=== PATIENT | female | born 1940 | race Caucasian/White ===

== ENCOUNTER → 2017-03-23 | Day surgery (SDC) | payer OTHER ==
[~2017-03-23] MED LIST: ALBU18002 INH; ASPI81TA28 PO; CARB1SOL OP; CARDIZEM PO; CLOP1TAB15 PO; CMD5 PO; CPR500 PO; CRS/10 PO; DABI1CAP PO; DILT300C PO; FLUC100T4 PO; FRS/40 PO; GABA-113 PO; GLC/500 PO; IPRASOL4 INH; LEVO100T7 PO; LVNIS120 SQ; NTRGSL/4 UT; POLY335019 PO; SYMIN160 INH; TEMA15CA4 PO; TIOT1SPR INH; TPRSR50 PO; WARF1TAB PO
--- NOTE | 2017-03-23 11:11 | DIAGNOSTIC IMAGING REPORT ---
FACIAL BONES-MXILLOFAC WITHOUT CLINICAL HISTORY:76 years Femaleacute facial pain status post fall. Concern for subcutaneous emphysema and possible sinus fracture. COMPARISON STUDY: None available TECHNIQUE: High-resolution CT scan of the facial bones is performed. Images are reviewed in the axial, sagittal, and coronal planes. IV contrast was not administered for this examination. CT DOSE: 616.72 mGy.cm FINDINGS: Acute minimally displaced right and left nasal bone fractures are seen with adjacent moderate soft tissue swelling. No associated subcutaneous emphysema is identified. The bony orbits are intact and the orbital contents are within normal limits. The zygomatic arches, and pterygoid plates are preserved. The maxilla and mandible are intact. Moderate degenerative changes involve the temporomandibular joints bilaterally. The paranasal sinuses and mastoid air cells are clear. The imaged calvarium and upper cervical spine appear intact. Degenerative changes are present within the imaged cervical spine. Partially imaged brain parenchyma is within normal limits. IMPRESSION: 1. Acute minimally displaced right and left nasal bone fractures with adjacent moderate soft tissue swelling. No evidence of associated subcutaneous emphysema. 2. No additional facial bone fracture or dislocation identified. 3. Moderate degenerative changes involve the temporomandibular joints bilaterally. The above report was generated using voice recognition software. It may contain grammatical, syntax or spelling errors. Electronically signed by: Sukhdev Flowers M.D. 03/23/2017 11:10 AM Dictated Date/Time: 03/23/2017 11:06 AM
--- NOTE | 2017-03-23 11:34 | Pulmonary Consultation ---
History General Date of Service: Mar 23, 2017. Stated Complaint: Pulmonary Nodule, Sob, Interstitial Lung Ds HPI The patient is a 76 year old female who presents to [facility] with complaints of Pulmonary Nodule, Sob, Interstitial Lung Ds. The patient's primary care provider is Michael Carrion D.O.. 76y/o female with PmHx: ILD, CHF, CAD, CAYETANO, aspiration and COPD recently treated for exacerbations with steroids and antibiotics. She continues to have a productive cough, wheezing, dyspnea, fatigued with little benefit from her medical/medication interventions. CXR performed 01/29/17 noted an opacification in the Lingula. On 03/20/2017 the patient feel and fractured her nose. She was treated and JCB with suture over her nasal bridge and left periorbital region. She denies current pain, SOB, hemoptysis nasal discharge but is having left rusty -orbital edema increased after using her CPAP device. Historian: patient, family, EMS Review of Systems Constitutional: reports: no symptoms Eyes: reports: no symptoms ENT: reports: nasal pain, nasal congestion Cardiovascular: reports: no symptoms Respiratory: reports: cough, shortness of breath Gastrointestinal: reports: no symptoms, as stated in HPI, abdominal pain Genitourinary - Female: reports: no symptoms, as stated in HPI, dysmenorrhea, dysuria Musculoskeletal: reports: no symptoms Integumentary: reports: no symptoms, as stated in HPI Neurologic: reports: no symptoms Psychiatric: reports: no symptoms Endocrine: no symptoms Hematologic / Lymphatic: no symptoms Allergic / Immunologic: no symptoms Past Medical History Past Medical History: ActiveProblems_10_twCiteListControlStart Acute bronchitis Aspiration into airway Candidiasis Chronic constipation Congestive heart failure (CHF) Coronary artery disease Depression Diabetes mellitus Hypertension Interstitial lung disease (DLCO: 50%) Myocardial Infarction Arrhythmias Obstructive sleep apnea Oral thrush Post-nasal drip Sacroiliac strain Shortness of breath Solitary pulmonary nodule ActiveProblems_10_twCiteListControlEnd Moderate COPD (FEV1: 63%) Angina pectoris Chest pain of unknown etiology Abscess Past Surgical History: Back Surgery Card Cath Post-Proc Data: ___ Lesions Successfully Dilated Cardioverter-Defibrillator Pulse Generator With Synchronous Cardiac Pacemaker Cath Stent Placement Catheter Ablation Atrial Fibrillation Cholecystectomy Tubal Ligation Family History 1. cerebrovascular accident 2. Acute Myocardial Infarction 3. Coronary Artery Disease Social History Former smoker Marital History - Never Drank Alcohol Retired From Work Allergies Coded Allergies: No Known Allergies (Unverified , 03/23/17) Physical Physical Exam General Appearance: NO APPARENT DISTRESS Head: other (anteroir forhead and left>righ maxilo-facial edema/ecyhmosis) Eyes: PERRLA, NO DISCHARGE, EOMI, SCLERAE NORMAL, CONJUNCTIVAE NORMAL ENT: NORMAL EAR EXAM, other (eythema with minimal blood L>R) Genitourinary - Female: EXTERNAL GENITALIA NORMAL Back: NORMAL INSPECTION, NO MIDLINE TENDERNESS, NO CVA TENDERNESS, NO PARAVERTEBRAL TTP Upper Extremities: NO EDEMA, NO DEFORMITY Lower Extremities: NO EDEMA, NO DEFORMITY Pulses: carotid (R) (2+), carotid (L) (2+), posterior tibial (L) (1+) Neuro: ALERT, ORIENTED x 3, NORMAL MOTOR EXAM, NORMAL SENSATION Reflexes: biceps (R) (2+), bicpes (L) (2+), achilles (R) (2+), achilles (L) (2+ ) Babinski Testing: right (downgoing), left (downgoing) Psychiatric: NORMAL AFFECT, NO SUICIDAL IDEATION Diagnostics Diagnostic Radiology CT of the face showing nasal fractures Impression Assessment and Plan 76-year-old female with history of ILD, COPD, aspiration, sleep apnea in chronic productive cough presenting for bronchoscopy: #1 nasal fracture: Patient fell in the Wednesday prior to the procedure and described preoperatively her nasal pillows causing increased left sided periorbital edema. Physical exam did not show any signs of subcutaneous fremitus nor did the CT of the face. The physical exam did show some erythema left greater than right and some mild retained blood in the left middle turbinate. At this time I have discontinued the bronchoscopy we have also talked to the ENT specialist Dr. Dieter Longoria the patient will be sent for further evaluation. Want to make sure that using her nares O Pelz will not place this patient at any increased risk from nasal complication of possible infection at this time. #2 chronic cough: The patient is stabilized and cleared by ENT the patient can be reset up for bronchoscopy for evaluation.
== END | disposition home or self-care (01) ==
LOC: C.ACU 08:40
PROVIDERS: ATTEND Internal Medicine Critical Care Medicine
DX: R05 Cough (principal); J84.9 Interstitial pulmonary disease, unspecified; I50.9 Heart failure, unspecified; I25.10 Atherosclerotic heart disease of native coronary artery without angina pectoris; G47.33 Obstructive sleep apnea (adult) (pediatric); R91.1 Solitary pulmonary nodule; I11.0 Hypertensive heart disease with heart failure; E11.9 Type 2 diabetes mellitus without complications; F32.9 Major depressive disorder, single episode, unspecified; K59.09 Other constipation; Z87.891 Personal history of nicotine dependence; Z95.5 Presence of coronary angioplasty implant and graft; S02.2XXA Fracture of nasal bones, initial encounter for closed fracture; W19.XXXA Unspecified fall, initial encounter; Z79.82 Long term (current) use of aspirin; Z79.84 Long term (current) use of oral hypoglycemic drugs; Z79.01 Long term (current) use of anticoagulants; Z79.899 Other long term (current) drug therapy; J44.9 Chronic obstructive pulmonary disease, unspecified; Z53.8 Procedure and treatment not carried out for other reasons

== ENCOUNTER 2017-04-20 08:22 | Inpatient (IN) | payer OTHER ==
[2017-04-20] VITALS (12 sets, daily range): BP systolic 131–151; BP diastolic 68–85; PULSE 61–78; TEMP 36.5–36.9; O2SAT 92–98; Ht 167.6 cm; Wt 116.2 kg
[~2017-04-20] VITALS: Ht 167.6 cm; Wt 116.2 kg
[2017-04-20] MEDS ORDERED: OPTIRAY 300 IV PRN (08:30)
[2017-04-20 09:11] LABS: ISTAT CREATININE 0.8 mg/dl (0.6-1.3); ISTAT HEMOGLOBIN 12.9 g/dl (12.0-16.0); ISTAT IONIZED CALCIUM 1.15 mmol/l (1.12-1.32)
--- NOTE | 2017-04-20 09:27 | DIAGNOSTIC IMAGING REPORT ---
CT SCAN OF THE CHEST WITH IV CONTRAST CLINICAL HISTORY: Acute bronchitis. Pulmonary nodule. COMPARISON STUDY: Chest CT dated 11/18/2010. Chest x-ray dated 03/20/2017. TECHNIQUE: Following the IV administration of 117 cc of Optiray 320, CT scan of the thorax was performed from the thoracic inlet to the upper abdomen. Images are reviewed in the axial, sagittal, and coronal planes. IV contrast was administered without complication. A dose lowering technique was utilized adhering to the principles of ALARA. CT DOSE: 845.38 mGy.cm FINDINGS: Thyroid: Imaged portions of the thyroid gland are normal in size and attenuation. Thoracic aorta: There is atherosclerotic calcification of the thoracic aorta, which is normal in caliber and demonstrates bovine variant arch anatomy. No dissection is seen. Pulmonary vasculature: The main pulmonary arteries appear dilated suggesting pulmonary artery hypertension. There are pulmonary emboli within segmental and subsegmental branches of the right lower lobe pulmonary artery. Heart: A 2-lead cardiac pacemaker is present in the left chest wall. The heart is enlarged and without pericardial effusion. The coronary arteries are densely calcified. Lungs and pleural spaces: Emphysema is identified. No lobar consolidation or pleural effusion is identified. Linear scarring versus atelectasis is seen in the lingula. There are subpleural opacities at the right lung base with right lower lobe scarring/atelectasis. Secretions are noted in the trachea and the left mainstem bronchus. There is Bronchial thickening in the lower lobes with intraluminal secretions/debris. Numerous punctate nodules and granulomas are seen dependently at both lung bases, left greater than right. Mediastinum: There is no mediastinal lymphadenopathy. Roxann: Clear. Axillae: There is no axillary lymphadenopathy. Upper abdomen: There is a tiny hiatal hernia. A 7 cm cyst is seen in the right lobe of the liver. Additional smaller hepatic cysts are noted. Mild intrahepatic biliary ductal dilatation is unchanged and likely related to previous cholecystectomy. Left adrenal nodules measure up to 1.7 cm are unchanged from 2011 and consistent fat-containing adenomas. There is a 1.1 cm indeterminant cortical hypodensity in the upper pole of the left kidney seen on image #282. Skeletal structures: The skeletal structures are osteopenic. No lytic or blastic bony lesions are seen. Degenerative change is present throughout the thoracic spine. Intrathecal leads are present within the central canal in the lower thoracic region. IMPRESSION: 1. There are pulmonary emboli within segmental and subsegmental branches of the right lower lobe pulmonary artery. 2. Subpleural opacities are seen at the right lung base and there is associated linear atelectasis/scarring. The appearance suggests pulmonary infarcts given the presence of right lower lobe pulmonary emboli. Clinical correlation will be required. 3. There are secretions present within the trachea and left mainstem bronchus. Additionally, fluid/debris is present within the dependent lower lobe airways. There are numerous punctate nodules seen within the dependent lower lobes and the appearance suggests chronic aspiration. Clinical correlation will be essential. 4. Emphysema, cardiomegaly, and cardiac pacemaker. Findings suggest pulmonary artery hypertension. 5. There is no lobar consolidation or pleural effusion. 6. There is a 1.1 cm indeterminant cortical hypodensity in the upper pole of the left kidney. This likely represents a cyst but is too small for definitive characterization. A precautionary six-month renal ultrasound is recommended for reassessment. 7. An intrathecal lead versus lead fragment is present within the central canal in the lower thoracic region. Clinical correlation will be required. 8. Additional findings as above. Electronically signed by: Oral Kirby M.D. 04/20/2017 9:26 AM Dictated Date/Time: 04/20/2017 9:12 AM
--- NOTE | 2017-04-20 10:00 | History and Physical ---
History & Physical Date Apr 20, 2017. Chief Complaint Chronic Cough History of Present Illness The patient is a 76 year old female with complaints of chronic cough Pulmonary function study 05/03/2014 Spirometry: Mild obstructive ventilatory disease FEV1 80% Lung volumes: Within normal limits DLCO: Moderately reduced at 42% corrected off alveolar volume at 82% 6 minute walk study 10/01/2016 Baseline O2 needs: Initially, no supplemental oxygen was needed. GrqwdRtcmcvb94Bju CpgwbXefsolf06Waike EccpdYcxvypu68Ghh UtnkiYrqnyzz12Vpdre Baseline VS and Horacio scale: HR: 66,~O2 sat: 95% RtkbxUblkpef83Jlc JbksnKtyjovq56Zaeum NjrtrMnteguf03Irv CxzcqSeptvbc92Pmqgf QvxphUvjyyni31Vap UmlcpGixnghc48Zlete HzeyxJzihdva76Hmy OdxtqLprwncg19Eeams AtewfXbryeut92Peh HqhrpSlgethb00Sblam IdnnkBbnqzzn54Ceo NlvnrPchiidq15Yfhme AlcbsRtxgyjf31Ute VdwgsZzvmqws41Jamzl 1 min VS and Horacio Scale: HR: 101,~O2 sat: 90% HcmjyQtbfouv69Hkc KdzkwGsvoiat22Lxmnx 2 min VS and Horacio Scale: HR: 109,~O2 sat: 88% ZtqjwLmfivxx93Uzg GeemvQgffdib56Rsywk YszmrRclumjk47Wrw AtspoOkfqytv04Gocps LwekrYadtrij02Tyg ZrtamDlyzozy40Kpbzw IicaeSlmczkv97Myd FvxepGpmqnvw23Uxchj JpxuuFftyxej47Xyj QcgbnEcxkvha89Cnlxo YvxgyLnbvrfu58Jom XxiivPoryeio95Jpjpq Interventions: supplemental oxygen was applied at 2 liters per minute and was 96 % at 1 min seated, HR-91, O2 was 94% with 1 mintue of walking, HR-93. DenkhDqbsklx45Tap BtqgcYdddkqg10Ghkul WktuaNtxgpyl13Hmq NgtriCozoxox13Myhsl VexcuAfllwbl19Gir RbgxmDmocjwl81Borfr WvxrgZcgxdvb53Qof TmanrZmanuru86Jyidc JlumzKdduucu83Zyn FanvwBolgndr71Uiiua AjihbFkdrzkn38Lmr HccnuWgjzgja17Ceutw The patient complains of dyspnea,~fatigue~and~left foot pain. IpadoDtqarsg47Xwl McwouKjkkndf89Zbwyi Reason for Premature Termination: dyspnea~and~left foot pain EKG 01/15/2017 Atrial fibrillation with RVR rate 127 CT thorax 11/18/2010 Bronchiectatic changes in the right middle lobe along with scar-like atelectasis Bronchiectatic changes with scar-like atelectasis in the lingual Active signs of interstitial/parenchymal changes Chest x-ray 03/20/2017 Cardiomegaly, hilar fullness with cephalization Mild opacification of the left lateral lower lobe OqbkkYfkgyiw90Xci HanfcKguhibh58Jpsrd BfaswOadjciq06Nsc SixMinuteWalkTest(6MWT) [id number] Active Problems 1. Acute bronchitis 2. Aspiration into airway 3. Candidiasis 4. Chronic constipation 5. Congestive heart failure (CHF) 6. Coronary artery disease 7. Depression 8. Diabetes mellitus 9. Hypertension 10. Interstitial lung disease 11. Myocardial Infarction Arrhythmias 12. Obstructive sleep apnea 13. Oral thrush 14. Post-nasal drip 15. Sacroiliac strain 16. Shortness of breath 17. Solitary pulmonary nodule 18. bundle branch block 19. Angina pectoris 20. Chest pain of unknown etiology 21. Abscess Surgical History 1. Back Surgery 2. Card Cath Post-Proc/Lesions Successfully Dilated 3. Cardioverter-Defibrillator Pulse Generator With Synchronous Cardiac Pacemaker 4. Cath Stent Placement 5. Catheter Ablation Atrial Fibrillation 6. Cholecystectomy 7. Tubal Ligation 8. Back surgery Family History 1. Family history of cerebrovascular accident 2. Family history of Acute Myocardial Infarction 3. Family history of Coronary Artery Disease Social History Denied: History of Drug Use Former smoker () Denied: History of Home Environment Domestic Violence Denied: History of Housing Without Smoke Detectors Marital History - Never Drank Alcohol Retired From Work Denied: History of Uses Safety Equipment - Seatbelts Current Meds 1. Ipratropium-Albuterol 0.5-2.5 (3) MG/3ML Inhalation Solution; USE 1 UNIT DOSE IN NEBULIZER 4 TIMES DAILY Requested for: [id number]; Last Rx:[id number] Ordered 2. Azithromycin 250 MG Oral Tablet; Take 2 day 1 then 1 daily until gone; 3. Fluconazole 100 MG Oral Tablet; TAKE 1 TABLET DAILY DIRECTED 4. MetFORMIN HCl - 500 MG Oral Tablet; TAKE 1 TABLET ONCE DAILY WITH A MEAL; 5. Medrol 4 MG Oral Tablet Therapy Pack; TAKE DIRECTED; 6. Spiriva Respimat 2.5 MCG/ACT Inhalation Aerosol Solution; INHALE 2 PUFFS ONCE 7. Symbicort 160-4.5 MCG/ACT Inhalation Aerosol; INHALE 2 PUFFS TWICE DAILY. RINSE 8. ProAir RespiClick 108 (90 Base) MCG/ACT Inhalation Aerosol Powder Breath Activated; 2 Puffs Q4 hours as needed; 9. Aspirin Adult Low Dose 81 MG Oral Tablet Delayed Release; TAKE 1 TABLET DAILY ; 10. Cardizem LA 300 MG Oral Tablet Extended Release 24 Hour; TAKE 1 TABLET DAILY ; 11. Crestor 10 MG Oral Tablet; TAKE 2 TABLETS DAILY; 12. Gabapentin 300 MG Oral Capsule; TAKE 1 CAPSULE Daily; 13. Lasix 40 MG Oral Tablet; TAKE 1 TABLET DAILY; 14. Levothyroxine Sodium 100 MCG Oral Tablet; TAKE 1 TABLET DAILY; 15. Nitrostat 0.4 MG Sublingual Tablet Sublingual; PLACE 1 TABLET UNDER THE TONGUE EVERY 5 MINUTES FOR UP TO 3 DOSES NEEDED FOR CHEST PAIN.CALL 16. Plavix 75 MG Oral Tablet; TAKE 1 TABLET DAILY 17. Polyethylene Glycol 3350 Oral Powder; 1 heaping tablespoon in water once daily; 18. Pradaxa 75 MG Oral Capsule; one tablet BID 19. Refresh 1.4-0.6 % Ophthalmic Solution; INSTILL 1 DROP IN EACH EYE 4 TIMES A DAY; 20. Temazepam 15 MG Oral Capsule; TAKE ONE CAPSULE AT BEDTIME NEEDED Allergies 1. No Known Drug Allergies Additional History Hepatic Disease: No Endocrine Disorder: Yes Kidney Disease: No Hypertension: Yes Heart Disease: Yes Bleeding Tendencies: Yes Infectious Diseases: No Allergies Coded Allergies: No Known Allergies (Unverified , 04/20/17) Physical Examination Skin: warm/dry, no rash Eyes: normal inspection, EOMI, sclerae normal ENT: normal ENT inspection, pharynx normal Head: normocephalic, atraumatic Neck: supple, no adenopathy, trachea midline Respiratory/Chest: lungs clear, normal breath sounds, no respiratory distress Cardiovascular: regular rate, rhythm, no edema, no murmur Abdomen / GI: normal bowel sounds, non tender Back: normal inspection Extremities: normal inspection, normal range of motion Neurologic/Psych: no motor/sensory deficits, alert, normal reflexes, oriented x 3 Diagnosis Chronic Cough ASA Classification: ASA Class III Plan of Treatment Bronchoscopy with BAL
--- NOTE | 2017-04-20 10:01 | History & Physical Bridge Note ---
H&P Re-Evaluation Bridge Note: I have examined the patient, reviewed the History & Physical and in the interval since the performance of the History & Physical I have noted the following changes of clinical significance: No changes noted
--- NOTE | 2017-04-20 10:01 | Procedure Note ---
Pre-Mod Sedation Assessment General Date of Moderate Sedation: Apr 20, 2017. Review Cardiovascular: regular rate, rhythm, no edema, no gallop, no JVD Abdomen: normal bowel sounds, non tender, soft, no organomegaly, no pulsatile mass Lungs: chest non-tender, lungs clear Airway Class: III Notes The bronchoscopic intervention was canceled as the patient is a new diagnosis of pulmonary emboli
[2017-04-20] MEDS ORDERED: FLUC100T4 PO (10:19)
[2017-04-20] MEDS ORDERED: LEVO100T7 PO (10:19)
[2017-04-20] MEDS ORDERED: TIOT1SPR INH (10:19)
[2017-04-20] MEDS ORDERED: FRS/40 PO (10:19)
[2017-04-20] MEDS ORDERED: TEMA15CA4 PO (10:19)
[2017-04-20] MEDS ORDERED: SYMIN160 INH (10:19)
[2017-04-20] MEDS ORDERED: DABI1CAP PO (10:19)
[2017-04-20] MEDS ORDERED: NTRGSL/4 UT (10:19)
[2017-04-20] MEDS ORDERED: GABA-113 PO (10:19)
[2017-04-20] MEDS ORDERED: ASPI81TA28 PO (10:19)
[2017-04-20] MEDS ORDERED: CARDIZEM PO (10:19)
[2017-04-20] MEDS ORDERED: POLY335019 PO (10:19)
[2017-04-20] MEDS ORDERED: GLC/500 PO (10:19)
[2017-04-20] MEDS ORDERED: CARB1SOL OP (10:19)
[2017-04-20] MEDS ORDERED: CLOP1TAB15 PO (10:19)
[2017-04-20] MEDS ORDERED: ALBU18002 INH (10:19)
[2017-04-20] MEDS ORDERED: IPRASOL4 INH (10:19)
[2017-04-20] MEDS ORDERED: CRS/10 PO (10:19)
--- NOTE | 2017-04-20 11:07 | Pulmonology Progress Note ---
Pulmonary Progress Note Date of Service Apr 20, 2017. Attending Dr. Vann Subjective Patient is abnormal pulmonary status showing no signs of increased work of breathing Objective Patient shows no signs of increased work breathing and describes no shortness of Breath Vital signs: Stable on room air Respiratory: Mild rhonchi at the bases Cardiac: Regular rate and rhythm Assessment & Plan 76-year-old female with history of chronic cough was to undergo evaluation via bronchoscopy. Bronchoscopic intervention was discontinued as the patient underwent CT angiogram of the chest earlier today and was significant for newly diagnosed pulmonary embolism. Patient has been treated with Plavix and Pradaxa in the past but the Pradaxa was held for this particular procedure. 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 Plan: The patient will be admitted started on Lovenox and further discussion/ evaluation for long-term anticoagulant use. Data Medications: Current Inpatient Medications Medications (Trade) Dose Ordered Sig/Charissa Route Start Time Stop Time Status Last Admin Dose Admin Ioversol (Optiray 300) 125 ml UD PRN IV 04/20/17 08:30 04/24/17 08:29 Vital Signs: Date Time Temp Pulse Resp B/P (MAP) Pulse Ox O2 Delivery O2 Flow Rate FiO2 04/20/17 10:20 61 21 142/85 98 Mask 4.0 04/20/17 10:08 36.5 71 20 151/68 93 Room Air 04/20/17 09:48 36.5 71 20 151/68 (95) 93 Room Air Laboratory Results: Last 24 Hours Test 04/20/17 08:53 04/20/17 09:21 Bedside Hemoglobin 12.9 g/dl Bedside Hematocrit 38 % Bedside Sodium 141 mEq/L Bedside Potassium 4.2 mEq/L Bedside Chloride 103 mEq/L Bedside Total CO2 28 mEq/l Anion Gap 16.0 mmol/L Bedside Blood Urea Nitrogen 8 mg/dl Bedside Creatinine 0.8 mg/dl Bedside Glucose (other) 131 mg/dl Bedside Ionized Calcium (Rojas) 1.15 mmol/l Bedside Glucose 129 mg/dl
[2017-04-20] MEDS ORDERED: DILT300C PO (12:08)
[2017-04-20] MEDS ORDERED: TEMAZEPAM 15 MG CAP PO PRN (12:15)
[2017-04-20] MEDS ORDERED: ACETAMINOPHEN 325 MG TAB PO PRN (12:15)
[2017-04-20] MEDS ORDERED: ONDANSETRON INJ 2 MG/ML 2 ML VIAL IV PRN (12:15)
[2017-04-20] MEDS ORDERED: GLUCOSE 40% GEL 15 GM TUBE PO PRN (12:15)
[2017-04-20] MEDS ORDERED: NITROGLYCERIN 0.4 MG SL PER TAB CHARGE UT PRN (12:15)
[2017-04-20] MEDS ORDERED: ALBUTEROL HFA 8 GM INHALER INH PRN (12:15)
[2017-04-20] MEDS ORDERED: ALUMINUM/MAGNESIUM/SIMETH (MAALOX MAX) 30 ML UDC PO PRN (12:15)
[2017-04-20] MEDS ORDERED: DEXTROSE 50% 50 ML SYR IV PRN (12:15)
[2017-04-20] MEDS ORDERED: MAGNESIUM HYDROXIDE SUSP 30 ML UDC PO PRN (12:15)
[2017-04-20] MEDS ORDERED: GLUCAGON FOR INJ 1 MG VIAL SQ PRN (12:15)
[2017-04-20] MEDS ORDERED: GLUCOSE 10 TABS/TUBE PO PRN (12:15)
--- NOTE | 2017-04-20 12:52 | History and Physical ---
History & Physical Date & Time of Service: Apr 20, 2017 at 12:26 Chief Complaint: Pulmonary Nodule, Sob Primary Care Physician: Michael Carrion D.O. History of Present Illness Source: patient, family (granddaugther at bedside, spoke to daughter on the phone), caregiver (health aide at bedside), clinic records, hospital records This is a 76 y/o female with a history of a-fib, s/p pacemaker, CAD, UT x 2 s/p stents (5), HTN, HLD, CHF, DM II, interstitial lung disease, CAYETANO, and hypothyroidism who presented for direct admission on 04/20 with shortness of breath and productive cough. The patient had been scheduled for a bronchoscopy with Dr. Vann today to evaluate her chronic cough. A chest CT prior to the procedure revealed acute segmental and subsegmental PE in the right lower lobe pulmonary artery, however, and the procedure was canceled. The patient complains of worsening shortness of breath for the last few months following a fall in March which resulted in a nasal fracture. The patient then had another fall on April 10 which resulted in an injury to her left lower leg/ankle. The patient has been very sedentary since her falls. She has been taking Pradaxa for several years due to her a-fib but had held it a few days ago in preparation for the bronchoscopy scheduled for today. The patient also complains of a chronic productive cough with yellow or green sputum and intermittent wheezing. She states that she consistently coughs every time that she eats. She admits to eating a regular diet with solid foods and does sit upright when eating. She has a history of aspiration pneumonia per her granddaughter and was supposed to follow with a speech therapist bur did not comply. The patient denies fevers, chills, sweats, chest pain, palpitations, claudication, nausea, vomiting, abdominal pain, dysuria, hematuria, urinary retention, paralysis, weakness, acute numbness and tingling. Past Medical/Surgical History A-fib CAD UT x 2 HTN HLD CHF DM II ILD CAYETANO Hypothyroidism S/p pacemaker S/p cardiac stents x 5 Family History Coronary artery disease Hypertension Myocardial infarction Stroke Social History Smoking Status: Former Smoker (quit around 1999) Smokeless Tobacco Use: No Alcohol Use: none Drug Use: none Marital Status: Housing status: lives alone Occupational Status: retired Allergies Coded Allergies: No Known Allergies (Unverified , 04/20/17) Home Medications Scheduled Albuterol Sulfate (Proair Respiclick), INH DIRECTED Aspirin (Aspirin Ec), 81 MG PO DAILY Budesonide/Formoterol Fumarate (Symbicort 160/4.5 Inhaler ), 2 PUFFS INH BID Carboxymethylcellulose Sodium (Refresh), OP DIRECTED Clopidogrel (Plavix), 75 MG PO DAILY Dabigatran Etexilate Mesylate (Pradaxa), 1 CAP PO BID Diltiazem Hcl Coated Beads (Diltiazem Hcl Er), 300 MG PO DAILY Furosemide (Lasix), 40 MG PO DAILY Gabapentin (Neurontin), 300 MG PO DAILY Ipratropium-Albuterol (Duoneb), 1 TREATMENT INH Q4H Levothyroxine Sodium (Levothyroxine Sodium), 1 TAB PO DAILY Metformin Hcl (Glucophage), 500 MG PO DAILY Nitroglycerin (Nitrostat), 0.4 MG UT PRN Polyethylene Glycol 3350 (Miralax), 17 GM PO DAILY Rosuvastatin Calcium (Crestor), 20 MG PO DIRECTED Tiotropium [place] (Spiriva Respimat), 1 PUFF INH DIRECTED Scheduled PRN Temazepam (Restoril), 15 MG PO HS PRN for Insomnia Review of Systems Constitutional: + fatigue, No fever, No chills, No sweats, No weakness Eyes: No worsening of vision, No eye pain, No diplopia ENT: + trouble swallowing (coughs after eating), No hearing loss, No sore throat Respiratory: + cough, + sputum, + wheezing, + shortness of breath Cardiovascular: No chest pain, No orthopnea, No claudication, No palpitations Abdomen: No pain, No nausea, No vomiting Musculoskeletal: + joint pain (pain in ankles bilaterally following recent fall ), No muscle pain, No calf pain Genitourinary - Female: + problem reported (reports foul odor), No dysuria, No urinary retention, No hematuria Neurologic: + numbness/tingling (chronic numbness in feet bilaterally), No paralysis, No weakness Integumentary: No rash, No itch, No color change Physical Exam Vital Signs Date Time Temp Pulse Resp B/P (MAP) Pulse Ox O2 Delivery O2 Flow Rate FiO2 04/20/17 11:06 93 Nasal Cannula 2 04/20/17 10:20 61 21 142/85 98 Mask 4.0 04/20/17 10:08 36.5 71 20 151/68 93 Room Air 04/20/17 09:48 36.5 71 20 151/68 (95) 93 Room Air General appearance: +Obese. Well-developed, well-nourished, no apparent distress Head: Normocephalic, atraumatic Eyes: Normal inspection, PERRL, EOMI ENT: Normal ENT inspection, hearing grossly normal, pharynx normal Neck: Supple, no JVD, trachea midline Respiratory/Chest: +Decreased breath sounds throughout, particularly in bases. Lungs clear to auscultation, normal breath sounds, no respiratory distress Cardiovascular: Regular rate & rhythm, no gallop, no murmur Abdomen/GI: Normal bowel sounds, non-tender, soft Extremities/Musculoskeletal: +Small scabbed wound on anterior LLE just superior to ankle. Trace pitting edema. Ankles TTP bilaterally. No calf tenderness Neurological/Psych: Alert, normal mood/affect, oriented x 3 Skin: Normal color, warm/dry, no rash Diagnostics Laboratory Results Results Past 24 Hours Test 04/20/17 08:53 04/20/17 09:21 Range/Units Bedside Hemoglobin 12.9 12.0-16.0 g/dl Bedside Hematocrit 38 37-47 % Bedside Sodium 141 135-144 mEq/L Bedside Potassium 4.2 3.3-5.0 mEq/L Bedside Chloride 103 101-112 mEq/L Bedside Total CO2 28 24-31 mEq/l Anion Gap 16.0 16-25 mmol/L Bedside Blood Urea Nitrogen 8 7-18 mg/dl Bedside Creatinine 0.8 0.6-1.3 mg/dl Bedside Glucose (other) 131 70-99 mg/dl Bedside Ionized Calcium (Rojas) 1.15 1.12-1.32 mmol/l Bedside Glucose 129 70-90 mg/dl Diagnostic Radiology Reviewed the following studies and agree with interpretation as follows: Patient Name: GIOVANNA GARCIA Unit Number: [id number] Dictated: 04/20/17911 Transcribed: 04/20/17911 EV Printed Date/Time: [~ rep prt dt]/[~ rep prt tm] [~ rep ct labl] - [~ rep ct ivnm] [facility] [place] [address] Dictated: 04/20/17911 Transcribed: 04/20/17911 EV Printed Date/Time: [~ rep prt dt]/[~ rep prt tm] [~ rep ct labl] - [~ rep ct ivnm] Patient: GIOVANNA GARCIA Address1: [address] Rec: [id number] Address2: Acct ID: [id number] [facility] Zip: [place] [id number] Date: 1940 Sex: F Room/Bed: Ref Phy: Michael Carrion D.O. SC: PricillaACU Att Phy: Darren Vann MD Report #: [id number] Tita Phy: Michael Carrion D.O. Test: CX Admit Phy: Negative Turner Apprentice: JAIRO Interpreting Phy: Oral Kirby M.D. Diagnosis: PULMONARY NODULE, SOB Ordering Phy: Seb Ravi PA-C Service Date: 04/20/17 Admit Date: 04/20/17 MNE: [id number] CONF: DICTATED BY: Oral Kirby M.D.]] CC: Seb Ravi PA-C Thebaud, Gregor D.O. Waddington, Thomas W., MD Endcc: [~ rep ct add3]] CT SCAN OF THE CHEST WITH IV CONTRAST CLINICAL HISTORY: Acute bronchitis. Pulmonary nodule. COMPARISON STUDY: Chest CT dated 11/18/2010. Chest x-ray dated 03/20/2017. TECHNIQUE: Following the IV administration of 117 cc of Optiray 320, CT scan of the thorax was performed from the thoracic inlet to the upper abdomen. Images are reviewed in the axial, sagittal, and coronal planes. IV contrast was administered without complication. A dose lowering technique was utilized adhering to the principles of ALARA. CT DOSE: 845.38 mGy.cm FINDINGS: Thyroid: Imaged portions of the thyroid gland are normal in size and attenuation. Thoracic aorta: There is atherosclerotic calcification of the thoracic aorta, which is normal in caliber and demonstrates bovine variant arch anatomy. No dissection is seen. Pulmonary vasculature: The main pulmonary arteries appear dilated suggesting pulmonary artery hypertension. There are pulmonary emboli within segmental and subsegmental branches of the right lower lobe pulmonary artery. Heart: A 2-lead cardiac pacemaker is present in the left chest wall. The heart is enlarged and without pericardial effusion. The coronary arteries are densely calcified. Lungs and pleural spaces: Emphysema is identified. No lobar consolidation or pleural effusion is identified. Linear scarring versus atelectasis is seen in the lingula. There are subpleural opacities at the right lung base with right lower lobe scarring/atelectasis. Secretions are noted in the trachea and the left mainstem bronchus. There is Bronchial thickening in the lower lobes with intraluminal secretions/debris. Numerous punctate nodules and granulomas are seen dependently at both lung bases, left greater than right. Mediastinum: There is no mediastinal lymphadenopathy. Roxann: Clear. Axillae: There is no axillary lymphadenopathy. Upper abdomen: There is a tiny hiatal hernia. A 7 cm cyst is seen in the right lobe of the liver. Additional smaller hepatic cysts are noted. Mild intrahepatic biliary ductal dilatation is unchanged and likely related to previous cholecystectomy. Left adrenal nodules measure up to 1.7 cm are unchanged from 2011 and consistent fat-containing adenomas. There is a 1.1 cm indeterminant cortical hypodensity in the upper pole of the left kidney seen on image #282. Skeletal structures: The skeletal structures are osteopenic. No lytic or blastic bony lesions are seen. Degenerative change is present throughout the thoracic spine. Intrathecal leads are present within the central canal in the lower thoracic region. IMPRESSION: 1. There are pulmonary emboli within segmental and subsegmental branches of the right lower lobe pulmonary artery. 2. Subpleural opacities are seen at the right lung base and there is associated linear atelectasis/scarring. The appearance suggests pulmonary infarcts given the presence of right lower lobe pulmonary emboli. Clinical correlation will be required. 3. There are secretions present within the trachea and left mainstem bronchus. Additionally, fluid/debris is present within the dependent lower lobe airways. There are numerous punctate nodules seen within the dependent lower lobes and the appearance suggests chronic aspiration. Clinical correlation will be essential. 4. Emphysema, cardiomegaly, and cardiac pacemaker. Findings suggest pulmonary artery hypertension. 5. There is no lobar consolidation or pleural effusion. 6. There is a 1.1 cm indeterminant cortical hypodensity in the upper pole of the left kidney. This likely represents a cyst but is too small for definitive characterization. A precautionary six-month renal ultrasound is recommended for reassessment. 7. An intrathecal lead versus lead fragment is present within the central canal in the lower thoracic region. Clinical correlation will be required. 8. Additional findings as above. Electronically signed by: Oral Kirby M.D. 04/20/2017 9:26 AM Dictated Date/Time: 04/20/2017 9:12 AM The status of this report is Signed. Draft = Not yet reviewed or approved by Radiologist. Signed = Reviewed and approved by Radiologist. <AttendingPhy>Darren Vann MD</AttendingPhy> <FamilyPhy>Michael Carrion D.O.</FamilyPhy> <PrimaryPhy>Michael Carrion D.O.</PrimaryPhy> <UnitNumber >[id number]</UnitNumber> <VisitNumber>[id number]</VisitNumber> <PatientName> GIOVANNA GARCIA</PatientName> <DateOfBirth>1940</DateOfBirth> <Location> [facility]</Location> <ServiceDate>04/20/17</ServiceDate> <MNE>ESINDI</MNE> < OrderingPhy>Seb Ravi PA-C</OrderingPhy> <OrderingPhyMNE>f rep ord dr kerr< /OrderingPhyMNE> <DictatingPhyMNE>f rep dict dr kerr</DictatingPhyMNE> <CCListMNE >f rep ct mne</CCListMNE> <AdmittingPhyMNE>f pt admit dr kerr</AdmittingPhyMNE> < AttendingPhyMNE>f pt attend dr kerr</AttendingPhyMNE> <ConsultingPhyMNE>f pt consult dr kerr</ConsultingPhyMNE> <FamilyPhyMNE>f pt fam dr kerr</FamilyPhyMNE> <OtherPhyMNE>f pt other dr kerr</OtherPhyMNE> < PrimaryPhyMNE>f pt prim care dr kerr</PrimaryPhyMNE> <ReferringPhyMNE>f pt referring dr kerr</ReferringPhyMNE> Impression Assessment and Plan 76 y/o female with a history of a-fib, s/p pacemaker, CAD, UT x 2 s/p stents (5) , HTN, HLD, CHF, DM II, interstitial lung disease, CAYETANO, and hypothyroidism who presented for direct admission on 04/20 with shortness of breath and productive cough. Pt had been scheduled for bronch with Dr. Vann. Chest CT shows acute PE on right side so bronch was canceled and pt was directly admitted. 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 Pt presumably failed Pradaxa as she states she took as directed every day and only stopped for 2 days prior to procedure -Venous dopplers lower extremities bilaterally -EKG q am and prn with chest pain -O2 by protocol Chronic cough/chronic aspiration -Speech therapy evaluate and treat. Consider barium swallow or video swallow -Aspiration precautions Recent falls -PT/OT evaluate and treat and social media community manager consult -Fall precautions -X-ray ankles bilaterally to assess for fracture A-fib, h/o ablation, s/p pacemaker (1999)--stable, currently in SR -Continue diltiazem 300 mg PO qd -Pradaxa held until new intermodal truck driver AC option is determined. Lovenox as above CAD, h/o UT x 2 and s/p stents x 5, HTN, HLD--most recent UT in January 2017 -Continue ASA 81 mg PO qd, Plavix 75 mg PO qd, and Crestor 20 mg PO qhs CHF--unknown systolic or diastolic, no echo on record -Continue Lasix 40 mg PO qd DM II--unknown last HgbA1c -Hold metformin -Insulin sliding scale -Check BSGs q ac and qhs -Check HgbA1c -Continue gabapentin 300 mg PO qd for neuropathy Interstitial lung disease, CAYETANO--pt wears supplemental oxygen at home prn -Continue DuoNebs q4h, Spiriva, Symbicort, and albuterol prn -Continue CPAP, will bring from home Insomnia -Continue Restoril 15 mg PO qhs prn DVT prophylaxis -Lovenox as above Code Status -Level I, FULL RESUSCITATION STATUS Level of Care Telemetry Resuscitation Status FULL RESUSCITATION VTE Prophylaxis VTE Risk Assessment Done? Y/N: Yes Risk Level: Moderate Given or contraindicated: Enoxaparin (Lovenox)SQ, T.E.D. Stockings, SCD's Note Attending Admission Note & Attestation: Pt seen/examined, chart reviewed, care plan d/w PA Dee Sang. I agree w/ the bronson components of her admission documentation. 76yo female with a-fib, s/p pacemaker and on chronic anticoagulation, CAD, UT x 2 s/p stents (5), HTN, HLD, chronic diastolic CHF, T2DM, interstitial lung disease, CAYETANO, chronic respiratory failure on home O2, dysphagia, and hypothyroidism who presented earlier today for elective bronchoscopy with Dr. Vann due to chronic cough and worsening pulmonary symptoms. Prior to the bronch she underwent CT chest which incidentally showed RLL pulmonary emboli. In addition there were findings suggestive of aspiration. The patient confirmed she had ONLY been off her pradaxa for about 2 days prior to today. She reported being on pradaxa for years. Prior to that had been on coumadin. She has never had a VTE. She asks that we contact her lard renderer to keep him informed of her hospital stay. PMH, PSH, allergies, meds, sochx, famhx, ros - reviewed VSS, no fever gen - NAD, obese neck - no JVD heart - RRR, s1, s2 lungs - diffuse wheezing b/l, no increased work of breathing, mild crackles bases abd - obese, soft, NT ext - trace edema b/l, pulses 2+ b/l; no asymmetry of the legs skin - scab present on LLE, distal; no cellulitis A/P: 1. incidental finding of RLL pulmonary emboli despite chronic use of pradaxa; agree with Perfecto Sang this is likely a pradaxa "failure". Start lovenox 1mg/kg q12h. Long-term oral option - coumadin? Will have primary team discuss tomorrow. Check dopplers of legs, r/o DVT. 2. dysphagia with signs of aspiration on CT - speech consult; may need video swallow. 3. ILD - work-up and Rx per pulmonary. 4. CAYETANO - CPAP. 5. chronic diastolic CHF - appears compensated. other plans per Perfecto Sang. Marciano Jeffries MD Additional Copies To Shun Johnson M.D.; Michael Carrion D.O.
--- NOTE | 2017-04-20 13:55 | DIAGNOSTIC IMAGING REPORT ---
ULTRASOUND VENOUS DOPPLER LWR EXT BILA CLINICAL HISTORY: Pulmonary embolus. COMPARISON STUDY: No previous studies for comparison. FINDINGS: On the right, no intraluminal thrombus was visualized. The common femoral superficial femoral and popliteal veins appeared normal. There was normal color-flow the proximal trifurcation veins of the right calf. On the left, no thrombus is visualized in the common femoral vein. There is echogenic stranding within the left superficial femoral vein consistent with sequela of chronic DVT. No acute DVT was visualized. No thrombus is visualized in the left popliteal vein. The proximal trifurcation veins of the left calf demonstrate normal color flow. IMPRESSION: 1. No evidence of right lower extremity DVT 2. Chronic fibrin stranding within the left superficial femoral vein Electronically signed by: Etienne Guerra M.D. 04/20/2017 1:54 PM Dictated Date/Time: 04/20/2017 1:52 PM
[2017-04-20 14:30] LABS: BASO ABS # 0.08 K/uL (0-0.2); COMPLETE YES; EOS % 1.7 %; HEMATOCRIT 35.3 % (37-47); IG% 0.1 %; LYMPH % 20.6 %; LYMPH ABS # 1.66 K/uL (1.2-3.4); MEAN CELL VOLUME 81.9 fL (80-100); MEAN CORPUSCULAR HEMOGLOBIN 26.7 pg (25-34); MEAN CORPUSCULAR HGB CONC 32.6 g/dl (32-36); MEAN PLATELET VOLUME 9.5 fL (7.4-10.4); MONO % 6.1 %; NEUT % 70.5 %; PLATELET COUNT 201 K/uL (130-400); RED BLOOD COUNT 4.31 M/uL (4.2-5.4); WHITE BLOOD COUNT 8.06 K/uL (4.8-10.8)
[2017-04-20] MEDS ORDERED: PATIENT'S HEIGHT AND/OR WEIGHT NEEDED SCH (14:30)
[2017-04-20 14:41] LABS: PARTIAL THROMBOPLASTIN RATIO 1.1
[2017-04-20 14:50] LABS: BLOOD UREA NITROGEN 8 mg/dl (7-18); BUN/CREATININE RATIO 10.7 (10-20); CALCIUM 8.5 mg/dl (8.5-10.1); CARBON DIOXIDE 30 mmol/L (21-32); CHLORIDE 106 mmol/L (98-107); CREATININE 0.74 mg/dl (0.60-1.20); GLUCOSE 97 mg/dl (70-99); POTASSIUM 3.9 mmol/L (3.5-5.1); SODIUM 141 mmol/L (136-145)
--- NOTE | 2017-04-20 15:48 | DIAGNOSTIC IMAGING REPORT ---
RIGHT ANKLE MIN 3 VIEWS ROUTINE CLINICAL HISTORY: Right ankle pain status post trauma COMPARISON: None. DISCUSSION: The bones are mildly osteopenic. No acute fractures or dislocations are visualized. There is minor calcaneal spurring. There are vascular calcifications present. IMPRESSION: No acute fractures or dislocations identified Electronically signed by: Etienne Guerra M.D. 04/20/2017 3:47 PM Dictated Date/Time: 04/20/2017 3:46 PM
--- NOTE | 2017-04-20 15:52 | DIAGNOSTIC IMAGING REPORT ---
LEFT ANKLE MIN 3 VIEWS ROUTINE CLINICAL HISTORY: 76 years-old Female presenting with Recent fall, pain in ankle. TECHNIQUE: Frontal, mortise, and lateral views of the left ankle were obtained. COMPARISON: None. FINDINGS: No acute fracture or malalignment. Ankle mortise intact. Bone spurs noted at the posterior and inferior calcaneus. Regional soft tissues remarkable for atherosclerosis. IMPRESSION: No acute osseous injury of the left ankle. Electronically signed by: Adam Bernardo M.D. 04/20/2017 3:51 PM Dictated Date/Time: 04/20/2017 3:50 PM
[2017-04-20] MEDS: INSULIN ASPART 100 UNITS/ML 3 ML PEN SC SCH ×2 (17:06→21:00)
[2017-04-20] MEDS ORDERED: ENOXAPARIN 120 MG/0.8 ML SYR SQ SCH (18:00)
[2017-04-20] MEDS: ALBUT/IPRATROP 3MG/0.5MG NEB 3 ML VIAL INH SCH ×3 (18:08→23:18)
[2017-04-20] MEDS: DICLOFENAC SOD 1% GEL 100 GM TUBE EXT SCH (21:25)
[2017-04-20] MEDS: BUDESONIDE/FORMOTEROL FUMARATE 160/4.5 60 PUFFS/INHALER INH SCH (21:26)
[2017-04-20] MEDS: ROSUVASTATIN CALCIUM 10 MG TAB PO SCH (21:27)
[2017-04-20 22:15] LABS: URINE APPEARANCE CLOUDY (CLEAR); URINE BILIRUBIN NEG (NEG); URINE COLOR YELLOW; URINE NITRITE NEG (NEG); URINE PH 6.5 (4.5-7.5); UROBILINOGEN NEG (NEG); ZZUR CULT IF INDIC CLEAN CATCH YES
[2017-04-20 22:17] LABS: MANUAL MICROSCOPIC REQUIRED? NO; REVIEW REQ? NO
[2017-04-21] VITALS (12 sets, daily range): BP systolic 111–152; BP diastolic 70–82; PULSE 63–93; TEMP 36.4–37; O2SAT 92–98
[2017-04-21] MEDS: ALBUT/IPRATROP 3MG/0.5MG NEB 3 ML VIAL INH SCH ×6 (03:14→23:20)
[2017-04-21] MEDS: ENOXAPARIN 120 MG/0.8 ML SYR SQ SCH ×2 (05:45→21:08)
[2017-04-21] MEDS: LEVOTHYROXINE 100 MCG TAB PO SCH (05:46)
[2017-04-21 06:09] LABS: HEMATOCRIT 35.9 % (37-47); MEAN CELL VOLUME 81.6 fL (80-100); MEAN CORPUSCULAR HEMOGLOBIN 26.4 pg (25-34); MEAN CORPUSCULAR HGB CONC 32.3 g/dl (32-36); MEAN PLATELET VOLUME 9.5 fL (7.4-10.4); PLATELET COUNT 185 K/uL (130-400); WHITE BLOOD COUNT 7.01 K/uL (4.8-10.8)
[2017-04-21] MEDS: INSULIN ASPART 100 UNITS/ML 3 ML PEN SC SCH ×4 (06:30→21:00)
[2017-04-21 06:44] LABS: BUN/CREATININE RATIO 13.6 (10-20); CALCIUM 8.8 mg/dl (8.5-10.1); CREATININE 0.75 mg/dl (0.60-1.20)
[2017-04-21 06:50] LABS: ESTIMATED AVERAGE GLUCOSE 137 mg/dl; HA1C FLAG Normal (Normal)
[2017-04-21] MEDS: DICLOFENAC SOD 1% GEL 100 GM TUBE EXT SCH ×5 (09:01→21:10)
[2017-04-21] MEDS: TIOTROPIUM BROMIDE 5 PUFF/90 MCG INH INH SCH (09:02)
[2017-04-21] MEDS: BUDESONIDE/FORMOTEROL FUMARATE 160/4.5 60 PUFFS/INHALER INH SCH ×2 (09:04→21:04)
[2017-04-21] MEDS: GABAPENTIN 300 MG CAP PO SCH (09:04)
[2017-04-21] MEDS: FUROSEMIDE 40 MG TAB PO SCH (09:05)
[2017-04-21] MEDS: ASPIRIN 81 MG ECTAB PO SCH (09:05)
[2017-04-21] MEDS: DILTIAZEM HCL 300 MG CAPCR PO SCH (09:05)
[2017-04-21] MEDS: CLOPIDOGREL BISULFATE 75 MG TAB PO SCH (09:05)
[2017-04-21] MEDS: POLYETHYLENE (MIRALAX) 17 GM PACK PO PRN (09:06)
--- NOTE | 2017-04-21 12:44 | DIAGNOSTIC IMAGING REPORT ---
VIDEO SWALLOW CLINICAL HISTORY: 76 years-old Female presenting with chronic aspiration. TECHNIQUE: Video fluoroscopic evaluation of swallowing was performed in the AP and lateral projections in conjunction with speech pathology. The patient was administered various textures, including nectar-thick and thin liquid barium, a barium coated wafer, and barium pudding. COMPARISON: None. FINDINGS: Upon administration of thin liquids, silent aspiration observed, although aspiration was not observed with chin tuck maneuver. Silent aspiration was also observed with nectar thick liquid administration, also decreased with chin tuck maneuver. Similar findings are observed with honey thick liquids. No penetration or aspiration with solids. Fluoroscopy dosage (mGy): Not available. Fluoroscopy time: 2.7 minutes. Number of fluoroscopic spot images: 0. IMPRESSION: 1. Silent aspiration of all administered liquid consistencies, decreased by implementation of chin tuck maneuver. 2. Please see the speech pathologist report for detailed findings and recommendations. Electronically signed by: Adam Bernardo M.D. 04/21/2017 12:42 PM Dictated Date/Time: 04/21/2017 12:40 PM
--- NOTE | 2017-04-21 16:05 | Progress Note ---
Subjective Date of Service: Apr 21, 2017. Subjective Pt evaluation today including: conversation w/ patient, physical exam, chart review, lab review, review of studies, conversation w/ datapower consultant, review of inpatient medication list Doing okay, out off bed to chair, mild dry cough, which is not new, smiling, no other complaint Review of Systems Constitutional: No fever, No chills, No sweats, No weight loss, No weakness, No fatigue, No problem reported Eyes: No worsening of vision, No eye pain, No redness, No discharge, No diplopia ENT: No hearing loss, No unusual epistaxis, No nasal symptoms, No sore throat, No tinnitus, No dental problems, No trouble swallowing Respiratory: No cough, No sputum, No wheezing, No shortness of breath, No dyspnea on exertion, No dyspnea at rest, No hemoptysis Cardiac: No chest pain, No orthopnea, No PND, No edema, No claudication, No palpitations Abdomen: No pain, No nausea, No vomiting, No diarrhea, No constipation Musculoskeletal: No joint pain, No muscle pain, No swelling, No calf pain Female : No dysuria, No urinary frequency, No hematuria, No incontinence, No abnormal vaginal bleeding, No vaginal discharge Neurologic: No memory loss, No paralysis, No weakness, No numbness/tingling, No vertigo, No balance problems Psychiatric: No depression symptoms, No anhedonism, No anxiety, No insomnia, No substance abuse Heme: No abnormal bleeding/bruising, No clotting problems, No swollen lymph nodes, No night sweats Endo: No fatigue, No excessive thirst, No excessive urination Skin: No rash, No itch, No new/changing skin lesions, No color change, No bleeding Objective Vital Signs Date Time Temp Pulse Resp B/P (MAP) Pulse Ox O2 Delivery O2 Flow Rate FiO2 04/21/17 15:35 68 18 97 Nasal Cannula 2.0 04/21/17 12:00 Nasal Cannula 2.0 CPAP 04/21/17 11:35 68 18 93 Nasal Cannula 2.0 04/21/17 11:33 36.4 63 20 111/70 (84) 93 04/21/17 08:00 Nasal Cannula 2.0 CPAP 04/21/17 07:54 36.5 66 20 152/82 (105) 98 04/21/17 07:17 68 18 92 Nasal Cannula 3.0 04/21/17 04:00 CPAP 2.0 04/21/17 04:00 36.5 93 20 140/79 (99) 93 CPAP 04/21/17 03:15 68 18 92 BiPAP/CPAP 3.0 04/21/17 00:00 CPAP 2.0 04/20/17 23:43 36.8 67 18 131/75 (93) 92 CPAP 04/20/17 23:20 63 18 93 BiPAP/CPAP 3.0 04/20/17 20:00 93 Nasal Cannula 2.0 04/20/17 19:38 36.9 68 18 139/72 (94) 96 2.0 04/20/17 18:23 67 15 97 Nasal Cannula 2.0 04/20/17 16:46 36.7 64 19 141/79 93 Nasal Cannula 2.0 Physical Exam General Appearance: WD/WN, no apparent distress, + thin Eyes: normal inspection, PERRL, EOMI, sclerae normal ENT: normal ENT inspection, hearing grossly normal, pharynx normal Neck: supple, no adenopathy, thyroid normal, no JVD, no carotid bruits, trachea midline Respiratory/Chest: chest non-tender, no respiratory distress, no accessory muscle use, + decreased breath sounds Cardiovascular: regular rate, rhythm, no edema, no gallop, no JVD, no murmur, + pertinent finding (trace edema) Abdomen: normal bowel sounds, non tender, soft, no organomegaly, no pulsatile mass Extremities: normal range of motion, non-tender, normal inspection, no pedal edema, no calf tenderness, normal capillary refill, pelvis stable Neurologic/Psychiatric: bill peddler II-XII nml as tested, no motor/sensory deficits, alert, normal mood/affect, oriented x 3 Skin: normal color, warm/dry, no rash Lymphatic: no adenopathy Laboratory Results Last 24 Hours Test 04/20/17 16:31 04/20/17 20:25 04/20/17 21:45 04/21/17 05:51 Bedside Glucose 126 mg/dl 110 mg/dl Urine Color YELLOW Urine Appearance CLOUDY Urine pH 6.5 Urine Specific [place] 1.020 Urine Protein NEG Urine Glucose (UA) NEG Urine Ketones NEG Urine Occult Blood 3+ Urine Nitrite NEG Urine Bilirubin NEG Urine Urobilinogen NEG Urine Leukocyte Esterase LARGE Urine WBC (Auto) >30 /hpf Urine RBC (Auto) >30 /hpf Urine Hyaline Casts (Auto) 1-5 /lpf Urine Epithelial Cells (Auto) 5-10 /lpf Urine Bacteria (Auto) 4+ White Blood Count 7.01 K/uL Red Blood Count 4.40 M/uL Hemoglobin 11.6 g/dL Hematocrit 35.9 % Mean Corpuscular Volume 81.6 fL Mean Corpuscular Hemoglobin 26.4 pg Mean Corpuscular Hemoglobin Concent 32.3 g/dl RDW Standard Deviation 49.8 fL RDW Coefficient of Variation 16.6 % Platelet Count 185 K/uL Mean Platelet Volume 9.5 fL Sodium Level 142 mmol/L Potassium Level 4.0 mmol/L Chloride Level 107 mmol/L Carbon Dioxide Level 31 mmol/L Anion Gap 4.0 mmol/L Blood Urea Nitrogen 10 mg/dl Creatinine 0.75 mg/dl Est Creatinine Clear Calc Drug Dose 79.2 ml/min Estimated GFR () 88.5 Estimated GFR (Non- 76.3 BUN/Creatinine Ratio 13.6 Random Glucose 119 mg/dl Calcium Level 8.8 mg/dl Test 04/21/17 07:45 04/21/17 11:21 Bedside Glucose 133 mg/dl 142 mg/dl Assessment and Plan 76 y/o female with admitted for direct admission on 04/20 with shortness of breath and productive cough. Per report him a Pt had been scheduled for bronch with Dr. aVnn. Chest CT shows acute PE on right side so bronch was canceled and pt was directly admitted. Past medical history:a-fib, s/p pacemaker, CAD, [place] x 2 s/p stents (5), HTN, HLD , CHF, DM II, interstitial lung disease, CAYETANO, and hypothyroidism Acute pulmonary emboli: Related stable and improving Continue to telemetry -Lovenox 1 mg/kg SC q12h until shelter anticoagulation is determined. Discussed with patient about the options of blood thinner, patient agreed to continue Coumadin, which is ordered Pt presumably failed Pradaxa as she states she took as directed every day and only stopped for 2 days prior to procedure -Venous dopplers lower extremities bilaterally Chronic cough/chronic aspiration Recent falls A-fib, h/o ablation, s/p pacemaker (1999)--stable, -Continue diltiazem 300 mg PO qd -Pradaxa held, has started Coumadin by mouth daily with bridging Lovenox as above CAD, h/o VT x 2 and s/p stents x 5, HTN, HLD--most recent VT in January 2017 -Continue ASA 81 mg PO qd, Plavix 75 mg PO qd, and Crestor 20 mg PO qhs CHF--unknown systolic or diastolic, no echo on record -Continue Lasix 40 mg PO qd DM II--unknown last HgbA1c -Hold metformin -Insulin sliding scale -Check BSGs q ac and qhs -Check HgbA1c -Continue gabapentin 300 mg PO qd for neuropathy Interstitial lung disease, CAYETANO--pt wears supplemental oxygen at home prn -Continue DuoNebs q4h, Spiriva, Symbicort, and albuterol prn -Continue CPAP, will bring from home Insomnia -Continue Restoril 15 mg PO qhs prn DVT prophylaxis -Lovenox as above Code Status -Level I, FULL RESUSCITATION STATUS Continued [facility] stay due to: multiple IV medications needed Discharge planning: uncertain
[2017-04-21] MEDS: WARFARIN SOD 5 MG TAB PO SCH (16:20)
[2017-04-21] MEDS: CEPHALEXIN MONOHYDRATE 500 MG CAP PO SCH ×2 (16:20→21:04)
[2017-04-21] MEDS: ROSUVASTATIN CALCIUM 10 MG TAB PO SCH (21:34)
[2017-04-21] MEDS: TEMAZEPAM 7.5 MG CAP PO PRN (21:37)
[2017-04-22] VITALS (14 sets, daily range): BP systolic 110–197; BP diastolic 66–90; PULSE 66–142; TEMP 36.3–36.8; O2SAT 90–96
[2017-04-22] MEDS: ALBUT/IPRATROP 3MG/0.5MG NEB 3 ML VIAL INH SCH ×4 (03:43→15:56)
--- NOTE | 2017-04-22 06:13 | Clinical Documentation Query ---
ANA Tan : CLINICAL DOCUMENTATION QUERY Patient is a 76 year old female admitted for treatment of acute pulmonary emboli. On 04/21, patient was ordered Keflex. No documented infection or intent of treatment. Noted growth of gram negative bacilli on urine culture. Please clarify as clinically appropriate. Thank you In your clinical opinion is this patient being managed for: ( x) (Possible) Urinary tract infection ( ) Other explanation of clinical findings (Please Explain) ( ) Unable to determine (Please Define) ( ) Need to Discuss ( ) Not Agree The medical record reflects the following clinical findings, treatment, and risk factors. Clinical Indicators: As above Treatment: Keflex Risk Factors: Age, gender Please clarify and document your clinical opinion in the progress notes and discharge summary. Terms such as "probable", "suspected", "likely", "questionable", "possible", or "still to be ruled out" are acceptable. IF IN AGREEMENT, YOU MUST DOCUMENT ABOVE DIAGNOSTIC STATEMENT IN DAILY PROGRESS NOTES AND DISCHARGE SUMMARY. This document is not part of the patient's record. Thank You, Yeyo Louis, RN [phone]
[2017-04-22] MEDS: LEVOTHYROXINE 100 MCG TAB PO SCH (06:30)
[2017-04-22] MEDS: ENOXAPARIN 120 MG/0.8 ML SYR SQ SCH ×2 (06:36→18:24)
[2017-04-22 06:57] LABS: BASO % 0.7 %; BASO ABS # 0.05 K/uL (0-0.2); COMPLETE YES; EOS % 1.8 %; HEMATOCRIT 35.1 % (37-47); IG% 0.3 %; LYMPH % 20.2 %; LYMPH ABS # 1.44 K/uL (1.2-3.4); MEAN CELL VOLUME 82.6 fL (80-100); MEAN CORPUSCULAR HEMOGLOBIN 26.6 pg (25-34); MEAN CORPUSCULAR HGB CONC 32.2 g/dl (32-36); MEAN PLATELET VOLUME 9.6 fL (7.4-10.4); MONO % 5.6 %; NEUT % 71.4 %; PLATELET COUNT 187 K/uL (130-400); RED BLOOD COUNT 4.25 M/uL (4.2-5.4); WHITE BLOOD COUNT 7.13 K/uL (4.8-10.8)
[2017-04-22 07:14] LABS: INR 1.1 (0.9-1.1); PROTHROMBIN TIME (PATIENT) 11.3 SECONDS (9.0-12.0)
[2017-04-22 07:35] LABS: BUN/CREATININE RATIO 16.2 (10-20); CALCIUM 8.8 mg/dl (8.5-10.1); CREATININE 0.73 mg/dl (0.60-1.20); MAGNESIUM 2.5 mg/dl (1.8-2.4); POTASSIUM 3.9 mmol/L (3.5-5.1)
[2017-04-22] MEDS: INSULIN ASPART 100 UNITS/ML 3 ML PEN SC SCH ×4 (08:38→21:00)
[2017-04-22] MEDS: DILTIAZEM HCL 300 MG CAPCR PO SCH (08:40)
[2017-04-22] MEDS: CLOPIDOGREL BISULFATE 75 MG TAB PO SCH (08:40)
[2017-04-22] MEDS: GABAPENTIN 300 MG CAP PO SCH (08:40)
[2017-04-22] MEDS: ASPIRIN 81 MG ECTAB PO SCH (08:40)
[2017-04-22] MEDS: DICLOFENAC SOD 1% GEL 100 GM TUBE EXT SCH ×4 (08:40→18:25)
[2017-04-22] MEDS: FUROSEMIDE 40 MG TAB PO SCH (08:40)
[2017-04-22] MEDS: TIOTROPIUM BROMIDE 5 PUFF/90 MCG INH INH SCH (08:40)
[2017-04-22] MEDS: CEPHALEXIN MONOHYDRATE 500 MG CAP PO SCH ×4 (08:40→19:54)
[2017-04-22] MEDS: BUDESONIDE/FORMOTEROL FUMARATE 160/4.5 60 PUFFS/INHALER INH SCH ×2 (08:40→19:54)
--- NOTE | 2017-04-22 12:31 | Progress Note ---
Subjective Date of Service: Apr 22, 2017. Subjective Pt evaluation today including: conversation w/ patient, conversation w/ family , physical exam Voiding: no voiding problems, huffman catheter in place Has been up to the chair, but reports some blurry vision in both eyes, , reportedly supposed to be on eyedrops for possible glaucoma, which is not started yet, and, reported feeling generalized weak, denied chest pain, no any complaints Review of Systems Constitutional: + fatigue, No fever, No chills, No sweats, No weight loss, No weakness, No problem reported Eyes: + see HPI, No worsening of vision, No eye pain, No redness, No discharge , No diplopia ENT: No hearing loss, No unusual epistaxis, No nasal symptoms, No sore throat, No tinnitus, No dental problems, No trouble swallowing Respiratory: No cough, No sputum, No wheezing, No shortness of breath, No dyspnea on exertion, No dyspnea at rest, No hemoptysis Cardiac: No chest pain, No orthopnea, No PND, No edema, No claudication, No palpitations Abdomen: No pain, No nausea, No vomiting, No diarrhea, No constipation Musculoskeletal: No joint pain, No muscle pain, No swelling, No calf pain Female : No dysuria, No urinary frequency, No hematuria, No incontinence, No abnormal vaginal bleeding, No vaginal discharge Neurologic: No memory loss, No paralysis, No weakness, No numbness/tingling, No vertigo, No balance problems Psychiatric: No depression symptoms, No anhedonism, No anxiety, No insomnia, No substance abuse Heme: No abnormal bleeding/bruising, No clotting problems, No swollen lymph nodes, No night sweats Endo: No fatigue, No excessive thirst, No excessive urination Skin: No rash, No itch, No new/changing skin lesions, No color change, No bleeding Objective Vital Signs Date Time Temp Pulse Resp B/P (MAP) Pulse Ox O2 Delivery O2 Flow Rate FiO2 04/22/17 12:16 36.5 79 20 157/76 (103) 90 04/22/17 11:25 68 18 96 Nasal Cannula 2.0 04/22/17 07:45 Nasal Cannula 2.0 CPAP 04/22/17 07:35 36.7 77 22 158/77 (104) 95 Nasal Cannula 2.0 04/22/17 07:13 68 18 96 Nasal Cannula 2.0 04/22/17 04:28 36.5 66 20 145/79 (101) 92 BiPAP 04/22/17 04:00 Nasal Cannula 2.0 CPAP 04/22/17 00:20 36.3 77 20 119/66 (83) 93 BiPAP 04/22/17 00:00 Nasal Cannula 2.0 CPAP 04/21/17 23:20 68 18 96 BiPAP/CPAP 2.0 04/21/17 21:05 37.0 68 19 115/76 (89) 98 Nasal Cannula 2.0 04/21/17 20:00 97 Nasal Cannula 2.0 04/21/17 19:37 63 18 96 Nasal Cannula 2.0 04/21/17 16:00 97 Nasal Cannula 2.0 04/21/17 15:35 68 18 97 Nasal Cannula 2.0 Physical Exam General Appearance: WD/WN, no apparent distress, + obese Eyes: normal inspection, PERRL, EOMI, sclerae normal ENT: normal ENT inspection, hearing grossly normal, pharynx normal Neck: supple, no adenopathy, thyroid normal, no JVD, no carotid bruits, trachea midline Respiratory/Chest: chest non-tender, lungs clear, normal breath sounds, no respiratory distress, no accessory muscle use Cardiovascular: regular rate, rhythm, no edema, no gallop, no JVD, no murmur Abdomen: normal bowel sounds, non tender, soft, no organomegaly, no pulsatile mass Extremities: normal range of motion, non-tender, normal inspection, no pedal edema, no calf tenderness, normal capillary refill, pelvis stable Neurologic/Psychiatric: carburetor rebuilder II-XII nml as tested, no motor/sensory deficits, alert, normal mood/affect, oriented x 3 Skin: normal color, warm/dry, no rash Lymphatic: no adenopathy Laboratory Results Last 24 Hours Test 04/21/17 16:39 04/21/17 20:41 04/22/17 06:37 04/22/17 07:27 Bedside Glucose 108 mg/dl 105 mg/dl 124 mg/dl White Blood Count 7.13 K/uL Red Blood Count 4.25 M/uL Hemoglobin 11.3 g/dL Hematocrit 35.1 % Mean Corpuscular Volume 82.6 fL Mean Corpuscular Hemoglobin 26.6 pg Mean Corpuscular Hemoglobin Concent 32.2 g/dl Platelet Count 187 K/uL Mean Platelet Volume 9.6 fL Neutrophils (%) (Auto) 71.4 % Lymphocytes (%) (Auto) 20.2 % Monocytes (%) (Auto) 5.6 % Eosinophils (%) (Auto) 1.8 % Basophils (%) (Auto) 0.7 % Neutrophils # (Auto) 5.09 K/uL Lymphocytes # (Auto) 1.44 K/uL Monocytes # (Auto) 0.40 K/uL Eosinophils # (Auto) 0.13 K/uL Basophils # (Auto) 0.05 K/uL RDW Standard Deviation 50.6 fL RDW Coefficient of Variation 16.7 % Immature Granulocyte % (Auto) 0.3 % Immature Granulocyte # (Auto) 0.02 K/uL Prothrombin Time 11.3 SECONDS Prothromb Time International Ratio 1.1 Sodium Level 142 mmol/L Potassium Level 3.9 mmol/L Chloride Level 108 mmol/L Carbon Dioxide Level 29 mmol/L Anion Gap 5.0 mmol/L Blood Urea Nitrogen 12 mg/dl Creatinine 0.73 mg/dl Est Creatinine Clear Calc Drug Dose 82.0 ml/min Estimated GFR () 91.4 Estimated GFR (Non- 78.9 BUN/Creatinine Ratio 16.2 Random Glucose 113 mg/dl Calcium Level 8.8 mg/dl Magnesium Level 2.5 mg/dl Test 04/22/17 11:44 Bedside Glucose 119 mg/dl Assessment and Plan 76 y/o female with admitted for direct admission on 04/20 with shortness of breath and productive cough. Per report him a Pt had been scheduled for bronch with Dr. Vann. Chest CT shows acute PE on right side so bronch was canceled and pt was directly admitted. Past medical history:a-fib, s/p pacemaker, CAD, NH x 2 s/p stents (5), HTN, HLD , CHF, DM II, interstitial lung disease, [place]YET[place]O, and hypothyroidism Acute pulmonary emboli: Related stable and improving Continue to telemetry -Lovenox 1 mg/kg SC q12h until remote computer terminal operator anticoagulation is determined. Discussed with patient about the options of blood thinner, patient agreed to continue Coumadin, which is ordered Pt presumably failed Pradaxa as she states she took as directed every day and only stopped for 2 days prior to procedure -Venous dopplers lower extremities bilaterally, no aacute DVT, per report: No evidence of right lower extremity DVT 2. 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 Vann service for the nest step of chronic cough and PE, I have ordered Desk Pens Assembler to call to Dr. Vann service to follow up with patient, Chronic cough/chronic aspiration Recent falls A-fib, h/o ablation, s/p pacemaker (1999)--stable, -Continue diltiazem 300 mg PO qd -Pradaxa stopped , has started Coumadin by mouth daily with bridging Lovenox as above CAD, h/o NH x 2 and s/p stents x 5, HTN, HLD--most recent NH in January 2017 -Continue ASA 81 mg PO qd, Plavix 75 mg PO qd, and Crestor 20 mg PO qhs - financial management is Dr. 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
[2017-04-22] MEDS: WARFARIN SOD 5 MG TAB PO SCH (16:26)
--- NOTE | 2017-04-22 19:05 | Pulmonary Consultation ---
History General Date of Service: Apr 22, 2017. Stated Complaint: Pulmonary Embolism HPI The patient is a 76 year old female who presents to [facility] with complaints of Pulmonary Embolism. The patient's primary care provider is Michael Carrion D.O.. This history was obtained from patient, medical records clinical records, hospital records as well as care providers. Mrs. Douglas is a 76-year-old female who carries a diagnosis of interstitial lung disease, mild COPD, obstructive sleep apnea on CPAP presented as a direct admission on 04/20/2017 for increased shortness of breath and chronic cough. Patient was scheduled to have a bronchoscopy with Dr. Vann, however preprocedure CT angiogram of chest revealed acute segmental and subsegmental pulmonary emboli in the right lower pulmonary artery. Subsequently the procedure was canceled. Patient states that her symptoms first started in March status post a fall which resulted her nasal fracture. She underwent a fall in April which resulted in left lower ankle injury. She has been sedentary since falls, But denies any lower extremity swelling or pain. She denies any chest pain but admits to increased dyspnea at rest or with exertion. She often has a cough associated with productive yellowish and greenish sputum with intermittent wheezing. She also admits to increased cough with eating. She denies any fevers, chills, chest pain, palpitations night sweats, hemoptysis. She was admitted for pulmonary embolism secondary to anticoagulation failure. Vital signs in the ER were 36.5, pulse 71 respiratory rate of 20 blood pressure 151/68, pulse oximetry 93% on room air. Pulmonary function study 05/03/2014 Spirometry: Mild obstructive ventilatory disease FEV1 80% Lung volumes: Within normal limits DLCO: Moderately reduced at 42% corrected off alveolar volume at 82% 6 minute walk study 10/01/2016 Baseline O2 needs: Initially, no supplemental oxygen was needed. Baseline VS and Horacio scale: HR: 66,~O2 sat: 95% 1 min VS and Horacio Scale: HR: 101,~O2 sat: 90% 2 min VS and Horacio Scale: HR: 109,~O2 sat: 88% Interventions: supplemental oxygen was applied at 2 liters per minute and was 96 % at 1 min seated, HR-91, O2 was 94% with 1 mintue of walking, HR-93. Reason for Premature Termination: dyspnea~and~left foot pain Respiratory Medications include: DuoNeb inhaled solution every 6 hours, Spiriva Respimat inhalation 2 puffs once daily, Symbicort 160/4.5 inhaled 2 puffs twice daily, pro-air rest the clinic inhalation aerosol 2 puffs every 4 hours as needed and Lasix 40 mg 1 tablet daily Historian: patient Onset: other (chronic cough for several months) Severity: moderate Complaint Status: improved Method of Injury: other (possibly exacerbated with eating) Modifying Factors: other (relieved with eating with chin tuck exercise) Review of Systems Constitutional: reports: no symptoms Eyes: reports: no symptoms ENT: reports: no symptoms Cardiovascular: reports: no symptoms Respiratory: reports: cough, shortness of breath, wheezing, sputum production, denies: cyanosis, hemoptysis Gastrointestinal: reports: no symptoms Genitourinary - Female: reports: no symptoms Musculoskeletal: reports: joint pain (bilateral lower extremity ankles since recent falls) Integumentary: reports: other (chronic venous changes bilaterally) Neurologic: reports: no symptoms Psychiatric: reports: no symptoms Endocrine: no symptoms Hematologic / Lymphatic: no symptoms Allergic / Immunologic: no symptoms Past Medical History Past Medical History: 1. A. fib 2. CAD status post stents5 and pacemaker 3. Hypertension 4. Hyperlipidemia 5. Hypertension 6. CHF 7. Diabetes type 2 8. CAYETANO 9. Hypothyroidism 10. Aspiration into airway 11. Postnasal drip Past Surgical History: 1. Back Surgery 2. Card Cath Post-Proc/Lesions Successfully Dilated 3. Cardioverter-Defibrillator Pulse Generator With Synchronous Cardiac Pacemaker 4. Cath Stent Placement 5. Catheter Ablation Atrial Fibrillation 6. Cholecystectomy 7. Tubal Ligation 8. Back surgery Family History Coronary artery disease Hypertension Myocardial infarction Stroke 1. Family history of cerebrovascular accident 2. Family history of Acute Myocardial Infarction 3. Family history of Coronary Artery Disease Social History Social History She denies any history of drug use. She is a former smoker and quit around year 1999. She denies any history of smokeless tobacco use. She denies any alcohol or illicit drug use. She is and lives alone. She has DOGS. Hx Tobacco Use In Past Year?: No Smoking Status: Former Smoker Marital status: Housing status: lives alone Occupational Status: retired Allergies Coded Allergies: No Known Allergies (Unverified , 04/20/17) Current Medications Reported Home Medications Medications Dose Route/Sig Max Daily Dose Days Date Category Diltiazem Hcl Er (Diltiazem Hcl Coated Beads) 300 Mg Cap 300 Mg PO DAILY 04/20/17 Reported Restoril (Temazepam) 15 Mg Cap 15 Mg PO HS PRN 04/20/17 Reported Symbicort 160/4.5 Inhaler (Budesonide/Formoterol Fumarate) Aero 2 Puffs INH BID 04/20/17 Reported Spiriva Respimat (Tiotropium [place]) 2.5 Mcg/Act Spr 1 Puff INH DIRECTED 04/20/17 Reported Refresh (Carboxymethylcellulose Sodium) 1 % Pedro OP DIRECTED 04/20/17 Reported Proair Respiclick (Albuterol Sulfate) 108 Mcg/Act Aer INH DIRECTED 04/20/17 Reported Pradaxa (Dabigatran Etexilate Mesylate) 75 Mg Cap 1 Cap PO BID 90 04/20/17 Reported Plavix (Clopidogrel Bisulfate) 75 Mg Tab 75 Mg PO DAILY 04/20/17 Reported Nitrostat (Nitroglycerin) 0.4 Mg Tab 0.4 Mg UT PRN 04/20/17 Reported Glucophage (Metformin Hcl) 500 Mg Tab 500 Mg PO DAILY 04/20/17 Reported Levothyroxine Sodium 100 Mcg Tab 1 Tab PO DAILY 30 04/20/17 Reported Lasix (Furosemide) 40 Mg Tab 40 Mg PO DAILY 04/20/17 Reported Duoneb (Ipratropium-Albuterol) 3 Ml Nebu 1 Treatment INH Q4H 04/20/17 Reported Neurontin (Gabapentin) 300 Mg Cap 300 Mg PO DAILY 04/20/17 Reported Crestor (Rosuvastatin Calcium) 10 Mg Tab 20 Mg PO DIRECTED 04/20/17 Reported Aspirin Ec (Aspirin) 81 Mg Tab 81 Mg PO DAILY 04/20/17 Reported Physical Physical Exam Vital Signs: Date Time Temp Pulse Resp B/P (MAP) Pulse Ox O2 Delivery O2 Flow Rate FiO2 04/22/17 12:30 Room Air 04/22/17 12:16 36.5 79 20 157/76 (103) 90 04/22/17 11:25 68 18 96 Nasal Cannula 2.0 04/22/17 07:45 Nasal Cannula 2.0 CPAP 04/22/17 07:35 36.7 77 22 158/77 (104) 95 Nasal Cannula 2.0 04/22/17 07:13 68 18 96 Nasal Cannula 2.0 04/22/17 04:28 36.5 66 20 145/79 (101) 92 BiPAP 04/22/17 04:00 Nasal Cannula 2.0 CPAP 04/22/17 00:20 36.3 77 20 119/66 (83) 93 BiPAP 04/22/17 00:00 Nasal Cannula 2.0 CPAP 04/21/17 23:20 68 18 96 BiPAP/CPAP 2.0 04/21/17 21:05 37.0 68 19 115/76 (89) 98 Nasal Cannula 2.0 04/21/17 20:00 97 Nasal Cannula 2.0 04/21/17 19:37 63 18 96 Nasal Cannula 2.0 04/21/17 16:00 97 Nasal Cannula 2.0 04/21/17 15:35 68 18 97 Nasal Cannula 2.0 Skin: warm/dry, no rash Eyes: normal inspection, EOMI, sclerae normal ENT: normal ENT inspection, pharynx normal Head: normocephalic, atraumatic Neck: supple, no adenopathy, trachea midline Respiratory/Chest: lungs clear, normal breath sounds, no respiratory distress Cardiovascular: regular rate, rhythm, no edema, no murmur Abdomen / GI: normal bowel sounds, non tender Back: normal inspection Extremities: normal inspection, normal range of motion Neurologic/Psych: no motor/sensory deficits, alert, normal reflexes, oriented x 3 General Appearance: WELL-APPEARING, WD/WN, NO APPARENT DISTRESS Head: NORMOCEPHALIC Eyes: PERRLA, NO DISCHARGE, EOMI, SCLERAE NORMAL, CONJUNCTIVAE NORMAL ENT: NORMAL MOUTH EXAM, NORMAL THROAT EXAM (dentures in place) Neck: NORMAL RANGE OF MOTION, NO TENDERNESS, TRACHEA MIDLINE, NO STRIDOR, SUPPLE, NO NUCHAL RIGIDITY Respiratory: other (decreased breath sounds bilaterally, no crackles, no wheezes) Cardiovasular: REGULAR RATE/RHYTHM, NORMAL S1S2, NO M/G/R, NO MURMUR Abdomen: NON TENDER, NORMAL BOWEL SOUNDS, NO REBOUND, NO GUARDING Genitourinary - Female: EXTERNAL GENITALIA NORMAL Back: NORMAL INSPECTION, NO MIDLINE TENDERNESS, NO CVA TENDERNESS Lower Extremities: other (chronic venous changes bilateral lower extremities) Edema: Bilateral LE (2+) Pulses: dorsalis pedis (R) (2+), dorsalis pedis (L) (2+) Neuro: ALERT, ORIENTED x 3, NORMAL MOTOR EXAM, NORMAL GAIT Reflexes: patellar (R) (1+), patellar (L) (1+) Psychiatric: NORMAL AFFECT, NO SUICIDAL IDEATION, CONTRACTS FOR SAFETY Diagnostics Labs Results Past 24 Hours Test 04/21/17 16:39 04/21/17 20:41 04/22/17 06:37 04/22/17 07:27 Range/Units Bedside Glucose 108 105 124 70-90 mg/dl White Blood Count 7.13 4.8-10.8 K/uL Red Blood Count 4.25 4.2-5.4 M/uL Hemoglobin 11.3 12.0-16.0 g/dL Hematocrit 35.1 37-47 % Mean Corpuscular Volume 82.6 80-100 fL Mean Corpuscular Hemoglobin 26.6 25-34 pg Mean Corpuscular Hemoglobin Concent 32.2 32-36 g/dl Platelet Count 187 130-400 K/uL Mean Platelet Volume 9.6 7.4-10.4 fL Neutrophils (%) (Auto) 71.4 % Lymphocytes (%) (Auto) 20.2 % Monocytes (%) (Auto) 5.6 % Eosinophils (%) (Auto) 1.8 % Basophils (%) (Auto) 0.7 % Neutrophils # (Auto) 5.09 1.4-6.5 K/uL Lymphocytes # (Auto) 1.44 1.2-3.4 K/uL Monocytes # (Auto) 0.40 0.11-0.59 K/uL Eosinophils # (Auto) 0.13 0-0.5 K/uL Basophils # (Auto) 0.05 0-0.2 K/uL RDW Standard Deviation 50.6 36.4-46.3 fL RDW Coefficient of Variation 16.7 11.5-14.5 % Immature Granulocyte % (Auto) 0.3 % Immature Granulocyte # (Auto) 0.02 0.00-0.02 K/uL Prothrombin Time 11.3 9.0-12.0 SECONDS Prothromb Time International Ratio 1.1 0.9-1.1 Sodium Level 142 136-145 mmol/L Potassium Level 3.9 3.5-5.1 mmol/L Chloride Level 108 98-107 mmol/L Carbon Dioxide Level 29 21-32 mmol/L Anion Gap 5.0 3-11 mmol/L Blood Urea Nitrogen 12 7-18 mg/dl Creatinine 0.73 0.60-1.20 mg/dl Est Creatinine Clear Calc Drug Dose 82.0 ml/min Estimated GFR () 91.4 Estimated GFR (Non- 78.9 BUN/Creatinine Ratio 16.2 10-20 Random Glucose 113 70-99 mg/dl Calcium Level 8.8 8.5-10.1 mg/dl Magnesium Level 2.5 1.8-2.4 mg/dl Test 04/22/17 11:44 Range/Units Bedside Glucose 119 70-90 mg/dl Diagnostic Radiology Video Swallow 04/21/2017 1. Silent aspiration of all administered liquid consistencies, decreased by implementation of chin tuck maneuver Ankle xray (left) 04/20/2017 IMPRESSION: No acute osseous injury of the left ankle. Ankle xray (right) 04/20/2017 IMPRESSION: No acute fractures or dislocations identified Bilateral lower extremity U/S 04/20/2017 IMPRESSION: 1. No evidence of right lower extremity DVT 2. Chronic fibrin stranding within the left superficial femoral vein CTA chest 04/20/2017 IMPRESSION: 1. There are pulmonary emboli within segmental and subsegmental branches of the right lower lobe pulmonary artery. 2. Subpleural opacities are seen at the right lung base and there is associated linear atelectasis/scarring. The appearance suggests pulmonary infarcts given the presence of right lower lobe pulmonary emboli. Clinical correlation will be required. 3. There are secretions present within the trachea and left mainstem bronchus. Additionally, fluid/debris is present within the dependent lower lobe airways. There are numerous punctate nodules seen within the dependent lower lobes and the appearance suggests chronic aspiration. Clinical correlation will be essential. 4. Emphysema, cardiomegaly, and cardiac pacemaker. Findings suggest pulmonary artery hypertension. 5. There is no lobar consolidation or pleural effusion. 6. There is a 1.1 cm indeterminant cortical hypodensity in the upper pole of the left kidney. This likely represents a cyst but is too small for definitive characterization. A precautionary six-month renal ultrasound is recommended for reassessment. 7. An intrathecal lead versus lead fragment is present within the central canal in the lower thoracic region. Clinical correlation will be required. Chest x-ray 03/20/2017 (obtained from previous medical record) Cardiomegaly, hilar fullness with cephalization Mild opacification of the left lateral lower lobe CT thorax 11/18/2010 (obtained from previous medical record) Bronchiectatic changes in the right middle lobe along with scar-like atelectasis Bronchiectatic changes with scar-like atelectasis in the lingual Active signs of interstitial/parenchymal changes EKG EKG from 04/22/2017 Sinus rhythm with Premature atrial complexes and Premature ventricular complexes or Fusion complexes Left axis deviation Right bundle branch block Abnormal ECG When compared with ECG of 21-APR-2017 07:00, Sinus rhythm has replaced Electronic atrial pacemaker T wave inversion now evident in Anterior leads QT has lengthened Impression Assessment and Plan Chronic cough Aspiration Mild COPD Pulmonary embolism Anticoagulation failure CAYETANO Morbid obesity (BMI 41) Patient has had chronic cough and was being evaluated by pulmonary as an outpatient. Actually she was scheduled to have bronchoscopy by Dr. Vann which was postponed twice now for fall and newly diagnosed acute segmental and subsegmental pulmonary emboli in the right lower lobe pulmonary arteries. CT scan shows chronic changes consistent with chronic aspiration. During her hospitalization she had a video swallow evaluation which showed silent aspiration with thin liquids, which was likely has precipitated her chronic cough. Patient has had improvement in symptoms since learning how to "chin tuck." I would continue to bronchodilators every 4 hours, Spiriva, Symbicort and albuterol when necessary. She does have history of post nasal drip and should continue with nasal spray. In the meantime, patient should continue with anticoagulation for dose anticoagulation. It appears that she has failed anticoagulation on Pradaxa if she has newly diagnosed pulmonary emboli on CT scan as well as left lower extremity Doppler consistent with chronic DVT. She should continue on anticoagulation for at least 6 months, but due to the chronicity of disease may require lifelong treatment. This can be further discussed as an outpatient. Patient has CAYETANO and wears supplemental oxygen at home when necessary as well as CPAP at night which should be continued. Weight loss encouraged. I appreciate the consult.I spoke with Dr. Vann and he will see her as an outpatient to reschedule bronchoscopy.
[2017-04-22] MEDS: LATANOPROST 0.005% OP SOLN 2.5 ML BTL OPB SCH (19:53)
[2017-04-22] MEDS: ROSUVASTATIN CALCIUM 10 MG TAB PO SCH (19:53)
[2017-04-22] MEDS: TEMAZEPAM 7.5 MG CAP PO PRN (21:52)
[2017-04-22] MEDS: ALBUTEROL HFA 8 GM INHALER INH SCH (22:13)
[2017-04-22] MEDS ORDERED: DILTIAZEM HCL 5 MG/ML 5 ML VIAL IV STA (22:54)
[2017-04-22] MEDS ORDERED: DILTIAZEM HCL INJ 125 MG in DEXTROSE 5% 100ML IV PRN (23:45)
[2017-04-22] MEDS ORDERED: DILTIAZEM BOLUS / DRIP IV STA (23:45)
--- NOTE | 2017-04-22 23:48 | Progress Note ---
Progress Note Date of Service Apr 22, 2017. Progress Note sustained HR > 130 in a fibb, asymptomatic; no response to diltiazem 5 mg IV push but BP decreased from 130 to 110; started on diltiazem drip
[2017-04-23 00:09] LABS: BASO % 0.4 %; BASO ABS # 0.03 K/uL (0-0.2); COMPLETE YES; EOS % 1.4 %; HEMATOCRIT 37.8 % (37-47); IG% 0.1 %; LYMPH % 19.4 %; LYMPH ABS # 1.52 K/uL (1.2-3.4); MEAN CELL VOLUME 82.4 fL (80-100); MEAN CORPUSCULAR HEMOGLOBIN 25.3 pg (25-34); MEAN CORPUSCULAR HGB CONC 30.7 g/dl (32-36); MEAN PLATELET VOLUME 9.7 fL (7.4-10.4); MONO % 6.8 %; NEUT % 71.9 %; PLATELET COUNT 210 K/uL (130-400); RED BLOOD COUNT 4.59 M/uL (4.2-5.4); WHITE BLOOD COUNT 7.84 K/uL (4.8-10.8)
[2017-04-23 00:26] LABS: BLOOD UREA NITROGEN 13 mg/dl (7-18); BUN/CREATININE RATIO 14.5 (10-20); CALCIUM 8.7 mg/dl (8.5-10.1); CARBON DIOXIDE 29 mmol/L (21-32); CHLORIDE 108 mmol/L (98-107); CREATININE 0.91 mg/dl (0.60-1.20); GLUCOSE 140 mg/dl (70-99); MAGNESIUM 2.3 mg/dl (1.8-2.4); POTASSIUM 3.6 mmol/L (3.5-5.1); SODIUM 142 mmol/L (136-145)
[2017-04-23] MEDS ORDERED: METOPROLOL TARTRATE 1 MG/ML VIAL ONE (02:50)
[2017-04-23] MEDS ORDERED: METOPROLOL TARTRATE 1 MG/ML VIAL IV ONE (03:00)
[2017-04-23 04:00] VITALS: BP 132/75; PULSE 79; TEMP 36.4; O2SAT 90
[2017-04-23 05:58] LABS: HEMATOCRIT 36.7 % (37-47); MEAN CELL VOLUME 81.6 fL (80-100); MEAN CORPUSCULAR HEMOGLOBIN 26.4 pg (25-34); MEAN CORPUSCULAR HGB CONC 32.4 g/dl (32-36); MEAN PLATELET VOLUME 10.2 fL (7.4-10.4); PLATELET COUNT 203 K/uL (130-400)
[2017-04-23 06:05] LABS: INR 1.1 (0.9-1.1); PROTHROMBIN TIME (PATIENT) 11.4 SECONDS (9.0-12.0)
[2017-04-23] MEDS: LEVOTHYROXINE 100 MCG TAB PO SCH (06:11)
[2017-04-23] MEDS: ALBUTEROL HFA 8 GM INHALER INH SCH ×3 (06:11→22:12)
[2017-04-23] MEDS: ENOXAPARIN 120 MG/0.8 ML SYR SQ SCH ×2 (06:31→17:28)
[2017-04-23 06:38] LABS: BUN/CREATININE RATIO 15.6 (10-20); CALCIUM 8.7 mg/dl (8.5-10.1); CREATININE 0.75 mg/dl (0.60-1.20); POTASSIUM 3.8 mmol/L (3.5-5.1)
[2017-04-23 08:00] VITALS: BP 132/72; PULSE 93; TEMP 36.5; O2SAT 95
[2017-04-23] MEDS: TIOTROPIUM BROMIDE 5 PUFF/90 MCG INH INH SCH (09:20)
[2017-04-23] MEDS: BUDESONIDE/FORMOTEROL FUMARATE 160/4.5 60 PUFFS/INHALER INH SCH ×2 (09:20→20:19)
[2017-04-23] MEDS: CLOPIDOGREL BISULFATE 75 MG TAB PO SCH (09:21)
[2017-04-23] MEDS: FUROSEMIDE 40 MG TAB PO SCH (09:21)
[2017-04-23] MEDS: DILTIAZEM HCL 300 MG CAPCR PO SCH (09:21)
[2017-04-23] MEDS: CEPHALEXIN MONOHYDRATE 500 MG CAP PO SCH ×3 (09:21→15:46)
[2017-04-23] MEDS: ASPIRIN 81 MG ECTAB PO SCH (09:21)
[2017-04-23] MEDS: INSULIN ASPART 100 UNITS/ML 3 ML PEN SC SCH ×4 (09:43→22:05)
[2017-04-23 12:00] VITALS: BP 142/72; PULSE 96; TEMP 36.4; O2SAT 93
[2017-04-23] MEDS: GABAPENTIN 300 MG CAP PO SCH (12:11)
[2017-04-23] MEDS: DICLOFENAC SOD 1% GEL 100 GM TUBE EXT SCH ×4 (12:12→22:13)
--- NOTE | 2017-04-23 12:20 | Cardiology Consultation ---
Cardiology Consultation Date of Consultation: Apr 23, 2017. Requesting Physician: Dr. Rodriguez Attending Physician: Dr. Velasquez Reason for Consultation: Atrial fibrillation with RVR Pt evaluation today including: conversation w/ patient, physical exam, chart review, lab review, review of studies, review of inpatient medication list, conversation w/ attending History of Present Illness Mrs. Douglas is a 76 year old female with a medical history significant for CAD with history of MN and LAD SERGEI stent placement (2011), ischemic cardiomyopathy, chronic systolic CHF, paroxysmal atrial fibrillation, biventricular pacemaker- defibrillator, hypertension, dyslipidemia, type 2 diabetes mellitus, chronic interstitial lung disease, obstructive sleep apnea and hypothyroidism. Her usual qa architect is Dr. Johnson in [place]. She has had the following cardiac studies/procedures: 1. Cardiac cath 06/2012 for NSTEMI. Severe CAD involving LAD. EF 40%. Underwent SERGEI of LAD. 2. RITA 11/2012: mildly reduced LVEF. moderate MR/dilated LA. Moderate to severe TR. 3. EPS for flutter 12/2012 with successful ablation of atrial flutter 4. Echo 01/2013: LVEF 40%. Mild LVH. Moderate biatrial dilation. mild MR/TR/AV sclerosis. PAP 39 5. Cardiac cath 02/2013: done for abnormal stress test. LVEF 30%. Patent LAD stent. Moderate CAD otherwise. Mod IDCMP. 6. Carotid doppler 09/2014: L ICA with 30-40% stenosis. R ICA with 10-20% stenosis. 7. Echo 02/2015: LVEF 40-45%. PAP 28. Diastolic dysfunction. Mild TR. Trace TR. 8. Nuclear stress test 09/2015: EF 37%. Inferior infarct. She reports having chronic exertional dyspnea which had been worse recently. Additionally, she has had a productive cough for greater than 3 months which is being evaluated by [facility] pulmonology. In the days leading up to admission she also noted lightheadedness and blurred vision. She did note some increased edema in both her legs over the past few months. She states she has been relatively sedentary because of a right ankle injury. She reports being hospitalized at [facility] in January 2017 with chest pain and dyspnea. She believes a heart catheterization was done at that time. The only records I have available state she was admitted with atrial fibrillation with RVR and her dose of diltiazem was increased. She denies having any chest pain since that time. She was admitted to [facility] on 04/20/17 with increased dyspnea and a cough. She was scheduled to have a bronchoscopy with Dr. Vann on the day of admission but a CT scan of the chest prior to her procedure showed evidence of acute PE in the right lower lobe pulmonary artery. She was also found to have a DVT in her left lower extremity. She previously was on mcc anticoagulation with Pradaxa for her atrial fibrillation. Her Pradaxa was held for 48 hours prior to admission in anticipation of her bronchoscopy. She tells me that she was getting injections in her abdomen but I am not positive if she was being bridged with Lovenox. Since admission she has been on Lovenox and started on Coumadin. Her troponin level on admission was negative. Her electrocardiogram at admission showed an atrial paced rhythm. She was to be discharged home today but overnight she was noted to have atrial fibrillation with RVR. She was started on a diltiazem drip but her heart rate remained uncontrolled. She was then given two doses of IV Lopressor around 3 am. Her heart rate since has been relatively controlled in the 80-90s. She was seen at the bedside and is unaccompanied. She has no acute complaints. She denies having any dyspnea but has only ambulated short distances since hospital admission. She denies orthopnea or PND. She reports mild lower extremity edema. She has not had any chest pain. She denies palpitations, lightheadedness, presyncope or syncope. She states she often cannot tell when she is in atrial fibrillation. She denies any abnormal bleeding including melena , hematochezia or hematuria. The remainder of her review of systems is unremarkable. Family History Coronary artery disease Hypertension Myocardial infarction Stroke Social History Smoking Status: Former Smoker History of Alcohol Use: No . 4 children and multiple grand and great grandchildren. Lives at alone in [place], [place]. [facility] [employer] [employer] [employer]. Former smoker, started smoking early 20's and smoked for almost 20 years total, typically 1 pack per day. No alcohol or illicit drug use. Allergies Coded Allergies: No Known Allergies (Unverified , 04/20/17) Medications Current Inpatient Medications Medications (Trade) Dose Ordered Sig/Charissa Route Start Time Stop Time Status Last Admin Dose Admin Ioversol (Optiray 300) 125 ml UD PRN IV 04/20/17 08:30 04/24/17 08:29 Acetaminophen (Tylenol Tab) 650 mg Q4H PRN PO 04/20/17 12:15 05/20/17 12:14 Al Hydrox/Mg Hydrox/Simethicone (Maalox Max Susp) 15 ml Q4H PRN PO 04/20/17 12:15 05/20/17 12:14 Magnesium Hydroxide (Milk Of Magnesia Susp) 30 ml Q12H PRN PO 04/20/17 12:15 05/20/17 12:14 Ondansetron HCl (Zofran Inj) 4 mg Q6H PRN IV 04/20/17 12:15 05/20/17 12:14 Polyethylene (Miralax Powder Packet) 17 gm DAILY PRN PO 04/20/17 12:15 05/20/17 12:14 04/21/17 09:06 17 GM Glucose (Glucose 40% Gel) 15-30 GRAMS 15 GRAMS... UD PRN PO 04/20/17 12:15 05/20/17 12:14 Glucose (Glucose Chew Tab) 4-8 Tablets 4 Tabl... UD PRN PO 04/20/17 12:15 05/20/17 12:14 Dextrose (Dextrose 50% 50ML Syringe) 25-50ML OF 50% DW IV FOR... UD PRN IV 04/20/17 12:15 05/20/17 12:14 Glucagon (Glucagon Inj) 1 mg UD PRN SQ 04/20/17 12:15 05/20/17 12:14 Insulin Aspart (novoLOG ASPART) SLIDING SCALE G... ACHS SC 04/20/17 16:30 05/20/17 16:29 Aspirin (Ecotrin Tab) 81 mg DAILY PO 04/21/17 09:00 05/21/17 08:59 04/22/17 08:40 81 MG Budesonide/ Formoterol Fumarate (Symbicort 160/ 4.5 Inh) 2 puffs BID INH 04/20/17 21:00 05/20/17 20:59 04/22/17 19:54 2 PUFFS Clopidogrel Bisulfate (plAVix TAB) 75 mg DAILY PO 04/21/17 09:00 05/21/17 08:59 04/22/17 08:40 75 MG Diltiazem HCl (Cardizem Cd Cap) 300 mg DAILY PO 04/21/17 09:00 05/21/17 08:59 04/22/17 08:40 300 MG Furosemide (Lasix Tab) 40 mg DAILY PO 04/21/17 09:00 05/21/17 08:59 04/22/17 08:40 40 MG Gabapentin (Neurontin Cap) 300 mg DAILY PO 04/21/17 09:00 05/21/17 08:59 04/22/17 08:40 300 MG Levothyroxine Sodium (Synthroid Tab) 100 mcg DAILYBB PO 04/21/17 06:30 05/21/17 06:29 04/23/17 06:11 100 MCG Nitroglycerin (Nitrostat Tab) 0.4 mg UD PRN UT 04/20/17 12:15 05/20/17 12:14 Rosuvastatin Calcium (Crestor Tab) 20 mg HS PO 04/20/17 21:00 05/20/17 20:59 04/22/17 19:53 20 MG Tiotropium Beacon (Spiriva Handihaler Inhaler) 1 puff QAM INH 04/21/17 09:00 05/21/17 08:59 04/22/17 08:40 1 PUFF Diclofenac Sodium (Voltaren 1% Top Gel) 1 appln QID EXT 04/20/17 21:00 05/20/17 20:59 04/22/17 18:25 1 APPLN Enoxaparin Sodium (Lovenox Inj) 111 mg Q12H SQ 04/21/17 06:00 05/21/17 05:59 04/23/17 06:31 111 MG Cephalexin Monohydrate (Keflex Cap) 500 mg QID PO 04/21/17 17:00 05/01/17 16:59 04/22/17 19:54 500 MG Warfarin Sodium (Coumadin Tab) 5 mg DAILY@1600 PO 04/21/17 16:30 05/21/17 16:29 04/22/17 16:26 5 MG Temazepam (Restoril Cap) 7.5 mg HS PRN PO 04/21/17 21:00 05/20/17 12:14 04/22/17 21:52 7.5 MG Latanoprost (Xalatan Oph Soln) 1 drops HS OPB 04/22/17 21:00 05/22/17 20:59 04/22/17 19:53 1 DROPS Albuterol (Ventolin Hfa Inhaler) 1 puffs Q8 INH 04/22/17 22:00 05/20/17 12:14 04/23/17 06:11 1 PUFFS Diltiazem HCl 125 mg/Dextrose 125 ml @ 0 mls/hr Q0M PRN IV 04/22/17 23:45 05/22/17 23:44 04/23/17 01:51 5 MLS/HR Physical Exam Vital Signs Past 12 Hours Date Time Temp Pulse Resp B/P (MAP) Pulse Ox O2 Delivery O2 Flow Rate FiO2 04/23/17 04:00 CPAP 2.0 04/23/17 04:00 36.4 79 18 132/75 (94) 90 CPAP 2.0 04/23/17 03:10 145 138/82 04/22/17 23:35 137 110/78 (89) 04/22/17 23:22 152/78 (102) 04/22/17 23:21 142 142/80 (100) General: No acute distress. Alert and oriented. HEENT: Head is normal. PERRLA. EOMI. Sclera nonicteric. Mucous membranes moist. Neck: No appreciable JVD but exam is difficult. No carotid bruit. Lungs: Few scattered expiratory wheezes. No rales or rhonchi. No respiratory distres. Cardiac: Irregular rhythm with controlled rate. Normal S1 and S2. No appreciable murmur, gallop or rub. Abdomen: Soft and nontender. Bowel sounds present. No obvious mass or organomegaly. No abdominal bruit. Extremities: No cyanosis or clubbing. Trace pretibial edema bilaterally. Pedal pulses palpable but diminished. Skin: No rashes or abnormal lesions. Normal turgor. Neurologic: No lateralizing changes. Psychiatric: Affect seems appropriate. Data Laboratory Results: Last 24 Hours Test 04/22/17 11:44 04/22/17 16:41 04/22/17 19:53 04/22/17 20:33 Bedside Glucose 119 mg/dl 130 mg/dl 138 mg/dl Thyroid Stimulating Hormone (TSH) 1.310 uIu/ml Test 04/22/17 23:56 04/23/17 05:21 8/18/17 06:37 White Blood Count 7.84 K/uL 7.30 K/uL Red Blood Count 4.59 M/uL 4.50 M/uL Hemoglobin 11.6 g/dL 11.9 g/dL Hematocrit 37.8 % 36.7 % Mean Corpuscular Volume 82.4 fL 81.6 fL Mean Corpuscular Hemoglobin 25.3 pg 26.4 pg Mean Corpuscular Hemoglobin Concent 30.7 g/dl 32.4 g/dl Platelet Count 210 K/uL 203 K/uL Mean Platelet Volume 9.7 fL 10.2 fL Neutrophils (%) (Auto) 71.9 % Lymphocytes (%) (Auto) 19.4 % Monocytes (%) (Auto) 6.8 % Eosinophils (%) (Auto) 1.4 % Basophils (%) (Auto) 0.4 % Neutrophils # (Auto) 5.64 K/uL Lymphocytes # (Auto) 1.52 K/uL Monocytes # (Auto) 0.53 K/uL Eosinophils # (Auto) 0.11 K/uL Basophils # (Auto) 0.03 K/uL RDW Standard Deviation 50.8 fL 50.6 fL RDW Coefficient of Variation 16.7 % 16.8 % Immature Granulocyte % (Auto) 0.1 % Immature Granulocyte # (Auto) 0.01 K/uL Sodium Level 142 mmol/L 142 mmol/L Potassium Level 3.6 mmol/L 3.8 mmol/L Chloride Level 108 mmol/L 111 mmol/L Carbon Dioxide Level 29 mmol/L 29 mmol/L Anion Gap 5.0 mmol/L 2.0 mmol/L Blood Urea Nitrogen 13 mg/dl 12 mg/dl Creatinine 0.91 mg/dl 0.75 mg/dl Est Creatinine Clear Calc Drug Dose 65.8 ml/min 79.8 ml/min Estimated GFR () 70.0 88.5 Estimated GFR (Non- 60.4 76.3 BUN/Creatinine Ratio 14.5 15.6 Random Glucose 140 mg/dl 115 mg/dl Calcium Level 8.7 mg/dl 8.7 mg/dl Magnesium Level 2.3 mg/dl Troponin I < 0.015 ng/ml Prothrombin Time 11.4 SECONDS Prothromb Time International Ratio 1.1 Bedside Glucose 132 mg/dl Chest CT 04/20/17: There are pulmonary emboli within segmental and subsegmental branches of the right lower lobe pulmonary artery. Subpleural opacities are seen at the right lung base and there is associated linear atelectasis/scarring. The appearance suggests pulmonary infarcts given the presence of right lower lobe pulmonary emboli. Clinical correlation will be required. There are secretions present within the trachea and left mainstem bronchus. Additionally, fluid/debris is present within the dependent lower lobe airways. There are numerous punctate nodules seen within the dependent lower lobes and the appearance suggests chronic aspiration. Clinical correlation will be essential. Emphysema, cardiomegaly, and cardiac pacemaker. Findings suggest pulmonary artery hypertension. There is no lobar consolidation or pleural effusion. There is a 1.1 cm indeterminant cortical hypodensity in the upper pole of the left kidney. This likely represents a cyst but is too small for definitive characterization. A precautionary six-month renal ultrasound is recommended for reassessment. An intrathecal lead versus lead fragment is present within the central canal in the lower thoracic region. Clinical correlation will be required. Venous doppler 04/20/17: No DVT in right lower extremity. Chronic DVT within left superficial femoral vein. ECG 04/20/17: atrial paced rhythm with prolonged AV conduction. Left axis deviation. Right bundle branch block. ECG 04/21/17: Atrial paced rhythm. Right bundle-branch block. Compared to ECG of 04/20/2017 no significant change. ECG 04/22/17: Sinus rhythm with premature atrial complexes and premature ventricular complexes. Intermittent atrial pacing. Left axis deviation. Right bundle branch block. ECG 04/22/17: Atrial fibrillation with rapid ventricular response with premature ventricular or aberrantly conducted complexes. Left axis deviation. Right bundle branch block. Telemetry reviewed: Atrial fibrillation with RVR overnight. Currently appears to be in sinus with frequent PACs. Assessment & Plan Patient was discussed with Dr. Velasquez. 1. Atrial fibrillation with RVR: Patient has a history of paroxysmal atrial fibrillation and is on long-term anticoagulation with Pradaxa. She typically takes diltiazem 300 mg daily for rate control. She was admitted on 04/20/17 with DVT and PE. Early this morning she was noted to be in atrial fibrillation with rapid ventricular response. Her heart rate improved with IV Lopressor. She currently appears to be in sinus with PACs. An electrocardiogram is pending. Her heart rate is relatively well controlled but this is with limited activity. When sitting up during my physical exam her heart rate increased to the high 90' s. Recommend starting metoprolol succinate 50 mg once daily for improved rate control. Continue current dose of diltiazem. Recommend mcc anticoagulation for stroke risk reduction. It is presumed she failed Pradaxa. She has been started on Lovenox and Coumadin. INRs will need to be followed outpatient which will likely be done by her usual qa architect or PCP. 2. Coronary artery disease: According to outside records she suffered an NSTEMI and underwent LAD SERGEI stent placement in 2011. A repeat catheterization in 2012 showed a patent LAD stent with otherwise moderate CAD. No anginal symptoms during this hospital admission and negative cardiac enzymes. Continue aspirin, Plavix and statin therapy. Recommend beta meghna therapy as above. 3. Ischemic cardiomyopathy: Consider guideline based medical therapy with long acting beta meghna and THEE inhibitor or ARB. As above starting metoprolol succinate. She has a biventricular ICD. 4. Chronic systolic CHF: She has been continued on her usual outpatient dose of Lasix 40 mg daily during hospital admission. She currently appears euvolemic. Renal function and electrolytes are stable. 5. Pulmonary embolism and DVT: Per pulmonology/primary service. Thank you for the consultation. Cardiology will continue to follow. ADDENDUM BY ATTENDING CARDIOLOGY: Pt seen and examined. Agree with above. Case has been discussed with Mrs. Hancock SUZE. Patient denies chest pain, shortness of breath, or palpitations. She asked when she would be going home. She will discuss this with Dr. Rodriguez. She denies bleeding such as melena, hematochezia, or hematuria. ECGs were reviewed and noted that she had atrial fibrillation with rapid ventricular response. ECG this morning demonstrated sinus rhythm with PACs. Social history, family history, past medical history, catheterization findings and echo reports reviewed as noted above. Exam notable for: General: No acute distress. Neck: No JVD appreciated. Cardiac: Regular with ectopy. No audible rubs or gallops. 2/6 early peaking systolic ejection murmur best heard at the right upper sternal border. Pulmonary: Bibasilar rhonchi/coarse sounds at the bases. Otherwise clear. Extremities: No significant pitting edema. Assessment and plan: 1. Paroxysmal atrial fibrillation: She is now on sinus rhythm with PACs. Agree with metoprolol succinate as noted above. She states that she has not had issues with beta-blockers in the past. Continue anticoagulation for stroke risk reduction also for her acute PE. Beta-meghna can be further titrated as appropriate. 2. Ischemic cardiomyopathy: Agree with metoprolol succinate. This can be titrated over time. Also consider initiation of THEE-inhibitor if no contraindications in the future. This can be done as an outpatient. Biventricular ICD in place. 3. Chronic systolic CHF: She appears euvolemic. Can continue outpatient medications. 4. CAD s/p PCI: No angina. Continue anti-platelet therapy, high-intensity statin therapy, and also initiated beta-meghna as noted above. 5. PE: As per primary service. 6. Disposition: Follow-up with outpatient qa architect upon discharge. Please call for any other questions or concerns.
[2017-04-23] MEDS: WARFARIN SOD 5 MG TAB PO SCH (15:46)
[2017-04-23] MEDS: POLYETHYLENE (MIRALAX) 17 GM PACK PO PRN (15:48)
[2017-04-23 16:00] VITALS: BP 136/69; PULSE 86; TEMP 36.4; O2SAT 93
--- NOTE | 2017-04-23 16:00 | Progress Note ---
Subjective Date of Service: Apr 23, 2017. Subjective Pt evaluation today including: conversation w/ patient, conversation w/ family , physical exam, chart review, lab review, review of studies, review of inpatient medication list Was transferred to PCU because developed A. fib with rapid ventricular response Was started Cardizem drip, which was discontinued Beta meghna added, currently heart rate controlled, currently at 80-90 BPM Patient has no complaint, conversational Review of Systems Constitutional: + weakness, + fatigue, No fever, No chills, No sweats, No weight loss, No problem reported Eyes: No worsening of vision, No eye pain, No redness, No discharge, No diplopia ENT: No hearing loss, No unusual epistaxis, No nasal symptoms, No sore throat, No tinnitus, No dental problems, No trouble swallowing Respiratory: No cough, No sputum, No wheezing, No shortness of breath, No dyspnea on exertion, No dyspnea at rest, No hemoptysis Cardiac: No chest pain, No orthopnea, No PND, No edema, No claudication, No palpitations Abdomen: No pain, No nausea, No vomiting, No diarrhea, No constipation Musculoskeletal: No joint pain, No muscle pain, No swelling, No calf pain Female : No dysuria, No urinary frequency, No hematuria, No incontinence, No abnormal vaginal bleeding, No vaginal discharge Neurologic: No memory loss, No paralysis, No weakness, No numbness/tingling, No vertigo, No balance problems Psychiatric: No depression symptoms, No anhedonism, No anxiety, No insomnia, No substance abuse Heme: No abnormal bleeding/bruising, No clotting problems, No swollen lymph nodes, No night sweats Endo: No fatigue, No excessive thirst, No excessive urination Skin: No rash, No itch, No new/changing skin lesions, No color change, No bleeding Objective Vital Signs Date Time Temp Pulse Resp B/P (MAP) Pulse Ox O2 Delivery O2 Flow Rate FiO2 04/23/17 12:00 36.4 96 21 142/72 (95) 93 Room Air 04/23/17 08:00 CPAP 04/23/17 08:00 36.5 93 20 132/72 (92) 95 Room Air 04/23/17 04:00 CPAP 2.0 04/23/17 04:00 36.4 79 18 132/75 (94) 90 CPAP 2.0 04/23/17 03:10 145 138/82 04/22/17 23:35 137 110/78 (89) 04/22/17 23:22 152/78 (102) 04/22/17 23:21 142 142/80 (100) 04/22/17 20:03 73 156/90 (112) 04/22/17 19:28 36.3 116 20 197/69 (111) 94 Room Air 04/22/17 16:00 94 Room Air 04/22/17 15:56 70 18 95 Nasal Cannula 2.0 Physical Exam General Appearance: WD/WN, no apparent distress, + obese Eyes: normal inspection, PERRL, EOMI, sclerae normal ENT: normal ENT inspection, hearing grossly normal, pharynx normal Neck: supple, no adenopathy, thyroid normal, no JVD, no carotid bruits, trachea midline Respiratory/Chest: chest non-tender, normal breath sounds, no respiratory distress, no accessory muscle use, + decreased breath sounds Cardiovascular: no gallop, no JVD, no murmur, + irregularly irregular Abdomen: normal bowel sounds, non tender, soft, no organomegaly, no pulsatile mass Extremities: normal range of motion, non-tender, normal inspection, no pedal edema, no calf tenderness, normal capillary refill, pelvis stable Neurologic/Psychiatric: land manager II-XII nml as tested, no motor/sensory deficits, alert, normal mood/affect, oriented x 3 Skin: normal color, warm/dry, no rash Lymphatic: no adenopathy Laboratory Results Last 24 Hours Test 04/22/17 16:41 04/22/17 19:53 04/22/17 20:33 04/22/17 23:56 Bedside Glucose 130 mg/dl 138 mg/dl Thyroid Stimulating Hormone (TSH) 1.310 uIu/ml White Blood Count 7.84 K/uL Red Blood Count 4.59 M/uL Hemoglobin 11.6 g/dL Hematocrit 37.8 % Mean Corpuscular Volume 82.4 fL Mean Corpuscular Hemoglobin 25.3 pg Mean Corpuscular Hemoglobin Concent 30.7 g/dl Platelet Count 210 K/uL Mean Platelet Volume 9.7 fL Neutrophils (%) (Auto) 71.9 % Lymphocytes (%) (Auto) 19.4 % Monocytes (%) (Auto) 6.8 % Eosinophils (%) (Auto) 1.4 % Basophils (%) (Auto) 0.4 % Neutrophils # (Auto) 5.64 K/uL Lymphocytes # (Auto) 1.52 K/uL Monocytes # (Auto) 0.53 K/uL Eosinophils # (Auto) 0.11 K/uL Basophils # (Auto) 0.03 K/uL RDW Standard Deviation 50.8 fL RDW Coefficient of Variation 16.7 % Immature Granulocyte % (Auto) 0.1 % Immature Granulocyte # (Auto) 0.01 K/uL Sodium Level 142 mmol/L Potassium Level 3.6 mmol/L Chloride Level 108 mmol/L Carbon Dioxide Level 29 mmol/L Anion Gap 5.0 mmol/L Blood Urea Nitrogen 13 mg/dl Creatinine 0.91 mg/dl Est Creatinine Clear Calc Drug Dose 65.8 ml/min Estimated GFR () 70.0 Estimated GFR (Non- 60.4 BUN/Creatinine Ratio 14.5 Random Glucose 140 mg/dl Calcium Level 8.7 mg/dl Magnesium Level 2.3 mg/dl Troponin I < 0.015 ng/ml Test 04/23/17 05:21 04/23/17 06:37 04/23/17 11:24 White Blood Count 7.30 K/uL Red Blood Count 4.50 M/uL Hemoglobin 11.9 g/dL Hematocrit 36.7 % Mean Corpuscular Volume 81.6 fL Mean Corpuscular Hemoglobin 26.4 pg Mean Corpuscular Hemoglobin Concent 32.4 g/dl RDW Standard Deviation 50.6 fL RDW Coefficient of Variation 16.8 % Platelet Count 203 K/uL Mean Platelet Volume 10.2 fL Prothrombin Time 11.4 SECONDS Prothromb Time International Ratio 1.1 Sodium Level 142 mmol/L Potassium Level 3.8 mmol/L Chloride Level 111 mmol/L Carbon Dioxide Level 29 mmol/L Anion Gap 2.0 mmol/L Blood Urea Nitrogen 12 mg/dl Creatinine 0.75 mg/dl Est Creatinine Clear Calc Drug Dose 79.8 ml/min Estimated GFR () 88.5 Estimated GFR (Non- 76.3 BUN/Creatinine Ratio 15.6 Random Glucose 115 mg/dl Calcium Level 8.7 mg/dl Bedside Glucose 132 mg/dl 183 mg/dl Assessment and Plan 76 y/o female with admitted for direct admission on 04/20 with diagnosis of acute PE on the right side with shortness of breath and productive cough. Per report him a Pt had been scheduled for bronch with Dr. Vann. Chest CT shows acute PE on right side so bronch was canceled and pt was directly admitted. Past medical history:a-fib, s/p pacemaker, CAD, [place] x 2 s/p stents (5), HTN, HLD , CHF, DM II, interstitial lung disease, [place]YET[place]O, and hypothyroidism A. fib with RVR with history:a-fib, ate controlled, continue Cardizem she was taking before, added a beta meghna metoprolol succinate, 50 mg by mouth daily A-fib, h/o ablation, s/p pacemaker (1999 -Continue diltiazem 300 mg PO qd -Pradaxa stopped , has started Coumadin by mouth daily with bridging Lovenox as below Acute pulmonary emboli: Continue to be stable -Lovenox 1 mg/kg SC q12h bridge for Coumadin after discussed with patient and family, this need to be bridging and overlapping for at least 5 days Pt presumably failed Pradaxa as she states she took as directed every day and only stopped for 2 days prior to procedure -Venous dopplers lower extremities bilaterally, no acute DVT, per report: No evidence of right lower extremity DVT , 2. 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 Vann service for the nest step of chronic cough and PE, I have ordered Interior Painter to call to Dr. Vann service to follow up with patient, Chronic cough/chronic aspiration Recent falls CAD, h/o MT x 2 and s/p stents x 5, HTN, HLD--most recent MT in January 2017 -Continue ASA 81 mg PO qd, Plavix 75 mg PO qd, and Crestor 20 mg PO qhs - relief mate is Dr. 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
[2017-04-23 20:00] VITALS: BP 162/76; PULSE 85; TEMP 37.2; O2SAT 92
[2017-04-23] MEDS: CIPROFLOXACIN 500 MG TAB PO SCH (20:20)
[2017-04-23] MEDS: ROSUVASTATIN CALCIUM 10 MG TAB PO SCH (20:21)
[2017-04-23] MEDS: LATANOPROST 0.005% OP SOLN 2.5 ML BTL OPB SCH (20:23)
[2017-04-23] MEDS: TEMAZEPAM 7.5 MG CAP PO PRN (23:37)
[2017-04-23 23:55] VITALS: BP 128/75; PULSE 89; TEMP 36.8; O2SAT 95
[2017-04-24] VITALS (9 sets, daily range): BP systolic 116–158; BP diastolic 71–85; PULSE 66–87; TEMP 36.4–36.7; O2SAT 92–97
[2017-04-24] MEDS: LEVOTHYROXINE 100 MCG TAB PO SCH (06:19)
[2017-04-24] MEDS: ENOXAPARIN 120 MG/0.8 ML SYR SQ SCH ×2 (06:19→17:46)
[2017-04-24] MEDS: ALBUTEROL HFA 8 GM INHALER INH SCH ×3 (06:20→21:23)
[2017-04-24] MEDS: INSULIN ASPART 100 UNITS/ML 3 ML PEN SC SCH ×4 (07:00→21:00)
[2017-04-24 07:40] LABS: INR 1.1 (0.9-1.1); PROTHROMBIN TIME (PATIENT) 11.6 SECONDS (9.0-12.0)
[2017-04-24 08:00] LABS: BUN/CREATININE RATIO 15.3 (10-20); CALCIUM 8.9 mg/dl (8.5-10.1); CREATININE 0.75 mg/dl (0.60-1.20); MAGNESIUM 2.3 mg/dl (1.8-2.4); POTASSIUM 3.9 mmol/L (3.5-5.1)
[2017-04-24] MEDS: ASPIRIN 81 MG ECTAB PO SCH (08:03)
[2017-04-24] MEDS: CLOPIDOGREL BISULFATE 75 MG TAB PO SCH (08:03)
[2017-04-24] MEDS: GABAPENTIN 300 MG CAP PO SCH (08:03)
[2017-04-24] MEDS: FUROSEMIDE 40 MG TAB PO SCH (08:03)
[2017-04-24] MEDS: CIPROFLOXACIN 500 MG TAB PO SCH ×2 (08:04→21:23)
[2017-04-24] MEDS: DILTIAZEM HCL 300 MG CAPCR PO SCH (08:04)
[2017-04-24] MEDS: METOPROLOL SUCC 50MG EXT REL TAB PO SCH (08:05)
[2017-04-24] MEDS: DICLOFENAC SOD 1% GEL 100 GM TUBE EXT SCH ×4 (08:05→21:22)
[2017-04-24] MEDS: TIOTROPIUM BROMIDE 5 PUFF/90 MCG INH INH SCH (08:05)
[2017-04-24] MEDS: BUDESONIDE/FORMOTEROL FUMARATE 160/4.5 60 PUFFS/INHALER INH SCH ×2 (08:05→21:23)
[2017-04-24] MEDS ORDERED: WARFARIN SOD 1 MG TAB PO ONE (12:45)
--- NOTE | 2017-04-24 15:09 | CARDIOLOGY PROGRESS NOTE ---
DATE: 04/24/2017 TIME: 14:38 p.m. SUBJECTIVE: This morning, she was noted to have an episode of atrial fibrillation with rapid ventricular response when walking. She was completely asymptomatic. She has dyspnea with exertion, but denies chest pain or palpitations. She denies bleeding, orthopnea, shortness of breath at rest or syncope. She received her first dose of metoprolol succinate today, after her atrial fibrillation episode. OBJECTIVE: VITAL SIGNS: Temperature 36.6 degrees, heart rate 66 beats per minute, respiratory rate 20, blood pressure 118/75 mmHg, and oxygen saturation is 96% on room air. Weight 115.8 kilograms. I's and O's positive 290 mL. GENERAL: In no acute distress. She is alert. NECK: No appreciable JVD. CARDIAC EXAM: No ventricular heave, regular, normal S1 and S2. 2/6 early peaking systolic ejection murmur best heard at the right upper sternal border. LUNGS: Clear to auscultation bilaterally without wheezes, rales or rhonchi. ABDOMEN: Soft, nontender, and nondistended. Normoactive bowel sounds. No bruits noted. EXTREMITIES: Trace bilateral lower extremity edema. No cyanosis. PSYCHIATRIC: Affect appears appropriate. MEDICATIONS: Include aspirin 81 mg daily, Cipro 500 mg p.o. b.i.d., Plavix 75 mg daily, diltiazem 300 mg daily, metoprolol succinate 50 mg daily, Lasix 40 mg p.o. daily, Lovenox 111 mg subQ q. 12 hours, Coumadin 5 mg daily, Crestor 20 mg daily, and levothyroxine 100 mcg daily. LABORATORY DATA: Sodium 142, potassium 3.9, BUN 12, creatinine 0.75, and magnesium 2.3. INR 1.1. ASSESSMENT AND PLAN: 1. Paroxysmal atrial fibrillation: Telemetry was personally reviewed and she did have atrial fibrillation this morning. She is currently in sinus rhythm. She got her first dose of metoprolol after today's atrial fibrillation episode and her heart rate currently is in the 60s on telemetry. Continue current dose of metoprolol. She has been on diltiazem chronically and this was not adjusted at this point. Continue anticoagulation for stroke risk reduction. She is asymptomatic for her atrial fibrillation, but mentions that there has been consideration for atrial fibrillation ablation. If she is adequately rate controlled with rate controlling medications and remains asymptomatic, she may be able to be treated medically, which is her preference. 2. Ischemic cardiomyopathy: Continue metoprolol succinate and this can be titrated over time. Perhaps in the future, this can be titrated while reducing diltiazem. Would also recommend THEE inhibitor in the future. She has a biventricular ICD in place. 3. Chronic systolic congestive heart failure: She appears euvolemic. Continue current outpatient diuretic regimen. 4. Coronary artery disease status post percutaneous coronary intervention: According to our records, her most recent percutaneous coronary intervention was several years ago. Triple therapy increases the risk of bleeding and therefore, would continue aspirin 81 mg daily indefinitely and can discontinue Plavix if no contraindications, while on anticoagulation therapy. Continue high intensity statin therapy and beta meghna. This was discussed with Dr. Rodriguez in regards to her antiplatelet regimen. He plans on calling her primary auto suspension and steering mechanic, whom he knows well to discuss her antiplatelet regimen with her outpatient physician. No angina. 5. Pulmonary embolism: As per primary service. 6. Disposition: She has requested that a followup appointment be made with electrophysiology with [facility] and therefore a message was sent to the office to contact her about an appointment. No further inpatient cardiology evaluation recommended at this time. Further adjustments to her medications can be done as an outpatient. The patient's care has been discussed with Dr. Rodriguez and nursing staff.
--- NOTE | 2017-04-24 15:24 | Progress Note ---
Subjective Date of Service: Apr 24, 2017. Subjective Pt evaluation today including: conversation w/ patient, conversation w/ family , physical exam, chart review, lab review, review of studies, review of inpatient medication list did have atrial fibrillation this morning Review of Systems Constitutional: + weakness, + fatigue, No fever, No chills, No sweats, No weight loss, No problem reported Eyes: No worsening of vision, No eye pain, No redness, No discharge, No diplopia ENT: No hearing loss, No unusual epistaxis, No nasal symptoms, No sore throat, No tinnitus, No dental problems, No trouble swallowing Respiratory: No cough, No sputum, No wheezing, No shortness of breath, No dyspnea on exertion, No dyspnea at rest, No hemoptysis Cardiac: No chest pain, No orthopnea, No PND, No edema, No claudication, No palpitations Abdomen: No pain, No nausea, No vomiting, No diarrhea, No constipation Musculoskeletal: No joint pain, No muscle pain, No swelling, No calf pain Female : No dysuria, No urinary frequency, No hematuria, No incontinence, No abnormal vaginal bleeding, No vaginal discharge Neurologic: No memory loss, No paralysis, No weakness, No numbness/tingling, No vertigo, No balance problems Psychiatric: No depression symptoms, No anhedonism, No anxiety, No insomnia, No substance abuse Heme: No abnormal bleeding/bruising, No clotting problems, No swollen lymph nodes, No night sweats Endo: No fatigue, No excessive thirst, No excessive urination Skin: No rash, No itch, No new/changing skin lesions, No color change, No bleeding Objective Vital Signs Date Time Temp Pulse Resp B/P (MAP) Pulse Ox O2 Delivery O2 Flow Rate FiO2 04/24/17 12:00 96 Room Air 04/24/17 10:58 36.6 66 20 118/75 (89) 94 Room Air 04/24/17 08:00 95 Room Air 04/24/17 07:08 36.6 87 20 158/85 (109) 95 Room Air 04/24/17 04:00 CPAP 2.0 04/24/17 03:31 36.7 82 20 127/79 (95) 92 CPAP 04/24/17 00:00 CPAP 2.0 04/23/17 23:55 36.8 89 20 128/75 (92) 95 CPAP 04/23/17 20:00 37.2 85 19 162/76 (104) 92 Room Air 04/23/17 20:00 Room Air 04/23/17 16:00 36.4 86 19 136/69 (91) 93 Room Air Physical Exam General Appearance: WD/WN, no apparent distress, + obese Eyes: normal inspection, PERRL, EOMI, sclerae normal ENT: normal ENT inspection, hearing grossly normal, pharynx normal Neck: supple, no adenopathy, thyroid normal, no JVD, no carotid bruits, trachea midline Respiratory/Chest: chest non-tender, lungs clear, normal breath sounds, no respiratory distress, no accessory muscle use, + decreased breath sounds Cardiovascular: no edema, no gallop, no JVD, no murmur, + irregularly irregular Abdomen: normal bowel sounds, non tender, soft, no organomegaly, no pulsatile mass Extremities: normal range of motion, non-tender, normal inspection, no pedal edema, no calf tenderness, normal capillary refill, pelvis stable Neurologic/Psychiatric: frameman II-XII nml as tested, no motor/sensory deficits, alert, normal mood/affect, oriented x 3 Skin: normal color, warm/dry, no rash Lymphatic: no adenopathy Laboratory Results Last 24 Hours Test 04/23/17 16:32 04/23/17 21:05 04/24/17 06:27 04/24/17 07:02 Bedside Glucose 137 mg/dl 114 mg/dl 116 mg/dl Prothrombin Time 11.6 SECONDS Prothromb Time International Ratio 1.1 Sodium Level 142 mmol/L Potassium Level 3.9 mmol/L Chloride Level 110 mmol/L Carbon Dioxide Level 28 mmol/L Anion Gap 4.0 mmol/L Blood Urea Nitrogen 12 mg/dl Creatinine 0.75 mg/dl Est Creatinine Clear Calc Drug Dose 79.9 ml/min Estimated GFR () 88.5 Estimated GFR (Non- 76.3 BUN/Creatinine Ratio 15.3 Random Glucose 123 mg/dl Calcium Level 8.9 mg/dl Magnesium Level 2.3 mg/dl Test 04/24/17 10:57 Bedside Glucose 121 mg/dl Assessment and Plan 76 y/o female with admitted for direct admission on 04/20 with diagnosis of acute PE on the right side with shortness of breath and productive cough. Per report him a Pt had been scheduled for bronch with Dr. Vann. Chest CT shows acute PE on right side so bronch was canceled and pt was directly admitted. Patient developed A. fib with rapid glandular response which required Cardizem drip, Past medical history:a-fib, s/p pacemaker, CAD, [place] x 2 s/p stents (5), HTN, HLD , CHF, DM II, interstitial lung disease, [place], and hypothyroidism A. fib with RVR with history:a-fib, was having atrial fibrillation this morning , now rate controlled, continue Cardizem she was taking before, added a beta meghna metoprolol succinate, 50 mg by mouth daily A-fib, h/o ablation, s/p pacemaker (1999 -Continue diltiazem 300 mg PO qd -Pradaxa stopped , has started Coumadin by mouth daily with bridging Lovenox as below Acute pulmonary emboli: Continue to be stable -Lovenox 1 mg/kg SC q12h bridge for Coumadin after discussed with patient and family, this need to be bridging and overlapping for at least 5 days Pt presumably failed Pradaxa as she states she took as directed every day and only stopped for 2 days prior to procedure -Venous dopplers lower extremities bilaterally, no acute DVT, per report: No evidence of right lower extremity DVT , 2. 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 Johnson, [facility]/[place], called o , he reported patient last time stent was 2016, basion the risk of bleeding is when on aspirin , Plavix and Coumadin, he recommend to discontinue Plavix, and continue aspirin, . talked with patient about this Ischemic cardiomyopathy: s/p biventricular ICD in place. Chronic systolic congestive heart failure: euvolemic. Continue current outpatient diuretic regimen. pt requested that a followup appointment be made with electrophysiology with [facility] and therefore a message was sent to the office to contact her about an appointment. 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
[2017-04-24] MEDS: WARFARIN SOD 5 MG TAB PO SCH (16:29)
[2017-04-24] MEDS ORDERED: LATANOPROST 0.005% OP SOLN 2.5 ML BTL OPB SCH (21:00)
[2017-04-24] MEDS: ROSUVASTATIN CALCIUM 10 MG TAB PO SCH (21:23)
[2017-04-24] MEDS: TEMAZEPAM 7.5 MG CAP PO PRN (23:03)
[2017-04-25] MEDS ORDERED: ENOXAPARIN 120 MG/0.8 ML SYR SQ SCH
[2017-04-25] MEDS ORDERED: CIPROFLOXACIN 500 MG TAB PO SCH
[2017-04-25 04:00] VITALS: BP 150/85; PULSE 71; TEMP 36.3; O2SAT 93
[2017-04-25] MEDS: LEVOTHYROXINE 100 MCG TAB PO SCH (06:08)
[2017-04-25] MEDS: ENOXAPARIN 120 MG/0.8 ML SYR SQ SCH (06:08)
[2017-04-25] MEDS: ALBUTEROL HFA 8 GM INHALER INH SCH (06:08)
[2017-04-25] MEDS: INSULIN ASPART 100 UNITS/ML 3 ML PEN SC SCH ×2 (07:00→11:00)
[2017-04-25 07:10] VITALS: BP 155/77; PULSE 72; TEMP 36.4; O2SAT 92
[2017-04-25 07:17] LABS: INR 1.1 (0.9-1.1); PROTHROMBIN TIME (PATIENT) 11.7 SECONDS (9.0-12.0)
[2017-04-25] MEDS: TIOTROPIUM BROMIDE 5 PUFF/90 MCG INH INH SCH (07:39)
[2017-04-25] MEDS: DICLOFENAC SOD 1% GEL 100 GM TUBE EXT SCH ×2 (07:39→13:00)
[2017-04-25] MEDS: BUDESONIDE/FORMOTEROL FUMARATE 160/4.5 60 PUFFS/INHALER INH SCH (07:40)
[2017-04-25] MEDS: DILTIAZEM HCL 300 MG CAPCR PO SCH (07:40)
[2017-04-25] MEDS: ASPIRIN 81 MG ECTAB PO SCH (07:41)
[2017-04-25] MEDS: CIPROFLOXACIN 500 MG TAB PO SCH (07:41)
[2017-04-25] MEDS: FUROSEMIDE 40 MG TAB PO SCH (07:42)
[2017-04-25] MEDS: GABAPENTIN 300 MG CAP PO SCH (07:42)
[2017-04-25] MEDS: METOPROLOL SUCC 50MG EXT REL TAB PO SCH (07:43)
[2017-04-25] MEDS ORDERED: WARFARIN SOD 2 MG TAB PO ONE (07:45)
[2017-04-25] MEDS ORDERED: CPR500 PO (07:45)
[2017-04-25] MEDS ORDERED: TPRSR50 PO (07:45)
[2017-04-25] MEDS ORDERED: LVNIS120 SQ (07:45)
[2017-04-25] MEDS ORDERED: CMD5 PO ×2 (07:45→07:48)
--- NOTE | 2017-04-25 07:47 | Discharge Instructions ---
Discharge Instructions Date of Service Apr 25, 2017. Admission Reason for Admission: Pulmonary Embolism Discharge Discharge Diagnosis / Problem: (1) Pulmonary embolism VTE Date & Time Date of VTE Diagnosis: Apr 20, 2017 Time of VTE Diagnosis: 09:12 Discharge Goals Goal(s): Decrease discomfort, Improve function, Increase independence, Improve disease control, Improve nutritional status, Learn about illness, Diagnostic testing, Therapeutic intervention, Prevent Disease Progression, Specific goals Activity Recommendations Activity Limitations: resume your previous activity . Instructions / Follow-Up Instructions / Follow-Up you have A. fib with RVR with history a-fib resolved your Pradaxa stopped , has started Coumadin by mouth daily with bridging Lovenox you have Acute pulmonary emboli: now is on Lovenox 1 mg/kg SC q12h bridge for Coumadin your current INR still subtherapeutic, Lovenox bridging should continue until INR >2 you need to check INR in 2 days, report the result to pc to adjust the dose of coumadin I called to , your diaper folder in [facility], he reported patient last time stent was 2016, we have discontinued Aspirin, and continue Plavix per Dr. Johnson's recommendation, call him if have any questions - you need to follow up with your primary care physician in 1 week, - take medication as instructed, never overdose or any misuse, or take with alcohol, because misuse of medicine may cause organ damage or , call your primary care physician if have questions of medicaitons. - call your primary care physician OR go to local emergency room if has any fever/chill, chest pain, shortness of breathing, nausea/vomiting/abdominal pain , facial droop/slurry speech/local weakness, or if has any questions. - fall precaution - diet as instructed - you need to follow up with your subspecialists - you should understand that it is important to follow up the above instruction , and "not following the above instruction" may cause delayed or missed care of your medical conditions which may cause permanent organ damage and even . Medication Instructions: * Warfarin is a medicine prescribed to prevent blood clots * Warfarin will thin your blood and help prevent new clots * Take your medications exactly as directed * Never skip a dose. Never take a double dose. If you miss a dose, take it as soon as you remember * It is important for your doctor to monitor your prothrombin time (PT). This is a lab test * Keep your appointment for lab tests Risk of Adverse Drug Reactions and Interactions: * Warfarin increases your risk of bleeding * The food you eat and other medications you take can affect how Warfarin works in your body * Ask your doctor about daily aspirin therapy * It is very important to talk with your doctor about all of the other medicines , antibiotics, vitamins or herbal products that you are taking * All of your medication must be approved by your doctor, including new medicines, as well as medicines you have taken before you started taking Warfarin Diet: * In order for Warfarin to work properly, it is important to keep your intake of Vitamin K as consistent as possible * You should avoid any sudden change in Vitamin K intake * Report any significant changes in your diet or weight to your doctor Call your Primary Care doctor if you experience any of the following: * Swelling or Pain in your leg * Sudden, continuous pain deep in a muscle * Pain that worsens when you are active or when you stand still for a long time * Chest Pain * Sudden Shortness of Breath * Rapid or pounding heart beat * Fainting * Dizziness * Cough with blood or bloody sputum * Sweating more than normal * Bruises * Heavy or uncontrolled bleeding * Blood in your urine, stool or vomit * Black or tarry stools Caring for Your Self at Home: * Avoid sitting, standing or lying down for long periods without moving your legs and feet * When traveling by car, stop to get out and move around at least once every 3 hours * On long airplane, train or bus rides, get up and move around when possible * If you can't get up, wiggle your toes and tighten your calves to keep your blood moving Follow Up: It is important for you to keep your follow up appointments with your medical provider. Current Hospital Diet Patient's current hospital diet: Diabetes Type 2 Diet, AHA Diet (Heart Healthy) Discharge Diet Recommended Diet: AHA Diet (Heart Healthy) Procedures Procedures Performed: no Pending Studies Studies pending at discharge: no Laboratory Results Hemoglobin A1c Test 04/20/17 14:11 Range/Units Estimated Average Glucose 137 mg/dl Hemoglobin A1c 6.4 H 4.5-5.6 % Medical Emergencies . Who to Call and When: Medical Emergencies: If at any time you feel your situation is an emergency, please call 911 immediately. . Non-Emergent Contact Non-Emergency issues call your: Primary Care Provider, Authorization Representative . . "Provider Documentation" section prepared by Kevin Rodriguez. . VTE Core Measure Inpt VTE Proph given/why not?: Enoxaparin (Lovenox)SQ, T.E.D. Stockings, SCD's Reason no anticoag overlap I/P: Treatment provided - N/A Reason no anticoag overlap @DC: Treatment provided - N/A
[2017-04-25] MEDS ORDERED: WARF1TAB PO (07:48)
[2017-04-25] MEDS: POLYETHYLENE (MIRALAX) 17 GM PACK PO PRN (07:57)
[2017-04-25 08:00] VITALS: O2SAT 96
[2017-04-25] MEDS ORDERED: CLOPIDOGREL BISULFATE 75 MG TAB PO ONE (09:00)
--- NOTE | 2017-04-25 10:01 | PROGRESS NOTE ---
DATE: 04/25/2017 TIME: 09:27 a.m. SUBJECTIVE: She denies chest pain, shortness of breath at rest, syncope, near syncope, or palpitations. No bleeding. She ambulated in the hallway and tolerated it well. She states that she was a little short of breath after exercise, but better than yesterday. OBJECTIVE: VITAL SIGNS: Temperature 36.4 degrees, heart rate 72 beats per minute, respiratory rate 20, blood pressure 155/77 mmHg; however, she has mostly been normotensive. Oxygen saturation 92%. I's and O's negative 1.2 liters. Weight 116.2 kg. GENERAL: No acute distress. She is alert. NECK: No appreciable JVD. CARDIAC EXAM: No ventricular heave. Regular with occasional ectopy. Normal S1 and S2. No audible murmurs, rubs or gallops. LUNGS: Clear to auscultation bilaterally without wheezes, rales or rhonchi. ABDOMEN: Soft, nontender, and nondistended. Normoactive bowel sounds. EXTREMITIES: Trace bilateral lower extremity edema. No cyanosis. PSYCHIATRIC: Affect appears appropriate. MEDICATIONS: Include Plavix 75 mg daily, ciprofloxacin 500 mg p.o. b.i.d., diltiazem 300 mg daily, metoprolol succinate 50 mg daily, Lasix 40 mg p.o. daily, Lovenox 111 mg subQ q. 12 hours, Crestor 20 mg daily, and Coumadin 5 mg daily. Telemetry personally reviewed. Sinus rhythm with PACs. LABORATORY DATA: Glucose 112. INR 1.1. ASSESSMENT AND PLAN: 1. Paroxysmal atrial fibrillation: No further atrial fibrillation noted in the past 24 hours. Her heart rate overall is better controlled on metoprolol. If she has recurrent atrial fibrillation with rapid ventricular response, would recommend titrating metoprolol succinate to 100 mg daily. Continue anticoagulation for stroke risk reduction. She would like to have another opinion regarding atrial fibrillation ablation and has requested that she be evaluated by electrophysiology locally. Because she requested this, a note was sent to the office to arrange a consult for her. 2. Ischemic cardiomyopathy: Continue metoprolol succinate. This can be further titrated over time. Would also recommend starting an THEE inhibitor in the future. She has a biventricular ICD in place. 3. Chronic systolic congestive heart failure: She appears euvolemic. No changes made today. 4. Coronary artery disease status post percutaneous coronary intervention: Today, she states that she did have a stent in the last 2 months. These records are not available for review at this time and she is in the process of being discharged. If she had a bare metal stent, could continue single antiplatelet therapy in conjunction with anticoagulation. If she had a drug-eluting stent, would continue both aspirin and Plavix while on Coumadin with the hopes of discontinuing one of the antiplatelet agents in the future. Because we do not have these records and she is in the process of being discharged, would continue triple therapy until we have this information available. This can also be determined by her primary firearms inspector, Dr. Johnson in [place]. She has no angina at this time or throughout the hospitalization. 5. Pulmonary embolism: As per primary service. She is on anticoagulation therapy. She had a pulmonary embolus while holding Pradaxa for 2 days for procedure. She is now on Coumadin. 6. Disposition: She is being discharged home. Plan of care has been discussed with Dr. Rodriguez in regards to the antiplatelet therapy. He has also reached out to Dr. Johnson, her primary firearms inspector. TURNER
[2017-04-25 10:40] VITALS: BP 142/75; PULSE 73; TEMP 36.6; O2SAT 93
[2017-04-25 11:16] VITALS: BP 142/75; PULSE 73; TEMP 36.6; O2SAT 93
[2017-04-25] MEDS: WARFARIN SOD 5 MG TAB PO SCH (11:57)
[2017-04-25 12:00] VITALS: O2SAT 95
--- NOTE | 2017-04-25 17:44 | Discharge Summary ---
Discharge Summary Date of Service Apr 25, 2017. Discharge Summary Admission Date: Apr 20, 2017 at 12:26 Discharge Date: Apr 25, 2017 Principal Diagnosis: acute PE Problems/Secondary Diagnoses: A. fib with RVR with history:a-fib, Procedures: No Consultations: Management Trainee, accounts payables clerk Medication Reconciliation New Medications: Warfarin Sodium (Coumadin) 1 Mg Tab 1 TAB PO DAILY for 30 Days, #30 TAB 5 Refills Ciprofloxacin (Ciprofloxacin HCl) 500 Mg Tab 500 MG PO BID for 4 Days, #8 TAB Enoxaparin (Lovenox) 120 Mg/0.8 Ml Inj 111 MG SQ Q12H for 7 Days until inr>2 Metoprolol Succinate (Metoprolol Succinate ER) 50 Mg Tabcr 50 MG PO QAM for 30 Days Warfarin Sod (Coumadin) 5 Mg Tab 5 MG PO DAILY@1600 for 30 Days, TAB Continued Medications: Albuterol Sulfate (Proair Respiclick) 108 Mcg/Act Aer INH DIRECTED Aspirin (Aspirin Ec) 81 Mg Tab 81 MG PO DAILY Budesonide/Formoterol Fumarate (Symbicort 160/4.5 Inhaler ) Aero 2 PUFFS INH BID, INHALER Carboxymethylcellulose Sodium (Refresh) 1 % Pedro OP DIRECTED Clopidogrel (Plavix) 75 Mg Tab 75 MG PO DAILY, TAB Diltiazem Hcl Coated Beads (Diltiazem Hcl Er) 300 Mg Cap 300 MG PO DAILY Furosemide (Lasix) 40 Mg Tab 40 MG PO DAILY, TAB Gabapentin (Neurontin) 300 Mg Cap 300 MG PO DAILY, CAP Ipratropium-Albuterol (Duoneb) 3 Ml Nebu 1 TREATMENT INH Q4H, INHA Levothyroxine Sodium (Levothyroxine Sodium) 100 Mcg Tab 1 TAB PO DAILY for 30 Days, #30 TAB 5 Refills Metformin Hcl (Glucophage) 500 Mg Tab 500 MG PO DAILY, TAB Nitroglycerin (Nitrostat) 0.4 Mg Tab 0.4 MG UT PRN, BTL Polyethylene Glycol 3350 (Miralax) 1 Pow Pow 17 GM PO DAILY, #527 GM Rosuvastatin Calcium (Crestor) 10 Mg Tab 20 MG PO DIRECTED, TAB Temazepam (Restoril) 15 Mg Cap 15 MG PO HS PRN for Insomnia, CAP Tiotropium [place] (Spiriva Respimat) 2.5 Mcg/Act Spr 1 PUFF INH DIRECTED, INHALER Discontinued Medications: Dabigatran Etexilate Mesylate (Pradaxa) 75 Mg Cap 1 CAP PO BID for 90 Days, #180 CAP 1 Refill Discharge Exam Doing well, out of bed to chair Review of Systems: Constitutional: No fever, No chills, No sweats, No weight loss, No weakness , No fatigue, No problem reported Eyes: No worsening of vision, No eye pain, No redness, No discharge, No diplopia, No problem reported ENT: No hearing loss, No unusual epistaxis, No nasal symptoms, No sore throat, No tinnitus, No dental problems, No trouble swallowing, No problem reported Respiratory: No cough, No sputum, No wheezing, No shortness of breath, No dyspnea on exertion, No dyspnea at rest, No hemoptysis, No problem reported Cardiovascular: No chest pain, No orthopnea, No PND, No edema, No claudication, No palpitations, No problem reported Abdomen: No pain, No nausea, No vomiting, No diarrhea, No constipation, No GI bleeding, No problem reported Musculoskeletal: No joint pain, No muscle pain, No swelling, No calf pain, No problem reported Genitourinary - Female: No dysuria, No urinary frequency, No urinary urgency , No urinary incontinence, No urinary retention, No hematuria, No dysmenorrhea, No menorrhagia, No metrorrhagia, No rash, No vaginal bleeding, No vaginal discharge, No vaginal itching, No vulvodynia, No , No problem reported Neurologic: No memory loss, No paralysis, No weakness, No numbness/tingling , No vertigo, No balance problems, No problem reported Psychiatric: No depression symptoms, No anhedonism, No anxiety, No insomnia , No substance abuse, No problem reported Endocrine: No fatigue, No excessive thirst, No excessive urination, No problem reported Hematologic / Lymphatic: No abnormal bleeding/bruising, No clotting problems , No swollen lymph nodes, No night sweats, No problem reported Integumentary: No rash, No itch, No new/changing skin lesions, No color change, No bleeding, No problem reported Physical Exam: General Appearance: WD/WN, no apparent distress Eyes: normal inspection, PERRL, EOMI ENT: normal ENT inspection, hearing grossly normal, TMs normal Neck: supple, no adenopathy, thyroid normal Respiratory/Chest: chest non-tender, + decreased breath sounds Cardiovascular: regular rate, rhythm, + irregularly irregular, + pertinent finding (trace edema 1+ edema) Abdomen / GI: normal bowel sounds, non tender, no organomegaly, no pulsatile mass, occult blood negative Extremities: no calf tenderness, no pedal edema, normal range of motion Neurologic/Psychiatric: semiconductor wafers saw operator II-XII nml as tested, no motor/sensory deficits , alert, normal mood/affect, oriented x 3 Skin: normal color, warm/dry Hospital Course 76 y/o female with admitted for direct admission on 04/20 with diagnosis of acute PE on the right side with shortness of breath and productive cough. Per report him a Pt had been scheduled for bronch with Dr. Vann. Chest CT shows acute PE on right side so bronch was canceled and pt was directly admitted. Patient developed A. fib with rapid glandular response which required Cardizem drip, Past medical history:a-fib, s/p pacemaker, CAD, PR x 2 s/p stents (5), HTN, HLD , CHF, DM II, interstitial lung disease, CAYETANO, and hypothyroidism A. fib with RVR with history:a-fib, was having atrial fibrillation this morning , now rate controlled, continue Cardizem she was taking before, added a beta meghna metoprolol succinate, 50 mg by mouth daily A-fib, h/o ablation, s/p pacemaker (1999 -Continue diltiazem 300 mg PO qd -Pradaxa stopped , has started Coumadin by mouth daily with bridging Lovenox as below Acute pulmonary emboli: Continue to be stable -Lovenox 1 mg/kg SC q12h bridge for Coumadin after discussed with patient and family, this need to be bridging and overlapping for at least 5 days Pt presumably failed Pradaxa as she states she took as directed every day and only stopped for 2 days prior to procedure -Venous dopplers lower extremities bilaterally, no acute DVT, per report: No evidence of right lower extremity DVT , 2. 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 Johnson, [facility]/Susie, called o , I talked to local membership manager, Dr. Velasquez ,because of last stent was 2016 , we don't know if it is SERGEI or bare mental stent for now, today is weekend, not able to get medical record, per recs of Dr. Velasquez we will continue Aspirin, and Plavix for now, Dr. Velasquez will follow up this Ischemic cardiomyopathy: s/p biventricular ICD in place. Chronic systolic congestive heart failure: euvolemic. Continue current outpatient diuretic regimen. pt requested that a followup appointment be made with electrophysiology with [facility] and therefore a message was sent to the office to contact her about an appointment. 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 fib with RVR with history a-fib resolved your Pradaxa stopped , has started Coumadin by mouth daily with bridging Lovenox you have Acute pulmonary emboli: now is on Lovenox 1 mg/kg SC q12h bridge for Coumadin your current INR still subtherapeutic, Lovenox bridging should continue until INR >2 you need to check INR in 2 days, report the result to pc to adjust the dose of coumadin I called to , your membership manager in [facility], he reported patient last time stent was 2016, I talked to local membership manager, Dr. Velasquez ,because of last stent was 2016 , we don't know if it is SERGEI or bare mental stent for now, today is weekend, not able to get medical record, per recs of Dr. Velasquez we will continue Aspirin, and Plavix for now, Dr. Velasquez will follow up this - you need to follow up with your primary care physician in 1 week, - take medication as instructed, never overdose or any misuse, or take with alcohol, because misuse of medicine may cause organ damage or , call your primary care physician if have questions of medicaitons. - call your primary care physician OR go to local emergency room if has any fever/chill, chest pain, shortness of breathing, nausea/vomiting/abdominal pain , facial droop/slurry speech/local weakness, or if has any questions. - fall precaution - diet as instructed - you need to follow up with your subspecialists - you should understand that it is important to follow up the above instruction , and "not following the above instruction" may cause delayed or missed care of your medical conditions which may cause permanent organ damage and even . Total Time Spent: Greater than 30 minutes This includes examination of the patient, discharge planning, medication reconciliation, and communication with other providers. Discharge Instructions Please refer to the electronic Patient Visit Report (Discharge Instructions) for additional information. Additional Copies To Shun Johnson M.D.; Ambrocio Velasquez MD; Michael Carrion D.O.; Jonathan Mena D.O.
[2017-04-26] MEDS ORDERED: CLOPIDOGREL BISULFATE 75 MG TAB PO SCH (09:00)
== END 2017-04-25 13:42 | disposition home health service (06) | DRG 176 ==
LOC: C.ACU 08:22 → C.MED 12:26 → ENRESERV 12:59 → C.MSICU 04-23 00:55 → C.2T 04-23 21:16
PROVIDERS: ADMIT Internal Medicine; ATTEND Hospitalist
DX: I26.99 Other pulmonary embolism without acute cor pulmonale (principal); J84.9 Interstitial pulmonary disease, unspecified; I50.22 Chronic systolic (congestive) heart failure; Z68.41 Body mass index [BMI] 40.0-44.9, adult; N39.0 Urinary tract infection, site not specified; R05 Cough; R13.10 Dysphagia, unspecified; R29.6 Repeated falls; I48.0 Paroxysmal atrial fibrillation; B96.1 Klebsiella pneumoniae [K. pneumoniae] as the cause of diseases classified elsewhere; B96.20 Unspecified Escherichia coli [E. coli] as the cause of diseases classified elsewhere; I25.10 Atherosclerotic heart disease of native coronary artery without angina pectoris; I25.5 Ischemic cardiomyopathy; I11.0 Hypertensive heart disease with heart failure; E11.9 Type 2 diabetes mellitus without complications; G47.33 Obstructive sleep apnea (adult) (pediatric); H40.9 Unspecified glaucoma; G47.00 Insomnia, unspecified; E78.5 Hyperlipidemia, unspecified; E03.9 Hypothyroidism, unspecified; K59.09 Other constipation; E66.01 Morbid (severe) obesity due to excess calories; Z95.810 Presence of automatic (implantable) cardiac defibrillator; I25.2 Old myocardial infarction; Z98.61 Coronary angioplasty status; Z87.891 Personal history of nicotine dependence; Z79.01 Long term (current) use of anticoagulants; Z79.02 Long term (current) use of antithrombotics/antiplatelets; Z79.82 Long term (current) use of aspirin; Z79.84 Long term (current) use of oral hypoglycemic drugs; Z79.899 Other long term (current) drug therapy; Z82.3 Family history of stroke; Z82.49 Family history of ischemic heart disease and other diseases of the circulatory system; F32.9 Major depressive disorder, single episode, unspecified; R91.1 Solitary pulmonary nodule

== ENCOUNTER 2017-08-10 12:20 | Inpatient (IN) | payer OTHER ==
[~2017-08-10] VITALS: Ht 170.2 cm; Wt 114.6 kg
[~2017-08-10 12:20] MED LIST changes: -CARDIZEM PO; -DABI1CAP PO; -FLUC100T4 PO
[2017-08-10 16:05] VITALS: BP 129/80; PULSE 100; TEMP 36.2; O2SAT 96; Ht 170.2 cm; Wt 114.6 kg
[2017-08-10] MEDS ORDERED: ACETAMINOPHEN 325 MG TAB PO PRN (16:30)
[2017-08-10] MEDS ORDERED: GLUCOSE 40% GEL 15 GM TUBE PO PRN (16:30)
[2017-08-10] MEDS ORDERED: GLUCAGON FOR INJ 1 MG VIAL SQ PRN (16:30)
[2017-08-10] MEDS ORDERED: GLUCOSE 10 TABS/TUBE PO PRN (16:30)
[2017-08-10] MEDS ORDERED: DEXTROSE 50% 50 ML SYR IV PRN (16:30)
[2017-08-10 16:58] LABS: BASO % 0.5 %; BASO ABS # 0.05 K/uL (0-0.2); COMPLETE YES; EOS % 1.5 %; IG% 0.3 %; LYMPH % 14.2 %; LYMPH ABS # 1.44 K/uL (1.2-3.4); MEAN CELL VOLUME 75.2 fL (80-100); MEAN CORPUSCULAR HEMOGLOBIN 23.8 pg (25-34); MEAN CORPUSCULAR HGB CONC 31.6 g/dl (32-36); MEAN PLATELET VOLUME 10.2 fL (7.4-10.4); NEUT % 76.5 %; PLATELET COUNT 270 K/uL (130-400); RED BLOOD COUNT 4.12 M/uL (4.2-5.4); WHITE BLOOD COUNT 10.17 K/uL (4.8-10.8)
[2017-08-10 17:09] LABS: INR 3.4 (0.9-1.1); PROTHROMBIN TIME (PATIENT) 35.2 SECONDS (9.0-12.0)
--- NOTE | 2017-08-10 17:11 | DIAGNOSTIC IMAGING REPORT ---
CHEST ONE VIEW PORTABLE CLINICAL HISTORY: CHF dyspnea COMPARISON STUDY: No previous studies for comparison. FINDINGS: Moderate cardiomegaly. Permanent bipolar cardiac pacemaker/defibrillator. Findings of congestive failure. Superimposed basilar atelectasis. IMPRESSION: Congestive heart failure The above report was generated using voice recognition software. It may contain grammatical, syntax or spelling errors. Electronically signed by: Boris Lynn M.D. 08/10/2017 5:10 PM Dictated Date/Time: 08/10/2017 5:09 PM
[2017-08-10 17:14] LABS: ALT/SGPT 35 U/L (12-78); BLOOD UREA NITROGEN 17 mg/dl (7-18); BUN/CREATININE RATIO 14.4 (10-20); CALCIUM 8.3 mg/dl (8.5-10.1); CARBON DIOXIDE 26 mmol/L (21-32); CHLORIDE 108 mmol/L (98-107); CREATININE 1.16 mg/dl (0.60-1.20); GLUCOSE 104 mg/dl (70-99); POTASSIUM 4.3 mmol/L (3.5-5.1); SODIUM 140 mmol/L (136-145)
[2017-08-10 17:19] LABS: ALB/GLOB RATIO 0.8 (0.9-2); ALKALINE PHOSPHATASE 96 U/L (45-117); AST/SGOT 29 U/L (15-37)
--- NOTE | 2017-08-10 17:24 | History and Physical ---
History & Physical Date & Time of Service: Aug 10, 2017 at 17:24 Chief Complaint: Atrial Fibrillation Primary Care Physician: DO Baltazar History of Present Illness Source: patient, clinic records, hospital records This is a 77yo F with a PMH of atrial fibrillation (on coumadin), s/p AICD, CAD (s/p 5 stents), HTN, DM II, HLD, COPD, systolic HF, interstitial lung disease, hypothyroidism and CAYETANO (on cpap) who presents from [facility] with atrial fibrillation in RVR. Patient endorses that over the past 3 days, she has experienced worsening SOB, productive cough with greenish-yellow sputum and congestion. States that she can normally ambulate around her home without becomming SOB but has been SOB at rest for the past 3 days. Started using O2 at home (normally does not require). Presented to PCP yesterday for these symptoms and was found to have a HR of 140 and was sent to [facility] for further evaluation. In the ER, was found to be in A fib with RVR at a rate of 160 as well as an acute exacerbation of CHF. Was started on IV diltiazem and 60mg IV Lasix x 1 and became hypotensive. Was then started on an amiodarone drip and rate steadily decreased. Patient was found to have a mild leukocytosis of 11.9 and a supratherapeutic INR of 4.34. Chest XR showed mildly enlarged cardiac silhouette but no acute cardiopulmonary abnormality. Sputum gram stain grew gram positive cocci and a moderate amount of gram negative cocci. Final culture pending. Was admitted in April for SOB and productive cough and was found to be in atrial fib with RVR as well as having an acute PE while on pradaxa. Follows with [facility] for both pulm and cardio but with [facility] for PCP. Currently, the patient endorses SOB, productive cough and fatigue. Denies fevers , chills, diaphoresis, palpitations, CP, abdominal pain, nausea, vomiting, dysuria, hematuria, or weakness or numbness in extremities. Past Medical/Surgical History Medical Problems: (1) CAD (coronary artery disease) Status: Chronic (2) COPD, moderate Status: Chronic (3) Diabetes mellitus, type II Status: Chronic (4) HLD (hyperlipidemia) Status: Chronic (5) HTN (hypertension) Status: Chronic (6) Interstitial lung disease Status: Chronic (7) CAYETANO on CPAP Status: Chronic (8) Pulmonary embolism Status: Resolved (9) Systolic CHF Status: Chronic Family History Coronary artery disease Hypertension Myocardial infarction Stroke Social History Smoking Status: Former Smoker Drug Use: none Marital Status: Housing status: lives alone Occupational Status: retired Allergies Coded Allergies: No Known Allergies (Unverified , 04/20/17) Home Medications Scheduled Albuterol Sulfate (Proair Respiclick), INH DIRECTED Aspirin (Aspirin Ec), 81 MG PO DAILY Budesonide/Formoterol Fumarate (Symbicort 160/4.5 Inhaler ), 2 PUFFS INH BID Carboxymethylcellulose Sodium (Refresh), OP DIRECTED Clopidogrel (Plavix), 75 MG PO DAILY Diltiazem Hcl Coated Beads (Diltiazem Hcl Er), 300 MG PO DAILY Furosemide (Lasix), 40 MG PO DAILY Ipratropium-Albuterol (Duoneb), 1 TREATMENT INH Q4H Levothyroxine Sodium (Levothyroxine Sodium), 1 TAB PO DAILY Metformin Hcl (Glucophage), 500 MG PO DAILY Metoprolol Succinate (Metoprolol Succinate ER), 50 MG PO QAM Nitroglycerin (Nitrostat), 0.4 MG UT PRN Polyethylene Glycol 3350 (Miralax), 17 GM PO DAILY Rosuvastatin Calcium (Crestor), 20 MG PO DIRECTED Tiotropium [place] (Spiriva Respimat), 1 PUFF INH DIRECTED Warfarin Sod (Coumadin), 1 TAB PO MoFr@1600 Warfarin Sod (Coumadin), 1 TAB PO SuTuWeThSa@1600 Scheduled PRN Temazepam (Restoril), 15 MG PO HS PRN for Insomnia Review of Systems Constitutional- no fever; no weight loss Eyes- no acute visual changes ENT- no sinus drainage; no pharyngitis Pulmonary- (+) as noted above Cardiac- no chest pain, no palpitations, no orthopnea, no dependent edema GI- no nausea, no vomiting, no diarrhea, no melena, no hematochezia - no dysuria, no hematuria Musculoskeletal- no arthralgias, no myalgias Derm- no rashes, no new skin lesions, no changing skin lesions Hematologic- no unusual bruising, no unusual bleeding Lymphatics- no adenopathy Endocrine- no polyuria or polydipsia; no heat or cold intolerance Neuro- no headaches, no focal neurologic symptoms Psych- no anxiety, no depression Physical Exam Vital Signs Date Time Temp Pulse Resp B/P (MAP) Pulse Ox O2 Delivery O2 Flow Rate FiO2 08/10/17 16:05 36.2 100 129/80 (97) 96 General Appearance: + mild distress, + obese Head: normocephalic, atraumatic Eyes: normal inspection, PERRL, sclerae normal ENT: normal ENT inspection, hearing grossly normal, pharynx normal (moist mucous membranes ) Neck: supple, thyroid normal, no JVD, trachea midline Respiratory/Chest: chest non-tender, lungs clear, normal breath sounds, no respiratory distress (breathing comfortably on NC O2), no accessory muscle use Cardiovascular: no murmur, normal peripheral pulses, + irregularly irregular Abdomen/GI: non tender, soft, no organomegaly Back: normal inspection Extremities/Musculoskelatal: normal inspection, no calf tenderness, + pertinent finding (Trace bilateral LE edema) Neurologic/Psych: no motor/sensory deficits, alert, normal mood/affect, oriented x 3 Skin: normal color, warm/dry Diagnostics Laboratory Results Results Past 24 Hours Test 08/10/17 16:39 Range/Units White Blood Count 10.17 4.8-10.8 K/uL Red Blood Count 4.12 4.2-5.4 M/uL Hemoglobin 9.8 12.0-16.0 g/dL Hematocrit 31.0 37-47 % Mean Corpuscular Volume 75.2 80-100 fL Mean Corpuscular Hemoglobin 23.8 25-34 pg Mean Corpuscular Hemoglobin Concent 31.6 32-36 g/dl Platelet Count 270 130-400 K/uL Mean Platelet Volume 10.2 7.4-10.4 fL Neutrophils (%) (Auto) 76.5 % Lymphocytes (%) (Auto) 14.2 % Monocytes (%) (Auto) 7.0 % Eosinophils (%) (Auto) 1.5 % Basophils (%) (Auto) 0.5 % Neutrophils # (Auto) 7.79 1.4-6.5 K/uL Lymphocytes # (Auto) 1.44 1.2-3.4 K/uL Monocytes # (Auto) 0.71 0.11-0.59 K/uL Eosinophils # (Auto) 0.15 0-0.5 K/uL Basophils # (Auto) 0.05 0-0.2 K/uL RDW Standard Deviation 50.0 36.4-46.3 fL RDW Coefficient of Variation 18.2 11.5-14.5 % Immature Granulocyte % (Auto) 0.3 % Immature Granulocyte # (Auto) 0.03 0.00-0.02 K/uL Prothrombin Time 35.2 9.0-12.0 SECONDS Prothromb Time International Ratio 3.4 0.9-1.1 Sodium Level 140 136-145 mmol/L Potassium Level 4.3 3.5-5.1 mmol/L Chloride Level 108 98-107 mmol/L Carbon Dioxide Level 26 21-32 mmol/L Anion Gap 6.0 3-11 mmol/L Blood Urea Nitrogen 17 7-18 mg/dl Creatinine 1.16 0.60-1.20 mg/dl Estimated GFR () 51.9 Estimated GFR (Non- 44.7 BUN/Creatinine Ratio 14.4 10-20 Random Glucose 104 70-99 mg/dl Calcium Level 8.3 8.5-10.1 mg/dl Total Bilirubin 0.3 0.2-1 mg/dl Aspartate Amino Transf (AST/SGOT) 29 15-37 U/L Alanine Aminotransferase (ALT/SGPT) 35 12-78 U/L Alkaline Phosphatase 96 45-117 U/L Pro-B-Type Natriuretic Peptide 2098 0-1800 pg/ml Total Protein 6.4 6.4-8.2 gm/dl Albumin 2.9 3.4-5.0 gm/dl Globulin 3.5 2.5-4.0 gm/dl Albumin/Globulin Ratio 0.8 0.9-2 Diagnostic Radiology CXR: IMPRESSION: Congestive heart failure EKG Sinus rhythm with occasional atrial-paced complexes and Premature atrial complexes Left axis deviation Right bundle branch block Prolonged QTc of 533 When compared with ECG of 23-APR-2017 14:12, Electronic atrial pacemaker has replaced Sinus rhythm Nonspecific T wave abnormality, improved in Lateral leads Impression Assessment and Plan This is a 77yo F with a PMH of atrial fibrillation (on coumadin), s/p AICD, CAD (s/p 5 stents), HTN, DM II, HLD, COPD, systolic HF, interstitial lung disease, hypothyroidism and CAYETANO (on cpap) who presents from [facility] with atrial fibrillation in RVR. A fib in RVR: improving -Found to be in A Fin in RVR at 160 bpm at [facility] -Lopressor discontinued due to hypotension -Continue Amiodarone drip -A fib with HR ~100 during exam -Monitor on telemetry -Coumadin held overnight due to supratherapeutic INR of 3.4 Acute on chronic CHF: -Likely 2/2 atrial fibrillation with RVR -Given 60 IV Lasix yesterday, 40mg IV lasix today -CXR with CHF, BNP >2000 -Echo pending -Daily weights, strict Is&Os -Cardio consulted COPD exacerbation: -Mildly hypoxic -O2 saturation in high 90s on 3L NC (no home O2) -CXR without evidence of opacities at this time -Leukocytosis of 11.9 -Sputum gram stain with gram + cocci, gram - cocci -Continue following for final culture report -Doxycycline (levaquin contraindicated with prolonged QTc) -Prednisone 40mg daily, xopenex nebs q4 PRN -Continue home inhalers -Pulm consulted CAD (s/p 5 stents): -Stable, no CP, no ischemia on EKG -Continue home plavix, aspirin, metoprolol, statin Injected R eye: -Irritated from cpap -Erythematous, photophobia, itching -Ophtho consult placed for evaluation of corneal abrasion DM II: -Hgb a1c 6.4 in Apr 2017 -Repeat hgb a1c ordered -Hold home agents -SSI while in-patient -Consider glycemic consulte while patient on prednisone if BG elevated -BG checks AC HS Hypothyroidism: -Cont levothyroxine HLD: -Cont statin CAYETANO: -Cont CPAP qHS DVT Ppx: Hold warfarin until therapeutic INR Code status: FULL PCP: Baltazar Dispo: Plan to return home once medically stable Patient seen in collaboration with Pop. Please see addendum. ATTENDING ADDENDUM care coordinated with THERESE Ha please refer to her notes for full details, I agree with her notes patient seen and examined, records reviewed by myself as well on exam, patient seen sitting up in bed, comfortable no dyspnea while on 3 liters nasal cannula has occasional productive cough denies chest pain, palpitations, dizziness no other symptoms VS noted and reviewed oriented x 3 , not in distress, speaks in sentences with no effort nor accessory muscle use normal rate, regular rhythm, no murmurs (+) rales bilaterally, no wheezing non distended, soft, nontender no bipedal edema, erythema, warmth no neuro deficits WBC 10.17 Hg 9.8 Crea 1.16 ASSESSMENT/PLAN> ACUTE HYPOXIC RESPIRATORY SECONDARY TO: CHF, LIKELY FROM A FIB WITH RVR - back to SR with Amiodarone drip which was started in [facility] INR 3.4, hold coumadin - Cardio consulted POSSIBLE PNEUMONIA, COPD EXACERBATION - sputum cultures done in [facility] (+) for growth per initial reports ff up final sputum cultures - empiric Ceftri + Doxy Prednisone HISTORY OF PE - diagnosed this year - hold coumadin INR 3.4 , resume coumadin accordingly other diagnoses and plan of care as per THERESE Ha's notes Yoandy Lord MD Level of Care Telemetry Resuscitation Status FULL RESUSCITATION VTE Prophylaxis VTE Risk Assessment Done? Y/N: Yes Risk Level: Moderate Given or contraindicated: Warfarin (Coumadin)
[2017-08-10] MEDS ORDERED: LEVALBUTEROL/IPRATROPIUM NEB INH PRN (17:30)
[2017-08-10] MEDS ORDERED: AMIODARONE IV BOLUS / DRIP IV STA (17:45)
[2017-08-10] MEDS ORDERED: CONSULT PHARMACY STA (17:45)
[2017-08-10] MEDS ORDERED: LEVALBUTEROL 1.25MG/0.5ML NEB INH PRN (18:00)
[2017-08-10] MEDS ORDERED: IPRATROPIUM BROMIDE NEB SOLN 0.02% 2.5 ML VIAL INH PRN (18:00)
[2017-08-10] MEDS: AMIODARONE / D5W 100 ML IV SCH ×2 (18:00→18:01)
[2017-08-10] MEDS ORDERED: FUROSEMIDE INJ 40 MG in SYRINGE 0 ML IV ONE (18:00)
[2017-08-10] MEDS ORDERED: AMIODARONE / D5W 200 ML IV SCH (18:15)
[2017-08-10] MEDS: AMIODARONE / D5W 200 ML IV SCH (18:16)
[2017-08-10 19:10] VITALS: BP 119/78; PULSE 81; TEMP 36.6; O2SAT 95
[2017-08-10 20:00] VITALS: O2SAT 95
[2017-08-10] MEDS: DOXYCYCLINE HYCLATE 100 MG CAP PO SCH (20:08)
[2017-08-10] MEDS: INSULIN ASPART 100 UNITS/ML 3 ML PEN SC SCH (20:35)
[2017-08-10] MEDS ORDERED: CMD5 PO (21:36)
[2017-08-10] MEDS ORDERED: CMD75 PO (21:36)
[2017-08-10] MEDS ORDERED: NITROGLYCERIN 0.4 MG SL PER TAB CHARGE UT PRN (21:45)
[2017-08-10] MEDS ORDERED: ARTIFICIAL TEARS OP SOLN OP PRN ×2 (21:45)
[2017-08-10] MEDS ORDERED: PHARMACY GLYCEMIC MGMT CONSULT PRN (22:00)
[2017-08-10] MEDS: ROSUVASTATIN CALCIUM 20 MG TAB PO SCH (22:11)
[2017-08-10 22:23] VITALS: PULSE 78; O2SAT 98
[2017-08-10] MEDS: TEMAZEPAM 15 MG CAP PO PRN (23:21)
[2017-08-10] MEDS ORDERED: ROCEPHIN-CONSULT PHARMACY PRN (23:26)
[2017-08-10] MEDS: CEFTRIAXONE SOD INJ 1000 MG in DEXTROSE 5% 50ML IV SCH (23:45)
--- NOTE | 2017-08-10 23:58 | CARDIOLOGY CONSULTATION ---
DATE OF CONSULTATION: 08/10/2017 TIME: 2030 p.m. PRIMARY DIRECTIONAL DRILLER: Dr. Miller. CONSULTING CLINICIAN: Dr. Benito Ha. REASON FOR CONSULTATION: Atrial fibrillation with rapid ventricular response. HISTORY OF PRESENT ILLNESS: Ms. Douglas is a very pleasant 77-year-old female with a history significant for CAD status post PCI, peripheral arterial disease, ischemic cardiomyopathy status post dual-chamber ICD, atrial flutter status post ablation, paroxysmal atrial fibrillation, systolic CHF, diabetes, hypertension, and dyslipidemia. She also has interstitial lung disease and COPD, according to the records and was diagnosed with pulmonary embolism in April of 2017, according to report. Three days prior to presentation to [facility] on 08/09/2017, she reportedly had been experiencing both palpitations and dyspnea with exertion. She was seen in an outpatient setting and was found to have atrial fibrillation with rapid ventricular response and was sent to [facility] Emergency Department for admission. She apparently had diltiazem intravenously with some improvement in her heart rate, but she, at some point, developed hypotension and for better heart rate control, an amiodarone drip was started. She states that she was not seen by cardiology there; however, apparently, cardiology at [facility] was taking part in the decision making process. There was concern that, perhaps, ongoing pulmonary embolism was playing a role and apparently some discussion about a thrombectomy. According to report, Dr. Cochran had evaluated her and, instead, recommended transfer for ongoing care of her atrial fibrillation here. On the amiodarone drip. She does feel better. She continues to feel tired. She has not exerted herself to see if she has dyspnea. She still has palpitations, however, improved. She states that she has been coughing since June with a green/yellow sputum. She denies fevers or chills. She denies orthopnea. She has had edema in the past, but states that she has not had any edema recently. She maintains a low-sodium diet and has been compliant with her outpatient diuretic regimen. She denies melena, hematochezia, hematuria, or other bleeding. She denies any recent nausea, vomiting or abdominal pain. In the past, she did have some left-sided abdominal pain, but none recently. REVIEW OF SYSTEMS: As above and review of systems, otherwise, negative. PAST MEDICAL HISTORY: 1. CAD. Most recent catheterization report available for review is from 01/24/2013, which described a patent LAD stent and otherwise, moderate CAD. Outpatient records also suggest a PCI earlier this year. She confirms that this was done in [place], but no further details available at this time. 2. Ischemic cardiomyopathy with echo in February of 2015 describing EF of 40%-45%. 3. Atrial flutter with ablation in 2011, but she does not have a recollection of this. This was gathered by records and she is unsure. 4. Atrial fibrillation, on anticoagulation therapy. 5. Dual-chamber ICD. 6. Chronic systolic CHF. 7. Peripheral arterial disease. She states that there were attempts to place right lower extremity stents; however, they were unable to be successfully deployed due to occlusions. 8. Hypertension. 9. Dyslipidemia. 10. Diabetes. 11. Depression. 12. COPD. 13. Interstitial lung disease. 14. Sleep apnea, on CPAP. 15. Pulmonary embolism, apparently diagnosed in April of 2017. 16. Pulmonary nodule. 17. Status post cholecystectomy. 18. Status post back surgery. HOME MEDICATIONS: Include: 1. Coumadin. 2. Plavix 75 mg daily 3. Aspirin 81 mg daily. 4. Cardizem long acting 300 mg daily. 5. Crestor 20 mg daily. 6. Doxycycline. 7. Lasix 40 mg daily. 8. Levothyroxine 100 mcg daily. 9. Metoprolol succinate 50 mg daily. 10. Omeprazole 20 mg daily. 11. Sertraline 100 mg daily. 12. Symbicort. 13. Spiriva. 14. Metformin 500 mg daily. 15. Levalbuterol nebulizer. 16. Proventil inhaler. 17. Losartan 25 mg once daily. INPATIENT MEDICATIONS: Include amiodarone drip protocol, doxycycline 100 mg p.o. b.i.d., Lasix 40 mg IV x1, prednisone 40 mg daily. ALLERGIES: No known drug allergies. SOCIAL HISTORY: She quit smoking many years ago. Denies alcohol or drug abuse. She has been 4 times and 4 times. Three of her ex-husbands have since . She has 4 children and also has adopted a grandson. She lives home alone with her dog. She is currently alone in her hospital room. FAMILY HISTORY: Her father had CAD. PHYSICAL EXAMINATION: VITAL SIGNS: Temperature 36.6 degrees, heart rate 81 beats per minute, respiration rate 20, blood pressure 119/78 mmHg, oxygen saturation 95% on 3 liters per nasal cannula. Weight 116 kg. GENERAL: In no acute distress. She is alert and oriented. HEENT: Anicteric sclerae. NECK: Thick, no significant JVD noted. No bruits. Normal carotid upstrokes bilaterally. CARDIAC EXAMINATION: PMI was nonpalpable. There was no ventricular heave, distant heart sounds overall, irregular. Normal S1, S2. No audible murmurs, rubs or gallops. LUNGS: Decreased breath sounds throughout. No wheezes, rales, or rhonchi audible. ABDOMEN: Soft, nontender, nondistended, normoactive bowel sounds, no bruits noted. EXTREMITIES: Trace bilateral lower extremity edema. No cyanosis. 1+ right dorsalis pedis pulse. 2+ left dorsalis pedis pulse. Radial pulses 2+ bilaterally. PSYCHIATRIC: Affect appears appropriate. Echocardiogram report from 02/21/2015 was reviewed, as noted above. Cardiac catheterization report from 2012 reviewed, as above. ECG, upon presentation, personally reviewed, from 08/10/2017, demonstrating sinus rhythm with occasional electronic atrial pacing as well as PACs, right bundle-branch block. Rhythm strips from [facility] demonstrate atrial fibrillation with rapid ventricular response. Telemetry here personally reviewed. She has atrial fibrillation with intermittent sinus rhythm. LABORATORY DATA: White blood cell count 10.17, hemoglobin 9.8, platelets 270. Sodium 140, potassium 4.3, BUN 17, creatinine 1.16. ProBNP 2098, albumin 2.9, AST 29, ALT 35. INR 3.4. Chest x-ray, performed upon presentation, personally reviewed. Dual-chamber pacemaker noted in the left chest. No obvious infiltrate. Increased vascular markings. ASSESSMENT AND PLAN: 1. Atrial fibrillation with rapid ventricular response: She was in sinus on ECG upon presentation, but does have paroxysmal Afib on telemetry. Can continue amiodarone for now. Resume metoprolol succinate, a home dose, 50 mg daily. Coumadin on hold due to supratherapeutic INR, however, should be restarted when appropriate, if no contraindications. Dr. Miller, electrophysiology, and her primary bellhop service captain, can decide plans regarding her atrial fibrillation. 2. Shortness of breath: Likely multifactorial. She does not appear significantly hypervolemic currently. She is receiving another dose of IV Lasix, which is reasonable. Resume usual dose of Lasix 40 mg p.o. tomorrow. Pulmonology has been consulted for chronic obstructive pulmonary disease exacerbation. She does have a cream/yellow sputum and cough for the last couple of months. 3. Chronic systolic congestive heart failure: She does not appear to be significantly hypervolemic. Monitor I's and O's closely. Monitor daily weights. Low-sodium diet. Monitor renal function with diuresis. Resume the usual outpatient dose of Lasix tomorrow. 4. Ischemic cardiomyopathy: It is not clear if she has had a recent echocardiogram. If one has not been done at [facility] recently, could consider repeating echocardiogram. She does have an ICD in place. 5. Coronary artery disease, status post percutaneous coronary intervention: She reportedly has had multiple PCIs in the past with the most recent being earlier this year. Details are not available at the time of this dictation. This can be further followed by her primary bellhop service captain, Dr. Miller. Continue dual-antiplatelet therapy for now. However, would consider single-antiplatelet therapy when appropriate, based on the timing of her most recent PCI, as she is also on anticoagulation therapy to help reduce the risk of bleeding. Resume high-intensity statin therapy. Resume beta-meghna therapy. She denies any angina. 6. Anemia: She does have anemia, but reports no bleeding. Indices would suggest possible iron-deficiency anemia. Will defer to primary service, but would consider evaluation and treatment as appropriate. DISPOSITION: Dr. Miller will resume her cardiology care tomorrow. Please call with any other questions or concerns. Thanks for allowing me to participate in care of Ms. Douglas.
[2017-08-11] VITALS (10 sets, daily range): BP systolic 99–132; BP diastolic 60–77; PULSE 69–151; TEMP 36.5–36.9; O2SAT 92–98
[2017-08-11 06:01] LABS: HEMATOCRIT 30.7 % (37-47); MEAN CELL VOLUME 75.4 fL (80-100); MEAN CORPUSCULAR HEMOGLOBIN 23.3 pg (25-34); MEAN CORPUSCULAR HGB CONC 30.9 g/dl (32-36); MEAN PLATELET VOLUME 10.1 fL (7.4-10.4); PLATELET COUNT 260 K/uL (130-400); RED BLOOD COUNT 4.07 M/uL (4.2-5.4); WHITE BLOOD COUNT 10.28 K/uL (4.8-10.8)
[2017-08-11 06:12] LABS: INR 2.7 (0.9-1.1); PROTHROMBIN TIME (PATIENT) 28.1 SECONDS (9.0-12.0)
[2017-08-11 06:34] LABS: BUN/CREATININE RATIO 16.2 (10-20); CALCIUM 8.2 mg/dl (8.5-10.1); CREATININE 0.94 mg/dl (0.60-1.20); MAGNESIUM 2.3 mg/dl (1.8-2.4); POTASSIUM 4.3 mmol/L (3.5-5.1)
[2017-08-11 06:42] LABS: ESTIMATED AVERAGE GLUCOSE 134 mg/dl; HA1C FLAG Normal (Normal)
[2017-08-11] MEDS: AMIODARONE / D5W 200 ML IV SCH ×2 (07:07→22:17)
[2017-08-11] MEDS: DOXYCYCLINE HYCLATE 100 MG CAP PO SCH ×2 (07:56→20:29)
[2017-08-11] MEDS: LOSARTAN POTASSIUM 25 MG TAB PO SCH (07:57)
[2017-08-11] MEDS: FUROSEMIDE 40 MG TAB PO SCH (07:58)
[2017-08-11] MEDS: BUDESONIDE/FORMOTEROL FUMARATE 160/4.5 60 PUFFS/INHALER INH SCH ×2 (07:58→20:27)
[2017-08-11] MEDS: CLOPIDOGREL BISULFATE 75 MG TAB PO SCH (07:58)
[2017-08-11] MEDS: INSULIN HUMAN NPH SC SCH (08:00)
[2017-08-11] MEDS: INSULIN ASPART 100 UNITS/ML 3 ML PEN SC SCH ×4 (08:02→20:29)
--- NOTE | 2017-08-11 08:02 | Clinical Documentation Query ---
CLINICAL DOCUMENTATION QUERY 77-y/o female with chronic systolic CHF who presents with Afib with RVR. H&P states acute on chronic CHF. The type of acute CHF cannot be assumed from a chronic condition. In your clinical opinion is this patient being managed for: ( ) Acute on chronic systolic CHF in setting of Afib RVR treated with IV Lasix and rate control. ( ) Not Agree ( ) Other explanation of clinical findings (Please Explain) ( ) Unable to determine (Please Define) ( ) Need to Discuss The medical record reflects the following clinical findings, treatment, and risk factors. Clinical Indicators: As above. Per Cardiology consult patient has EF of 40-45%. Treatment: IV Lasix, telemetry, I/O's, daily weights, Amiodarone gtt, Risk Factors: Age, hx of Chronic systolic CHF, AFib RVR, Ischemic cardiomyopathy. Please clarify and document your clinical opinion in the progress notes and discharge summary. Terms such as "probable", "suspected", "likely", "questionable", "possible", or "still to be ruled out" are acceptable. IF IN AGREEMENT, YOU MUST DOCUMENT ABOVE DIAGNOSTIC STATEMENT IN DAILY PROGRESS NOTES AND DISCHARGE SUMMARY. This document is not part of the patient's record. Thank You, Zain Nick, RN [phone]
[2017-08-11] MEDS ORDERED: INSULIN GLARGINE SOLOSTAR 100 UNITS/ML 3 ML PEN SC SCH (09:00)
[2017-08-11] MEDS ORDERED: LEVOTHYROXINE 100 MCG TAB PO SCH (09:00)
[2017-08-11] MEDS ORDERED: ASPIRIN 81 MG ECTAB PO SCH ×2 (09:00)
[2017-08-11] MEDS ORDERED: CLOPIDOGREL BISULFATE 75 MG TAB PO SCH (09:00)
[2017-08-11] MEDS ORDERED: METOPROLOL SUCC 50MG EXT REL TAB PO SCH (09:00)
--- NOTE | 2017-08-11 11:35 | Cardiology Follow-Up ---
Subjective Date of Service: Aug 11, 2017. Pt evaluation today including: conversation w/ patient, physical exam, chart review, lab review, review of studies, review of inpatient medication list History of Present Illness This morning the patient claims to be feeling quite well. She stated on several occasions that she is ready for discharge. Her breathing is much improved. She has been minimally ambulatory around the room without significant dizziness or lightheadedness. She does not describe chest pain. She is not aware of palpitations currently. Social History Smoking Status: Former Smoker History of Alcohol Use: No Objective Vital Signs Past 12 Hours Date Time Temp Pulse Resp B/P (MAP) Pulse Ox O2 Delivery O2 Flow Rate FiO2 08/11/17 08:07 36.9 69 18 132/69 (90) 96 08/11/17 08:00 Nasal Cannula 3.0 08/11/17 04:02 CPAP 08/11/17 03:14 36.7 79 18 125/69 (87) 95 CPAP 08/11/17 00:00 36.7 108 20 127/71 (89) 93 08/11/17 00:00 Nasal Cannula 3.0 Last Recorded Weight-Kilograms: 114.200 Physical Exam She is alert and oriented x3. Mood affect appear normal. She answered all questions appropriately. HEENT: Sclerae are anicteric. Pupils are equal and reactive to light and accommodation. Extraocular movements were intact. Neuro: Cranial nerves intact Neck: Examination of the submandibular region did not reveal any significant lymphadenopathy. Carotids are palpable bilaterally and free of bruits on auscultation. There was no evidence of jugular venous distention. The thyroid was not enlarged. Lungs: Lungs are clear to auscultation bilaterally. There are no rales wheezes or rhonchi. She has normal respiratory effort without use of accessory muscles. There is normal pulmonary excursion. Cardiac: The rhythm was regular. S1 and S2 were normal. There are no murmurs on examination. The PMI was not markedly displaced on palpation. Abdomen: The abdomen was soft and nontender. Extremities: Patient has bilateral radial pulses that are equal in intensity. There is no evidence cyanosis or clubbing. There was no evidence of significant peripheral edema bilaterally, just mild. Skin: There are no rashes noted on examination today. Data Laboratory Results: Last 24 Hours Test 08/10/17 16:39 12/5/17 20:23 08/11/17 05:25 08/11/17 06:40 White Blood Count 10.17 K/uL 10.28 K/uL Red Blood Count 4.12 M/uL 4.07 M/uL Hemoglobin 9.8 g/dL 9.5 g/dL Hematocrit 31.0 % 30.7 % Mean Corpuscular Volume 75.2 fL 75.4 fL Mean Corpuscular Hemoglobin 23.8 pg 23.3 pg Mean Corpuscular Hemoglobin Concent 31.6 g/dl 30.9 g/dl Platelet Count 270 K/uL 260 K/uL Mean Platelet Volume 10.2 fL 10.1 fL Neutrophils (%) (Auto) 76.5 % Lymphocytes (%) (Auto) 14.2 % Monocytes (%) (Auto) 7.0 % Eosinophils (%) (Auto) 1.5 % Basophils (%) (Auto) 0.5 % Neutrophils # (Auto) 7.79 K/uL Lymphocytes # (Auto) 1.44 K/uL Monocytes # (Auto) 0.71 K/uL Eosinophils # (Auto) 0.15 K/uL Basophils # (Auto) 0.05 K/uL RDW Standard Deviation 50.0 fL 49.8 fL RDW Coefficient of Variation 18.2 % 18.1 % Immature Granulocyte % (Auto) 0.3 % Immature Granulocyte # (Auto) 0.03 K/uL Prothrombin Time 35.2 SECONDS 28.1 SECONDS Prothromb Time International Ratio 3.4 2.7 Sodium Level 140 mmol/L 138 mmol/L Potassium Level 4.3 mmol/L 4.3 mmol/L Chloride Level 108 mmol/L 108 mmol/L Carbon Dioxide Level 26 mmol/L 26 mmol/L Anion Gap 6.0 mmol/L 4.0 mmol/L Blood Urea Nitrogen 17 mg/dl 15 mg/dl Creatinine 1.16 mg/dl 0.94 mg/dl Estimated GFR () 51.9 66.9 Estimated GFR (Non- 44.7 57.7 BUN/Creatinine Ratio 14.4 16.2 Random Glucose 104 mg/dl 137 mg/dl Calcium Level 8.3 mg/dl 8.2 mg/dl Magnesium Level 2.2 mg/dl 2.3 mg/dl Total Bilirubin 0.3 mg/dl Aspartate Amino Transf (AST/SGOT) 29 U/L Alanine Aminotransferase (ALT/SGPT) 35 U/L Alkaline Phosphatase 96 U/L Pro-B-Type Natriuretic Peptide 2098 pg/ml Total Protein 6.4 gm/dl Albumin 2.9 gm/dl Globulin 3.5 gm/dl Albumin/Globulin Ratio 0.8 Bedside Glucose 114 mg/dl 149 mg/dl Est Creatinine Clear Calc Drug Dose 63.3 ml/min Estimated Average Glucose 134 mg/dl Hemoglobin A1c 6.3 % Telemetry reviewed: Telemetry demonstrated a paced atrial rhythm I performed a complete device interrogation today. This suggested the onset of atrial fibrillation on August 04. Overall ventricular rates were high. The remainder of the device function was normal. Curiously, her thoracic impedance has only slowly been declining. Assessment and Plan 1. Acute decompensated systolic heart failure: The patient has improved significantly with adequate diuresis. Her lung examination is relatively benign today. Clinically she is much improved. He would seem reasonable to transition her back to her standard oral regimen of 40 mg of Lasix daily. She should be continued on her outpatient medical regimen for LV dysfunction which includes beta-blockade and ARB. 2. Atrial fibrillation: Patient spontaneously converted to a paced atrial rhythm. Review of her device suggests that her symptoms started several days after she developed an episode of atrial fibrillation and associated rapid heart rates. I think would be reasonable this juncture to increase her daily dose of metoprolol to 100 mg. While she does have significant lung disease, I also think would be reasonable to have her take amiodarone for short period of time while we monitor her episodes of atrial fibrillation. At this point her infusion could be discontinued and she could be started on 200 mg daily. She should be continued on her systemic anticoagulation indefinitely. 3. Coronary artery disease: Patient not have symptoms of angina or coronary insufficiency. She did undergo percutaneous intervention approximately 6 months ago. At this point her aspirin could be discontinued and she should continue on Plavix as well as warfarin.
[2017-08-11] MEDS ORDERED: NURSING VERBAL MED ORDER ONE ×2 (13:00→14:00)
--- NOTE | 2017-08-11 13:06 | Pharmacy Progress Note ---
Glycemic Control Intl Consult Date of Service Aug 11, 2017. Scope Glycemic Pharmacist consulted by Dr Lord on 08/10/17 for glycemic control and to write orders per [facility] inpatient glycemic control protocol Objective Weight (Kilograms): 114.200 Accuchecks BSG (last 24hrs): Test 08/10/17 16:39 08/10/17 20:23 08/11/17 05:25 08/11/17 06:40 Random Glucose 104 mg/dl (70-99) 137 mg/dl (70-99) Bedside Glucose 114 mg/dl (70-90) 149 mg/dl (70-90) Test 08/11/17 11:23 Bedside Glucose 113 mg/dl (70-90) Laboratory Data (last 24hrs) Test 08/10/17 16:39 08/11/17 05:25 Anion Gap 6.0 mmol/L 4.0 mmol/L BUN/Creatinine Ratio 14.4 16.2 Blood Urea Nitrogen 17 mg/dl 15 mg/dl Creatinine 1.16 mg/dl 0.94 mg/dl Potassium Level 4.3 mmol/L 4.3 mmol/L Sodium Level 140 mmol/L 138 mmol/L White Blood Count 10.17 K/uL 10.28 K/uL Red Blood Count 4.12 M/uL Hemoglobin 9.8 g/dL Hematocrit 31.0 % Mean Corpuscular Volume 75.2 fL Mean Corpuscular Hemoglobin 23.8 pg Mean Corpuscular Hemoglobin Concent 31.6 g/dl Platelet Count 270 K/uL Mean Platelet Volume 10.2 fL Neutrophils (%) (Auto) 76.5 % Lymphocytes (%) (Auto) 14.2 % Monocytes (%) (Auto) 7.0 % Eosinophils (%) (Auto) 1.5 % Basophils (%) (Auto) 0.5 % Neutrophils # (Auto) 7.79 K/uL Lymphocytes # (Auto) 1.44 K/uL Monocytes # (Auto) 0.71 K/uL Eosinophils # (Auto) 0.15 K/uL Basophils # (Auto) 0.05 K/uL Hemoglobin A1c 6.3 % HbA1c Test 08/11/17 05:25 Hemoglobin A1c 6.3 % (4.5-5.6) H Recent Pertinent Medications Outpatient Anti-diabetic Regimen: * Metformin 500mg PO daily * A1c = 6.3 % 08/11/17 The patient is currently receiving: * Basal insulin: NPH 30 units SQ w/ breakfast * Correctional Insulin: Novolog Correction per scale ACHS Goal Range: Low 110 mg/dL - High 140 mg/dL Correction Factor: 20 mg/dL/unit * Prandial insulin: Per carb ratio of 1 unit per 7 grams CHO consumed Risk Factors for Insulin Resistance: * Steroids: Prednisone 40mg PO daily for COPD exacerbation * Infection: Doxycycline + Ceftriaxone for COPD exacerbation * IVF: Amiodarone gtt mixed in D5W * Diet: ordered T2DM diet Assessment & Plan ASSESSMENT: 08/11/17 * Type 2 diabetic admitted yesterday for A fib w/ RVR, ADHF and COPD exacerbation * Patient is well controlled with metformin monotherapy per recent A1c result ( 6.3%) * Prednisone 40mg daily likely to induce insulin resistance throughout the day with effects dissipating overnight. * NPH has been ordered to provide additional insulin during peak steroid effect * Novolog CF and CR have been ordered based upon weight and moderate stress level * Current insulin orders are appropriate starting points and have produced good results thus far. Will continue w/ the same and monitor BSG pattern. May need to lessen carb ratio w/ lunch as this is time of day when NPH "peaks." If pre- dinner BSG low, will decrease or omit CR with lunch. PLAN FOR INPATIENT GLYCEMIC CONTROL: * Continuing NPH 30 units SQ w/ breakfast * Continuing correction factor of 20 mg/dl/unit * Continuing carb ratio of 1 unit per 7 grams CHO consumed * Continuing goal range of Low 110 mg/dL - High 140 mg/dL * Reevaluate insulin doses with each step down in steroid dose * Please note that the plan above was derived based on current level of insulin resistance and hospital stress. These recommendations are appropriate for inpatient admission only. Plan of care upon discharge will need to be reassessed to avoid potential outpatient hypo/hyperglycemia. Thank you.
[2017-08-11] MEDS: AMIODARONE 200 MG TAB PO SCH (13:46)
[2017-08-11] MEDS ORDERED: [UNRECOGNIZED DRUG - REMARK] ONE (14:30)
--- NOTE | 2017-08-11 14:36 | Pulmonary Consultation ---
History General Date of Service: Aug 11, 2017. Stated Complaint: Atrial Fibrillation HPI The patient is a 77 year old female who presents to [facility] with complaints of Atrial Fibrillation. The patient's primary care provider is Michael Carrion D.O.. Mrs. Douglas is a 76-year-old female who carries a diagnosis of interstitial lung disease, mild COPD, obstructive sleep apnea on CPAP, pulmonary embolism on Coumadin who presented as a direct admission on from [facility] 2016. Several days before presenting to [facility] on 08/09/2017, she had been experiencing both dyspnea with exertion and palpitations. Due to dyspnea on exertion she started to use her home oxygen but usually doesn't require this with exertion. An outpatient workup showed atrial fibrillation with RVR with a heart rate in the 140s. She was sent the emergency room for further evaluation. She received Cardizem IV and Lasix 60 mg IV with improvement of heart rate, but developed hypotension. She was started on amiodarone drip with improvement of heart rate. Per EMR, laboratory data was significant for leukocytosis of 11.9 and supratherapeutic INR of 4.34. Her chest x-ray showed mild cardiac silhouette enlargement with no overt cardiopulmonary abnormalities. Sputum Gram stain grew gram-positive cocci and moderate amount of grams negative cocci. She was seen by Dr. Cochran, hazardous materials handler, who recommended that she be transferred to [facility]. Chest x-ray upon arrival to our hospital showed moderate cardiomegaly with superimposed bibasilar atelectasis. Of note video swallow , done on 04/13/2017 showed silent aspiration with liquid consistencies. Vital signs the last 24 hours showed a MAXIMUM TEMPERATURE of 36.9, blood pressure 125/69 to 132/69, pulse 69-108, respiratory rate 18-20, pulse oximetry 93-97 on 2-3 L nasal cannula. She was on CPAP overnight and tolerated well. Her respiratory medications include doxycycline 100 mg twice a day by mouth, ceftriaxone 1 g every 24 hours,Symbicort 160/4.5 inhaled 2 puffs twice a day, prednisone 40 mg daily, Xopenex/ipratropium nebulizer every 4 hours when necessary and Lasix 40 mg daily. At the time of my evaluation, patient states that is feeling much better. She complained of increased lethargy and fatigue. She states that she has had increased dyspnea on exertion and has productive cough with yellowish sputum. She denies any fever, chills or hemoptysis. She denies any lightheadedness, palpitations or chest pain. She denies any orthopnea, PND or lower extremity edema. She denies any nausea/vomiting, diarrhea or constipation. 6 minute walk study 10/01/2016 Baseline O2 needs: Initially, no supplemental oxygen was needed. Baseline VS and Horacio scale: HR: 66,~O2 sat: 95% 1 min VS and Horacio Scale: HR: 101,~O2 sat: 90% 2 min VS and Horacio Scale: HR: 109,~O2 sat: 88% Interventions: supplemental oxygen was applied at 2 liters per minute and was 96 % at 1 min seated, HR-91, O2 was 94% with 1 mintue of walking, HR-93. Reason for Premature Termination: dyspnea~and~left foot pain Pulmonary function study 05/03/2014 Spirometry: Mild obstructive ventilatory disease FEV1 80% Lung volumes: Within normal limits DLCO: Moderately reduced at 42% corrected off alveolar volume at 82% Historian: patient, other (EMR) Onset: last week Severity: moderate Complaint Status: improved Review of Systems Constitutional: reports: no symptoms Eyes: reports: no symptoms ENT: reports: no symptoms Cardiovascular: reports: no symptoms Respiratory: reports: cough, shortness of breath, wheezing, sputum production, denies: cyanosis, hemoptysis Gastrointestinal: reports: no symptoms Genitourinary - Female: reports: no symptoms Musculoskeletal: reports: joint pain (bilateral lower extremity ankles since recent falls) Integumentary: reports: other (chronic venous changes bilaterally) Neurologic: reports: no symptoms Psychiatric: reports: no symptoms Endocrine: no symptoms Hematologic / Lymphatic: no symptoms Allergic / Immunologic: no symptoms Constitutional: reports: as stated in HPI Eyes: reports: as stated in HPI ENT: reports: as stated in HPI Cardiovascular: reports: as stated in HPI Respiratory: reports: as stated in HPI Gastrointestinal: reports: as stated in HPI Musculoskeletal: reports: as stated in HPI Integumentary: reports: as stated in HPI Neurologic: reports: as stated in HPI Psychiatric: reports: as stated in HPI Endocrine: as stated in HPI Hematologic / Lymphatic: as stated in HPI Allergic / Immunologic: as stated in HPI All Other Symptoms All Other Systems: Reviewed and Negative Past Medical History Past Medical History: 1. A. fib 2. CAD status post stents5 and pacemaker 3. Hypertension 4. Hyperlipidemia 5. Hypertension 6. CHF 7. Diabetes type 2 8. CAYETANO 9. Hypothyroidism 10. Aspiration into airway 11. Postnasal drip Past Surgical History: Past Surgical History: 1. Back Surgery 2. Card Cath Post-Proc/Lesions Successfully Dilated 3. Cardioverter-Defibrillator Pulse Generator With Synchronous Cardiac Pacemaker 4. Cath Stent Placement 5. Catheter Ablation Atrial Fibrillation 6. Cholecystectomy 7. Tubal Ligation 8. Back surgery Family History Coronary artery disease Hypertension Myocardial infarction Stroke 1. Family history of cerebrovascular accident 2. Family history of Acute Myocardial Infarction 3. Family history of Coronary Artery Disease Social History She denies any history of drug use. She is a former smoker and quit around year 1999. She denies any history of smokeless tobacco use. She denies any alcohol or illicit drug use. She is and lives alone. She has DOGS. Hx Tobacco Use In Past Year?: No (quit around [id number]) Smoking Status: Former Smoker Marital status: Housing status: lives alone Occupational Status: retired Allergies Coded Allergies: No Known Allergies (Unverified , 04/20/17) Current Medications Reported Home Medications Medications Dose Route/Sig Max Daily Dose Days Date Category Dose Instructions Coumadin (Warfarin Sodium) 1 Mg Tab 1 Tab PO DAILY 30 04/25/17 Rx Coumadin (Warfarin Sod) 5 Mg Tab 5 Mg PO DAILY@1600 30 04/25/17 Rx Metoprolol Succinate ER (Metoprolol Succinate) 50 Mg Tabcr 50 Mg PO QAM 30 04/25/17 Rx Lovenox (Enoxaparin Sodium) 120 Mg/0.8 Ml Inj 111 Mg SQ Q12H 7 04/25/17 Rx until inr>2 Ciprofloxacin HCl (Ciprofloxacin) 500 Mg Tab 500 Mg PO BID 4 04/25/17 Rx Diltiazem Hcl Er (Diltiazem Hcl Coated Beads) 300 Mg Cap 300 Mg PO DAILY 04/20/17 Reported Restoril (Temazepam) 15 Mg Cap 15 Mg PO HS PRN 04/20/17 Reported Symbicort 160/4.5 Inhaler (Budesonide/Formoterol Fumarate) Aero 2 Puffs INH BID 04/20/17 Reported Spiriva Respimat (Tiotropium Calvert) 2.5 Mcg/Act Spr 1 Puff INH DIRECTED 04/20/17 Reported Refresh (Carboxymethylcellulose Sodium) 1 % Pedro OP DIRECTED 04/20/17 Reported Proair Respiclick (Albuterol Sulfate) 108 Mcg/Act Aer INH DIRECTED 04/20/17 Reported Miralax (Polyethylene Glycol 3350) 1 Pow Pow 17 Gm PO DAILY 04/20/17 Reported Plavix (Clopidogrel Bisulfate) 75 Mg Tab 75 Mg PO DAILY 04/20/17 Reported Nitrostat (Nitroglycerin) 0.4 Mg Tab 0.4 Mg UT PRN 04/20/17 Reported Glucophage (Metformin Hcl) 500 Mg Tab 500 Mg PO DAILY 04/20/17 Reported Levothyroxine Sodium 100 Mcg Tab 1 Tab PO DAILY 30 04/20/17 Reported Lasix (Furosemide) 40 Mg Tab 40 Mg PO DAILY 04/20/17 Reported Duoneb (Ipratropium-Albuterol) 3 Ml Nebu 1 Treatment INH Q4H 04/20/17 Reported Neurontin (Gabapentin) 300 Mg Cap 300 Mg PO DAILY 04/20/17 Reported Crestor (Rosuvastatin Calcium) 10 Mg Tab 20 Mg PO DIRECTED 04/20/17 Reported Aspirin Ec (Aspirin) 81 Mg Tab 81 Mg PO DAILY 04/20/17 Reported Physical Physical Exam Vital Signs: Medications Administered Medications (Trade) Dose Ordered Sig/Charissa Route Start Time Stop Time Status Last Admin Dose Admin Insulin Aspart (novoLOG ASPART) SLIDING SCALE If C... ACHS SC 08/10/17 21:00 09/09/17 20:59 08/11/17 08:02 9 UNITS Furosemide 40 mg/ Syringe 4 ml @ 4 mls/min NOW ONCE IV 08/10/17 18:00 08/10/17 18:01 DC 08/10/17 19:05 4 MLS/MIN Prednisone (PredniSONE TAB) 40 mg DAILY PO 08/10/17 17:30 09/09/17 17:29 08/11/17 07:56 40 MG Amiodarone HCL/ Dextrose 200 ml @ 16.7 mls/hr [id number] IV 08/11/17 00:15 09/10/17 00:14 08/11/17 07:07 16.7 MLS/HR Doxycycline Hyclate (Vibramycin Cap) 100 mg BID PO 08/10/17 21:00 08/17/17 20:59 08/11/17 07:56 100 MG Rosuvastatin Calcium (Crestor Tab) 20 mg HS PO 08/10/17 21:00 09/09/17 20:59 08/10/17 22:11 20 MG Aspirin (Ecotrin Tab) 81 mg QAM PO 08/11/17 09:00 09/10/17 08:59 08/11/17 07:57 81 MG Clopidogrel Bisulfate (plAVix TAB) 75 mg QAM PO 08/11/17 09:00 09/10/17 08:59 08/11/17 07:58 75 MG Metoprolol Succinate (Toprol Xl Tab) 50 mg QAM PO 08/11/17 09:00 09/10/17 08:59 08/11/17 07:57 50 MG Losartan Potassium (coZAAR TAB) 25 mg QAM PO 08/11/17 09:00 09/10/17 08:59 08/11/17 07:57 25 MG Furosemide (Lasix Tab) 40 mg QAM PO 08/11/17 09:00 09/10/17 08:59 08/11/17 07:58 40 MG Budesonide/ Formoterol Fumarate (Symbicort 160/ 4.5 Inh) 2 puffs BID INH 08/11/17 09:00 09/10/17 08:59 08/11/17 07:58 2 PUFFS Temazepam (Restoril Cap) 15 mg HS PRN PO 08/10/17 21:45 09/09/17 21:44 08/10/17 23:21 15 MG Insulin Human NPH (novoLIN-N NPH) 30 units QDB SC 08/11/17 07:30 09/10/17 07:29 08/11/17 08:00 30 UNITS Ceftriaxone Sodium 1 gm/ Dextrose 50 ml @ 100 mls/hr Q24H IV 08/10/17 23:30 08/17/17 23:29 08/10/17 23:45 100 MLS/HR Date Time Temp Pulse Resp B/P (MAP) Pulse Ox O2 Delivery O2 Flow Rate FiO2 08/10/17 19:10 36.6 81 20 119/78 (92) 95 Nasal Cannula 3.0 08/10/17 16:05 36.2 100 129/80 (97) 96 08/10/17 16:05 36.2 100 18 129/80 Nasal Cannula 3.0 Date Time Temp Pulse Resp B/P (MAP) Pulse Ox O2 Delivery O2 Flow Rate FiO2 08/11/17 08:07 36.9 69 18 132/69 (90) 96 08/11/17 04:02 CPAP 08/11/17 03:14 36.7 79 18 125/69 (87) 95 CPAP 08/11/17 00:00 36.7 108 20 127/71 (89) 93 08/11/17 00:00 Nasal Cannula 3.0 08/10/17 22:23 78 98 08/10/17 20:00 95 Nasal Cannula 3.0 08/10/17 19:10 36.6 81 20 119/78 (92) 95 Nasal Cannula 3.0 08/10/17 16:05 36.2 100 129/80 (97) 96 08/10/17 16:05 36.2 100 18 129/80 Nasal Cannula 3.0 General Appearance: WELL-APPEARING, WD/WN, NO APPARENT DISTRESS, obese Head: NORMOCEPHALIC, ATRAUMATIC Eyes: PERRLA, NO DISCHARGE, EOMI ENT: NORMAL MOUTH EXAM, NORMAL THROAT EXAM, NORMAL SINUS EXAM Neck: NORMAL RANGE OF MOTION, NO TENDERNESS, TRACHEA MIDLINE, NO STRIDOR Respiratory: other (decreased breath sounds bilaterally, no wheezing appreciated, mild crackles at the bases) Cardiovasular: REGULAR RATE/RHYTHM, NORMAL S1S2 Abdomen: NON TENDER, NORMAL BOWEL SOUNDS, NO REBOUND Back: NORMAL INSPECTION, NO MIDLINE TENDERNESS, NO CVA TENDERNESS Upper Extremities: NO EDEMA, NO DEFORMITY, NORMAL ROM Lower Extremities: NO EDEMA, NO DEFORMITY, NORMAL ROM Pulses: dorsalis pedis (R) (2+), dorsalis pedis (L) (2+) Neuro: ALERT, ORIENTED x 3, NORMAL MOTOR EXAM, NORMAL MEMORY Psychiatric: NORMAL AFFECT, NO SUICIDAL IDEATION, CONTRACTS FOR SAFETY Diagnostics Labs Last 24 Hours Test 08/10/17 16:39 08/10/17 20:23 08/11/17 05:25 08/11/17 06:40 White Blood Count 10.17 K/uL 10.28 K/uL Red Blood Count 4.12 M/uL 4.07 M/uL Hemoglobin 9.8 g/dL 9.5 g/dL Hematocrit 31.0 % 30.7 % Mean Corpuscular Volume 75.2 fL 75.4 fL Mean Corpuscular Hemoglobin 23.8 pg 23.3 pg Mean Corpuscular Hemoglobin Concent 31.6 g/dl 30.9 g/dl Platelet Count 270 K/uL 260 K/uL Mean Platelet Volume 10.2 fL 10.1 fL Neutrophils (%) (Auto) 76.5 % Lymphocytes (%) (Auto) 14.2 % Monocytes (%) (Auto) 7.0 % Eosinophils (%) (Auto) 1.5 % Basophils (%) (Auto) 0.5 % Neutrophils # (Auto) 7.79 K/uL Lymphocytes # (Auto) 1.44 K/uL Monocytes # (Auto) 0.71 K/uL Eosinophils # (Auto) 0.15 K/uL Basophils # (Auto) 0.05 K/uL RDW Standard Deviation 50.0 fL 49.8 fL RDW Coefficient of Variation 18.2 % 18.1 % Immature Granulocyte % (Auto) 0.3 % Immature Granulocyte # (Auto) 0.03 K/uL Prothrombin Time 35.2 SECONDS 28.1 SECONDS Prothromb Time International Ratio 3.4 2.7 Sodium Level 140 mmol/L 138 mmol/L Potassium Level 4.3 mmol/L 4.3 mmol/L Chloride Level 108 mmol/L 108 mmol/L Carbon Dioxide Level 26 mmol/L 26 mmol/L Anion Gap 6.0 mmol/L 4.0 mmol/L Blood Urea Nitrogen 17 mg/dl 15 mg/dl Creatinine 1.16 mg/dl 0.94 mg/dl Estimated GFR () 51.9 66.9 Estimated GFR (Non- 44.7 57.7 BUN/Creatinine Ratio 14.4 16.2 Random Glucose 104 mg/dl 137 mg/dl Calcium Level 8.3 mg/dl 8.2 mg/dl Magnesium Level 2.2 mg/dl 2.3 mg/dl Total Bilirubin 0.3 mg/dl Aspartate Amino Transf (AST/SGOT) 29 U/L Alanine Aminotransferase (ALT/SGPT) 35 U/L Alkaline Phosphatase 96 U/L Pro-B-Type Natriuretic Peptide 2098 pg/ml Total Protein 6.4 gm/dl Albumin 2.9 gm/dl Globulin 3.5 gm/dl Albumin/Globulin Ratio 0.8 Bedside Glucose 114 mg/dl 149 mg/dl Est Creatinine Clear Calc Drug Dose 63.3 ml/min Estimated Average Glucose 134 mg/dl Hemoglobin A1c 6.3 % Results Past 24 Hours Test 08/10/17 16:39 Range/Units White Blood Count 10.17 4.8-10.8 K/uL Red Blood Count 4.12 4.2-5.4 M/uL Hemoglobin 9.8 12.0-16.0 g/dL Hematocrit 31.0 37-47 % Mean Corpuscular Volume 75.2 80-100 fL Mean Corpuscular Hemoglobin 23.8 25-34 pg Mean Corpuscular Hemoglobin Concent 31.6 32-36 g/dl Platelet Count 270 130-400 K/uL Mean Platelet Volume 10.2 7.4-10.4 fL Neutrophils (%) (Auto) 76.5 % Lymphocytes (%) (Auto) 14.2 % Monocytes (%) (Auto) 7.0 % Eosinophils (%) (Auto) 1.5 % Basophils (%) (Auto) 0.5 % Neutrophils # (Auto) 7.79 1.4-6.5 K/uL Lymphocytes # (Auto) 1.44 1.2-3.4 K/uL Monocytes # (Auto) 0.71 0.11-0.59 K/uL Eosinophils # (Auto) 0.15 0-0.5 K/uL Basophils # (Auto) 0.05 0-0.2 K/uL RDW Standard Deviation 50.0 36.4-46.3 fL RDW Coefficient of Variation 18.2 11.5-14.5 % Immature Granulocyte % (Auto) 0.3 % Immature Granulocyte # (Auto) 0.03 0.00-0.02 K/uL Prothrombin Time 35.2 9.0-12.0 SECONDS Prothromb Time International Ratio 3.4 0.9-1.1 Sodium Level 140 136-145 mmol/L Potassium Level 4.3 3.5-5.1 mmol/L Chloride Level 108 98-107 mmol/L Carbon Dioxide Level 26 21-32 mmol/L Anion Gap 6.0 3-11 mmol/L Blood Urea Nitrogen 17 7-18 mg/dl Creatinine 1.16 0.60-1.20 mg/dl Estimated GFR () 51.9 Estimated GFR (Non- 44.7 BUN/Creatinine Ratio 14.4 10-20 Random Glucose 104 70-99 mg/dl Calcium Level 8.3 8.5-10.1 mg/dl Total Bilirubin 0.3 0.2-1 mg/dl Aspartate Amino Transf (AST/SGOT) 29 15-37 U/L Alanine Aminotransferase (ALT/SGPT) 35 12-78 U/L Alkaline Phosphatase 96 45-117 U/L Pro-B-Type Natriuretic Peptide 2098 0-1800 pg/ml Total Protein 6.4 6.4-8.2 gm/dl Albumin 2.9 3.4-5.0 gm/dl Globulin 3.5 2.5-4.0 gm/dl Albumin/Globulin Ratio 0.8 0.9-2 Diagnostic Radiology CHEST ONE VIEW PORTABLE CLINICAL HISTORY: CHF dyspnea COMPARISON STUDY: No previous studies for comparison. FINDINGS: Moderate cardiomegaly. Permanent bipolar cardiac pacemaker/defibrillator. Findings of congestive failure. Superimposed basilar atelectasis. IMPRESSION: Congestive heart failure EKG EKG 08/10/2017 Sinus rhythm with occasional atrial-paced complexes and Premature atrial complexes, 70 bpm Left axis deviation Right bundle branch block Abnormal ECG When compared with ECG of 23-APR-2017 14:12, Electronic atrial pacemaker has replaced Sinus rhythm Nonspecific T wave abnormality, improved in Lateral leads Impression Assessment and Plan Acute on chronic hypoxic respiratory failure CHF exacerbation COPD exacerbation History of pulmonary embolism Obstructive sleep apnea Possible obesity hypoventilation syndrome Paroxysmal atrial fibrillation Supratherapeutic INR Anemia Postnasal drip GERD Ms. Douglas is a 77-year-old female who presents with worsening shortness of breath and dyspnea on exertion. She is currently being treated for acute on chronic hypoxic respiratory failure likely secondary to CHF exacerbation and COPD exacerbation, with most likely precipitated atrial fibrillation. She is currently back in sinus rhythm. She demonstrated elevated BNP with x-ray consistent and pulmonary edema and vascular congestion. Also she endorses greenish to yellowish colored sputum with mildly elevated white count which may represent underlying infection. She does appear to have anemia. Her baseline hemoglobin is 11 and on admission was around 9.8. She doesn't appear to have any overt bleeding. She is on anticoagulation for recent pulmonary embolism with supratherapeutic INR. Therefore, recurrent PE/DVT highly unlikely. Recommendations Continue his supplemental oxygen to maintain SaO2 between 88-92%. She does have history of obstructive sleep apnea and should use CPAP at night. Use BiPAP intermittently if needed. Avoid sedatives and narcotics if possible as this can worsen CAYETANO. Continue with Lasix for aggressive diuresis as kidney function tolerates. Continue with prednisone 40 mg and tapering over the next 2 weeks. Continue 5-7 day course of antibiotics. I would continue to bronchodilators every 4 hours, Spiriva, Symbicort and albuterol when necessary. She does have history of post nasal drip and should continue with nasal spray. Hold Coumadin for now. I will leave anemia workup to primary team. Recommend PPI as she is at extremely high risk for GI bleed on anticoagulation of Coumadin and dual antiplatelet therapy with aspirin and Plavix. Continue with aspiration precautions. When clinically stable recommend PT and OT. I appreciate the consult. Please contact me if any further questions or concerns.
--- NOTE | 2017-08-11 16:44 | Medical Consult ---
Consultation Date of Consultation: Aug 11, 2017. Attending Physician: Yoandy Lord MD Reason for Consultation: Right eye pain History of Present Illness Ms. Douglas is a very pleasant 77-year-old female began having right eye pain 4 days ago upon awakening. Patient has a CPAP machine and believes that may have caused the problem. She has been using artificial tears and today feels better. She denies a change in vision. Past Medical/Surgical History Past ocular history consists of cataract surgery about a year ago in both eyes. Family History Coronary artery disease Hypertension Myocardial infarction Stroke Social History Smoking Status: Former Smoker Drug Use: none Marital Status: Occupation Status: retired Allergies Coded Allergies: No Known Allergies (Unverified , 04/20/17) Current Inpatient Medications Current Inpatient Medications Medications (Trade) Dose Ordered Sig/Charissa Route Start Time Stop Time Status Last Admin Dose Admin Acetaminophen (Tylenol Tab) 650 mg Q4H PRN PO 08/10/17 16:30 09/09/17 16:29 Polyethylene (Miralax Powder Packet) 17 gm DAILY PRN PO 08/10/17 16:30 09/09/17 16:29 Insulin Aspart (novoLOG ASPART) SLIDING SCALE If C... ACHS SC 08/10/17 21:00 09/09/17 20:59 08/11/17 11:42 6 UNITS Glucose (Glucose 40% Gel) 15-30 GRAMS 15 GRAMS... UD PRN PO 08/10/17 16:30 09/09/17 16:29 Glucose (Glucose Chew Tab) 4-8 Tablets 4 Tabl... UD PRN PO 08/10/17 16:30 09/09/17 16:29 Dextrose (Dextrose 50% 50ML Syringe) 25-50ML OF 50% DW IV FOR... UD PRN IV 08/10/17 16:30 09/09/17 16:29 Glucagon (Glucagon Inj) 1 mg UD PRN SQ 08/10/17 16:30 09/09/17 16:29 Prednisone (PredniSONE TAB) 40 mg DAILY PO 08/10/17 17:30 09/09/17 17:29 08/11/17 07:56 40 MG Ipratropium [place] (Atrovent 0.02% 0.5MG/2.5ML Neb) 0.5 mg Q4H PRN INH 08/10/17 18:00 09/09/17 17:59 Levalbuterol (Xopenex 1.25MG/ 0.5ML Neb) 1.25 mg Q4H PRN INH 08/10/17 18:00 09/09/17 17:59 Doxycycline Hyclate (Vibramycin Cap) 100 mg BID PO 08/10/17 21:00 08/17/17 20:59 08/11/17 07:56 100 MG Rosuvastatin Calcium (Crestor Tab) 20 mg HS PO 08/10/17 21:00 09/09/17 20:59 08/10/17 22:11 20 MG Aspirin (Ecotrin Tab) 81 mg QAM PO 08/11/17 09:00 09/10/17 08:59 08/11/17 07:57 81 MG Clopidogrel Bisulfate (plAVix TAB) 75 mg QAM PO 08/11/17 09:00 09/10/17 08:59 08/11/17 07:58 75 MG Metoprolol Succinate (Toprol Xl Tab) 50 mg QAM PO 08/11/17 09:00 09/10/17 08:59 08/11/17 07:57 50 MG Losartan Potassium (coZAAR TAB) 25 mg QAM PO 08/11/17 09:00 09/10/17 08:59 08/11/17 07:57 25 MG Furosemide (Lasix Tab) 40 mg QAM PO 08/11/17 09:00 09/10/17 08:59 08/11/17 07:58 40 MG Budesonide/ Formoterol Fumarate (Symbicort 160/ 4.5 Inh) 2 puffs BID INH 08/11/17 09:00 09/10/17 08:59 08/11/17 07:58 2 PUFFS Nitroglycerin (Nitrostat Tab) 0.4 mg UD PRN UT 08/10/17 21:45 09/09/17 21:44 Temazepam (Restoril Cap) 15 mg HS PRN PO 08/10/17 21:45 09/09/17 21:44 08/10/17 23:21 15 MG Artificial Tears (Artificial Tears) 2 drops BID PRN OP 08/10/17 21:45 09/09/17 21:44 Miscellaneous Information (Consult Glycemic Management Pharmacy) 1 ea UD PRN N/A 08/10/17 22:00 09/09/17 21:59 Insulin Human NPH (novoLIN-N NPH) 30 units QDB SC 08/11/17 07:30 09/10/17 07:29 08/11/17 08:00 30 UNITS Miscellaneous Information (Pharmacy Consult) 1 ea UD PRN N/A 08/10/17 23:26 09/09/17 23:25 Ceftriaxone Sodium 1 gm/ Dextrose 50 ml @ 100 mls/hr Q24H IV 08/10/17 23:30 08/17/17 23:29 08/10/17 23:45 100 MLS/HR Amiodarone HCl (Cordarone Tab) 200 mg DAILY PO 08/11/17 13:30 09/10/17 13:29 08/11/17 13:46 200 MG Miscellaneous Information (Order Awaiting Action) 1 ea QS N/A 08/11/17 16:00 09/10/17 15:59 Physical Exam Date Time Temp Pulse Resp B/P (MAP) Pulse Ox O2 Delivery O2 Flow Rate FiO2 08/11/17 16:00 96 Nasal Cannula 2.0 08/11/17 15:03 36.5 89 18 126/66 (86) 96 Nasal Cannula 2.0 08/11/17 12:00 Nasal Cannula 2.0 08/11/17 11:35 36.9 79 18 129/64 (85) 97 Nasal Cannula 2.0 08/11/17 08:07 36.9 69 18 132/69 (90) 96 Nasal Cannula 3.0 08/11/17 08:00 Nasal Cannula 3.0 08/11/17 04:02 CPAP 08/11/17 03:14 36.7 79 18 125/69 (87) 95 CPAP 08/11/17 00:00 36.7 108 20 127/71 (89) 93 08/11/17 00:00 Nasal Cannula 3.0 08/10/17 22:23 78 98 08/10/17 20:00 95 Nasal Cannula 3.0 08/10/17 19:10 36.6 81 20 119/78 (92) 95 Nasal Cannula 3.0 Vision 20/30 OU on near card with correction. PERRL. EOM's normal. External normal. Anterior segment right eye has small subconjunctival hemorrhage nasally. The right cornea had a small area of flourescein uptake inferiorly. The remainder of cornea, anterior chamber, lens, iris, lids, conjunctiva exam was normal OU. Fundus showed normal retinal vessels, macula, and optic nerves. Laboratory Results Last 24 Hours Test 08/10/17 16:39 08/10/17 20:23 08/11/17 05:25 08/11/17 06:40 White Blood Count 10.17 K/uL 10.28 K/uL Red Blood Count 4.12 M/uL 4.07 M/uL Hemoglobin 9.8 g/dL 9.5 g/dL Hematocrit 31.0 % 30.7 % Mean Corpuscular Volume 75.2 fL 75.4 fL Mean Corpuscular Hemoglobin 23.8 pg 23.3 pg Mean Corpuscular Hemoglobin Concent 31.6 g/dl 30.9 g/dl Platelet Count 270 K/uL 260 K/uL Mean Platelet Volume 10.2 fL 10.1 fL Neutrophils (%) (Auto) 76.5 % Lymphocytes (%) (Auto) 14.2 % Monocytes (%) (Auto) 7.0 % Eosinophils (%) (Auto) 1.5 % Basophils (%) (Auto) 0.5 % Neutrophils # (Auto) 7.79 K/uL Lymphocytes # (Auto) 1.44 K/uL Monocytes # (Auto) 0.71 K/uL Eosinophils # (Auto) 0.15 K/uL Basophils # (Auto) 0.05 K/uL RDW Standard Deviation 50.0 fL 49.8 fL RDW Coefficient of Variation 18.2 % 18.1 % Immature Granulocyte % (Auto) 0.3 % Immature Granulocyte # (Auto) 0.03 K/uL Prothrombin Time 35.2 SECONDS 28.1 SECONDS Prothromb Time International Ratio 3.4 2.7 Sodium Level 140 mmol/L 138 mmol/L Potassium Level 4.3 mmol/L 4.3 mmol/L Chloride Level 108 mmol/L 108 mmol/L Carbon Dioxide Level 26 mmol/L 26 mmol/L Anion Gap 6.0 mmol/L 4.0 mmol/L Blood Urea Nitrogen 17 mg/dl 15 mg/dl Creatinine 1.16 mg/dl 0.94 mg/dl Estimated GFR () 51.9 66.9 Estimated GFR (Non- 44.7 57.7 BUN/Creatinine Ratio 14.4 16.2 Random Glucose 104 mg/dl 137 mg/dl Calcium Level 8.3 mg/dl 8.2 mg/dl Magnesium Level 2.2 mg/dl 2.3 mg/dl Total Bilirubin 0.3 mg/dl Aspartate Amino Transf (AST/SGOT) 29 U/L Alanine Aminotransferase (ALT/SGPT) 35 U/L Alkaline Phosphatase 96 U/L Pro-B-Type Natriuretic Peptide 2098 pg/ml Total Protein 6.4 gm/dl Albumin 2.9 gm/dl Globulin 3.5 gm/dl Albumin/Globulin Ratio 0.8 Bedside Glucose 114 mg/dl 149 mg/dl Est Creatinine Clear Calc Drug Dose 63.3 ml/min Estimated Average Glucose 134 mg/dl Hemoglobin A1c 6.3 % Test 08/11/17 11:23 Bedside Glucose 113 mg/dl Assessment & Plan Dry eye, 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 The patient most likely had air blowing in her right eye from her CPAP machine. She should continue using her artificial tears prn until the symptoms resolve. If the symptoms recur she can used a lubricating ointment at bedtime to prevent corneal exposure. If her symptoms do not resolve she should see me in the office after discharge.
--- NOTE | 2017-08-11 17:56 | ECHOCARDIOGRAM REPORT ---
*NOTICE TO RECEIVING REPUBLICAN AGENCY This information is strictly Confidential and protected under [place] law. [place] law prohibits you from making any further disclosure of this information unless further disclosure is expressly permitted by the written consent of the person to whom it pertains or is authorized by law. A general authorization for the release of medical or other information is not sufficient for this purpose. Hospital accepts no responsibility if the information is made available to any other person, INCLUDING THE PATIENT. Interpretation Summary * Name: GIOVANNA GARCIA Study Date: 08/11/2017 07:18 AM BP: 132/69 mmHg * Patient Location: C.2E\S\E204\S\1 HR: 69 * : 1940 (M/d/yyyy) Gender: Female Height: 67 in * Age: 77 yrs Ethnicity: [place] Weight: 252 lb * Ordering Physician: Allyn Ha * Referring Physician: No Doctor, Assigned * Performed By: Marj Weaver RDCS * * Reason For Study: CHF * BSA: 2.2 m2 * -- Conclusions -- * 1. Moderately dilated left ventricle with severely reduced systolic function. Estimated EF 25-30%. Global hypokinesis. To better evaluate wall motion and LV systolic function, consider IV echo contrast. No left ventricular hypertrophy. Tissue Doppler suggests elevated left atrial pressure. * 2. Aortic valve sclerosis mild, without significant aortic valvular stenosis. * 3. Poor image quality. Consider IV echo contrast in future study. * 4. No prior study available for comparison. Procedure Details * A complete two-dimensional transthoracic echocardiogram was performed (2D, M-mode, Doppler and color flow Doppler). Left Ventricle * Moderately dilated left ventricle with severely reduced systolic function. Estimated EF 25-30%. Global hypokinesis. To better evaluate wall motion and LV systolic function, consider IV echo contrast. No left ventricular hypertrophy. Tissue Doppler suggests elevated left atrial pressure. Right Ventricle * There is a pacemaker lead in the right ventricle. * The right ventricle is grossly normal size. * The right ventricular systolic function is normal as assessed by tricuspid annular plane systolic excursion (TAPSE) (normal >1.5 cm). Atria * The left atrial size is normal. * Right atrial size is normal. * There is no evidence of atrial septal defect, but resolution does not allow assessment for a patent foramen ovale. Mitral Valve * There is mild mitral annular calcification. * There is no mitral valve stenosis. * There is trace mitral regurgitation. Tricuspid Valve * The tricuspid valve is not well visualized. * There is no tricuspid stenosis. * Significant tricuspid regurgitation is absent. Aortic Valve * The aortic valve is trileaflet. * Aortic valve sclerosis mild, without significant aortic valvular stenosis. * No hemodynamically significant valvular aortic stenosis. * No aortic regurgitation is present. Pulmonic Valve * The pulmonary valve is inadequately visualized, but the Doppler data is adequate for interpretation. * There is no pulmonic valvular stenosis. * There is no significant pulmonary regurgitation. Great Vessels * The aortic root is normal size. * Ascending aorta of normal dimension Pericardium/Pleural * Trace pericardial effusion. Great Vessels * Mildly dilated IVC with reduced inspiratory collapse. MMode 2D Measurements and Calculations IVSd 0.62 cm LVIDd 6.1 cm LVIDs 5.3 cm LVPWd 1.0 cm IVS/LVPW 0.61 FS 13.9 % EDV(Teich) 189.2 ml ESV(Teich) 134.3 ml EF(Teich) 29.0 % EDV(cubed) 230.6 ml ESV(cubed) 147.4 ml EF(cubed) 36.1 % LV mass(C)d 198.5 grams LV mass(C)dI 89.0 grams/m\S\2 SV(Teich) 54.9 ml SI(Teich) 24.6 ml/m\S\2 SV(cubed) 83.2 ml SI(cubed) 37.3 ml/m\S\2 Ao root diam 3.4 cm Ao root area 9.1 cm\S\2 ACS 1.5 cm LA dimension 4.4 cm asc Aorta Diam 2.8 cm LA/Ao 1.3 LVOT diam 2.1 cm LVOT area 3.4 cm\S\2 Doppler Measurements and Calculations MV E max vania 136.8 cm/sec MV dec time 0.19 sec Ao V2 max 131.2 cm/sec Ao max PG 6.9 mmHg Ao max PG (full) 2.2 mmHg TE(V,A) 2.8 cm\S\2 TE(V,D) 2.8 cm\S\2 LV V1 max PG 4.6 mmHg LV V1 max 107.7 cm/sec MR max vania 499.2 cm/sec MR max PG 99.7 mmHg PA V2 max 99.1 cm/sec PA max PG 3.9 mmHg PA acc slope 472.3 cm/sec\S\2 PA acc time 0.15 sec RAP systole 8.0 mmHg PA pr(Accel) 12.5 mmHg
[2017-08-11] MEDS ORDERED: WARFARIN SOD 7.5 MG TAB PO ONE (18:00)
--- NOTE | 2017-08-11 18:22 | Progress Note ---
Medicine Progress Note Date & Time of Visit: Aug 11, 2017 at 17:50. Subjective Pt was seen and examined Sitting in chair with no distress Pt said that she feels much better She said that she is almost back to her baseline Denies any chest pain, palpitation, dizziness and SOB Objective Last 8 Hrs Date Time Temp Pulse Resp B/P (MAP) Pulse Ox O2 Delivery O2 Flow Rate FiO2 08/11/17 16:00 96 Nasal Cannula 2.0 08/11/17 15:03 36.5 89 18 126/66 (86) 96 Nasal Cannula 2.0 08/11/17 12:00 Nasal Cannula 2.0 08/11/17 11:35 36.9 79 18 129/64 (85) 97 Nasal Cannula 2.0 Physical Exam: General- No acute distress Head- atraumatic Eyes- PERRL, EOMI ENT- oropharynx clear Neck- supple, no JVD Lungs- clear to auscultation Heart- regular rhythm; no murmur Abdomen- normal bowel sounds, soft Extremities- no calf tenderness Neuro- alert, oriented x 3; PERRL, EOMI Skin- warm & dry Laboratory Results: Last 24 Hours Test 08/10/17 20:23 08/11/17 05:25 08/11/17 06:40 08/11/17 11:23 Bedside Glucose 114 mg/dl 149 mg/dl 113 mg/dl White Blood Count 10.28 K/uL Red Blood Count 4.07 M/uL Hemoglobin 9.5 g/dL Hematocrit 30.7 % Mean Corpuscular Volume 75.4 fL Mean Corpuscular Hemoglobin 23.3 pg Mean Corpuscular Hemoglobin Concent 30.9 g/dl RDW Standard Deviation 49.8 fL RDW Coefficient of Variation 18.1 % Platelet Count 260 K/uL Mean Platelet Volume 10.1 fL Prothrombin Time 28.1 SECONDS Prothromb Time International Ratio 2.7 Sodium Level 138 mmol/L Potassium Level 4.3 mmol/L Chloride Level 108 mmol/L Carbon Dioxide Level 26 mmol/L Anion Gap 4.0 mmol/L Blood Urea Nitrogen 15 mg/dl Creatinine 0.94 mg/dl Est Creatinine Clear Calc Drug Dose 63.3 ml/min Estimated GFR () 66.9 Estimated GFR (Non- 57.7 BUN/Creatinine Ratio 16.2 Random Glucose 137 mg/dl Estimated Average Glucose 134 mg/dl Hemoglobin A1c 6.3 % Calcium Level 8.2 mg/dl Magnesium Level 2.3 mg/dl Test 08/11/17 16:34 Bedside Glucose 114 mg/dl Assessment & Plan A fib in RVR Found to be in Afib with RVR with rate in the 160 starting on amiodarone drip Rate is control now with NSR Starting on amiodarone 200mg daily PO Cardio on board INR 2.7 today Will resume Coumadin Continue PT/INR Continue monitor in telemetry Acute on chronic CHF CXR showed congestive heart failure BNP on admission >2000 Received IV lasix Lasix changed to oral Echo pending Daily weights, strict Is&Os Cardio consulted COPD exacerbation WBC on admission 11.9 Sputum gram stain with gram + cocci, gram - cocci Continue doxycycline Prednisone 40mg will taper over a 2 weeks course Continue neb treatment Continue home inhalers Pulm on board recommended continue with prednisone 40 mg and tapering over the next 2 weeks. CAD (s/p 5 stents): Stable, no CP, no ischemia on EKG Continue home plavix, metoprolol, statin D/C aspirin Injected R eye Irritated from air blowing in eye from CPAP machine Ophthalmology on board recommended to continue using her artificial tears prn If no improvement, use lubricating ointment at bedtime to prevent corneal exposure May follow up with Ophthalmology on discharge DM II Most recent Hgb a1c 6.3 on 08/22 Hold home agents SSI while in-patient Continue monitor BS Hypothyroidism Cont levothyroxine HLD On statin [place]: Cont CPAP qHS DVT Ppx INR herapeutic Coumadin resumed CODE STATUS FULL CODE Disposition Continue Tele monitor Possible discharge tomorrow Current Inpatient Medications: Current Inpatient Medications Medications (Trade) Dose Ordered Sig/Charissa Route Start Time Stop Time Status Last Admin Dose Admin Acetaminophen (Tylenol Tab) 650 mg Q4H PRN PO 08/10/17 16:30 09/09/17 16:29 Polyethylene (Miralax Powder Packet) 17 gm DAILY PRN PO 08/10/17 16:30 09/09/17 16:29 Insulin Aspart (novoLOG ASPART) SLIDING SCALE If C... ACHS SC 08/10/17 21:00 09/09/17 20:59 08/11/17 16:52 6 UNITS Glucose (Glucose 40% Gel) 15-30 GRAMS 15 GRAMS... UD PRN PO 08/10/17 16:30 09/09/17 16:29 Glucose (Glucose Chew Tab) 4-8 Tablets 4 Tabl... UD PRN PO 08/10/17 16:30 09/09/17 16:29 Dextrose (Dextrose 50% 50ML Syringe) 25-50ML OF 50% DW IV FOR... UD PRN IV 08/10/17 16:30 09/09/17 16:29 Glucagon (Glucagon Inj) 1 mg UD PRN SQ 08/10/17 16:30 09/09/17 16:29 Prednisone (PredniSONE TAB) 40 mg DAILY PO 08/10/17 17:30 09/09/17 17:29 08/11/17 07:56 40 MG Ipratropium [place] (Atrovent 0.02% 0.5MG/2.5ML Neb) 0.5 mg Q4H PRN INH 08/10/17 18:00 09/09/17 17:59 Levalbuterol (Xopenex 1.25MG/ 0.5ML Neb) 1.25 mg Q4H PRN INH 08/10/17 18:00 09/09/17 17:59 Doxycycline Hyclate (Vibramycin Cap) 100 mg BID PO 08/10/17 21:00 08/17/17 20:59 08/11/17 07:56 100 MG Rosuvastatin Calcium (Crestor Tab) 20 mg HS PO 08/10/17 21:00 09/09/17 20:59 08/10/17 22:11 20 MG Aspirin (Ecotrin Tab) 81 mg QAM PO 08/11/17 09:00 09/10/17 08:59 08/11/17 07:57 81 MG Clopidogrel Bisulfate (plAVix TAB) 75 mg QAM PO 08/11/17 09:00 09/10/17 08:59 08/11/17 07:58 75 MG Metoprolol Succinate (Toprol Xl Tab) 50 mg QAM PO 08/11/17 09:00 09/10/17 08:59 08/11/17 07:57 50 MG Losartan Potassium (coZAAR TAB) 25 mg QAM PO 08/11/17 09:00 09/10/17 08:59 08/11/17 07:57 25 MG Furosemide (Lasix Tab) 40 mg QAM PO 08/11/17 09:00 09/10/17 08:59 08/11/17 07:58 40 MG Budesonide/ Formoterol Fumarate (Symbicort 160/ 4.5 Inh) 2 puffs BID INH 08/11/17 09:00 09/10/17 08:59 08/11/17 07:58 2 PUFFS Nitroglycerin (Nitrostat Tab) 0.4 mg UD PRN UT 08/10/17 21:45 09/09/17 21:44 Temazepam (Restoril Cap) 15 mg HS PRN PO 08/10/17 21:45 09/09/17 21:44 08/10/17 23:21 15 MG Artificial Tears (Artificial Tears) 2 drops BID PRN OP 08/10/17 21:45 09/09/17 21:44 Miscellaneous Information (Consult Glycemic Management Pharmacy) 1 ea UD PRN N/A 08/10/17 22:00 09/09/17 21:59 Insulin Human NPH (novoLIN-N NPH) 30 units QDB SC 08/11/17 07:30 09/10/17 07:29 08/11/17 08:00 30 UNITS Miscellaneous Information (Pharmacy Consult) 1 ea UD PRN N/A 08/10/17 23:26 09/09/17 23:25 Ceftriaxone Sodium 1 gm/ Dextrose 50 ml @ 100 mls/hr Q24H IV 08/10/17 23:30 08/17/17 23:29 08/10/17 23:45 100 MLS/HR Amiodarone HCl (Cordarone Tab) 200 mg DAILY PO 08/11/17 13:30 09/10/17 13:29 08/11/17 13:46 200 MG Miscellaneous Information (Order Awaiting Action) 1 ea QS N/A 08/11/17 16:00 09/10/17 15:59
[2017-08-11] MEDS ORDERED: WARFARIN SOD 5 MG TAB PO ONE (18:45)
[2017-08-11] MEDS: ROSUVASTATIN CALCIUM 20 MG TAB PO SCH (20:29)
[2017-08-11] MEDS ORDERED: ROSUVASTATIN CALCIUM 10 MG TAB PO SCH (21:00)
[2017-08-11] MEDS: METOPROLOL TARTRATE 1 MG/ML VIAL IV PRN (21:11)
[2017-08-11] MEDS ORDERED: METOPROLOL TARTRATE 1 MG/ML VIAL IV STA (21:52)
[2017-08-11] MEDS ORDERED: AMIODARONE IV BOLUS / DRIP IV STA (22:00)
[2017-08-11] MEDS: CEFTRIAXONE SOD INJ 1000 MG in DEXTROSE 5% 50ML IV SCH (22:35)
[2017-08-12] VITALS (19 sets, daily range): BP systolic 86–120; BP diastolic 67–93; PULSE 85–147; TEMP 36.4–36.9; O2SAT 94–97
[2017-08-12] MEDS: TEMAZEPAM 15 MG CAP PO PRN (00:20)
[2017-08-12] MEDS ORDERED: AMIODARONE / D5W 100 ML IV ONE (00:30)
[2017-08-12] MEDS ORDERED: AMIODARONE / D5W 200 ML IV SCH (01:45)
[2017-08-12] MEDS ORDERED: DIGOXIN 0.125 MG TAB PO ONE (05:30)
[2017-08-12] MEDS ORDERED: NURSING VERBAL MED ORDER ONE (06:00)
[2017-08-12 06:19] LABS: HEMATOCRIT 31.7 % (37-47); MEAN CELL VOLUME 74.4 fL (80-100); MEAN CORPUSCULAR HEMOGLOBIN 23.5 pg (25-34); MEAN CORPUSCULAR HGB CONC 31.5 g/dl (32-36); MEAN PLATELET VOLUME 10.4 fL (7.4-10.4); PLATELET COUNT 361 K/uL (130-400); RED BLOOD COUNT 4.26 M/uL (4.2-5.4); WHITE BLOOD COUNT 10.86 K/uL (4.8-10.8)
[2017-08-12] MEDS ORDERED: LORAZEPAM 0.5 MG TAB PO SCH (06:30)
[2017-08-12 07:08] LABS: BUN/CREATININE RATIO 20.5 (10-20); CALCIUM 8.6 mg/dl (8.5-10.1); CREATININE 1.15 mg/dl (0.60-1.20); POTASSIUM 3.5 mmol/L (3.5-5.1)
[2017-08-12] MEDS: INSULIN ASPART 100 UNITS/ML 3 ML PEN SC SCH ×4 (07:56→20:25)
[2017-08-12] MEDS: AMIODARONE / D5W 200 ML IV SCH ×2 (07:57→14:47)
[2017-08-12] MEDS: INSULIN HUMAN NPH SC SCH (07:58)
[2017-08-12] MEDS: CLOPIDOGREL BISULFATE 75 MG TAB PO SCH (07:59)
[2017-08-12] MEDS: FUROSEMIDE 40 MG TAB PO SCH (08:00)
[2017-08-12] MEDS: LOSARTAN POTASSIUM 25 MG TAB PO SCH (08:01)
[2017-08-12] MEDS: DOXYCYCLINE HYCLATE 100 MG CAP PO SCH ×2 (08:01→20:24)
[2017-08-12] MEDS: BUDESONIDE/FORMOTEROL FUMARATE 160/4.5 60 PUFFS/INHALER INH SCH ×2 (08:02→20:24)
[2017-08-12] MEDS ORDERED: POTASSIUM CHLORIDE 10 MEQ TABCR PO ONE (08:15)
[2017-08-12] MEDS: METOPROLOL SUCC 50MG EXT REL TAB PO SCH (08:53)
--- NOTE | 2017-08-12 09:09 | Cardiology Follow-Up ---
Subjective Date of Service: Aug 12, 2017. Pt evaluation today including: conversation w/ patient, physical exam, chart review, lab review, review of studies, review of inpatient medication list History of Present Illness This morning the patient claims to be feeling quite poorly. She had a rough evening he was awake most of the night. His today she felt quite well and was ambulatory for period of time. After dinner she began to feel more short of breath and did have some mild chest discomfort for. Last evening. She denies any chest pain this morning. She has not been out of bed this morning. She was able to eat some breakfast. Social History Smoking Status: Former Smoker History of Alcohol Use: No Objective Vital Signs Past 12 Hours Date Time Temp Pulse Resp B/P (MAP) Pulse Ox O2 Delivery O2 Flow Rate FiO2 08/12/17 07:33 36.6 145 18 100/79 (86) 97 Nasal Cannula 3.0 08/12/17 05:51 146 08/12/17 05:25 146 109/71 (84) 08/12/17 04:32 147 103/67 (79) 08/12/17 03:36 CPAP 3.0 08/12/17 03:35 36.5 147 17 108/82 (91) 96 CPAP 08/12/17 02:34 146 106/80 (89) 08/12/17 01:50 147 94/76 (82) 08/12/17 01:23 144 101/75 (84) 08/12/17 01:01 145 104/67 (79) 08/12/17 00:41 138 86/67 (73) 08/12/17 00:26 147 99/73 (82) 08/11/17 23:52 36.7 150 20 99/60 (73) 93 Room Air 08/11/17 23:50 CPAP 3.0 08/11/17 23:42 151 98 3.0 08/11/17 21:56 127 135/100 08/11/17 21:11 143 127/73 Last Recorded Weight-Kilograms: 113.800 Intake & Output 8-Hour Column 08/12/17 08/12/17 08/13/17 15:59 23:59 07:59 Intake Total 60 ml Balance 60 ml 24-Hour Column 08/13/17 07:59 Intake Total 60 ml Balance 60 ml Physical Exam She is alert and oriented x3. Mood affect appear normal. She answered all questions appropriately. HEENT: Sclerae are anicteric. Pupils are equal and reactive to light and accommodation. Extraocular movements were intact. Neuro: Cranial nerves intact Neck: Examination of the submandibular region did not reveal any significant lymphadenopathy. Carotids are palpable bilaterally and free of bruits on auscultation. There was no evidence of jugular venous distention. The thyroid was not enlarged. Lungs: Upper airway congestion noted She has normal respiratory effort without use of accessory muscles. There is normal pulmonary excursion. Cardiac: The rhythm was irregular. S1 and S2 were normal. The PMI was not markedly displaced on palpation. Abdomen: The abdomen was soft and nontender. Extremities: Patient has bilateral radial pulses that are equal in intensity. There is no evidence cyanosis or clubbing. Skin: There are no rashes noted on examination today. Data Laboratory Results: Last 24 Hours Test 08/11/17 11:23 08/11/17 16:34 08/11/17 20:25 08/12/17 03:29 Bedside Glucose 113 mg/dl 114 mg/dl 116 mg/dl 141 mg/dl Test 08/12/17 05:45 08/12/17 06:48 White Blood Count 10.86 K/uL Red Blood Count 4.26 M/uL Hemoglobin 10.0 g/dL Hematocrit 31.7 % Mean Corpuscular Volume 74.4 fL Mean Corpuscular Hemoglobin 23.5 pg Mean Corpuscular Hemoglobin Concent 31.5 g/dl RDW Standard Deviation 48.6 fL RDW Coefficient of Variation 18.0 % Platelet Count 361 K/uL Mean Platelet Volume 10.4 fL Prothrombin Time 21.0 SECONDS Prothromb Time International Ratio 2.0 Sodium Level 137 mmol/L Potassium Level 3.5 mmol/L Chloride Level 107 mmol/L Carbon Dioxide Level 24 mmol/L Anion Gap 6.0 mmol/L Blood Urea Nitrogen 24 mg/dl Creatinine 1.15 mg/dl Est Creatinine Clear Calc Drug Dose 51.7 ml/min Estimated GFR () 52.4 Estimated GFR (Non- 45.2 BUN/Creatinine Ratio 20.5 Random Glucose 114 mg/dl Calcium Level 8.6 mg/dl Bedside Glucose 127 mg/dl Telemetry reviewed: Patient developed atrial fibrillation with rapid ventricular response around 8 p.m. last evening. She continues to have atrial fibrillation with poorly controlled heart rates. Assessment and Plan 1. Acute decompensated systolic heart failure: Some worsening dyspnea over the course of the evening. It seems that atrial fibrillation likely precipitated her prior decompensation and she had more atrial fibrillation with rapid ventricular response last evening. She was administered oral diuretic this morning and will need to monitor her symptoms and examination to determine if she requires an additional dose later this afternoon. Currently oxygenating well. 2. Atrial fibrillation: Patient had a prior extended episode of atrial fibrillation lasting several days. She was in sinus rhythm yesterday but converted back to atrial fibrillation last evening. This coincided with development of her symptoms. Unclear whether this related to the AV dyssynchrony or simply her higher heart rates. She was re-initiated on amiodarone infusion. She will be administered higher dose of metoprolol this morning. Hopefully, with continued amiodarone infusion we will see a conversion back to sinus rhythm. In the interim control of her ventricular rate would be paramount. In the absence of good control with amiodarone infusion in increased dose of metoprolol we could try digoxin loading. She has normal renal function. We will need to monitor her INR on warfarin therapy. She appeared to have an adverse reaction till diltiazem infusion in the past with hypotension. However, this was in the setting of aggressive diuresis as well. 3. Coronary artery disease: Some chest pain with her atrial fibrillation and elevated ventricular rates last evening. Currently pain-free. Aspirin was discontinued as her percutaneous intervention was several months ago and she is on warfarin therapy as well.
--- NOTE | 2017-08-12 10:28 | Progress Note ---
Medicine Progress Note Date & Time of Visit: Aug 12, 2017 at 10:17. Subjective Pt was seen and examined Lying in bed with no acute distress Pt said that last night she did not sleep well because of palpitation She had chest pain early this morning, but now free of chest pain She said that she continue to have a dry cough Denies any chest pain, dizziness and palpitation currently Objective Last 8 Hrs Date Time Temp Pulse Resp B/P (MAP) Pulse Ox O2 Delivery O2 Flow Rate FiO2 08/12/17 09:08 109 16 95 Room Air 3.0 08/12/17 07:33 36.6 145 18 100/79 (86) 97 Nasal Cannula 3.0 08/12/17 05:51 146 08/12/17 05:25 146 109/71 (84) 08/12/17 04:32 147 103/67 (79) 08/12/17 03:36 CPAP 3.0 08/12/17 03:35 36.5 147 17 108/82 (91) 96 CPAP 08/12/17 02:34 146 106/80 (89) Physical Exam: General- No acute distress Head- atraumatic Eyes- PERRL, EOMI ENT- oropharynx clear Neck- supple, no JVD Lungs- clear to auscultation Heart- irregular rhythm Abdomen- normal bowel sounds, soft Extremities- no calf tenderness Neuro- alert, oriented x 3; PERRL, EOMI Skin- warm & dry Laboratory Results: Last 24 Hours Test 08/11/17 11:23 08/11/17 16:34 08/11/17 20:25 08/12/17 03:29 Bedside Glucose 113 mg/dl 114 mg/dl 116 mg/dl 141 mg/dl Test 08/12/17 05:45 08/12/17 06:48 White Blood Count 10.86 K/uL Red Blood Count 4.26 M/uL Hemoglobin 10.0 g/dL Hematocrit 31.7 % Mean Corpuscular Volume 74.4 fL Mean Corpuscular Hemoglobin 23.5 pg Mean Corpuscular Hemoglobin Concent 31.5 g/dl RDW Standard Deviation 48.6 fL RDW Coefficient of Variation 18.0 % Platelet Count 361 K/uL Mean Platelet Volume 10.4 fL Prothrombin Time 21.0 SECONDS Prothromb Time International Ratio 2.0 Sodium Level 137 mmol/L Potassium Level 3.5 mmol/L Chloride Level 107 mmol/L Carbon Dioxide Level 24 mmol/L Anion Gap 6.0 mmol/L Blood Urea Nitrogen 24 mg/dl Creatinine 1.15 mg/dl Est Creatinine Clear Calc Drug Dose 51.7 ml/min Estimated GFR () 52.4 Estimated GFR (Non- 45.2 BUN/Creatinine Ratio 20.5 Random Glucose 114 mg/dl Calcium Level 8.6 mg/dl Bedside Glucose 127 mg/dl Assessment & Plan A fib in RVR Found to be in Afib with RVR with rate in the 160 starting on amiodarone drip Rate is control now with NSR Starting on amiodarone 200mg daily PO Cardio on board INR 2.7 today Will resume Coumadin Continue PT/INR Continue monitor in telemetry 08/12 Back to Afib with RVR Amiodarone drip was restarted Metoprolol increased to 100mg today Continue monitor in telemetry Might need digoxin if HR does not improve No Cardizem due to previous episode of hypotension Acute on chronic CHF CXR showed congestive heart failure BNP on admission >1999 Received IV lasix Continue Oral lasix Daily weights, strict Is&Os Cardio consulted ECHO showed Moderately dilated left ventricle with severely reduced systolic function. Estimated EF 25-30%. Global hypokinesis. To better evaluate wall motion and LV systolic function, consider IV echo contrast. No left ventricular hypertrophy. Tissue Doppler suggests elevated left atrial pressure. 2. Aortic valve sclerosis mild, without significant aortic valvular stenosis. COPD exacerbation WBC on admission 11.9 Sputum gram stain with gram + cocci, gram - cocci Continue doxycycline Prednisone 40mg will taper over a 2 weeks course Continue neb treatment Continue home inhalers Pulm on board recommended continue with prednisone 40 mg and tapering over the next 2 weeks. CAD (s/p 5 stents): Stable, no CP, no ischemia on EKG Continue home plavix, metoprolol, statin D/Uriel aspirin Injected R eye Irritated from air blowing in eye from CPAP machine Ophthalmology on board recommended to continue using her artificial tears prn If no improvement, use lubricating ointment at bedtime to prevent corneal exposure May follow up with Ophthalmology on discharge Improved DM II Most recent Hgb a1c 6.3 on 08/22 Hold home agents SSI while in-patient Continue monitor BS Hypothyroidism Cont levothyroxine HLD On statin CAYETANO: Cont CPAP qHS DVT Ppx On coumadin with INR 1.9 CODE STATUS FULL CODE Disposition Continue Tele monitor Consultants: cardio Pulm Current Inpatient Medications: Current Inpatient Medications Medications (Trade) Dose Ordered Sig/Charissa Route Start Time Stop Time Status Last Admin Dose Admin Acetaminophen (Tylenol Tab) 650 mg Q4H PRN PO 08/10/17 16:30 09/09/17 16:29 Polyethylene (Miralax Powder Packet) 17 gm DAILY PRN PO 08/10/17 16:30 09/09/17 16:29 Insulin Aspart (novoLOG ASPART) SLIDING SCALE If C... ACHS SC 08/10/17 21:00 09/09/17 20:59 08/12/17 07:56 8 UNITS Glucose (Glucose 40% Gel) 15-30 GRAMS 15 GRAMS... UD PRN PO 08/10/17 16:30 09/09/17 16:29 Glucose (Glucose Chew Tab) 4-8 Tablets 4 Tabl... UD PRN PO 08/10/17 16:30 09/09/17 16:29 Dextrose (Dextrose 50% 50ML Syringe) 25-50ML OF 50% DW IV FOR... UD PRN IV 08/10/17 16:30 09/09/17 16:29 Glucagon (Glucagon Inj) 1 mg UD PRN SQ 08/10/17 16:30 09/09/17 16:29 Prednisone (PredniSONE TAB) 40 mg DAILY PO 08/10/17 17:30 09/09/17 17:29 08/12/17 08:01 40 MG Ipratropium [place] (Atrovent 0.02% 0.5MG/2.5ML Neb) 0.5 mg Q4H PRN INH 08/10/17 18:00 09/09/17 17:59 08/12/17 09:07 0.5 MG Levalbuterol (Xopenex 1.25MG/ 0.5ML Neb) 1.25 mg Q4H PRN INH 08/10/17 18:00 09/09/17 17:59 08/12/17 09:07 1.25 MG Doxycycline Hyclate (Vibramycin Cap) 100 mg BID PO 08/10/17 21:00 08/17/17 20:59 08/12/17 08:01 100 MG Rosuvastatin Calcium (Crestor Tab) 20 mg HS PO 08/10/17 21:00 09/09/17 20:59 08/11/17 20:29 20 MG Clopidogrel Bisulfate (plAVix TAB) 75 mg QAM PO 08/11/17 09:00 09/10/17 08:59 08/12/17 07:59 75 MG Losartan Potassium (coZAAR TAB) 25 mg QAM PO 08/11/17 09:00 09/10/17 08:59 08/12/17 08:01 25 MG Furosemide (Lasix Tab) 40 mg QAM PO 08/11/17 09:00 09/10/17 08:59 08/12/17 08:00 40 MG Budesonide/ Formoterol Fumarate (Symbicort 160/ 4.5 Inh) 2 puffs BID INH 08/11/17 09:00 09/10/17 08:59 08/12/17 08:02 2 PUFFS Nitroglycerin (Nitrostat Tab) 0.4 mg UD PRN UT 08/10/17 21:45 09/09/17 21:44 Temazepam (Restoril Cap) 15 mg HS PRN PO 08/10/17 21:45 09/09/17 21:44 08/12/17 00:20 15 MG Artificial Tears (Artificial Tears) 2 drops BID PRN OP 08/10/17 21:45 09/09/17 21:44 Miscellaneous Information (Consult Glycemic Management Pharmacy) 1 ea UD PRN N/A 08/10/17 22:00 09/09/17 21:59 Insulin Human NPH (novoLIN-N NPH) 30 units QDB SC 08/11/17 07:30 09/10/17 07:29 08/12/17 07:58 30 UNITS Miscellaneous Information (Pharmacy Consult) 1 ea UD PRN N/A 08/10/17 23:26 09/09/17 23:25 Ceftriaxone Sodium 1 gm/ Dextrose 50 ml @ 100 mls/hr Q24H IV 08/10/17 23:30 08/17/17 23:29 08/11/17 22:35 100 MLS/HR Amiodarone HCl (Cordarone Tab) 200 mg DAILY PO 08/11/17 13:30 09/10/17 13:29 Future Hold 08/11/17 13:46 200 MG Miscellaneous Information (Order Awaiting Action) 1 ea QS N/A 08/11/17 16:00 09/10/17 15:59 Metoprolol Succinate (Toprol Xl Tab) 100 mg QAM PO 08/12/17 09:00 09/10/17 08:59 08/12/17 08:53 100 MG Metoprolol Tartrate (Lopressor Iv) 2.5 mg Q4 PRN IV 08/11/17 21:00 09/10/17 20:59 08/11/17 21:11 2.5 MG Amiodarone HCL/ Dextrose 200 ml @ 16.7 mls/hr [id number] IV 08/11/17 22:15 09/10/17 22:14 Future hold 08/12/17 07:57 16.7 MLS/HR Guaifenesin (Organidin Nr Tab) 200 mg Q6 PRN PO 08/12/17 09:15 09/11/17 09:14
--- NOTE | 2017-08-12 10:31 | Pharmacy Progress Note ---
Glycemic Control Progress Note Date of Service Aug 12, 2017. Scope Glycemic Pharmacist consulted for glycemic control to write orders per [facility] inpatient glycemic control protocol. Objective Accuchecks BSG (last 24hrs): Test 08/11/17 11:23 08/11/17 16:34 08/11/17 20:25 08/12/17 03:29 Bedside Glucose 113 mg/dl (70-90) 114 mg/dl (70-90) 116 mg/dl (70-90) 141 mg/dl (70-90) Test 08/12/17 05:45 08/12/17 06:48 Random Glucose 114 mg/dl (70-99) Bedside Glucose 127 mg/dl (70-90) HbA1c: Test 08/11/17 05:25 Hemoglobin A1c 6.3 % (4.5-5.6) H Recent Pertinent Medications Outpatient Anti-diabetic Regimen: * Metformin 500mg PO daily * A1c = 6.3 % 08/11/17 The patient is currently receiving: * Basal insulin: NPH 30 units SQ w/ breakfast * Correctional Insulin: Novolog Correction per scale ACHS Goal Range: Low 110 mg/dL - High 140 mg/dL Correction Factor: 20 mg/dL/unit * Prandial insulin: Per carb ratio of 1 unit per 7 grams CHO consumed Risk Factors for Insulin Resistance: * Steroids: Prednisone 40mg PO daily for COPD exacerbation * Infection: Doxycycline + Ceftriaxone for COPD exacerbation * IVF: Amiodarone gtt mixed in D5W * Diet: ordered T2DM diet Assessment & Plan ASSESSMENT: 08/11/17 * Type 2 diabetic admitted yesterday for A fib w/ RVR, ADHF and COPD exacerbation * Patient is well controlled with metformin monotherapy per recent A1c result ( 6.3%) * Prednisone 40mg daily likely to induce insulin resistance throughout the day with effects dissipating overnight. * NPH has been ordered to provide additional insulin during peak steroid effect * Novolog CF and CR have been ordered based upon weight and moderate stress level * Current insulin orders are appropriate starting points and have produced good results thus far. Will continue w/ the same and monitor BSG pattern. May need to lessen carb ratio w/ lunch as this is time of day when NPH "peaks." If pre- dinner BSG low, will decrease or omit CR with lunch. 08/12/17 * BSGs have ranged 113-127 over the last 24 hrs with current insulin orders * Fasting BSG at goal this AM * Prednisone 40mg PO daily continues * Plan to continue current insulin orders PLAN FOR INPATIENT GLYCEMIC CONTROL: * Continuing NPH 30 units SQ w/ breakfast * Continuing correction factor of 20 mg/dl/unit * Continuing carb ratio of 1 unit per 7 grams CHO consumed * Continuing goal range of Low 110 mg/dL - High 140 mg/dL * Reevaluate insulin doses with each step down in steroid dose * Please note that the plan above was derived based on current level of insulin resistance and hospital stress. These recommendations are appropriate for inpatient admission only. Plan of care upon discharge will need to be reassessed to avoid potential outpatient hypo/hyperglycemia. Thank you.
[2017-08-12] MEDS: GUAIFENESIN 200 MG TAB PO PRN (12:00)
--- NOTE | 2017-08-12 12:55 | Pulmonology Progress Note ---
Pulmonary Progress Note Date of Service Aug 12, 2017. Attending Dr. Vides Subjective Patient is feeling poorly this morning. She states that she had a rough night last night. She did have more Afib with RVR yesterday evening. She is currently receiving PO diuretics. Cardiology is following. She has no real pain today, and she states that her breathing is OK this morning. She continues to have some cough on and off. She is chilled this morning, but has been afebrile. Labs reviewed: WBC 10.86 Hgb 10.0 Creatinine 1.15 BUN 24 Chest X-Ray showed congestive failure on 08/10/17. Meds reviwed: Amiodarone, Guaifenesin, Metoprolol, Symbicort, Ceftriaxone, Doxycycline, Prednisone 40 mg daily, Xopenex, Atrovent, Symbicort Objective VS Reviewed: HR 145 this morning RR 18 BP 100/79 SaO2 95-97% on 3 L nasal cannula General: Patient is awake, alert, cooperative, and in no acute distress. Obese. Head: Normocephalic, Atraumatic. ENT: PERRLA, No discharge, EOMI, Sclera normal Neck: Normal ROM. Trachea midline. No stridor Respiratory: Decreased breath sounds throughout. Upper respiratory sounds heard. Wet cough on exam. Cardiovascular: Tachycardia. Distant heart sounds. Extremities: Trace pedal edema. SCDs in place Neuro: Alert, Oriented x 3. CN II-XII grossly intact. Sensation and motor function grossly intact. Psych: Mood and affect are normal. Assessment & Plan Acute on chronic hypoxic respiratory failure CHF exacerbation COPD exacerbation History of pulmonary embolism Obstructive sleep apnea Possible obesity hypoventilation syndrome Paroxysmal atrial fibrillation w/RVR Supratherapeutic INR Anemia Postnasal drip GERD Patient feeling worse today- likely due to Conversion back to AFib with RVR last night. She continues to have some SOB but feels that her breathing overall has improved. She does have probable COPD exacerbation which is precipitating Afib. Continue Supplemental O2 to ideally keep SaO2 between 88-92% to avoid over- oxygenation and retention of CO2. Continue CPAP at night and BiPAP intermittently if needed for CO2 retention. Avoid sedatives due to decreasing respiratory drive with these medications. Continue aggressive diuresis as tolerated renally. Complete 7 days of abx therapy for COPD exacerbation. Currently on Ceftriaxone and Doxycycline. Continue current bronchodilators. Continue nasal spray for post-nasal drip. Cardiology follow. No new recommendations from a Pulmonary perspective. Continue workup/treatment for anemia and paroxysmal AFib. Pulmonary will sign off. Please call with questions/changes in patient status. Thanks Data Medications: Current Inpatient Medications Medications (Trade) Dose Ordered Sig/Charissa Route Start Time Stop Time Status Last Admin Dose Admin Acetaminophen (Tylenol Tab) 650 mg Q4H PRN PO 08/10/17 16:30 09/09/17 16:29 Polyethylene (Miralax Powder Packet) 17 gm DAILY PRN PO 08/10/17 16:30 09/09/17 16:29 Insulin Aspart (novoLOG ASPART) SLIDING SCALE If C... ACHS SC 08/10/17 21:00 09/09/17 20:59 08/12/17 07:56 8 UNITS Glucose (Glucose 40% Gel) 15-30 GRAMS 15 GRAMS... UD PRN PO 08/10/17 16:30 09/09/17 16:29 Glucose (Glucose Chew Tab) 4-8 Tablets 4 Tabl... UD PRN PO 08/10/17 16:30 09/09/17 16:29 Dextrose (Dextrose 50% 50ML Syringe) 25-50ML OF 50% DW IV FOR... UD PRN IV 08/10/17 16:30 09/09/17 16:29 Glucagon (Glucagon Inj) 1 mg UD PRN SQ 08/10/17 16:30 09/09/17 16:29 Prednisone (PredniSONE TAB) 40 mg DAILY PO 08/10/17 17:30 09/09/17 17:29 08/12/17 08:01 40 MG Ipratropium [place] (Atrovent 0.02% 0.5MG/2.5ML Neb) 0.5 mg Q4H PRN INH 08/10/17 18:00 09/09/17 17:59 08/12/17 09:07 0.5 MG Levalbuterol (Xopenex 1.25MG/ 0.5ML Neb) 1.25 mg Q4H PRN INH 08/10/17 18:00 09/09/17 17:59 08/12/17 09:07 1.25 MG Doxycycline Hyclate (Vibramycin Cap) 100 mg BID PO 08/10/17 21:00 08/17/17 20:59 08/12/17 08:01 100 MG Rosuvastatin Calcium (Crestor Tab) 20 mg HS PO 08/10/17 21:00 09/09/17 20:59 08/11/17 20:29 20 MG Clopidogrel Bisulfate (plAVix TAB) 75 mg QAM PO 08/11/17 09:00 09/10/17 08:59 08/12/17 07:59 75 MG Losartan Potassium (coZAAR TAB) 25 mg QAM PO 08/11/17 09:00 09/10/17 08:59 08/12/17 08:01 25 MG Furosemide (Lasix Tab) 40 mg QAM PO 08/11/17 09:00 09/10/17 08:59 08/12/17 08:00 40 MG Budesonide/ Formoterol Fumarate (Symbicort 160/ 4.5 Inh) 2 puffs BID INH 08/11/17 09:00 09/10/17 08:59 08/12/17 08:02 2 PUFFS Nitroglycerin (Nitrostat Tab) 0.4 mg UD PRN UT 08/10/17 21:45 09/09/17 21:44 Temazepam (Restoril Cap) 15 mg HS PRN PO 08/10/17 21:45 09/09/17 21:44 08/12/17 00:20 15 MG Artificial Tears (Artificial Tears) 2 drops BID PRN OP 08/10/17 21:45 09/09/17 21:44 Miscellaneous Information (Consult Glycemic Management Pharmacy) 1 ea UD PRN N/A 08/10/17 22:00 09/09/17 21:59 Insulin Human NPH (novoLIN-N NPH) 30 units QDB SC 08/11/17 07:30 09/10/17 07:29 08/12/17 07:58 30 UNITS Miscellaneous Information (Pharmacy Consult) 1 ea UD PRN N/A 08/10/17 23:26 09/09/17 23:25 Ceftriaxone Sodium 1 gm/ Dextrose 50 ml @ 100 mls/hr Q24H IV 08/10/17 23:30 08/17/17 23:29 08/11/17 22:35 100 MLS/HR Amiodarone HCl (Cordarone Tab) 200 mg DAILY PO 08/11/17 13:30 09/10/17 13:29 Future Hold 08/11/17 13:46 200 MG Miscellaneous Information (Order Awaiting Action) 1 ea QS N/A 08/11/17 16:00 09/10/17 15:59 Metoprolol Succinate (Toprol Xl Tab) 100 mg QAM PO 08/12/17 09:00 09/10/17 08:59 08/12/17 08:53 100 MG Metoprolol Tartrate (Lopressor Iv) 2.5 mg Q4 PRN IV 08/11/17 21:00 09/10/17 20:59 08/11/17 21:11 2.5 MG Amiodarone HCL/ Dextrose 200 ml @ 16.7 mls/hr [id number] IV 08/11/17 22:15 09/10/17 22:14 Future hold 08/12/17 07:57 16.7 MLS/HR Guaifenesin (Organidin Nr Tab) 200 mg Q6 PRN PO 08/12/17 09:15 09/11/17 09:14 I & O: 24-Hour Column 08/13/17 08:00 Intake Total 60 ml Balance 60 ml Vital Signs: Date Time Temp Pulse Resp B/P (MAP) Pulse Ox O2 Delivery O2 Flow Rate FiO2 08/12/17 09:08 109 16 95 Room Air 3.0 08/12/17 07:33 36.6 145 18 100/79 (86) 97 Nasal Cannula 3.0 08/12/17 05:51 146 08/12/17 05:25 146 109/71 (84) 08/12/17 04:32 147 103/67 (79) 08/12/17 03:36 CPAP 3.0 08/12/17 03:35 36.5 147 17 108/82 (91) 96 CPAP 08/12/17 02:34 146 106/80 (89) 08/12/17 01:50 147 94/76 (82) 08/12/17 01:23 144 101/75 (84) 08/12/17 01:01 145 104/67 (79) 08/12/17 00:41 138 86/67 (73) 08/12/17 00:26 147 99/73 (82) 08/11/17 23:52 36.7 150 20 99/60 (73) 93 Room Air 08/11/17 23:50 CPAP 3.0 08/11/17 23:42 151 98 3.0 08/11/17 21:56 127 135/100 08/11/17 21:11 143 127/73 08/11/17 20:00 92 Room Air 08/11/17 19:46 36.5 102 24 129/77 (94) 92 Room Air 08/11/17 16:00 96 Nasal Cannula 2.0 08/11/17 15:03 36.5 89 18 126/66 (86) 96 Nasal Cannula 2.0 08/11/17 12:00 Nasal Cannula 2.0 08/11/17 11:35 36.9 79 18 129/64 (85) 97 Nasal Cannula 2.0 Laboratory Results: Last 24 Hours Test 08/11/17 11:23 08/11/17 16:34 08/11/17 20:25 08/12/17 03:29 Bedside Glucose 113 mg/dl 114 mg/dl 116 mg/dl 141 mg/dl Test 08/12/17 05:45 08/12/17 06:48 White Blood Count 10.86 K/uL Red Blood Count 4.26 M/uL Hemoglobin 10.0 g/dL Hematocrit 31.7 % Mean Corpuscular Volume 74.4 fL Mean Corpuscular Hemoglobin 23.5 pg Mean Corpuscular Hemoglobin Concent 31.5 g/dl RDW Standard Deviation 48.6 fL RDW Coefficient of Variation 18.0 % Platelet Count 361 K/uL Mean Platelet Volume 10.4 fL Prothrombin Time 21.0 SECONDS Prothromb Time International Ratio 2.0 Sodium Level 137 mmol/L Potassium Level 3.5 mmol/L Chloride Level 107 mmol/L Carbon Dioxide Level 24 mmol/L Anion Gap 6.0 mmol/L Blood Urea Nitrogen 24 mg/dl Creatinine 1.15 mg/dl Est Creatinine Clear Calc Drug Dose 51.7 ml/min Estimated GFR () 52.4 Estimated GFR (Non- 45.2 BUN/Creatinine Ratio 20.5 Random Glucose 114 mg/dl Calcium Level 8.6 mg/dl Bedside Glucose 127 mg/dl
[2017-08-12] MEDS: POLYETHYLENE (MIRALAX) 17 GM PACK PO PRN (17:05)
[2017-08-12] MEDS ORDERED: POTASSIUM CHLORIDE 20 MEQ/15 ML UDC PO ONE (17:45)
[2017-08-12] MEDS ORDERED: FUROSEMIDE INJ 40 MG in SYRINGE 0 ML IV ONE (18:00)
[2017-08-12] MEDS ORDERED: DIGOXIN IV 250 MCG in SYRINGE 9 ML IV ONE (19:00)
[2017-08-12] MEDS: ROSUVASTATIN CALCIUM 20 MG TAB PO SCH (20:25)
[2017-08-13] VITALS (8 sets, daily range): BP systolic 110–124; BP diastolic 72–83; PULSE 87–110; TEMP 36.5–36.9; O2SAT 92–99
[2017-08-13] MEDS: CEFTRIAXONE SOD INJ 1000 MG in DEXTROSE 5% 50ML IV SCH ×2 (02:01→23:38)
[2017-08-13] MEDS: AMIODARONE / D5W 200 ML IV SCH (02:09)
[2017-08-13] MEDS ORDERED: DIGOXIN IV 125 MCG in SYRINGE 9.5 ML IV ONE (03:00)
[2017-08-13] MEDS: METOPROLOL TARTRATE 1 MG/ML VIAL IV PRN (04:10)
[2017-08-13 06:35] LABS: INR 1.5 (0.9-1.1); PROTHROMBIN TIME (PATIENT) 15.9 SECONDS (9.0-12.0)
[2017-08-13 06:46] LABS: BUN/CREATININE RATIO 24.7 (10-20); CALCIUM 8.4 mg/dl (8.5-10.1); CREATININE 1.11 mg/dl (0.60-1.20); POTASSIUM 3.6 mmol/L (3.5-5.1)
[2017-08-13] MEDS: LOSARTAN POTASSIUM 25 MG TAB PO SCH (08:03)
[2017-08-13] MEDS: DOXYCYCLINE HYCLATE 100 MG CAP PO SCH ×2 (08:03→20:28)
[2017-08-13] MEDS: CLOPIDOGREL BISULFATE 75 MG TAB PO SCH (08:03)
[2017-08-13] MEDS: GUAIFENESIN 200 MG TAB PO PRN (08:04)
[2017-08-13] MEDS: METOPROLOL SUCC 50MG EXT REL TAB PO SCH (08:04)
[2017-08-13] MEDS: FUROSEMIDE 40 MG TAB PO SCH (08:04)
[2017-08-13] MEDS: BUDESONIDE/FORMOTEROL FUMARATE 160/4.5 60 PUFFS/INHALER INH SCH ×2 (08:05→20:28)
[2017-08-13] MEDS: INSULIN ASPART 100 UNITS/ML 3 ML PEN SC SCH ×4 (08:07→20:34)
[2017-08-13] MEDS: INSULIN HUMAN NPH SC SCH (08:08)
[2017-08-13] MEDS ORDERED: POTASSIUM CHLORIDE 20 MEQ/15 ML UDC PO STA (09:46)
[2017-08-13] MEDS ORDERED: AMIODARONE 200 MG TAB PO ONE (10:00)
--- NOTE | 2017-08-13 10:07 | Pharmacy Progress Note ---
Glycemic Control Progress Note Date of Service Aug 13, 2017. Scope Glycemic Pharmacist consulted for glycemic control to write orders per [facility] inpatient glycemic control protocol. Objective Accuchecks BSG (last 24hrs): Test 08/12/17 11:20 08/12/17 16:13 08/12/17 20:13 08/13/17 05:38 Bedside Glucose 83 mg/dl (70-90) 122 mg/dl (70-90) 97 mg/dl (70-90) Random Glucose 79 mg/dl (70-99) Test 08/13/17 06:47 Bedside Glucose 89 mg/dl (70-90) HbA1c: Test 08/11/17 05:25 Hemoglobin A1c 6.3 % (4.5-5.6) H Recent Pertinent Medications Outpatient Anti-diabetic Regimen: * Metformin 500mg PO daily * A1c = 6.3 % 08/11/17 The patient is currently receiving: * Basal insulin: NPH 30 units SQ w/ breakfast * Correctional Insulin: Novolog Correction per scale ACHS Goal Range: Low 110 mg/dL - High 140 mg/dL Correction Factor: 20 mg/dL/unit * Prandial insulin: Per carb ratio of 1 unit per 7 grams CHO consumed Risk Factors for Insulin Resistance: * Steroids: Prednisone 40mg PO daily for COPD exacerbation * Infection: Doxycycline + Ceftriaxone for COPD exacerbation * IVF: Amiodarone gtt mixed in D5W * Diet: ordered T2DM diet Outpatient Anti-Diabetic Meds Metformin 500mg PO daily Assessment & Plan ASSESSMENT: 08/11/17 * Type 2 diabetic admitted yesterday for A fib w/ RVR, ADHF and COPD exacerbation * Patient is well controlled with metformin monotherapy per recent A1c result ( 6.3%) * Prednisone 40mg daily likely to induce insulin resistance throughout the day with effects dissipating overnight. * NPH has been ordered to provide additional insulin during peak steroid effect * Novolog CF and CR have been ordered based upon weight and moderate stress level * Current insulin orders are appropriate starting points and have produced good results thus far. Will continue w/ the same and monitor BSG pattern. May need to lessen carb ratio w/ lunch as this is time of day when NPH "peaks." If pre- dinner BSG low, will decrease or omit CR with lunch. 08/12/17 * BSGs have ranged 113-127 over the last 24 hrs with current insulin orders * Fasting BSG at goal this AM * Prednisone 40mg PO daily continues * Plan to continue current insulin orders 08/13/17 * BSGs have ranged 79-122 over the last 24 hrs * Fasting BSG 79-89 this AM - basal insulin dose may need decreased * Prednisone 40mg daily continues * Several BSGs have been less than 100, so may need less prandial insulin as well - will adjust CR and CF PLAN FOR INPATIENT GLYCEMIC CONTROL: * Decreasing NPH to 25 units SQ w/ breakfast * Changing correction factor to 25 mg/dl/unit * Changing carb ratio to 1 unit per 9 grams CHO consumed * Continuing goal range of Low 110 mg/dL - High 140 mg/dL * Reevaluate insulin doses with each step down in steroid dose * Please note that the plan above was derived based on current level of insulin resistance and hospital stress. These recommendations are appropriate for inpatient admission only. Plan of care upon discharge will need to be reassessed to avoid potential outpatient hypo/hyperglycemia. Thank you.
[2017-08-13] MEDS ORDERED: DIGOXIN IV 250 MCG in SYRINGE 9 ML IV ONE (10:10)
--- NOTE | 2017-08-13 10:39 | Cardiology Follow-Up ---
Subjective Date of Service: Aug 13, 2017. Pt evaluation today including: conversation w/ patient, physical exam, chart review, lab review, review of studies History of Present Illness This morning the patient claims to be feeling much better. She is able get some rest last night. He states that her breathing is not quite at baseline due to some congestion but she does not feel overtly dyspneic. She is not aware of any palpitations. She has not had a recurrence of chest discomfort. The she has been ambulatory around her room without notable dizziness or significant limiting dyspnea. She is anxious for discharge. Social History Smoking Status: Former Smoker History of Alcohol Use: No Objective Vital Signs Past 12 Hours Date Time Temp Pulse Resp B/P (MAP) Pulse Ox O2 Delivery O2 Flow Rate FiO2 08/13/17 07:55 36.6 107 16 116/83 (94) 92 Room Air 08/13/17 04:10 151 117/84 08/13/17 04:00 97 CPAP 3.0 08/13/17 03:20 108 08/12/17 23:59 97 CPAP 3.0 08/12/17 23:45 36.9 102 22 101/93 (96) 97 BiPAP 08/12/17 23:01 85 95 3.0 Last Recorded Weight-Kilograms: 119.500 Physical Exam She is alert and oriented x3. Mood affect appear normal. She answered all questions appropriately. HEENT: Sclerae are anicteric. Pupils are equal and reactive to light and accommodation. Extraocular movements were intact. Neuro: Cranial nerves intact Neck: Examination of the submandibular region did not reveal any significant lymphadenopathy. Carotids are palpable bilaterally and free of bruits on auscultation. There was no evidence of jugular venous distention. The thyroid was not enlarged. Lungs: Upper airway congestion noted She has normal respiratory effort without use of accessory muscles. There is normal pulmonary excursion. Cardiac: The rhythm was irregular. S1 and S2 were normal. The PMI was not markedly displaced on palpation. Abdomen: The abdomen was soft and nontender. Extremities: Patient has bilateral radial pulses that are equal in intensity. There is no evidence cyanosis or clubbing. Skin: There are no rashes noted on examination today. Data Laboratory Results: Last 24 Hours Test 08/12/17 11:20 08/12/17 16:13 08/12/17 20:13 08/13/17 05:38 Bedside Glucose 83 mg/dl 122 mg/dl 97 mg/dl Prothrombin Time 15.9 SECONDS Prothromb Time International Ratio 1.5 Sodium Level 140 mmol/L Potassium Level 3.6 mmol/L Chloride Level 107 mmol/L Carbon Dioxide Level 26 mmol/L Anion Gap 7.0 mmol/L Blood Urea Nitrogen 27 mg/dl Creatinine 1.11 mg/dl Est Creatinine Clear Calc Drug Dose 55.0 ml/min Estimated GFR () 54.7 Estimated GFR (Non- 47.2 BUN/Creatinine Ratio 24.7 Random Glucose 79 mg/dl Calcium Level 8.4 mg/dl Test 08/13/17 06:47 Bedside Glucose 89 mg/dl Telemetry reviewed: Telemetry demonstrated persistent atrial fibrillation with suboptimal rate control Assessment and Plan 1. Acute decompensated systolic heart failure: She seems to be oxygenating well. Her lung examination is not normal in complicated by upper respiratory congestion. She has been maintained on her daily diuretic and will need to make sure that she is affecting reasonable diuresis every day. I did give her an extra dose of Lasix last evening. Renal function appears to be stable electrolyte evaluation reveals a mild hypokalemia which was supplemented. 2. Atrial fibrillation: Persistent. While she is less symptomatic her overall rate control is still suboptimal. Ideally she would revert to a sinus rhythm with continued amiodarone infusion. However, we will need to concentrate on adequate rate control as well as she will undoubtedly have additional episodes at some point. She will complete her digoxin loading today. We will transition her to oral amiodarone. If she continues to have poorly controlled rates we need to consider Re initiating low-dose diltiazem, perhaps 30 mg t.i.d. while monitoring her blood pressures. No concerns regarding possible bradycardia due to the presence of her ICD. 3. Coronary artery disease no recurrent symptoms of chest discomfort. Continue warfarin and Plavix. I will be away from the hospital for the next 2 days. If there are other concerns or questions regarding cardiac care of this patient please contact the [facility] Cardiology physician pss delivery professional for the weekend. This will be Dr. Yayo Stock.
[2017-08-13] MEDS: POLYETHYLENE (MIRALAX) 17 GM PACK PO PRN (10:40)
--- NOTE | 2017-08-13 15:14 | Progress Note ---
Medicine Progress Note Date & Time of Visit: Aug 13, 2017 at 15:04. Subjective Pt was seen and examined Sitting in chair with no distress Pt said that she feels much better She said that her breathing seems to improve Denies any chest pain, palpitation, dizziness Objective Last 8 Hrs Date Time Temp Pulse Resp B/P (MAP) Pulse Ox O2 Delivery O2 Flow Rate FiO2 08/13/17 12:00 Room Air 08/13/17 11:42 36.9 103 16 110/79 (89) 94 Room Air 08/13/17 10:40 105 08/13/17 08:00 Room Air 08/13/17 07:55 36.6 107 16 116/83 (94) 92 Room Air Physical Exam: General- No acute distress Head- atraumatic Eyes- PERRL, EOMI ENT- oropharynx clear Neck- supple, no JVD Lungs- clear to auscultation Heart- irregular rhythm Abdomen- normal bowel sounds, soft Extremities- no calf tenderness Neuro- alert, oriented x 3; PERRL, EOMI Skin- warm & dry Laboratory Results: Last 24 Hours Test 08/12/17 16:13 08/12/17 20:13 08/13/17 05:38 08/13/17 06:47 Bedside Glucose 122 mg/dl 97 mg/dl 89 mg/dl Prothrombin Time 15.9 SECONDS Prothromb Time International Ratio 1.5 Sodium Level 140 mmol/L Potassium Level 3.6 mmol/L Chloride Level 107 mmol/L Carbon Dioxide Level 26 mmol/L Anion Gap 7.0 mmol/L Blood Urea Nitrogen 27 mg/dl Creatinine 1.11 mg/dl Est Creatinine Clear Calc Drug Dose 55.0 ml/min Estimated GFR () 54.7 Estimated GFR (Non- 47.2 BUN/Creatinine Ratio 24.7 Random Glucose 79 mg/dl Calcium Level 8.4 mg/dl Test 08/13/17 11:21 Bedside Glucose 155 mg/dl Assessment & Plan A fib in RVR Found to be in Afib with RVR with rate in the 160 starting on amiodarone drip Rate is control now with NSR Starting on amiodarone 200mg daily PO Cardio on board INR 2.7 today Will resume Coumadin Continue PT/INR Continue monitor in telemetry 08/13 Remain on Afib with RVR, rate improved Amiodarone drip was d/c this morning Starting on Digoxin IV Continue Metoprolol 100mg Continue monitor in telemetry Will keep potassium above 4 Monitor potassium Acute on chronic CHF CXR showed congestive heart failure BNP on admission >2000 Received IV lasix Continue Oral lasix Daily weights, strict Is&Os Cardio consulted will repeat cxr in am ECHO showed Moderately dilated left ventricle with severely reduced systolic function. Estimated EF 25-30%. Global hypokinesis. To better evaluate wall motion and LV systolic function, consider IV echo contrast. No left ventricular hypertrophy. Tissue Doppler suggests elevated left atrial pressure. Aortic valve sclerosis mild, without significant aortic valvular stenosis. COPD exacerbation Mild elevated WBC on admission Sputum gram stain with gram + cocci, gram - cocci Continue doxycycline Prednisone 40mg will taper over a 2 weeks course Continue neb treatment Continue home inhalers Pulm on board recommended continue with prednisone 40 mg and tapering over the next 2 weeks. CAD (s/p 5 stents): Stable, no CP, no ischemia on EKG Continue home plavix, metoprolol, statin D/Uriel aspirin Injected R eye Irritated from air blowing in eye from CPAP machine Ophthalmology on board recommended to continue using her artificial tears prn If no improvement, use lubricating ointment at bedtime to prevent corneal exposure May follow up with Ophthalmology on discharge Improved DM II Most recent Hgb a1c 6.3 on 08/22 Hold home agents SSI while in-patient Continue monitor BS Hypothyroidism Cont levothyroxine HLD On statin CAYETANO: Cont CPAP qHS DVT Ppx On coumadin with INR 1.9 CODE STATUS FULL CODE Disposition Continue Tele monitor Consultants: cardio Pulm Current Inpatient Medications: Current Inpatient Medications Medications (Trade) Dose Ordered Sig/Charissa Route Start Time Stop Time Status Last Admin Dose Admin Acetaminophen (Tylenol Tab) 650 mg Q4H PRN PO 08/10/17 16:30 09/09/17 16:29 Polyethylene (Miralax Powder Packet) 17 gm DAILY PRN PO 08/10/17 16:30 09/09/17 16:29 08/13/17 10:40 17 GM Insulin Aspart (novoLOG ASPART) SLIDING SCALE If C... ACHS SC 08/10/17 21:00 09/09/17 20:59 08/13/17 12:14 3 UNITS Glucose (Glucose 40% Gel) 15-30 GRAMS 15 GRAMS... UD PRN PO 08/10/17 16:30 09/09/17 16:29 Glucose (Glucose Chew Tab) 4-8 Tablets 4 Tabl... UD PRN PO 08/10/17 16:30 09/09/17 16:29 Dextrose (Dextrose 50% 50ML Syringe) 25-50ML OF 50% DW IV FOR... UD PRN IV 08/10/17 16:30 09/09/17 16:29 Glucagon (Glucagon Inj) 1 mg UD PRN SQ 08/10/17 16:30 09/09/17 16:29 Prednisone (PredniSONE TAB) 40 mg DAILY PO 08/10/17 17:30 09/09/17 17:29 08/13/17 08:04 40 MG Ipratropium [place] (Atrovent 0.02% 0.5MG/2.5ML Neb) 0.5 mg Q4H PRN INH 08/10/17 18:00 09/09/17 17:59 08/12/17 09:07 0.5 MG Levalbuterol (Xopenex 1.25MG/ 0.5ML Neb) 1.25 mg Q4H PRN INH 08/10/17 18:00 09/09/17 17:59 08/12/17 09:07 1.25 MG Doxycycline Hyclate (Vibramycin Cap) 100 mg BID PO 08/10/17 21:00 08/17/17 20:59 08/13/17 08:03 100 MG Rosuvastatin Calcium (Crestor Tab) 20 mg HS PO 08/10/17 21:00 09/09/17 20:59 08/12/17 20:25 20 MG Clopidogrel Bisulfate (plAVix TAB) 75 mg QAM PO 08/11/17 09:00 09/10/17 08:59 08/13/17 08:03 75 MG Losartan Potassium (coZAAR TAB) 25 mg QAM PO 08/11/17 09:00 09/10/17 08:59 08/13/17 08:03 25 MG Furosemide (Lasix Tab) 40 mg QAM PO 08/11/17 09:00 09/10/17 08:59 08/13/17 08:04 40 MG Budesonide/ Formoterol Fumarate (Symbicort 160/ 4.5 Inh) 2 puffs BID INH 08/11/17 09:00 09/10/17 08:59 08/13/17 08:05 2 PUFFS Nitroglycerin (Nitrostat Tab) 0.4 mg UD PRN UT 08/10/17 21:45 09/09/17 21:44 Temazepam (Restoril Cap) 15 mg HS PRN PO 08/10/17 21:45 09/09/17 21:44 08/12/17 00:20 15 MG Artificial Tears (Artificial Tears) 2 drops BID PRN OP 08/10/17 21:45 09/09/17 21:44 Miscellaneous Information (Consult Glycemic Management Pharmacy) 1 ea UD PRN N/A 08/10/17 22:00 09/09/17 21:59 Miscellaneous Information (Pharmacy Consult) 1 ea UD PRN N/A 08/10/17 23:26 09/09/17 23:25 Ceftriaxone Sodium 1 gm/ Dextrose 50 ml @ 100 mls/hr Q24H IV 08/10/17 23:30 08/17/17 23:29 08/13/17 02:01 100 MLS/HR Amiodarone HCl (Cordarone Tab) 200 mg DAILY PO 08/11/17 13:30 09/10/17 13:29 Future Hold 08/11/17 13:46 200 MG Miscellaneous Information (Order Awaiting Action) 1 ea QS N/A 08/11/17 16:00 09/10/17 15:59 Metoprolol Succinate (Toprol Xl Tab) 100 mg QAM PO 08/12/17 09:00 09/10/17 08:59 08/13/17 08:04 100 MG Metoprolol Tartrate (Lopressor Iv) 2.5 mg Q4 PRN IV 08/11/17 21:00 09/10/17 20:59 08/13/17 04:10 2.5 MG Guaifenesin (Organidin Nr Tab) 200 mg Q6 PRN PO 08/12/17 09:15 09/11/17 09:14 08/13/17 08:04 200 MG Insulin Human NPH (novoLIN-N NPH) 25 units QDB SC 08/14/17 07:30 09/13/17 07:29
[2017-08-13] MEDS: ROSUVASTATIN CALCIUM 20 MG TAB PO SCH (20:28)
[2017-08-13] MEDS ORDERED: COUGH DROP (SUGAR FREE) LOZ 24 LOZ/1 BOX PO PRN (20:30)
[2017-08-13] MEDS: TEMAZEPAM 15 MG CAP PO PRN (23:39)
[2017-08-14] VITALS (7 sets, daily range): BP systolic 114–154; BP diastolic 58–107; PULSE 77–112; TEMP 36.2–36.8; O2SAT 92–97
[2017-08-14 06:51] LABS: BUN/CREATININE RATIO 25.8 (10-20); CALCIUM 8.4 mg/dl (8.5-10.1); CREATININE 1.01 mg/dl (0.60-1.20); MAGNESIUM 2.3 mg/dl (1.8-2.4); POTASSIUM 3.9 mmol/L (3.5-5.1)
[2017-08-14] MEDS: INSULIN ASPART 100 UNITS/ML 3 ML PEN SC SCH ×4 (07:00→21:29)
[2017-08-14] MEDS: BUDESONIDE/FORMOTEROL FUMARATE 160/4.5 60 PUFFS/INHALER INH SCH ×2 (08:16→21:22)
[2017-08-14] MEDS: DOXYCYCLINE HYCLATE 100 MG CAP PO SCH ×2 (08:17→21:22)
[2017-08-14] MEDS: GUAIFENESIN 200 MG TAB PO PRN (08:17)
[2017-08-14] MEDS: FUROSEMIDE 40 MG TAB PO SCH (08:17)
[2017-08-14] MEDS: LOSARTAN POTASSIUM 25 MG TAB PO SCH (08:17)
[2017-08-14] MEDS: METOPROLOL SUCC 50MG EXT REL TAB PO SCH (08:18)
[2017-08-14] MEDS: CLOPIDOGREL BISULFATE 75 MG TAB PO SCH (08:18)
[2017-08-14] MEDS: INSULIN HUMAN NPH SC SCH (08:27)
[2017-08-14] MEDS ORDERED: DIGOXIN 0.125 MG TAB PO ONE (09:45)
[2017-08-14] MEDS ORDERED: POTASSIUM CHLORIDE 10 MEQ TABCR PO ONE (10:00)
--- NOTE | 2017-08-14 11:11 | DIAGNOSTIC IMAGING REPORT ---
CHEST ONE VIEW PORTABLE CLINICAL HISTORY: f/u COMPARISON STUDY: Chest radiograph August 10, 2017. FINDINGS: There is no pneumothorax. There are suspected trace bilateral pleural effusions. Cardiomegaly is unchanged. A left subclavian pacer/AICD is in place. No consolidation to suggest pneumonia is noted. Left lower lung opacity likely reflects atelectasis. Interstitial thickening has improved. IMPRESSION: 1. Interval improvement in interstitial thickening. No evidence of pulmonary edema on this exam. 2. Suspected trace bilateral pleural effusions. Electronically signed by: Javier Albrecht M.D. 08/14/2017 11:10 AM Dictated Date/Time: 08/14/2017 11:05 AM
[2017-08-14] MEDS ORDERED: NURSING VERBAL MED ORDER ONE (12:30)
[2017-08-14] MEDS ORDERED: AMIODARONE 200 MG TAB PO ONE (13:00)
--- NOTE | 2017-08-14 13:38 | Progress Note ---
Medicine Progress Note Date & Time of Visit: Aug 14, 2017 at 13:15. Subjective Pt was seen and examined Sitting in chair with no distress with daughter present Pt said that she feels much better She is asking if she can go home today She said that her cough seems to get better Denies any chest pain, palpitation, dizziness and SOB Objective Last 8 Hrs Date Time Temp Pulse Resp B/P (MAP) Pulse Ox O2 Delivery O2 Flow Rate FiO2 08/14/17 12:00 36.6 92 18 127/78 (94) 95 Room Air 08/14/17 12:00 BiPAP 08/14/17 10:44 112 08/14/17 08:00 BiPAP 08/14/17 07:52 36.8 112 16 154/107 (123) 95 BiPAP Physical Exam: General- No acute distress Head- atraumatic Eyes- PERRL, EOMI ENT- oropharynx clear Neck- supple, no JVD Lungs- clear to auscultation Heart- irregular rhythm Abdomen- normal bowel sounds, soft Extremities- no calf tenderness Neuro- alert, oriented x 3; PERRL, EOMI Skin- warm & dry Laboratory Results: Last 24 Hours Test 08/13/17 16:16 08/13/17 20:04 08/14/17 05:50 08/14/17 06:34 Bedside Glucose 136 mg/dl 159 mg/dl 86 mg/dl Sodium Level 140 mmol/L Potassium Level 3.9 mmol/L Chloride Level 109 mmol/L Carbon Dioxide Level 28 mmol/L Anion Gap 3.0 mmol/L Blood Urea Nitrogen 26 mg/dl Creatinine 1.01 mg/dl Est Creatinine Clear Calc Drug Dose 59.4 ml/min Estimated GFR () 61.3 Estimated GFR (Non- 52.9 BUN/Creatinine Ratio 25.8 Random Glucose 79 mg/dl Calcium Level 8.4 mg/dl Magnesium Level 2.3 mg/dl Test 08/14/17 11:26 Bedside Glucose 136 mg/dl Assessment & Plan A fib in RVR Found to be in Afib with RVR with rate in the 160 starting on amiodarone drip Rate is control now with NSR Starting on amiodarone 200mg daily PO Cardio on board INR 2.7 today Will resume Coumadin Continue PT/INR Continue monitor in telemetry 08/14 Remain on Afib with RVR, rate improved Amiodarone drip was d/c this morning Received a loading dose Digoxin IV yesterday Starting on oral digoxin 0.125mg today Received 400mg mg of oral amiodarone yesterday Only received amiodarone 200mg today, will discuss with cardiology if consider to give an additional 200mg Talk to Cardiology yesterday for possible starting on a low dose of Cardizem 30mg TID Since pt did not get her amiodarone and digoxin early this morning, will consider to start the Cardizem later today if HR remains elevated Continue Metoprolol 100mg Continue monitor in telemetry Continue coumadin Replaced K to keep it above 4 Acute on chronic CHF CXR showed congestive heart failure BNP on admission >2000 Received IV lasix Continue Oral lasix Consider to give an additional dose of lasix tonight Daily weights, strict Is&Os output about 3L Cardio consulted will repeat cxr in am ECHO showed Moderately dilated left ventricle with severely reduced systolic function. Estimated EF 25-30%. Global hypokinesis. To better evaluate wall motion and LV systolic function, consider IV echo contrast. No left ventricular hypertrophy. Tissue Doppler suggests elevated left atrial pressure. Aortic valve sclerosis mild, without significant aortic valvular stenosis. COPD exacerbation Mild elevated WBC on admission Sputum gram stain with gram + cocci, gram - cocci Continue doxycycline Prednisone 40mg will taper over a 2 weeks course Continue neb treatment Continue home inhalers Pulm on board recommended continue with prednisone 40 mg and tapering over the next 2 weeks. CAD (s/p 5 stents): Stable, no CP, no ischemia on EKG Continue home plavix, metoprolol, statin D/Uriel aspirin Injected R eye Irritated from air blowing in eye from CPAP machine Ophthalmology on board recommended to continue using her artificial tears prn If no improvement, use lubricating ointment at bedtime to prevent corneal exposure May follow up with Ophthalmology on discharge Improved DM II Most recent Hgb a1c 6.3 on 08/22 Hold home agents SSI while in-patient Continue monitor BS Hypothyroidism Cont levothyroxine HLD On statin CAYETANO: Cont CPAP qHS DVT Ppx On coumadin with INR 1.5 will give coumadin 7.5 today will do subq heparin until INR therapeutic CODE STATUS FULL CODE Disposition Continue Tele monitor Consultants: cardio Pulm Current Inpatient Medications: Current Inpatient Medications Medications (Trade) Dose Ordered Sig/Charissa Route Start Time Stop Time Status Last Admin Dose Admin Acetaminophen (Tylenol Tab) 650 mg Q4H PRN PO 08/10/17 16:30 09/09/17 16:29 Polyethylene (Miralax Powder Packet) 17 gm DAILY PRN PO 08/10/17 16:30 09/09/17 16:29 08/13/17 10:40 17 GM Insulin Aspart (novoLOG ASPART) SLIDING SCALE If C... ACHS SC 08/10/17 21:00 09/09/17 20:59 08/14/17 12:04 6 UNITS Glucose (Glucose 40% Gel) 15-30 GRAMS 15 GRAMS... UD PRN PO 08/10/17 16:30 09/09/17 16:29 Glucose (Glucose Chew Tab) 4-8 Tablets 4 Tabl... UD PRN PO 08/10/17 16:30 09/09/17 16:29 Dextrose (Dextrose 50% 50ML Syringe) 25-50ML OF 50% DW IV FOR... UD PRN IV 08/10/17 16:30 09/09/17 16:29 Glucagon (Glucagon Inj) 1 mg UD PRN SQ 08/10/17 16:30 09/09/17 16:29 Prednisone (PredniSONE TAB) 40 mg DAILY PO 08/10/17 17:30 09/09/17 17:29 08/14/17 08:18 40 MG Ipratropium [place] (Atrovent 0.02% 0.5MG/2.5ML Neb) 0.5 mg Q4H PRN INH 08/10/17 18:00 09/09/17 17:59 08/12/17 09:07 0.5 MG Levalbuterol (Xopenex 1.25MG/ 0.5ML Neb) 1.25 mg Q4H PRN INH 08/10/17 18:00 09/09/17 17:59 08/12/17 09:07 1.25 MG Doxycycline Hyclate (Vibramycin Cap) 100 mg BID PO 08/10/17 21:00 08/17/17 20:59 08/14/17 08:17 100 MG Rosuvastatin Calcium (Crestor Tab) 20 mg HS PO 08/10/17 21:00 09/09/17 20:59 08/13/17 20:28 20 MG Clopidogrel Bisulfate (plAVix TAB) 75 mg QAM PO 08/11/17 09:00 09/10/17 08:59 08/14/17 08:18 75 MG Losartan Potassium (coZAAR TAB) 25 mg QAM PO 08/11/17 09:00 09/10/17 08:59 08/14/17 08:17 25 MG Furosemide (Lasix Tab) 40 mg QAM PO 08/11/17 09:00 09/10/17 08:59 08/14/17 08:17 40 MG Budesonide/ Formoterol Fumarate (Symbicort 160/ 4.5 Inh) 2 puffs BID INH 08/11/17 09:00 09/10/17 08:59 08/14/17 08:16 2 PUFFS Nitroglycerin (Nitrostat Tab) 0.4 mg UD PRN UT 08/10/17 21:45 09/09/17 21:44 Temazepam (Restoril Cap) 15 mg HS PRN PO 08/10/17 21:45 09/09/17 21:44 08/13/17 23:39 15 MG Artificial Tears (Artificial Tears) 2 drops BID PRN OP 08/10/17 21:45 09/09/17 21:44 Miscellaneous Information (Consult Glycemic Management Pharmacy) 1 ea UD PRN N/A 08/10/17 22:00 09/09/17 21:59 Miscellaneous Information (Pharmacy Consult) 1 ea UD PRN N/A 08/10/17 23:26 09/09/17 23:25 Ceftriaxone Sodium 1 gm/ Dextrose 50 ml @ 100 mls/hr Q24H IV 08/10/17 23:30 08/17/17 23:29 08/13/17 23:38 100 MLS/HR Amiodarone HCl (Cordarone Tab) 200 mg DAILY PO 08/11/17 13:30 09/10/17 13:29 Future hold 08/11/17 13:46 200 MG Miscellaneous Information (Order Awaiting Action) 1 ea QS N/A 08/11/17 16:00 09/10/17 15:59 Metoprolol Succinate (Toprol Xl Tab) 100 mg QAM PO 08/12/17 09:00 09/10/17 08:59 08/14/17 08:18 100 MG Metoprolol Tartrate (Lopressor Iv) 2.5 mg Q4 PRN IV 08/11/17 21:00 09/10/17 20:59 08/13/17 04:10 2.5 MG Guaifenesin (Organidin Nr Tab) 200 mg Q6 PRN PO 08/12/17 09:15 09/11/17 09:14 08/14/17 08:17 200 MG Insulin Human NPH (novoLIN-N NPH) 25 units QDB SC 08/14/17 07:30 09/13/17 07:29 08/14/17 08:27 25 UNITS Menthol (Nice Los) 1 los PRN PRN PO 08/13/17 20:30 09/12/17 20:29 08/13/17 20:41 1 LOS Warfarin Sodium (Coumadin Tab) 7.5 mg DAILY@16 PO 08/14/17 16:00 09/13/17 15:59
[2017-08-14] MEDS: WARFARIN SOD 7.5 MG TAB PO SCH (17:51)
[2017-08-14] MEDS: DILTIAZEM HCL 30 MG TAB PO SCH (21:22)
[2017-08-14] MEDS: ROSUVASTATIN CALCIUM 20 MG TAB PO SCH (21:22)
[2017-08-14] MEDS: TEMAZEPAM 15 MG CAP PO PRN (23:07)
[2017-08-14] MEDS: CEFTRIAXONE SOD INJ 1000 MG in DEXTROSE 5% 50ML IV SCH (23:07)
[2017-08-15 04:58] VITALS: BP 126/84; PULSE 94; TEMP 36.7; O2SAT 98
[2017-08-15] MEDS: INSULIN ASPART 100 UNITS/ML 3 ML PEN SC SCH ×3 (07:00→16:15)
[2017-08-15] MEDS: BUDESONIDE/FORMOTEROL FUMARATE 160/4.5 60 PUFFS/INHALER INH SCH (07:25)
[2017-08-15] MEDS: GUAIFENESIN 200 MG TAB PO PRN ×2 (07:25→14:26)
--- NOTE | 2017-08-15 07:25 | DIAGNOSTIC IMAGING REPORT ---
CHEST ONE VIEW PORTABLE HISTORY: 77 years-old Female f/u follow-up study in a patient with interstitial opacities COMPARISON: Chest radiograph 08/14/2017 and 08/10/2017 TECHNIQUE: Portable AP view of the chest FINDINGS: Cardiac silhouette is moderately enlarged, unchanged. Atherosclerosis of the aorta. Left pectoral pacer/AICD is unchanged. There is no pneumothorax. Mild blunting of the costophrenic angles again noted without large pleural effusion. Most inferior margins of the costophrenic angles however are not imaged. Patchy and linear subsegmental left basilar opacities without overt pulmonary edema. Bones of the chest appear grossly intact. IMPRESSION: 1. Cardiomegaly without overt pulmonary edema. 2. Patchy left basilar opacities suggest atelectasis. The above report was generated using voice recognition software. It may contain grammatical, syntax or spelling errors. Electronically signed by: Sukhdev Flowers M.D. 08/15/2017 7:23 AM Dictated Date/Time: 08/15/2017 7:21 AM
[2017-08-15] MEDS: AMIODARONE 200 MG TAB PO SCH (07:26)
[2017-08-15] MEDS: FUROSEMIDE 40 MG TAB PO SCH (07:26)
[2017-08-15] MEDS: LOSARTAN POTASSIUM 25 MG TAB PO SCH (07:27)
[2017-08-15] MEDS: DOXYCYCLINE HYCLATE 100 MG CAP PO SCH ×2 (07:27→19:56)
[2017-08-15] MEDS: DILTIAZEM HCL 30 MG TAB PO SCH ×3 (07:27→19:55)
[2017-08-15] MEDS: METOPROLOL SUCC 50MG EXT REL TAB PO SCH (07:28)
[2017-08-15] MEDS: CLOPIDOGREL BISULFATE 75 MG TAB PO SCH (07:28)
[2017-08-15] MEDS: INSULIN HUMAN NPH SC SCH (07:35)
[2017-08-15 07:36] LABS: BUN/CREATININE RATIO 24.3 (10-20); CALCIUM 8.6 mg/dl (8.5-10.1); CREATININE 0.97 mg/dl (0.60-1.20); POTASSIUM 3.9 mmol/L (3.5-5.1)
[2017-08-15 07:43] VITALS: BP 144/81; PULSE 85; TEMP 36.8; O2SAT 96
[2017-08-15] MEDS ORDERED: AMIODARONE 200 MG TAB PO ONE (09:45)
[2017-08-15 10:16] LABS: INR 1.2 (0.9-1.1); PROTHROMBIN TIME (PATIENT) 12.5 SECONDS (9.0-12.0)
[2017-08-15 11:33] VITALS: BP 128/72; PULSE 85; TEMP 36.4; O2SAT 93
[2017-08-15] MEDS: POLYETHYLENE (MIRALAX) 17 GM PACK PO PRN (12:25)
--- NOTE | 2017-08-15 13:42 | CARDIOLOGY PROGRESS NOTE ---
DATE: 08/15/2017 SUBJECTIVE: Mrs. Douglas was resting comfortably in bedside chair without complaints of chest pain, dyspnea, or palpitations. She was anxious for hospital discharge. OBJECTIVE: VITAL SIGNS: Blood pressure 128/72 with an irregular pulse of 85. Respiratory rate is 16. The patient is afebrile at 36.4 degrees Celsius. Saturations 93% on room air. NECK: Supple with full carotid upstrokes. No obvious bruits. Jugular venous pressure is flat at 90 degrees. There is no thyromegaly. CARDIOVASCULAR: Reveals a regular rhythm with distant heart sounds. No obvious murmurs. No S3. LUNGS: Clear without rales, rhonchi, or wheezes. ABDOMEN: Obese without bruits. EXTREMITIES: Reveal intact radial artery pulses bilaterally. Trace pretibial edema is noted. DATA: Electrolytes note a sodium of 141, potassium 3.9, chloride 108, bicarb 26, BUN 24, creatinine 0.97, glucose 76. INR is 1.2. CARDIAC MEDICATIONS: 1. Diltiazem 30 mg p.o. t.i.d. 2. Amiodarone 200 mg b.i.d. 3. Toprol-XL 100 mg daily. 4. Cozaar 25 mg daily. 5. Lasix 40 mg per day. 6. Plavix 75 mg daily. 7. Coumadin 7.5 mg daily. 8. Nitroglycerin sublingual p.r.n. 9. Crestor 20 mg at bedtime. IMPRESSION AND PLAN: 1. Persistent atrial fibrillation -- heart rate now appears better controlled. It may be reasonable to discharge her home as her rate is now adequately controlled. 2. Systolic congestive heart failure -- euvolemic at this time. 3. Coronary artery disease -- asymptomatic on current medical regimen. 4. Disposition -- stable for hospital discharge from a cardiac perspective.
[2017-08-15 15:38] VITALS: BP 120/74; PULSE 95; TEMP 36.5; O2SAT 94
[2017-08-15] MEDS: WARFARIN SOD 7.5 MG TAB PO SCH (16:52)
--- NOTE | 2017-08-15 17:34 | Progress Note ---
Medicine Progress Note Date & Time of Visit: Aug 15, 2017 at 10:19. Subjective Pt was seen and examined Sitting in chair with no distress Pt said that she feels fine She said that her breathing feels much better She is very anxious to go home today Denies any chest pain, palpitation and SOB Objective Last 8 Hrs Date Time Temp Pulse Resp B/P (MAP) Pulse Ox O2 Delivery O2 Flow Rate FiO2 08/15/17 16:00 BiPAP 08/15/17 15:38 36.5 95 18 120/74 (89) 94 Room Air 08/15/17 12:00 BiPAP 08/15/17 11:33 36.4 85 16 128/72 (90) 93 Room Air Physical Exam: General- No acute distress Head- atraumatic Eyes- PERRL, EOMI ENT- oropharynx clear Neck- supple, no JVD Lungs- clear to auscultation Heart- irregular rhythm Abdomen- normal bowel sounds, soft Extremities- no calf tenderness Neuro- alert, oriented x 3; PERRL, EOMI Skin- warm & dry Laboratory Results: Last 24 Hours Test 08/14/17 20:23 08/15/17 06:48 08/15/17 07:00 08/15/17 09:53 Bedside Glucose 158 mg/dl 88 mg/dl Sodium Level 141 mmol/L Potassium Level 3.9 mmol/L Chloride Level 108 mmol/L Carbon Dioxide Level 26 mmol/L Anion Gap 7.0 mmol/L Blood Urea Nitrogen 24 mg/dl Creatinine 0.97 mg/dl Est Creatinine Clear Calc Drug Dose 61.5 ml/min Estimated GFR () 64.4 Estimated GFR (Non- 55.5 BUN/Creatinine Ratio 24.3 Random Glucose 76 mg/dl Calcium Level 8.6 mg/dl Prothrombin Time 12.5 SECONDS Prothromb Time International Ratio 1.2 Test 08/15/17 11:11 08/15/17 16:06 Bedside Glucose 109 mg/dl 135 mg/dl Assessment & Plan A fib in RVR Found to be in Afib with RVR with rate in the 160 starting on amiodarone drip Rate is control now with NSR Starting on amiodarone 200mg daily PO Cardio on board Will resume Coumadin Continue PT/INR Continue monitor in telemetry 08/14 Remain on Afib with RVR, rate improved Amiodarone drip was d/c this morning Received a loading dose Digoxin IV on 08/13 Continue digoxin 0.125mg today Received 400mg mg of oral amiodarone yesterday Received amiodarone 200mg today, and additional 200mg amiodarone given after discussing with cardiology Starting on low dose Cardizem 30mg TID po yesterday and tolerated well (Blood pressure stable) OK with cardiology dr. Stock from a cardiac standpoint to discharge home today on current medication Continue Metoprolol 100mg Continue monitor in telemetry Continue coumadin 7.5 mg INR 1.2 today Will follow with cardiology as an outpatient Acute on chronic CHF CXR showed congestive heart failure BNP on admission >2000 Received IV lasix Continue Oral lasix Consider to give an additional dose of lasix tonight Daily weights, strict Is&Os Cardio consulted Repeat CXR showed no congestive heart failure ECHO showed Moderately dilated left ventricle with severely reduced systolic function. Estimated EF 25-30%. Global hypokinesis. To better evaluate wall motion and LV systolic function, consider IV echo contrast. No left ventricular hypertrophy. Tissue Doppler suggests elevated left atrial pressure. Aortic valve sclerosis mild, without significant aortic valvular stenosis. COPD exacerbation Mild elevated WBC on admission Sputum gram stain with gram + cocci, gram - cocci Doxycycline and IV Rocephin Continue prednisone taper Continue neb treatment Continue home inhalers Pulm on board Clinically improved CAD (s/p 5 stents): Stable, no CP, no ischemia on EKG Continue home plavix, metoprolol, statin D/Uriel aspirin Injected R eye Irritated from air blowing in eye from CPAP machine Ophthalmology on board recommended to continue using her artificial tears prn If no improvement, use lubricating ointment at bedtime to prevent corneal exposure May follow up with Ophthalmology on discharge Improved DM II Most recent Hgb a1c 6.3 on 08/22 Hold home agents SSI while in-patient Continue monitor BS Hypothyroidism Cont levothyroxine HLD On statin CAYETANO: Cont CPAP qHS DVT Ppx On coumadin with INR 1.2 Continue coumadin 7.5 today CODE STATUS FULL CODE Disposition Will discharge home today if HR stable Follow up with your primary care provider on 08/18 @ 12:45 PM Follow up with your cardiology between 1 to 2 weeks ( please call to schedule for the follow up appointment) Follow up with the Coumadin clinic Consultants: cardio Pulm Current Inpatient Medications: Current Inpatient Medications Medications (Trade) Dose Ordered Sig/Charissa Route Start Time Stop Time Status Last Admin Dose Admin Acetaminophen (Tylenol Tab) 650 mg Q4H PRN PO 08/10/17 16:30 09/09/17 16:29 Polyethylene (Miralax Powder Packet) 17 gm DAILY PRN PO 08/10/17 16:30 09/09/17 16:29 08/15/17 12:25 17 GM Insulin Aspart (novoLOG ASPART) SLIDING SCALE If C... ACHS SC 08/10/17 21:00 09/09/17 20:59 08/15/17 11:00 3 UNITS Glucose (Glucose 40% Gel) 15-30 GRAMS 15 GRAMS... UD PRN PO 08/10/17 16:30 09/09/17 16:29 Glucose (Glucose Chew Tab) 4-8 Tablets 4 Tabl... UD PRN PO 08/10/17 16:30 09/09/17 16:29 Dextrose (Dextrose 50% 50ML Syringe) 25-50ML OF 50% DW IV FOR... UD PRN IV 08/10/17 16:30 09/09/17 16:29 Glucagon (Glucagon Inj) 1 mg UD PRN SQ 08/10/17 16:30 09/09/17 16:29 Ipratropium Cascade (Atrovent 0.02% 0.5MG/2.5ML Neb) 0.5 mg Q4H PRN INH 08/10/17 18:00 09/09/17 17:59 08/12/17 09:07 0.5 MG Levalbuterol (Xopenex 1.25MG/ 0.5ML Neb) 1.25 mg Q4H PRN INH 08/10/17 18:00 09/09/17 17:59 08/12/17 09:07 1.25 MG Doxycycline Hyclate (Vibramycin Cap) 100 mg BID PO 08/10/17 21:00 08/17/17 20:59 08/15/17 07:27 100 MG Rosuvastatin Calcium (Crestor Tab) 20 mg HS PO 08/10/17 21:00 09/09/17 20:59 08/14/17 21:22 20 MG Clopidogrel Bisulfate (plAVix TAB) 75 mg QAM PO 08/11/17 09:00 09/10/17 08:59 08/15/17 07:28 75 MG Losartan Potassium (coZAAR TAB) 25 mg QAM PO 08/11/17 09:00 09/10/17 08:59 08/15/17 07:27 25 MG Furosemide (Lasix Tab) 40 mg QAM PO 08/11/17 09:00 09/10/17 08:59 08/15/17 07:26 40 MG Budesonide/ Formoterol Fumarate (Symbicort 160/ 4.5 Inh) 2 puffs BID INH 08/11/17 09:00 09/10/17 08:59 08/15/17 07:25 2 PUFFS Nitroglycerin (Nitrostat Tab) 0.4 mg UD PRN UT 08/10/17 21:45 09/09/17 21:44 Temazepam (Restoril Cap) 15 mg HS PRN PO 08/10/17 21:45 09/09/17 21:44 08/14/17 23:07 15 MG Artificial Tears (Artificial Tears) 2 drops BID PRN OP 08/10/17 21:45 09/09/17 21:44 Miscellaneous Information (Consult Glycemic Management Pharmacy) 1 ea UD PRN N/A 08/10/17 22:00 09/09/17 21:59 Miscellaneous Information (Pharmacy Consult) 1 ea UD PRN N/A 08/10/17 23:26 09/09/17 23:25 Ceftriaxone Sodium 1 gm/ Dextrose 50 ml @ 100 mls/hr Q24H IV 08/10/17 23:30 08/17/17 23:29 08/14/17 23:07 100 MLS/HR Amiodarone HCl (Cordarone Tab) 200 mg DAILY PO 08/11/17 13:30 09/10/17 13:29 Future hold 08/15/17 07:26 200 MG Miscellaneous Information (Order Awaiting Action) 1 ea QS N/A 08/11/17 16:00 09/10/17 15:59 08/14/17 16:00 1 EA Metoprolol Succinate (Toprol Xl Tab) 100 mg QAM PO 08/12/17 09:00 09/10/17 08:59 08/15/17 07:28 100 MG Metoprolol Tartrate (Lopressor Iv) 2.5 mg Q4 PRN IV 08/11/17 21:00 09/10/17 20:59 08/13/17 04:10 2.5 MG Guaifenesin (Organidin Nr Tab) 200 mg Q6 PRN PO 08/12/17 09:15 09/11/17 09:14 08/15/17 14:26 200 MG Menthol (Nice Los) 1 los PRN PRN PO 08/13/17 20:30 09/12/17 20:29 08/13/17 20:41 1 LOS Warfarin Sodium (Coumadin Tab) 7.5 mg DAILY@16 PO 08/14/17 16:00 09/13/17 15:59 08/15/17 16:52 7.5 MG Diltiazem HCl (Cardizem Tab) 30 mg TID PO 08/14/17 21:00 09/13/17 20:59 08/15/17 14:26 30 MG Prednisone (PredniSONE TAB) 20 mg DAILY PO 08/15/17 09:00 09/09/17 17:29 08/15/17 07:26 20 MG Insulin Human NPH (novoLIN-N NPH) 18 units QDB SC 08/16/17 07:30 09/15/17 07:29
[2017-08-15 18:40] VITALS: BP 120/74; PULSE 95; TEMP 36.5; O2SAT 94
[2017-08-15] MEDS ORDERED: CRD200 PO (19:26)
[2017-08-15] MEDS ORDERED: DXY100 PO (19:26)
[2017-08-15] MEDS ORDERED: GUAI1TAB68 PO (19:26)
[2017-08-15] MEDS ORDERED: CZR25 PO (19:26)
[2017-08-15] MEDS ORDERED: TPRSR50 PO (19:26)
[2017-08-15] MEDS ORDERED: Artificial Tears OP (19:26)
[2017-08-15] MEDS ORDERED: CRD30 PO (19:26)
[2017-08-15] MEDS ORDERED: PRED10TA PO (19:26)
--- NOTE | 2017-08-15 19:33 | Discharge Instructions ---
Discharge Instructions Date of Service Aug 15, 2017. Admission Reason for Admission: Atrial Fibrillation Discharge Discharge Diagnosis / Problem: Atrial Fibrillation with RVR, Acute on chronic CHF, COPD exarcerbation Discharge Goals Goal(s): Decrease discomfort, Improve function, Improve disease control Activity Recommendations Activity Limitations: resume your previous activity (as tolerated) . Instructions / Follow-Up Instructions / Follow-Up Follow up with your primary care provider Dr. Ledesma on 08/18 @ 12:45 PM Follow up with your cardiology between 1 to 2 weeks ( please call to schedule for the follow up appointment) Follow up with the eyes doctor if you continue to have eyes problem (Please call to schedule for the appointment) Follow up with the Coumadin clinic Take Coumadin 7.5 mg daily Check INR on Wednesday or Wednesday Check BMP on Wednesday to monitor renal function and electrolytes Complete course of doxycycline Complete prednisone taper course Current Hospital Diet Patient's current hospital diet: Low Sodium Diet (2gm Na), Diabetes Type 2 Diet Discharge Diet Recommended Diet: AHA Diet (Heart Healthy), Diabetes Type 2 Diet Pending Studies Studies pending at discharge: no Laboratory Results Hemoglobin A1c Test 08/11/17 05:25 Range/Units Estimated Average Glucose 134 mg/dl Hemoglobin A1c 6.3 H 4.5-5.6 % Medical Emergencies . Who to Call and When: Medical Emergencies: If at any time you feel your situation is an emergency, please call 911 immediately. . Non-Emergent Contact Non-Emergency issues call your: Primary Care Provider, Angular Js Developer Call Non-Emergent contact if: you have any medication questions . . "Provider Documentation" section prepared by Luz Soni. . VTE Core Measure Inpt VTE Proph given/why not?: Warfarin (Coumadin)
[2017-08-15] MEDS: ROSUVASTATIN CALCIUM 20 MG TAB PO SCH (19:56)
[2017-08-16] MEDS ORDERED: INSULIN HUMAN NPH SC SCH (07:30)
--- NOTE | 2017-08-23 10:18 | Discharge Summary ---
Discharge Summary Date of Service Aug 23, 2017. Discharge Summary Admission Date: Aug 10, 2017 at 15:44 Discharge Date: Aug 15, 2017 Discharge Disposition: Home with services Principal Diagnosis: Atrial Fibrillation with RVR Secondary Diagnoses/Problems: Acute on chronic CHF COPD exarcerbation Hypothyroidism HTN Injected R eye CAYETANO DM II Dyslipidemia CAD S/P stents Procedures: CHEST ONE VIEW PORTABLE HISTORY: 77 years-old Female f/u follow-up study in a patient with interstitial opacities COMPARISON: Chest radiograph 08/14/2017 and 08/10/2017 TECHNIQUE: Portable AP view of the chest FINDINGS: Cardiac silhouette is moderately enlarged, unchanged. Atherosclerosis of the aorta. Left pectoral pacer/AICD is unchanged. There is no pneumothorax. Mild blunting of the costophrenic angles again noted without large pleural effusion. Most inferior margins of the costophrenic angles however are not imaged. Patchy and linear subsegmental left basilar opacities without overt pulmonary edema. Bones of the chest appear grossly intact. IMPRESSION: 1. Cardiomegaly without overt pulmonary edema. 2. Patchy left basilar opacities suggest atelectasis. The above report was generated using voice recognition software. It may contain grammatical, syntax or spelling errors. Electronically signed by: Sukhdev Flowers M.D. 08/15/2017 7:23 AM Dictated Date/Time: 08/15/2017 7:21 AM CHEST ONE VIEW PORTABLE CLINICAL HISTORY: f/u COMPARISON STUDY: Chest radiograph August 10, 2017. FINDINGS: There is no pneumothorax. There are suspected trace bilateral pleural effusions. Cardiomegaly is unchanged. A left subclavian pacer/AICD is in place. No consolidation to suggest pneumonia is noted. Left lower lung opacity likely reflects atelectasis. Interstitial thickening has improved. IMPRESSION: 1. Interval improvement in interstitial thickening. No evidence of pulmonary edema on this exam. 2. Suspected trace bilateral pleural effusions. Electronically signed by: Javier Albrecht M.D. 08/14/2017 11:10 AM Dictated Date/Time: 08/14/2017 11:05 AM CHEST ONE VIEW PORTABLE CLINICAL HISTORY: CHF dyspnea COMPARISON STUDY: No previous studies for comparison. FINDINGS: Moderate cardiomegaly. Permanent bipolar cardiac pacemaker/defibrillator. Findings of congestive failure. Superimposed basilar atelectasis. IMPRESSION: Congestive heart failure The above report was generated using voice recognition software. It may contain grammatical, syntax or spelling errors. Electronically signed by: Boris Lynn M.D. 08/10/2017 5:10 PM Dictated Date/Time: 08/10/2017 5:09 PM ECHO Interpretation Summary * Name: GIOVANNA GARCIA Study Date: 08/11/2017 07:18 AM BP: 132/69 mmHg * Patient Location: .\\[id number]\\[id number]\\[id number]\\[id number] HR: 69 * : 1940 (M/d/yyyy) Gender: Female Height: 67 in * Age: 77 yrs Ethnicity: CA Weight: 252 lb * Ordering Physician: Allyn Ha * Referring Physician: No Doctor, Assigned * Performed By: Marj Weaver RDCS * * Reason For Study: CHF * BSA: 2.2 m2 * -- Conclusions -- * 1. Moderately dilated left ventricle with severely reduced systolic function. Estimated EF 25-30%. Global hypokinesis. To better evaluate wall motion and LV systolic function, consider IV echo contrast. No left ventricular hypertrophy. Tissue Doppler suggests elevated left atrial pressure. * 2. Aortic valve sclerosis mild, without significant aortic valvular stenosis. * 3. Poor image quality. Consider IV echo contrast in future study. * 4. No prior study available for comparison. Procedure Details * A complete two-dimensional transthoracic echocardiogram was performed (2D, M- mode, Doppler and color flow Doppler). Left Ventricle * Moderately dilated left ventricle with severely reduced systolic function. Estimated EF 25-30%. Global hypokinesis. To better evaluate wall motion and LV systolic function, consider IV echo contrast. No left ventricular hypertrophy. Tissue Doppler suggests elevated left atrial pressure. Right Ventricle * There is a pacemaker lead in the right ventricle. * The right ventricle is grossly normal size. * The right ventricular systolic function is normal as assessed by tricuspid annular plane systolic excursion (TAPSE) (normal >1.5 cm). Atria * The left atrial size is normal. * Right atrial size is normal. * There is no evidence of atrial septal defect, but resolution does not allow assessment for a patent foramen ovale. Mitral Valve * There is mild mitral annular calcification. * There is no mitral valve stenosis. * There is trace mitral regurgitation. Tricuspid Valve * The tricuspid valve is not well visualized. * There is no tricuspid stenosis. * Significant tricuspid regurgitation is absent. Aortic Valve * The aortic valve is trileaflet. * Aortic valve sclerosis mild, without significant aortic valvular stenosis. * No hemodynamically significant valvular aortic stenosis. * No aortic regurgitation is present. Pulmonic Valve * The pulmonary valve is inadequately visualized, but the Doppler data is adequate for interpretation. * There is no pulmonic valvular stenosis. * There is no significant pulmonary regurgitation. Great Vessels * The aortic root is normal size. * Ascending aorta of normal dimension Pericardium/Pleural * Trace pericardial effusion. Great Vessels * Mildly dilated IVC with reduced inspiratory collapse. Consultations: cardio Pulm Medication Reconciliation New Medications: Amiodarone HCl (Amiodarone HCl) 200 Mg Tab 200 MG PO BID for 30 Days, #60 TAB Diltiazem HCl (Diltiazem HCl) 30 Mg Tab 30 MG PO TID for 30 Days, #90 TAB Doxycycline Hyclate (Doxycycline Hyclate) 100 Mg Cap 100 MG PO BID for 2 Days, #4 CAP Guaifenesin (Organ-I Nr) 200 Mg Tab 200 MG PO Q8 PRN for cough for 5 Days, #15 TAB Losartan Potassium (Losartan Potassium) 25 Mg Tab 25 MG PO QAM for 30 Days, #30 TAB Prednisone Tab (Prednisone) 10 Mg Tab 10 MG PO UD for 8 Days, TAB take 3 tab for 2 days, then 2 tabs for 3 days, then 1 tabs for 3 days and stop. [Artificial Tears] () 225 DROPS/15 ML SOLN 2 DROPS OP BID PRN for Itching for 30 Days Changed Medications: Metoprolol Succinate (Metoprolol Succinate ER) 50 Mg Tabcr 100 MG PO QAM for 30 Days (Changed from: 50 MG) Continued Medications: Albuterol Sulfate (Proair Respiclick) 108 Mcg/Act Aer INH DIRECTED Aspirin (Aspirin Ec) 81 Mg Tab 81 MG PO DAILY Budesonide/Formoterol Fumarate (Symbicort 160/4.5 Inhaler ) Aero 2 PUFFS INH BID, INHALER Carboxymethylcellulose Sodium (Refresh) 1 % Pedro OP DIRECTED Clopidogrel (Plavix) 75 Mg Tab 75 MG PO DAILY, TAB Furosemide (Lasix) 40 Mg Tab 40 MG PO DAILY, TAB Ipratropium-Albuterol (Duoneb) 3 Ml Nebu 1 TREATMENT INH Q4H, INHA Levothyroxine Sodium (Levothyroxine Sodium) 100 Mcg Tab 1 TAB PO DAILY for 30 Days, #30 TAB 5 Refills Metformin Hcl (Glucophage) 500 Mg Tab 500 MG PO DAILY, TAB Nitroglycerin (Nitrostat) 0.4 Mg Tab 0.4 MG UT PRN, BTL Polyethylene Glycol 3350 (Miralax) 1 Pow Pow 17 GM PO DAILY, #527 GM Rosuvastatin Calcium (Crestor) 10 Mg Tab 20 MG PO DIRECTED, TAB Temazepam (Restoril) 15 Mg Cap 15 MG PO HS PRN for Insomnia, CAP Tiotropium Reyno (Spiriva Respimat) 2.5 Mcg/Act Spr 1 PUFF INH DIRECTED, INHALER Warfarin Sod (Coumadin) 7.5 Mg Tab 1 TAB PO DAILY Discontinued Medications: Diltiazem Hcl Coated Beads (Diltiazem Hcl Er) 300 Mg Cap 300 MG PO DAILY Warfarin Sod (Coumadin) 5 Mg Tab 1 TAB PO MoFr@1600 Admission Information HPI (per Admitting provider): This is a 77yo F with a PMH of atrial fibrillation (on coumadin), s/p AICD, CAD (s/p 5 stents), HTN, DM II, HLD, COPD, systolic HF, interstitial lung disease, hypothyroidism and CAYETANO (on cpap) who presents from [facility] with atrial fibrillation in RVR. Patient endorses that over the past 3 days, she has experienced worsening SOB, productive cough with greenish-yellow sputum and congestion. States that she can normally ambulate around her home without becomming SOB but has been SOB at rest for the past 3 days. Started using O2 at home (normally does not require). Presented to PCP yesterday for these symptoms and was found to have a HR of 140 and was sent to [facility] for further evaluation. In the ER, was found to be in A fib with RVR at a rate of 160 as well as an acute exacerbation of CHF. Was started on IV diltiazem and 60mg IV Lasix x 1 and became hypotensive. Was then started on an amiodarone drip and rate steadily decreased. Patient was found to have a mild leukocytosis of 11.9 and a supratherapeutic INR of 4.34. Chest XR showed mildly enlarged cardiac silhouette but no acute cardiopulmonary abnormality. Sputum gram stain grew gram positive cocci and a moderate amount of gram negative cocci. Final culture pending. Was admitted in April for SOB and productive cough and was found to be in atrial fib with RVR as well as having an acute PE while on pradaxa. Follows with [facility] for both pulm and cardio but with [facility] for PCP. Currently, the patient endorses SOB, productive cough and fatigue. Denies fevers , chills, diaphoresis, palpitations, CP, abdominal pain, nausea, vomiting, dysuria, hematuria, or weakness or numbness in extremities. Physical Exam (per Admitting): General Appearance: + mild distress, + obese Head: normocephalic, atraumatic Eyes: normal inspection, PERRL, sclerae normal ENT: normal ENT inspection, hearing grossly normal, pharynx normal (moist mucous membranes ) Neck: supple, thyroid normal, no JVD, trachea midline Respiratory/Chest: chest non-tender, lungs clear, normal breath sounds, no respiratory distress (breathing comfortably on NC O2), no accessory muscle use Cardiovascular: no murmur, normal peripheral pulses, + irregularly irregular Abdomen/GI: non tender, soft, no organomegaly Back: normal inspection Extremities/Musculoskelatal: normal inspection, no calf tenderness, + pertinent finding (Trace bilateral LE edema) Neurologic/Psych: no motor/sensory deficits, alert, normal mood/affect, oriented x 3 Skin: normal color, warm/dry Hospital Course A fib in RVR Found to be in Afib with RVR with rate in the 160 starting on amiodarone drip Rate is control now with NSR Starting on amiodarone 200mg daily PO Cardio on board Will resume Coumadin Continue PT/INR Continue monitor in telemetry 08/14 Remain on Afib with RVR, rate improved Amiodarone drip was d/c this morning Received a loading dose Digoxin IV on 08/13 Continue digoxin 0.125mg today Received 400mg mg of oral amiodarone yesterday Received amiodarone 200mg today, and additional 200mg amiodarone given after discussing with cardiology Starting on low dose Cardizem 30mg TID po yesterday and tolerated well (Blood pressure stable) OK with cardiology dr. Stock from a cardiac standpoint to discharge home today on current medication Continue Metoprolol 100mg Continue monitor in telemetry Continue coumadin 7.5 mg INR 1.2 today Will follow with cardiology as an outpatient Acute on chronic CHF CXR showed congestive heart failure BNP on admission >2000 Received IV lasix Continue Oral lasix Consider to give an additional dose of lasix tonight Daily weights, strict Is&Os Cardio consulted Repeat CXR showed no congestive heart failure ECHO showed Moderately dilated left ventricle with severely reduced systolic function. Estimated EF 25-30%. Global hypokinesis. To better evaluate wall motion and LV systolic function, consider IV echo contrast. No left ventricular hypertrophy. Tissue Doppler suggests elevated left atrial pressure. Aortic valve sclerosis mild, without significant aortic valvular stenosis. COPD exacerbation Mild elevated WBC on admission Sputum gram stain with gram + cocci, gram - cocci Doxycycline and IV Rocephin Continue prednisone taper Continue neb treatment Continue home inhalers Pulm on board Clinically improved CAD (s/p 5 stents): Stable, no CP, no ischemia on EKG Continue home plavix, metoprolol, statin D/Uriel aspirin Injected R eye Irritated from air blowing in eye from CPAP machine Ophthalmology on board recommended to continue using her artificial tears prn If no improvement, use lubricating ointment at bedtime to prevent corneal exposure May follow up with Ophthalmology on discharge Improved DM II Most recent Hgb a1c 6.3 on 08/22 Hold home agents SSI while in-patient Continue monitor BS Hypothyroidism Cont levothyroxine HLD On statin CAYETANO: Cont CPAP qHS DVT Ppx On coumadin with INR 1.2 Continue coumadin 7.5 today CODE STATUS FULL CODE Disposition Will discharge home today if HR stable Follow up with your primary care provider on 08/18 @ 12:45 PM Follow up with your cardiology between 1 to 2 weeks ( please call to schedule for the follow up appointment) Follow up with the Coumadin clinic Total time spent on discharge = 35 minutes This includes examination of the patient, discharge planning, medication reconciliation, and communication with other providers. Discharge Instructions Discharge Instructions Date of Service Aug 15, 2017. Admission Reason for Admission: Atrial Fibrillation Discharge Discharge Diagnosis / Problem: Atrial Fibrillation with RVR, Acute on chronic CHF, COPD exarcerbation Discharge Goals Goal(s): Decrease discomfort, Improve function, Improve disease control Activity Recommendations Activity Limitations: resume your previous activity (as tolerated) . Instructions / Follow-Up Instructions / Follow-Up Follow up with your primary care provider Dr. Ledesma on 08/18 @ 12:45 PM Follow up with your cardiology between 1 to 2 weeks ( please call to schedule for the follow up appointment) Follow up with the eyes doctor if you continue to have eyes problem (Please call to schedule for the appointment) Follow up with the Coumadin clinic Take Coumadin 7.5 mg daily Check INR on Wednesday or Wednesday Check BMP on Wednesday to monitor renal function and electrolytes Complete course of doxycycline Complete prednisone taper course Current Hospital Diet Patient's current hospital diet: Low Sodium Diet (2gm Na), Diabetes Type 2 Diet Discharge Diet Recommended Diet: AHA Diet (Heart Healthy), Diabetes Type 2 Diet Pending Studies Studies pending at discharge: no Laboratory Results Hemoglobin A1c Test 08/11/17 05:25 Range/Units Estimated Average Glucose 134 mg/dl Hemoglobin A1c 6.3 H 4.5-5.6 % Medical Emergencies . Who to Call and When: Medical Emergencies: If at any time you feel your situation is an emergency, please call 911 immediately. . Non-Emergent Contact Non-Emergency issues call your: Primary Care Provider, Veterinarian Helper Call Non-Emergent contact if: you have any medication questions . . "Provider Documentation" section prepared by Luz Soni. . VTE Core Measure Inpt VTE Proph given/why not?: Warfarin (Coumadin) Additional Copies To Elena Ledesma D.O.
== END 2017-08-15 20:05 | disposition home health service (06) | DRG 291 ==
LOC: UNDOADMIN 15:28 → C.2E 15:28
PROVIDERS: ADMIT Internal Medicine; ATTEND Internal Medicine
DX: I11.0 Hypertensive heart disease with heart failure (principal); J96.21 Acute and chronic respiratory failure with hypoxia; I48.1 Persistent atrial fibrillation; J44.1 Chronic obstructive pulmonary disease with (acute) exacerbation; J84.9 Interstitial pulmonary disease, unspecified; I50.23 Acute on chronic systolic (congestive) heart failure; I48.0 Paroxysmal atrial fibrillation; B96.89 Other specified bacterial agents as the cause of diseases classified elsewhere; E87.6 Hypokalemia; R79.1 Abnormal coagulation profile; H18.9 Unspecified disorder of cornea; H04.121 Dry eye syndrome of right lacrimal gland; W94.12XA Exposure to other prolonged low air pressure, initial encounter; Y84.8 Other medical procedures as the cause of abnormal reaction of the patient, or of later complication, without mention of misadventure at the time of the procedure; Y74.1 Therapeutic (nonsurgical) and rehabilitative general hospital and personal-use devices associated with adverse incidents; I25.10 Atherosclerotic heart disease of native coronary artery without angina pectoris; I25.5 Ischemic cardiomyopathy; E11.9 Type 2 diabetes mellitus without complications; D50.9 Iron deficiency anemia, unspecified; E78.5 Hyperlipidemia, unspecified; E03.9 Hypothyroidism, unspecified; I73.9 Peripheral vascular disease, unspecified; G47.33 Obstructive sleep apnea (adult) (pediatric); F32.9 Major depressive disorder, single episode, unspecified; E66.9 Obesity, unspecified; Z68.39 Body mass index [BMI] 39.0-39.9, adult; Z99.89 Dependence on other enabling machines and devices; Z95.5 Presence of coronary angioplasty implant and graft; Z95.810 Presence of automatic (implantable) cardiac defibrillator; Z86.711 Personal history of pulmonary embolism; Z87.891 Personal history of nicotine dependence; Z79.82 Long term (current) use of aspirin; Z79.02 Long term (current) use of antithrombotics/antiplatelets; Z79.51 Long term (current) use of inhaled steroids; Z79.84 Long term (current) use of oral hypoglycemic drugs; Z79.01 Long term (current) use of anticoagulants; Z79.899 Other long term (current) drug therapy

== ENCOUNTER → 2017-09-30 | Day surgery (SDC) | payer OTHER ==
[~2017-09-30] VITALS: Ht 170.2 cm; Wt 108.0 kg
[~2017-09-30] MED LIST changes: +Artificial Tears OP; -CMD5 PO; +CMD75 PO; -CPR500 PO; +CRD200 PO; +CRD30 PO; +CZR25 PO; -DILT300C PO; +DXY100 PO; -GABA-113 PO; +GUAI1TAB68 PO; +LEVA45AE; -LVNIS120 SQ; +METO100T44 PO; -WARF1TAB PO; +WARF2.5T8 PO; +WARF5TAB7 PO
[2017-09-30 06:54] VITALS: BP 116/62; PULSE 72; TEMP 36.5; O2SAT 95; Ht 170.2 cm; Wt 108.0 kg
--- NOTE | 2017-09-30 07:17 | Discharge Instructions ---
Discharge Instructions Procedure Procedure Date: Sep 30, 2017. Reason for Visit: Atrial Fib. Discharge Discharge Date: Sep 30, 2017. Discharge Diagnosis: atrial flutter. Patient presented in paced atrial rhythm Last Recorded Wt (Kilograms): 108 Anesthesia Post Anesthesia Instructions: If you have had General Anesthesia or IV Sedation: * Do not drive today. * Resume driving when surgeon permits. * Do not make important decisions or sign legal documents today. * Call surgeon for: 1. Temperature elevations greater than 101 degrees F. 2. Uncontrollable pain. 3. Excessive bleeding. 4. Persistent nausea and vomiting. 5. Medication intolerance (nausea, vomiting or rash). * For nausea and vomiting use only clear liquids such as: tea, soda, bouillon until nausea subsides, then gradually increase diet as tolerated. * If you have any concerns or questions, call your surgeon's office. If physician is unavailable and it is an emergency, call 911 or go to the nearest emergency room. Instructions Activity Recommendations: no limitations Return to School/Work: with no limitations Recommended Home Diet: resume previous diet Allergies: Coded Allergies: No Known Allergies (Unverified , 04/20/17) Follow Up Renetta Thomas Recommendations: Call your doctor if: * Temperature above 101 degrees * Pain not relieved by pain medicine ordered * There is increased drainage or redness from any incision * You have any unanswered questions or concerns. Your Doctors Instructions noted above were prepared by provider Richard Miller. Patient Signature Section: Patient Instructions Signature Page Isma Douglas Patient (or Guardian) Signature/Date: I have read and understand the instructions given to me by my caregivers. Caregiver/RN/Doctor Signature/Date: The above-named patient and/or guardian has received patient instructions on this date. + Original Patient Signature Page (only) stays with chart. Please make copy for patient.
--- NOTE | 2017-09-30 07:18 | History & Physical Bridge Note ---
H&P Re-Evaluation Bridge Note: I have examined the patient, reviewed the History & Physical and in the interval since the performance of the History & Physical I have noted the following changes of clinical significance:Patient presented in paced atrial rhythm No cardioversion required. No changes noted
== END | disposition home or self-care (01) ==
LOC: C.CATH 06:42
PROVIDERS: ATTEND Internal Medicine Clinical Cardiac Electrophysiology
DX: I48.0 Paroxysmal atrial fibrillation (principal); I25.10 Atherosclerotic heart disease of native coronary artery without angina pectoris; Z53.09 Procedure and treatment not carried out because of other contraindication; I50.9 Heart failure, unspecified; J44.9 Chronic obstructive pulmonary disease, unspecified; F32.9 Major depressive disorder, single episode, unspecified; E11.51 Type 2 diabetes mellitus with diabetic peripheral angiopathy without gangrene; I10 Essential (primary) hypertension; J84.9 Interstitial pulmonary disease, unspecified; G47.33 Obstructive sleep apnea (adult) (pediatric); Z79.82 Long term (current) use of aspirin; Z79.01 Long term (current) use of anticoagulants; Z79.02 Long term (current) use of antithrombotics/antiplatelets; Z87.891 Personal history of nicotine dependence; Z79.84 Long term (current) use of oral hypoglycemic drugs

== ENCOUNTER 2019-06-04 12:22 | Inpatient (IN) ==
[2019-06-04 13:29] LABS: Basophils # (auto) 0.02 K/uL (0-0.2); Basophils % (auto) 0.1 %; Eosinophils # (auto) 0.02 K/uL (0-0.5); Eosinophils % (auto) 0.1 %; Hemoglobin 11.2 g/dL (12.0-16.0); Immature Granulocytes # (auto) 0.04 K/uL (0.00-0.02); Immature Granulocytes % (auto) 0.3 %; Lymphocytes # (auto) 1.11 K/uL (1.2-3.4); Lymphocytes % (auto) 7.8 %; Mean Corpuscular Hemoglobin 28.6 pg (25-34); Mean Corpuscular Hgb Conc 32.9 g/dL (32-36); Mean Corpuscular Volume 86.7 fL (80-100); Monocytes # (auto) 0.95 K/uL (0.11-0.59); Monocytes % (auto) 6.7 %; Neutrophils # (auto) 12.01 K/uL (1.4-6.5); Platelet Count 204 K/uL (130-400); RDW Coefficient of Variation 16.4 % (11.5-14.5); RDW Standard Deviation 51.8 fL (36.4-46.3); Red Blood Count 3.92 M/uL (4.2-5.4); White Blood Count 14.15 K/uL (4.8-10.8)
[2019-06-04 13:46] LABS: BUN Creatinine Ratio 16.5 (10-20); Blood Urea Nitrogen 17 mg/dl (7-18); Calcium 8.5 mg/dl (8.5-10.1); Carbon Dioxide 30 mmol/L (21-32); Chloride 102 mmol/L (98-107); Est GFR (African American) 60.9; Est GFR (Non-African American) 52.5; Glucose 96 mg/dl (70-99); Sodium 139 mmol/L (136-145)
[2019-06-04 13:51] LABS: Alanine Aminotransferase 127 U/L (12-78); Albumin Globulin Ratio 0.8 (0.9-2); Alkaline Phosphatase 96 U/L (45-117); Aspartate Aminotransferase 80 U/L (15-37); Bilirubin,Total 0.6 mg/dl (0.2-1); Globulin 3.9 gm/dl (2.5-4.0); NT Pro B Type Natriuretic Pept 854 pg/ml (0-1800); Total Protein 6.9 gm/dl (6.4-8.2)
--- NOTE | 2019-06-04 15:06 | XRay Report ---
TWO VIEW CHEST CLINICAL HISTORY: Atypical chest pain. FINDINGS: PA and lateral chest radiographs are compared to study dated 05/03/2019 and correlated with chest CT dated 09/19/2018. A 3-lead cardiac AICD is unchanged in position and partially obscures the l eft upper chest. The heart is enlarged noting atherosclerotic calcification of the thoracic aorta. Th ere is mild pulmonary vascular congestion. Emphysema and chronic interstitial thickening are similar to previous. There is bibasilar scarring/atelectasis. No airspace consolidation or pleural effusion i s identified. There is no pneumothorax. The skeletal structures are osteopenic. The bony thorax appea rs intact. Degenerative change is noted in the shoulders and thoracic spine. Intrathecal leads projec t over the lower thoracic spine. IMPRESSION: 1. Cardiomegaly and AICD. The pulmonary vasculature is mildly congested. 2. Emphysema and chronic parenchymal changes as above. No airspace consolidation or pleural effusion is identified Electronically signed by: Oral Kirby M.D. 06/04/2019 3:05 PM
[2019-06-04] MEDS ORDERED: OPTIRAY 320 125ml IV PRN (15:44)
--- NOTE | 2019-06-04 16:43 | CT Scan Report ---
CT ANGIOGRAM OF THE CHEST CLINICAL HISTORY: Atypical chest pain. COMPARISON STUDY: Chest CT scans dated 04/20/2017 and 09/19/2018. Chest x-ray dated 06/04/2019. TECHNIQUE: Following the IV administration of 97 cc of Optiray 320, CT angiogram of the chest was per formed from the upper abdomen to the thoracic inlet utilizing the pulmonary embolus protocol. Images are reviewed in the axial, sagittal, and coronal planes. 3-D MIPS images are created and assessed. IV contrast was administered without complication. A dose lowering technique was utilized adhering to the principles of ALARA. The examination is degraded by motion artifact. CT DOSE: 735.70 mGy.cm FINDINGS: Thyroid: Imaged portions of the thyroid gland are normal in size and attenuation. Thoracic aorta: There is atherosclerotic calcification of the thoracic aorta, which is normal in sissy maximo and demonstrates bovine variant arch anatomy. No dissection is seen. Pulmonary vasculature: The main pulmonary arteries are dilated suggesting pulmonary artery hypertensi on. There are no filling defects identified in main, lobar, or segmental pulmonary branches to sugges t pulmonary embolus. Heart: An AICD is present in the left chest wall. The heart is markedly enlarged and there is a small pericardial effusion. The coronary arteries are densely calcified. Lungs and pleural spaces: Evaluation of the lung parenchyma is degraded by motion artifact. The trach ea and central airways appear clear. Emphysematous change is again noted. There is dependent bibasila r airspace consolidation, right greater than left. Additional foci of scarring/atelectasis are presen t at both lung bases. Trace pleural effusions are noted. Mediastinum: An enlarged subcarinal node measures up to 2.7 cm in short axis. Roxann: Mildly enlarged left hilar nodes measure up to 1.6 cm in short axis. Axillae: There is no axillary lymphadenopathy. Upper abdomen: The 7 cm cyst in the posterior right lobe of the liver is unchanged. An additional 2.8 cm right lobe cyst is noted. There is a small hiatal hernia. Nodular thickening of the left adrenal gland is similar to previous. Skeletal structures: The skeletal structures are osteopenic. The skeletal structures are osteopenic. 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 No lytic or blastic bony lesions are se en. An intrathecal catheter lead is again seen in the central canal of the lower thoracic spine. IMPRESSION: 1. There is no evidence of pulmonary embolus in the main, lobar, or segmental pulmonary arteries. 2. Cardiomegaly and emphysema. 3. There is dependent bibasilar airspace consolidation, right greater than left. Correlate clinically for evidence of pneumonia/aspiration pneumonitis. Radiographic follow-up to resolution is recommende d. 4. There are trace pleural effusions. 5. Mildly enlarged mediastinal and hilar nodes are nonspecific and likely on a reactive basis. 6. Additional findings as above. Electronically signed by: Oral Kirby M.D. 06/04/2019 4:42 PM
[2019-06-04] MEDS ORDERED: LEVOFLOXACIN/D5W 750 MG/150 ML BAG IV SCH (17:00)
--- NOTE | 2019-06-04 17:32 | Emergency Department Note ---
Entered by Huma Maxwell acting as a scribe for Darren Mccollum MD History of Present Illness General Chief complaint: Chest Pain Stated complaint: PAIN IN CHEST LUNGS Source: patient and family History of Present Illness Onset (ago): day(s) 1 Location: left (lung) and right (lung) Pain Consistency: + other (Worsening) Maximum Pain Intensity: 7 Quality: + sharp Relieved By: + other (Nebulizer) Exacerbated By: + other (Deep breathing) Associated symptoms: + chest pain, + cough and + shortness of breath; no fever/chills and no nausea/vomiting Treatments prior to arrival: other (Nebulizer) The patient is an 78 year old female with a history of COPD, CAD, HTN, HLD, CHF, DM, PE and Hypothyroidism presenting to the Emergency Department complaining of a worsening cough starting 1 day ago. The patient reports that she has a cough producing a yellow colored mucous. She states that she has right-sided chest pain that radiates to her back. She describes this as a sharp pain. She explains that she believes her cough caused her chest pain. She notes that her chest pain worsens with deep breathing. She adds that she has previously had an RI and that her symptoms today do not feel like that. The patient reports that she was recently diagnosed with pneumonia and was prescribed Zithromax and Prednisone. She states that she has finished both of these medications which ultimately did no help her cough. She explains that she usually sleeps slightly elevated but slept lying flat last night and she believes that this worsened her cough as well. She states that she is short of breath and wheezing. She notes that she regularly uses her nebulizer at home and used it BRAZER FURNACE. She adds that after using her nebulizer her shortness of breath improved. She denies nausea, vomiting, fevers and chills. Home Medications Home Medications Medication Instructions Recorded Confirmed Type amiodarone 200 mg tablet 200 mg PO BID 05/03/19 06/04/19 History apixaban 5 mg tablet 5 mg PO BID tab 05/03/19 06/04/19 History aspirin 81 mg tablet,delayed 81 mg PO DAILY #30 tab 05/03/19 06/04/19 Rx release cholecalciferol (vitamin D3) 50,000 unit PO WK cap 05/03/19 06/04/19 History 50,000 unit capsule diltiazem 30 mg tablet 30 mg PO TID tab 05/03/19 06/04/19 History furosemide 40 mg tablet 40 mg PO DAILY tab 05/03/19 06/04/19 History levalbuterol 1.25 mg/3 mL solution 1.25 mg INH Q4H #75 ml 05/03/19 06/04/19 Rx for nebulization levothyroxine 100 mcg tablet 100 mcg PO DAILYBB tab 05/03/19 06/04/19 History metformin 500 mg tablet 500 mg PO DAILY tab 05/03/19 06/04/19 History metoprolol succinate ER 100 mg 100 mg PO DAILY tab 05/03/19 06/04/19 History tablet,extended release 24 hr montelukast 10 mg tablet 10 mg PO DAILY #30 tab 05/03/19 06/04/19 History nebulizers #1 ea 05/03/19 06/04/19 Rx nitroglycerin 0.4 mg sublingual 0.4 mg SUBLINGUAL DIRECTED PRN 05/03/19 06/04/19 History tablet #1 tab polyethylene glycol 3350 17 17 g PO DAILY gm 05/03/19 06/04/19 History gram/dose oral powder rosuvastatin 10 mg sprinkle capsule 10 mg PO DAILY #30 cap 05/03/19 06/04/19 Rx sertraline 50 mg tablet 50 mg PO DAILY tab 05/03/19 06/04/19 History budesonide-formoterol HFA 160 2 puffs INHALATION BID #10.2 gm 05/17/19 06/04/19 Rx mcg-4.5 mcg/actuation aerosol inhaler tiotropium bromide 2.5 2 puffs INHALATION DAILY #4 gm 05/17/19 06/04/19 Rx mcg/actuation mist for inhalation cephalexin 500 mg PO TID 06/04/19 06/04/19 History docusate sodium 100 mg PO BID 06/04/19 06/04/19 History ferrous sulfate 325 mg PO DAILY 06/04/19 06/04/19 History fluticasone propionate 2 spray INTRANASAL DAILY 06/04/19 06/04/19 History gabapentin 200 mg PO HS 06/04/19 06/04/19 History mometasone 1 applic TOPICAL BID 06/04/19 06/04/19 History omeprazole 20 mg PO DAILYBB 06/04/19 06/04/19 History temazepam 15 mg PO HS PRN 06/04/19 06/04/19 History Allergies Allergy/AdvReac Type Severity Reaction Status Date / Time No Known Allergies Allergy Verified 06/04/19 14:37 Past Med/Surg History Medical History Interstitial lung disease (Chronic) COPD, moderate (Chronic) [place] on CPAP (Chronic) CAD (coronary artery disease) (Chronic) HTN (hypertension) (Chronic) HLD (hyperlipidemia) (Chronic) Systolic CHF (Chronic) Diabetes mellitus, type II (Chronic) Pulmonary embolism (Resolved) Hypothyroidism Surgical History AICD (automatic cardioverter/defibrillator) present Social History Feels Safe at Home: Yes Smoking Status: Former smoker Review of Systems See HPI for pertinent positives & negatives. and A total of 10 systems reviewed and were otherwise negative Physical Exam Vital Signs Vital Signs - 24 hr 06/04/19 12:25 06/04/19 12:53 06/04/19 13:06 Temperature 37.1 C Temperature Source Oral Sepsis Recent Fever Within 48 Hours No Sepsis New/Unexplained Change in Mental Status No Sepsis Action Taken by Nursing No Action Required Pulse Rate 73 60 64 Pulse Rate from SpO2 Sensor Pulse Rhythm Regular Respiratory Rate 22 18 Respiratory Effort / Characteristics Non-Labored Respiratory Depth Normal Blood Pressure 137/73 Blood Pressure Mean 94 Pulse Oximetry 90 95 Oxygen Delivery Method Nasal Cannula Room Air Oxygen Flow Rate 3 06/04/19 13:10 06/04/19 13:20 06/04/19 13:30 Temperature Temperature Source Sepsis Recent Fever Within 48 Hours Sepsis New/Unexplained Change in Mental Status Sepsis Action Taken by Nursing Pulse Rate 62 61 60 Pulse Rate from SpO2 Sensor 62 61 60 Pulse Rhythm Respiratory Rate 23 23 18 Respiratory Effort / Characteristics Respiratory Depth Blood Pressure Blood Pressure Mean Pulse Oximetry 93 94 94 Oxygen Delivery Method Oxygen Flow Rate 06/04/19 13:40 06/04/19 13:49 06/04/19 13:50 Temperature Temperature Source Sepsis Recent Fever Within 48 Hours Sepsis New/Unexplained Change in Mental Status Sepsis Action Taken by Nursing Pulse Rate 60 60 60 Pulse Rate from SpO2 Sensor 60 60 60 Pulse Rhythm Respiratory Rate 21 25 H 16 Respiratory Effort / Characteristics Respiratory Depth Blood Pressure 128/55 L Blood Pressure Mean 79 Pulse Oximetry 94 95 94 Oxygen Delivery Method Oxygen Flow Rate 06/04/19 14:00 06/04/19 14:10 06/04/19 14:32 Temperature Temperature Source Sepsis Recent Fever Within 48 Hours Sepsis New/Unexplained Change in Mental Status Sepsis Action Taken by Nursing Pulse Rate 60 60 Pulse Rate from SpO2 Sensor 60 60 61 Pulse Rhythm Respiratory Rate 17 23 Respiratory Effort / Characteristics Respiratory Depth Blood Pressure Blood Pressure Mean Pulse Oximetry 95 95 96 Oxygen Delivery Method Oxygen Flow Rate 06/04/19 14:40 06/04/19 14:50 06/04/19 15:00 Temperature Temperature Source Sepsis Recent Fever Within 48 Hours Sepsis New/Unexplained Change in Mental Status Sepsis Action Taken by Nursing Pulse Rate Pulse Rate from SpO2 Sensor 60 60 62 Pulse Rhythm Respiratory Rate Respiratory Effort / Characteristics Respiratory Depth Blood Pressure Blood Pressure Mean Pulse Oximetry 96 97 95 Oxygen Delivery Method Oxygen Flow Rate 06/04/19 15:10 06/04/19 15:25 06/04/19 15:27 Temperature Temperature Source Sepsis Recent Fever Within 48 Hours Sepsis New/Unexplained Change in Mental Status Sepsis Action Taken by Nursing Pulse Rate Pulse Rate from SpO2 Sensor 60 80 70 Pulse Rhythm Respiratory Rate Respiratory Effort / Characteristics Respiratory Depth Blood Pressure 138/64 Blood Pressure Mean 88 Pulse Oximetry 96 94 95 Oxygen Delivery Method Oxygen Flow Rate 06/04/19 15:30 Temperature Temperature Source Sepsis Recent Fever Within 48 Hours Sepsis New/Unexplained Change in Mental Status Sepsis Action Taken by Nursing Pulse Rate Pulse Rate from SpO2 Sensor 63 Pulse Rhythm Respiratory Rate Respiratory Effort / Characteristics Respiratory Depth Blood Pressure 119/53 L Blood Pressure Mean 75 Pulse Oximetry 95 Oxygen Delivery Method Oxygen Flow Rate Constitutional: Vital signs reviewed. Eyes: Pupils are equal round reactive to light. Conjunctiva are noninjected. ENT: Pharynx is clear without erythema or exudate. Mucous membranes are moist. Neck supple without meningeal signs. Respiratory: Clear to auscultation bilaterally. Breath sounds are equal bilaterally. Bibasilar crackles. Cardiovascular: Regular rate and rhythm. No rubs or gallops. GI: Soft, nondistended and nontender. Bowel sounds are present. Musculoskeletal: No peripheral edema. No lower extremity tenderness. Tenderness with palpation to the right ribs posteriorly. Integumentary: No cyanosis. Neurological: The patient is awake and alert. No focal deficits. Psychiatric: Normal affect. Course 1251: EMR reviewed. 1253: The patient was evaluated in room C8, and a complete history and physical examination were performed. 1456: I reevaluated the patient. I discussed her test results. The patients family reports that the patient was recently took Keflex for an ear infection. 1515: I reevaluated the patient at this time. I discussed her X-Ray results with her. She is agreeable to CT scanning after I discussed risks and benefits. 1655: I reevaluated the patient at this time. I updated her family on test results. She is agreeable to come into the hospital. 1655: I discussed the patients case with Ariella SALVADOR. Dr. Jacky Mustafa hospitalist will evaluate the patient for further management. Consultations Consultation #1: I discussed the patients case with Ariella SALVADOR. Dr. Jacky Mustafa hospitalist will evaluate the patient for further management. Time: 16:55 Administered Medications Ioversol (Optiray 320 125ml) 97 ml IV ONCE PRN PRN Reason: Interaction Checking Stop: 06/08/19 15:43 Last Admin: 06/04/19 15:45 Dose: 97 ml Documented by: [id number] Medical Decision Making Differential Diagnosis Differentials include pneumonia, bronchitis, COPD exacerbation, CHF exacerbation and pleurisy amongst others. Medical Records Attestation: I reviewed the patient's medical records. I did perform a limited focused review of portions of the patient's old chart on the electronic medical record. The patient was seen by pulmonology on 05/03/19 for COPD and possible aspiration. She had a Chest X-Ray which showed atelectasis. She was admitted in August 2017 for A-fib with RVR. Home Medications Current Medication List: was personally reviewed by me Laboratory Data Attestation: I reviewed the patient's lab results. Result diagrams: 06/04/19 13:17 06/04/19 13:17 Lab Results 06/04/19 06/04/19 06/04/19 Range/Units 13:17 13:17 13:17 WBC 14.15 H (4.8-10.8) K/uL RBC 3.92 L (4.2-5.4) M/uL Hgb 11.2 L (12.0-16.0) g/dL Hct 34.0 L (37-47) % MCV 86.7 (80-100) fL MCH 28.6 (25-34) pg MCHC 32.9 (32-36) g/dL RDW Std Deviation 51.8 H (36.4-46.3) fL RDW Coeff of Olinda 16.4 H (11.5-14.5) % Plt Count 204 (130-400) K/uL MPV 10.0 (7.4-10.4) fL Immature Gran % (Auto) 0.3 % Neut % (Auto) 85.0 % Lymph % (Auto) 7.8 % [place] % (Auto) 6.7 % Eos % (Auto) 0.1 % Baso % (Auto) 0.1 % Immature Gran # (Auto) 0.04 H (0.00-0.02) K/uL Neut # (Auto) 12.01 H (1.4-6.5) K/uL Lymph # (Auto) 1.11 L (1.2-3.4) K/uL [place] # (Auto) 0.95 H (0.11-0.59) K/uL Eos # (Auto) 0.02 (0-0.5) K/uL Baso # (Auto) 0.02 (0-0.2) K/uL Sodium 139 Cancelled (136-145) mmol/L Potassium 4.0 Cancelled (3.5-5.1) mmol/L Chloride 102 Cancelled (98-107) mmol/L Carbon Dioxide 30 Cancelled (21-32) mmol/L Anion Gap 7.0 Cancelled (3-11) BUN 17 Cancelled (7-18) mg/dl Creatinine 1.01 Cancelled (0.6-1.2) mg/dl Est Cr Clr Drug Dosing Not Reportable Cancelled Est GFR ( Amer) 60.9 Cancelled Est GFR (Non-Af Amer) 52.5 Cancelled BUN/Creatinine Ratio 16.5 Cancelled (10-20) Glucose 96 Cancelled (70-99) mg/dl Calcium 8.5 Cancelled (8.5-10.1) mg/dl Total Bilirubin 0.6 Cancelled (0.2-1) mg/dl AST 80 H Cancelled (15-37) U/L ALT 127 H Cancelled (12-78) U/L Alkaline Phosphatase 96 Cancelled (45-117) U/L POC Troponin I (0-0.045) ng/ml NT-Pro-B Natriuret Pep 854 (0-1800) pg/ml Total Protein 6.9 Cancelled (6.4-8.2) gm/dl Albumin 3.0 L Cancelled (3.4-5.0) gm/dl Globulin 3.9 Cancelled (2.5-4.0) gm/dl Albumin/Globulin Ratio 0.8 L Cancelled (0.9-2) 06/04/19 Range/Units 13:19 WBC (4.8-10.8) K/uL RBC (4.2-5.4) M/uL Hgb (12.0-16.0) g/dL Hct (37-47) % MCV (80-100) fL MCH (25-34) pg MCHC (32-36) g/dL RDW Std Deviation (36.4-46.3) fL RDW Coeff of Olinda (11.5-14.5) % Plt Count (130-400) K/uL MPV (7.4-10.4) fL Immature Gran % (Auto) % Neut % (Auto) % Lymph % (Auto) % [place] % (Auto) % Eos % (Auto) % Baso % (Auto) % Immature Gran # (Auto) (0.00-0.02) K/uL Neut # (Auto) (1.4-6.5) K/uL Lymph # (Auto) (1.2-3.4) K/uL [place] # (Auto) (0.11-0.59) K/uL Eos # (Auto) (0-0.5) K/uL Baso # (Auto) (0-0.2) K/uL Sodium (136-145) mmol/L Potassium (3.5-5.1) mmol/L Chloride (98-107) mmol/L Carbon Dioxide (21-32) mmol/L Anion Gap (3-11) BUN (7-18) mg/dl Creatinine (0.6-1.2) mg/dl Est Cr Clr Drug Dosing Est GFR ( Amer) Est GFR (Non-Af Amer) BUN/Creatinine Ratio (10-20) Glucose (70-99) mg/dl Calcium (8.5-10.1) mg/dl Total Bilirubin (0.2-1) mg/dl AST (15-37) U/L ALT (12-78) U/L Alkaline Phosphatase (45-117) U/L POC Troponin I < 0.03 (0-0.045) ng/ml NT-Pro-B Natriuret Pep (0-1800) pg/ml Total Protein (6.4-8.2) gm/dl Albumin (3.4-5.0) gm/dl Globulin (2.5-4.0) gm/dl Albumin/Globulin Ratio (0.9-2) Imaging Data Radiologist's Impression: Radiology results as stated below per my review and the radiologist's interpretation: CT ANGIOGRAM OF THE CHEST CLINICAL HISTORY: Atypical chest pain. COMPARISON STUDY: Chest CT scans dated 04/20/2017 and 09/19/2018. Chest x-ray dated 06/04/2019. TECHNIQUE: Following the IV administration of 97 cc of Optiray 320, CT angiogram of the chest was performed from the upper abdomen to the thoracic inlet utilizing the pulmonary embolus protocol. Images are reviewed in the axial, sagittal, and coronal planes. 3-D MIPS images are created and assessed. IV contrast was administered without complication. A dose lowering technique was utilized adhering to the principles of ALARA. The examination is degraded by motion artifact. CT DOSE: 735.70 mGy.cm FINDINGS: Thyroid: Imaged portions of the thyroid gland are normal in size and attenuation. Thoracic aorta: There is atherosclerotic calcification of the thoracic aorta, wh ich is normal in caliber and demonstrates bovine variant arch anatomy. No dissection is seen. Pulmonary vasculature: The main pulmonary arteries are dilated suggesting pulmonary artery hypertension. There are no filling defects identified in main, lobar, or segmental pulmonary branches to suggest pulmonary embolus. Heart: An AICD is present in the left chest wall. The heart is markedly enlarged and there is a small pericardial effusion. The coronary arteries are densely calcified. Lungs and pleural spaces: Evaluation of the lung parenchyma is degraded by motion artifact. The trachea and central airways appear clear. Emphysematous change is again noted. There is dependent bibasilar airspace consolidation, right greater than left. Additional foci of scarring/atelectasis are present at both lung bases. Trace pleural effusions are noted. Mediastinum: An enlarged subcarinal node measures up to 2.7 cm in short axis. Roxann: Mildly enlarged left hilar nodes measure up to 1.6 cm in short axis. Axillae: There is no axillary lymphadenopathy. Upper abdomen: The 7 cm cyst in the posterior right lobe of the liver is unchanged. An additional 2.8 cm right lobe cyst is noted. There is a small hiatal hernia. Nodular thickening of the left adrenal gland is similar to previous. Skeletal structures: The skeletal structures are osteopenic. The skeletal structures are osteopenic. 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 No lytic or blastic bony lesions are seen. An intrathecal catheter lead is again seen in the central canal of the lower thoracic spine. IMPRESSION: 1. There is no evidence of pulmonary embolus in the main, lobar, or segmental pulmonary arteries. 2. Cardiomegaly and emphysema. 3. There is dependent bibasilar airspace consolidation, right greater than left. Correlate clinically for evidence of pneumonia/aspiration pneumonitis. Radiographic follow-up to resolution is recommended. 4. There are trace pleural effusions. 5. Mildly enlarged mediastinal and hilar nodes are nonspecific and likely on a reactive basis. 6. Additional findings as above. Electronically signed by: Oral Kirby M.D. 06/04/2019 4:42 PM TWO VIEW CHEST CLINICAL HISTORY: Atypical chest pain. FINDINGS: PA and lateral chest radiographs are compared to study dated 05/03/2019 and correlated with chest CT dated 09/19/2018. A 3-lead cardiac AICD is unchanged in position and partially obscures the left upper chest. The heart is enlarged noting atherosclerotic calcification of the thoracic aorta. There is mild pulmonary vascular congestion. Emphysema and chronic interstitial thickening are similar to previous. There is bibasilar scarring/atelectasis. No airspace consolidation or pleural effusion is identified. There is no pneumothorax. The skeletal structures are osteopenic. The bony thorax appears intact. Degenerative change is noted in the shoulders and thoracic spine. Intrathecal leads project over the lower thoracic spine. IMPRESSION: 1. Cardiomegaly and AICD. The pulmonary vasculature is mildly congested. 2. Emphysema and chronic parenchymal changes as above. No airspace consolidation or pleural effusion is identified Electronically signed by: Oral Kirby M.D. 06/04/2019 3:05 PM ECG Data Attestation: I personally reviewed and interpreted this ECG as follows: Indication: chest pain Rate (beats per minute): 71 Rhythm: atrial fibrillation Findings: + LAFB and + RBBB; no PVC Blood Pressure Blood Pressure Findings: Elevated blood pressure Blood Pressure Disposition: further management by hospitalist MONTEZ Edmonds I did evaluate the patient as noted above. The patient is presenting with worsening shortness of breath as well as right-sided lower back pain and chest pain. She describes the pain is pleuritic in nature. She was recently treated for a pneumonia with Zithromax. Prior to that she was also given Keflex for an ear infection. She does states she feels short of breath and is requiring her oxygen all day rather than only at night. IV access was established. The patient was placed on a continuous shelter monitor. I did order and personally review the patient's 12-lead EKG as described above. Her twelve-lead EKG shows a bifascicular block with atrial fibrillation. I did order and personally reviewed the images of the patient's chest x-ray as described above. I was concerned about a pneumonia in the right lower lobe but the radiologist did not feel there was pneumonia there. I did order and review the patient's blood work as noted in the electronic medical record. Her white count is elevated but she has recently been on steroids. She has a BNP in the 900s. Troponin is negative. I did discuss the test results with the patient and her family. Because of her back pain as well as worsening shortness of breath 1 of her daughters was concerned about a PE. Given the lack of any other explanation for her increased need for oxygen and pain I did discuss obtaining a CT angiogram of the chest. She does understand the risks and benefits and is agreeable to the CT. I did order a CT angiogram of the chest. I did review the images myself as well as the radiology report as described above. There is no evidence of PE but the patient does have bilateral lower lung consolidation consistent with pneumonia. I did treat the patient with Levaquin IV after discussion of risks and benefits with the family and the patient. Blood cultures had been drawn earlier. I did recommend hospitalization for further care and evaluation. I did discuss case with hospitalist and social work case manager. Impression & Plan Pneumonia, Failure of outpatient treatment, CHF (congestive heart failure), COPD (chronic obstructive pulmonary disease) : Pneumonia Qualifiers: Pneumonia type: due to unspecified organism Laterality: bilateral Lung location: lower lobe of lung Qualified Code(s): J18.1 - Lobar pneumonia, unspecified organism CHF (congestive heart failure) Qualifiers: Heart failure type: unspecified Heart failure chronicity: unspecified Qualified Code(s): I50.9 - Heart failure, unspecified COPD (chronic obstructive pulmonary disease) Qualifiers: COPD type: unspecified COPD Qualified Code(s): J44.9 - Chronic obstructive pulmonary disease, unspecified The scribe's documentation has been prepared under my direction and personally reviewed by me in its entirety. I confirm that the note above accurately refle cts all work, treatment, procedures, and medical decision making performed by me.
[2019-06-04] MEDS ORDERED: PIPERACILL/TAZOBAC CONSULT ACTIVE PRN (17:34)
--- NOTE | 2019-06-04 18:14 | History & Physical Report ---
Date of Service June 04, 2019 Assessment & Plan (1) Pneumonia: (2) COPD, moderate: -admit to med/surg -patient presenting from home with reports of cough and shortness of breath -was seen at [facility] ED last week and placed on prednisone and azithromycin - patient completed course and has not has improvement in symptoms -in the ED today, CTA chest shows bibasilar consolidations, suggestive of pneumonia, possible aspiration; patient with history of chronic aspiration/esophageal stricture in the past -will start IV Zosyn and add doxy for atypical coverage -WBC 14K, however does not appear septic -pulmonary toilet with nebs, IS, and flutter valve -no wheezing on exam so will hold on further steroids at this time; continue routine home inhalers -currently on 4L O2, wean as able -speech eval (3) CAD (coronary artery disease): -appears stable -no reports of chest pain -continue ASA, statin, and beta meghna (4) Ischemic cardiomyopathy: (5) AICD (automatic cardioverter/defibrillator) present: -EF 25-30% -appears euvolemic -continue furosemide, beta meghna (6) Atrial fibrillation: (7) Pacemaker: -EKG shows paced rhythm -rate controlled on beta meghna and dig -rhythm controlled on amiodarone -anticoagulated on Eliquis (8) Hypothyroidism: -continue levothyroxine (9) Diabetes mellitus, type II: -hgb a1c 5.5 03/2019 -hold oral agents and utilize Novolog per protocol while hospitalized (10) DVT prophylaxis: -on Eliquis History of Present Illness Chief Complaint: Cough, Shortness of Breath Primary Care Provider: Elena Ledesma, 78-year-old female who presents to the ED with cough and shortness of breath. At the end of April, patient was placed on Augmentin for suspected COPD exacerbation secondary to aspiration. Then on 05/24, patient was placed on Keflex for suspected otitis externa. She was then seen at [facility] ED on 05/30 and diagnosed with pneumonia per her report. Patient was placed on a 5-day course of prednisone and azithromycin. Patient reports no improvement in her symptoms since that time. She reports worsening cough that is productive for yellow sputum. Worsening shortness of breath as well. She has oxygen that she typically wears with her CPAP at night however has been wearing it during the day as well. She reports some right sided rib pain that is sharp and occurs with coughing and deep breath. She denies chest pain. Has some mild lightheadedness and dizziness but denies any syncopal events. No abdominal pain, nausea, vomiting, diarrhea. She reports history of an esophageal stricture that has been dilated however denies any choking episodes or difficulty swallowing. She reports she had a low-grade fever when she was seen at [facility]'s ED however has not taken her temperature since arriving home. She denies any urinary symptoms. In the ED, CT chest shows bibasilar consolidations. She is saturating well on 4 days of oxygen via nasal cannula. She is hemodynamically stable. Labs show WBC 14 K, otherwise unremarkable. Allergies Allergy/AdvReac Type Severity Reaction Status Date / Time No Known Allergies Allergy Verified 06/04/19 14:37 Home Medications Home Medications Medication Instructions Recorded Confirmed Type amiodarone 200 mg tablet 200 mg PO BID 05/03/19 06/04/19 History apixaban 5 mg tablet 5 mg PO BID tab 05/03/19 06/04/19 History aspirin 81 mg tablet,delayed 81 mg PO DAILY #30 tab 05/03/19 06/04/19 Rx release cholecalciferol (vitamin D3) 50,000 unit PO WK cap 05/03/19 06/04/19 History 50,000 unit capsule diltiazem 30 mg tablet 30 mg PO TID tab 05/03/19 06/04/19 History furosemide 40 mg tablet 40 mg PO DAILY tab 05/03/19 06/04/19 History levothyroxine 100 mcg tablet 100 mcg PO DAILYBB tab 05/03/19 06/04/19 History metformin 500 mg tablet 500 mg PO DAILY tab 05/03/19 06/04/19 History metoprolol succinate ER 100 mg 100 mg PO DAILY tab 05/03/19 06/04/19 History tablet,extended release 24 hr montelukast 10 mg tablet 10 mg PO DAILY #30 tab 05/03/19 06/04/19 History nebulizers #1 ea 05/03/19 06/04/19 Rx nitroglycerin 0.4 mg sublingual 0.4 mg SUBLINGUAL DIRECTED PRN 05/03/19 06/04/19 History tablet #1 tab polyethylene glycol 3350 17 17 g PO DAILY gm 05/03/19 06/04/19 History gram/dose oral powder rosuvastatin 10 mg sprinkle capsule 10 mg PO DAILY #30 cap 05/03/19 06/04/19 Rx sertraline 50 mg tablet 50 mg PO DAILY tab 05/03/19 06/04/19 History budesonide-formoterol HFA 160 2 puffs INHALATION BID #10.2 gm 05/17/19 06/04/19 Rx mcg-4.5 mcg/actuation aerosol inhaler tiotropium bromide 2.5 2 puffs INHALATION DAILY #4 gm 05/17/19 06/04/19 Rx mcg/actuation mist for inhalation docusate sodium 100 mg PO BID 06/04/19 06/04/19 History ferrous sulfate 325 mg PO DAILY 06/04/19 06/04/19 History fluticasone propionate 2 spray INTRANASAL DAILY 06/04/19 06/04/19 History gabapentin 200 mg PO HS 06/04/19 06/04/19 History levalbuterol HCl 1.25 mg INH Q4H PRN 06/04/19 06/04/19 History mometasone 1 applic TOPICAL BID 06/04/19 06/04/19 History omeprazole 20 mg PO DAILYBB 06/04/19 06/04/19 History temazepam 15 mg PO HS PRN 06/04/19 06/04/19 History Past Med/Surg History Medical History Atrial fibrillation (Chronic) History of esophageal dilatation (Chronic) Pacemaker (Chronic) Chronic anticoagulation (Chronic) Esophageal stenosis (Chronic) Ischemic cardiomyopathy (Chronic) Dyslipidemia (Chronic) CKD (chronic kidney disease), stage III (Chronic) Interstitial lung disease (Chronic) COPD, moderate (Chronic) [place] on CPAP (Chronic) CAD (coronary artery disease) (Chronic) s/p stent HTN (hypertension) (Chronic) HLD (hyperlipidemia) (Chronic) Diabetes mellitus, type II (Chronic) Pulmonary embolism (Resolved) Hypothyroidism (Chronic) Surgical History Hx of cholecystectomy (Chronic) H/O tubal ligation (Chronic) AICD (automatic cardioverter/defibrillator) present (Chronic) Family History Father Heart disorder Mother Heart disorder Social History Preferred Language: German Communication Ability: Effective Beliefs That Will Affect Care: None Current Living Situation: Alone Current Living Situation Comment: has caregivers come to home Other Information That Helps Us Care for You: No Feels Safe at Home: Yes Safety Concerns: Feels Safe At This Time Smoking Status: Former smoker Hx Alcohol Use: No Hx Substance Use: No Review of Systems Review of Systems: ROS per HPI, all other systems reviewed and negative Physical Exam Constitutional: WD/WN, vitals as above Eyes: PERRL, conjunctivae normal, anicteric sclerae ENMT: external ear and nose normal, oropharynx normal Respiratory: normal respiratory effort and able to speak in complete sentences; no respiratory distress Auscultation: + diminished lung sounds and + rhonchi (BL, scattered) Cardiovascular: Rate/Rhythm: regular rate and regular rhythm Vessels: normal peripheral pulses Extremities: no edema Gastrointestinal (Abdomen): normal bowel sounds, soft, nontender, no hepatosplenomegaly Musculoskeletal: no cyanosis or clubbing, extremities motor strength 5/5 Skin: no rashes, warm and dry Neurologic: PERRL, EOMI, accommodation nl, no face palsy, no dysarthria Psychiatric: A+Ox3, euthymic affect Results & Data Vital Signs (Past 12 Hours) Vital Signs Temp Pulse Resp BP Pulse Ox 06/04/19 18:02 44 H 150/59 H 95 06/04/19 18:00 20 94 06/04/19 17:50 21 94 06/04/19 17:40 19 94 06/04/19 17:30 19 94 06/04/19 17:20 25 H 96 06/04/19 17:10 19 96 06/04/19 17:00 22 95 06/04/19 16:50 64 24 96 06/04/19 16:44 85 L 06/04/19 16:31 62 22 150/72 H 97 06/04/19 16:30 60 16 95 06/04/19 16:20 61 21 97 06/04/19 16:10 60 25 H 95 06/04/19 16:00 60 19 150/62 H 97 06/04/19 15:50 62 17 97 06/04/19 15:48 96 06/04/19 15:34 119/53 L 06/04/19 15:30 119/53 L 95 06/04/19 15:27 138/64 95 06/04/19 15:25 94 06/04/19 15:10 96 06/04/19 15:00 95 06/04/19 14:50 97 06/04/19 14:40 96 06/04/19 14:32 96 06/04/19 14:10 60 23 95 06/04/19 14:00 60 17 95 06/04/19 13:50 60 16 94 06/04/19 13:49 60 25 H 128/55 L 95 06/04/19 13:40 60 21 94 06/04/19 13:30 60 18 94 06/04/19 13:20 61 23 94 06/04/19 13:10 62 23 93 06/04/19 13:06 64 18 06/04/19 12:53 60 95 06/04/19 12:25 37.1 C 73 22 137/73 90 Laboratory Results Short CBC 06/04/19 06/04/19 06/04/19 Range/Units 13:17 13:17 13:17 WBC 14.15 H (4.8-10.8) K/uL Hgb 11.2 L (12.0-16.0) g/dL Hct 34.0 L (37-47) % Plt Count 204 (130-400) K/uL Creatinine 1.01 Cancelled (0.6-1.2) mg/dl BMP 06/04/19 06/04/19 13:17 13:17 Sodium 139 Cancelled Potassium 4.0 Cancelled Chloride 102 Cancelled Carbon Dioxide 30 Cancelled BUN 17 Cancelled Creatinine 1.01 Cancelled Glucose 96 Cancelled Calcium 8.5 Cancelled Liver Function 06/04/19 06/04/19 Range/Units 13:17 13:17 Total Bilirubin 0.6 Cancelled (0.2-1) mg/dl AST 80 H Cancelled (15-37) U/L ALT 127 H Cancelled (12-78) U/L Alkaline Phosphatase 96 Cancelled (45-117) U/L Albumin 3.0 L Cancelled (3.4-5.0) gm/dl Diagnostic Findings CXR IMPRESSION: 1. Cardiomegaly and AICD. The pulmonary vasculature is mildly congested. 2. Emphysema and chronic parenchymal changes as above. No airspace consolidation or pleural effusion is identified. CTA CHEST IMPRESSION: 1. There is no evidence of pulmonary embolus in the main, lobar, or segmental pulmonary arteries. 2. Cardiomegaly and emphysema. 3. There is dependent bibasilar airspace consolidation, right greater than left. Correlate clinically for evidence of pneumonia/aspiration pneumonitis. Radiographic follow-up to resolution is recommended. 4. There are trace pleural effusions. 5. Mildly enlarged mediastinal and hilar nodes are nonspecific and likely on a reactive basis. 6. Additional findings as above. Code Status & VTE Plan Code Status Patient is a full code as per my discussion with her. VTE Prophylaxis Plan VTE Prophylaxis will be ordered: Yes Supervising Physician Co-Signing Physician Notes Attending addendum The patient was seen and examined the medical floor She has been complaining of increasing cough, weakness and shortness of breath Noted to have possible bibasilar infiltrate on CAT scan of the chest Still complains of some cough without any phlegm Right lateral chest wall pain secondary to cough On examination Moderate distress at rest due to cough and shortness of breath Chest-bibasilar crackles more on the left Heart-S1-S2, regular Abdomen-benign, no organomegaly, bowel sounds present Extremities-trace edema bilateral Admission labs and imaging studies reviewed CT of the chest did show bibasilar infiltrate without any evidence of pulmonary embolism She has been on IV ceftriaxone and doxycycline Reviewed assessment and plan as outlined above by Ariella narayan
[2019-06-04] MEDS ORDERED: CARBOHYDRATES FOR HYPOGLYCEMIA PO PRN (18:26)
[2019-06-04] MEDS ORDERED: GLUCAGON FOR INJ 1 MG VIAL SQ PRN (18:26)
[2019-06-04] MEDS ORDERED: GLUCOSE 10 TABS/TUBE PO PRN (18:26)
[2019-06-04] MEDS ORDERED: DEXTROSE 50% 50 ML SYRINGE IV PRN (18:26)
[2019-06-04] MEDS ORDERED: ACETAMINOPHEN 325 MG TAB PO PRN (18:26)
[2019-06-04] MEDS ORDERED: ALBUT/IPRATROP 3MG/0.5MG NEB 3 ML VIAL NEB PRN (18:26)
[2019-06-04] MEDS ORDERED: GLUCOSE 40% GEL 15 GM TUBE PO PRN (18:26)
[2019-06-04] MEDS ORDERED: PIPERACILLIN/TAZOBACTAM 4.5 GM in DEXTROSE 5% 100 ML IV ONE (18:45)
[2019-06-04] MEDS: BUDESONIDE/FORMOTEROL FUMARATE 160/4.5 60 PUFFS/INHALER INH SCH (20:41)
[2019-06-04] MEDS: APIXABAN 5 MG TABLET PO SCH (20:42)
[2019-06-04] MEDS: GABAPENTIN 100 MG CAP PO SCH (20:42)
[2019-06-04] MEDS: DOXYCYCLINE HYCLATE 100 MG CAP PO SCH (20:42)
[2019-06-04] MEDS: AMIODARONE 200 MG TAB PO SCH (20:43)
[2019-06-04] MEDS: DOCUSATE SODIUM 100 MG CAP PO SCH (20:43)
[2019-06-04] MEDS: dilTIAZem HCL 30 MG TAB PO SCH (20:44)
[2019-06-04] MEDS: MONTELUKAST SODIUM 10 MG TABLET PO SCH (20:44)
[2019-06-04] MEDS: INSULIN ASPART 100 UNITS/ML 3 ML PEN SC SCH (21:00)
[2019-06-04] MEDS: PIPERACILLIN/TAZOBACTAM 4.5 GM in DEXTROSE 5% 100 ML IV SCH (23:46)
[2019-06-05 06:04] LABS: Hematocrit (blood only) 33.7 % (37-47); Hemoglobin 10.8 g/dL (12.0-16.0); Mean Corpuscular Hemoglobin 27.6 pg (25-34); Mean Corpuscular Volume 86.2 fL (80-100); Mean Platelet Volume 9.6 fL (7.4-10.4); Platelet Count 184 K/uL (130-400); RDW Coefficient of Variation 16.3 % (11.5-14.5); RDW Standard Deviation 51.8 fL (36.4-46.3); Red Blood Count 3.91 M/uL (4.2-5.4); White Blood Count 10.92 K/uL (4.8-10.8)
[2019-06-05 06:26] LABS: BUN Creatinine Ratio 14.3 (10-20); Calcium 8.6 mg/dl (8.5-10.1); Creatinine Clr Calc Pharmacy 50.5 ml/min; Est GFR (African American) 55.5; Est GFR (Non-African American) 47.9; Potassium 3.9 mmol/L (3.5-5.1)
[2019-06-05] MEDS: LEVOTHYROXINE SODIUM 100 MCG TABLET PO SCH (06:31)
[2019-06-05] MEDS: DOCUSATE SODIUM 100 MG CAP PO SCH ×2 (08:10→20:40)
[2019-06-05] MEDS: ASPIRIN 81 MG ECTAB PO SCH (08:10)
[2019-06-05] MEDS: AMIODARONE 200 MG TAB PO SCH ×2 (08:10→20:41)
[2019-06-05] MEDS: APIXABAN 5 MG TABLET PO SCH ×2 (08:10→20:42)
[2019-06-05] MEDS: POLYETHYLENE (MIRALAX) 17 GM PACK PO SCH (08:10)
[2019-06-05] MEDS: ROSUVASTATIN CALCIUM 10 MG TAB PO SCH (08:10)
[2019-06-05] MEDS: dilTIAZem HCL 30 MG TAB PO SCH ×3 (08:10→20:40)
[2019-06-05] MEDS: FUROSEMIDE 40 MG TAB PO SCH (08:10)
[2019-06-05] MEDS: DOXYCYCLINE HYCLATE 100 MG CAP PO SCH ×2 (08:11→20:44)
[2019-06-05] MEDS: BUDESONIDE/FORMOTEROL FUMARATE 160/4.5 60 PUFFS/INHALER INH SCH ×2 (08:11→20:45)
[2019-06-05] MEDS: METOPROLOL SUCC 50MG EXT REL TAB PO SCH (08:11)
[2019-06-05] MEDS: PANTOprazole 40 MG TAB PO SCH (08:11)
[2019-06-05] MEDS: SERTRALINE HCL 50 MG TABLET PO SCH (08:12)
[2019-06-05] MEDS: INSULIN ASPART 100 UNITS/ML 3 ML PEN SC SCH ×4 (08:19→20:43)
[2019-06-05] MEDS: PIPERACILLIN/TAZOBACTAM 4.5 GM in DEXTROSE 5% 100 ML IV SCH ×3 (08:21→23:47)
[2019-06-05] MEDS ORDERED: XOPENEX/ATROVENT 0.63mg/0.5MG NEB COMBO NEB SCH (08:40)
[2019-06-05] MEDS ORDERED: TIOTROPIUM BROMIDE 5 PUFF/90 MCG INH INH SCH (09:00)
--- NOTE | 2019-06-05 09:25 | Hospitalist Progress Note ---
Date of Service June 05, 2019 Assessment & Plan (1) Pneumonia: 78-year-old female with history of COPD, coronary artery disease, ischemic cardiomyopathy, atrial fibrillation status post pacemaker placement, diabetes, Presenting with shortness of breath and coughing times few days COPD EXACERBATION SECONDARY TO PNEUMONIA, COMMUNITY ACQUIRED VERSUS ASPIRATION Improving Continue Zosyn plus doxycycline IV, nebs Speech therapy evaluation ordered CAD No chest pain, continue aspirin, metoprolol ISCHEMIC CARDIOMYOPATHY Ejection fraction 25% Continue Lasix, metoprolol ATRIAL FIBRILLATION, STATUS POST PACEMAKER PLACEMENT Continue amiodarone and diltiazem, apixaban DIABETES TYPE 2 Continue insulin sliding scale DVT prophylaxis Already on Pradaxa Disposition We will order PT OT evaluation Patient, lives by herself (2) COPD, moderate: -admit to med/surg -patient presenting from home with reports of cough and shortness of breath -was seen at [facility] ED last week and placed on prednisone and azithromycin - patient completed course and has not has improvement in symptoms -in the ED today, CTA chest shows bibasilar consolidations, suggestive of pneumonia, possible aspiration; patient with history of chronic aspiration/esophageal stricture in the past -will start IV Zosyn and add doxy for atypical coverage -WBC 14K, however does not appear septic -pulmonary toilet with nebs, IS, and flutter valve -no wheezing on exam so will hold on further steroids at this time; continue routine home inhalers -currently on 4L O2, wean as able -speech eval (3) CAD (coronary artery disease): -appears stable -no reports of chest pain -continue ASA, statin, and beta meghna (4) Ischemic cardiomyopathy: (5) AICD (automatic cardioverter/defibrillator) present: -EF 25-30% -appears euvolemic -continue furosemide, beta meghna (6) Atrial fibrillation: (7) Pacemaker: -EKG shows paced rhythm -rate controlled on beta meghna and dig -rhythm controlled on amiodarone -anticoagulated on Eliquis (8) Hypothyroidism: -continue levothyroxine (9) Diabetes mellitus, type II: -hgb a1c 5.5 03/2019 -hold oral agents and utilize Novolog per protocol while hospitalized (10) DVT prophylaxis: -on Eliquis Subjective Follow-up for pneumonia, acute on chronic hypoxia Seen resting in bed, on 3 L of oxygen by nasal cannula Comfortable, in good spirits States that she feels improved today compared to yesterday Has intermittent cough productive of yellow sputum, nonbloody Reports bilateral rib pain when coughing Denies other symptoms Review of Systems Review of Systems: All systems reviewed & are unremarkable except as noted in HPI & below Physical Exam Physical Exam: General- oriented x 3, not in distress, speaks in sentences with no effort or accessory muscle use Head- atraumatic Eyes- PERRL, EOMI, anicteric ENT- oropharynx clear Neck- supple, no JVD, no adenopathy, no thyromegaly; carotids +2/2, no bruits appreciated Lungs- clear to auscultation bilaterally, no rales/wheezes Heart-mild crackles at the right base, no wheezing, good air entry bilaterally Abdomen- normal bowel sounds, nondistended, soft, nontender, no masses or hepatosplenomegaly Extremities- no pretibial edema, no calf tenderness; peripheral pulses intact Neuro- alert, oriented x 3; CN 2-12 grossly intact; motor 5/5 bilaterally;sensation 100% on all extremities; no other gross focal neurologic deficits Skin- warm & dry Results & Data Vital Signs (Past 12 Hours) Vital Signs Temp Pulse Pulse Resp BP Pulse Ox 06/05/19 07:20 36.9 C 57 L 20 144/79 H 96 06/04/19 23:45 36.4 C L 61 18 114/62 95 06/04/19 22:01 68 18 93 06/04/19 21:41 60 18 98 Laboratory Results Laboratory Results - last 24 hr 06/04/19 06/04/19 06/05/19 18:41 20:09 05:46 WBC 10.92 H RBC 3.91 L Hgb 10.8 L Hct 33.7 L MCV 86.2 MCH 27.6 MCHC 32.0 RDW Std Deviation 51.8 H RDW Coeff of Olinda 16.3 H Plt Count 184 MPV 9.6 Sodium Potassium Chloride Carbon Dioxide Anion Gap BUN Creatinine Est Cr Clr Drug Dosing Est GFR ( Amer) Est GFR (Non-Af Amer) BUN/Creatinine Ratio Glucose POC Glucose 88 143 H Calcium 06/05/19 06/05/19 06/05/19 05:46 08:00 12:04 WBC RBC Hgb Hct MCV MCH MCHC RDW Std Deviation RDW Coeff of Olinda Plt Count MPV Sodium 141 Potassium 3.9 Chloride 103 Carbon Dioxide 30 Anion Gap 8.0 BUN 16 Creatinine 1.09 Est Cr Clr Drug Dosing 50.5 Est GFR ( Amer) 55.5 Est GFR (Non-Af Amer) 47.9 BUN/Creatinine Ratio 14.3 Glucose 82 POC Glucose 80 94 Calcium 8.6
[2019-06-05] MEDS: IPRATROPIUM BROMIDE NEB SOLN 0.02% 2.5 ML VIAL INH SCH ×3 (09:31→19:36)
[2019-06-05] MEDS: LEVALBUTEROL HCL 0.63 MG/3 ML NEB NEB SCH ×3 (09:31→19:36)
[2019-06-05] MEDS: FERROUS SULFATE 325 MG TAB PO SCH (14:13)
[2019-06-05] MEDS: TRAMADOL HCL 50 MG TABLET PO PRN ×2 (14:13→23:48)
--- NOTE | 2019-06-05 16:05 | Fluoroscopy Report ---
MODIFIED BARIUM SWALLOW CLINICAL HISTORY: r/o aspiration COMPARISON STUDY: Modified barium swallow April 21, 2017 FLUOROSCOPY TIME: 1.9 minutes. TECHNIQUE: A modified barium swallow was performed in conjunction with Speech Pathology. The patient ingested varying consistencies of barium containing material. Video fluoroscopy was performed. FINDINGS: Several episodes of tracheal aspiration were noted with thin liquids and nectar thick liqui ds. No aspiration was identified with thin liquids with chin tuck. There is no aspiration with puddin g or crackers with paste. Mild esophageal dysmotility was noted. IMPRESSION: 1. Several episodes of tracheal aspiration with thin liquids and nectar thick liquids. No aspiration with pudding or crackers with paste. 2. Mild esophageal dysmotility. 3. Full recommendations by speech pathology to follow. Electronically signed by: Javier Albrecht M.D. 06/05/2019 4:03 PM
--- NOTE | 2019-06-05 17:38 | Pulmonary Consultation ---
Date of Consultation June 05, 2019 Assessment & Plan (1) Pneumonia: Likely aspiration pneumonia given that the patient videofluoroscopy shows tracheal aspiration. Along with mild esophageal dysmotility. Continue with antibiotics. Mucolytic. Follow-up sputum culture. Will need repeat CT chest without contrast in 6-8 weeks to look for resolution of bilateral lower lobe consolidation. Subcarinal lymphadenopathy is likely secondary to infectious in etiology along with history of CHF which can give enlarged lymph node too. Patient is very high risk for any bronchoscopy procedure given low ejection fraction, chronic hypoxia and A. fib while on anticoagulation. (2) COPD exacerbation: With exacerbation likely secondary to pneumonia and aspiration Continue with antibiotics follow-up septic work-up Continue with Laba/ICS and Lama inhaler Patient follows up with Dr. Cochran. (3) Atrial fibrillation: (4) Ischemic cardiomyopathy: (5) CKD (chronic kidney disease), stage III: (6) Chronic respiratory failure with hypoxia: Continue with oxygen supplementation as needed. Keep O2 saturation bet ween 88 to 92% BiPAP nightly and as needed shortness of breath (7) CAYETANO on CPAP: Continue with CPAP nightly BiPAP nightly and as needed shortness of breath History of Present Illness Attending Physician: Yoandy Lord MD History of Present Illness 78-year-old pleasant female with past medical history of COPD on home oxygen, A. fib on apixaban, systolic CHF ejection fraction 20 to 25%, history of aspiration was admitted to the hospital because of worsening cough and shortness of breath. Patient states that she has been having this cough with yellowish phlegm going on since the last to 3 weeks. She has taken antibiotics total of 2 course given by the primary doctor. At the time of examination patient complains of mild right-sided chest pain which is reproducible on palpation likely costochondral. Denies any pleuritic chest pain. No dizziness, no headache, no nausea, no vomiting. No dysuria, no diarrhea. Patient does states that she has difficulty swallowing and has choking sensation when she swallows. She also coughs a lot when she eats. Social history: [id number] smoking history, quit greater than 30 years ago, no alcohol, no use of illicit drugs. Stays alone but has family visiting her. States that she has never been intubated in the past. Allergies Allergy/AdvReac Type Severity Reaction Status Date / Time No Known Allergies Allergy Verified 06/04/19 14:37 Home Medications Home Medications Medication Instructions Recorded Confirmed Type amiodarone 200 mg tablet 200 mg PO BID 05/03/19 06/04/19 History apixaban 5 mg tablet 5 mg PO BID tab 05/03/19 06/04/19 History aspirin 81 mg tablet,delayed 81 mg PO DAILY #30 tab 05/03/19 06/04/19 Rx release cholecalciferol (vitamin D3) 50,000 unit PO WK cap 05/03/19 06/04/19 History 50,000 unit capsule diltiazem 30 mg tablet 30 mg PO TID tab 05/03/19 06/04/19 History furosemide 40 mg tablet 40 mg PO DAILY tab 05/03/19 06/04/19 History levothyroxine 100 mcg tablet 100 mcg PO DAILYBB tab 05/03/19 06/04/19 History metformin 500 mg tablet 500 mg PO DAILY tab 05/03/19 06/04/19 History metoprolol succinate ER 100 mg 100 mg PO DAILY tab 05/03/19 06/04/19 History tablet,extended release 24 hr montelukast 10 mg tablet 10 mg PO DAILY #30 tab 05/03/19 06/04/19 History nebulizers #1 ea 05/03/19 06/04/19 Rx nitroglycerin 0.4 mg sublingual 0.4 mg SUBLINGUAL DIRECTED PRN 05/03/19 06/04/19 History tablet #1 tab polyethylene glycol 3350 17 17 g PO DAILY gm 05/03/19 06/04/19 History gram/dose oral powder rosuvastatin 10 mg sprinkle capsule 10 mg PO DAILY #30 cap 05/03/19 06/04/19 Rx sertraline 50 mg tablet 50 mg PO DAILY tab 05/03/19 06/04/19 History budesonide-formoterol HFA 160 2 puffs INHALATION BID #10.2 gm 05/17/19 06/04/19 Rx mcg-4.5 mcg/actuation aerosol inhaler tiotropium bromide 2.5 2 puffs INHALATION DAILY #4 gm 05/17/19 06/04/19 Rx mcg/actuation mist for inhalation docusate sodium 100 mg PO BID 06/04/19 06/04/19 History ferrous sulfate 325 mg PO DAILY 06/04/19 06/04/19 History fluticasone propionate 2 spray INTRANASAL DAILY 06/04/19 06/04/19 History gabapentin 200 mg PO HS 06/04/19 06/04/19 History levalbuterol HCl 1.25 mg INH Q4H PRN 06/04/19 06/04/19 History mometasone 1 applic TOPICAL BID 06/04/19 06/04/19 History omeprazole 20 mg PO DAILYBB 06/04/19 06/04/19 History temazepam 15 mg PO HS PRN 06/04/19 06/04/19 History Patient History Medical History Atrial fibrillation (Chronic) History of esophageal dilatation (Chronic) Pacemaker (Chronic) Chronic anticoagulation (Chronic) Esophageal stenosis (Chronic) Ischemic cardiomyopathy (Chronic) Dyslipidemia (Chronic) CKD (chronic kidney disease), stage III (Chronic) Interstitial lung disease (Chronic) COPD, moderate (Chronic) CAYETANO on CPAP (Chronic) CAD (coronary artery disease) (Chronic) s/p stent HTN (hypertension) (Chronic) HLD (hyperlipidemia) (Chronic) Diabetes mellitus, type II (Chronic) Pulmonary embolism (Resolved) Hypothyroidism (Chronic) Surgical History Hx of cholecystectomy (Chronic) H/O tubal ligation (Chronic) AICD (automatic cardioverter/defibrillator) present (Chronic) Family History Father Heart disorder Mother Heart disorder Social History Preferred Language: Serbian Communication Ability: Effective Beliefs That Will Affect Care: None Current Living Situation: Alone Current Living Situation Comment: has caregivers come to home Other Information That Helps Us Care for You: No Feels Safe at Home: Yes Safety Concerns: Feels Safe At This Time Smoking Status: Former smoker Hx Alcohol Use: No Hx Substance Use: No Review of Systems Review of Systems: All systems reviewed & are unremarkable except as noted in HPI & below Physical Exam Physical Exam: Constitutional: No acute distress, actively coughing at the time of examination HEENT: EOMI, PERRLA Respiratory system: Decreased air entry bilaterally, no wheeze, no rhonchi, positive bilateral lower lobe crackles CVS: S1-S2 positive, no gallops, 2 out of 6 murmur appreciated at the aorta, accentuated P2 Abdomen: Soft, nontender, nondistended, positive bowel sounds x4 Extremities: +2 pulses bilaterally radialis/ dorsalis pedis, no edema, no cyanosis Neuro: Awake alert oriented x3 Psych: Normal mood and affect Lymphatic: no cervical or axillary lymphadenopathy Results & Data Vital Signs (Past 12 Hours) Vital Signs Temp Pulse Resp BP Pulse Ox 06/05/19 15:00 36.6 C 63 18 96/55 L 96 06/05/19 09:33 64 18 96 06/05/19 07:20 36.9 C 57 L 20 144/79 H 96 Laboratory Results 06/05/19 05:46 06/05/19 05:46 Diagnostic Findings CTA chest reviewed: Bilateral lower lobe consolidation. Minimally enlarged subcarinal lymph node. No pulmonary emboli appreciated CT ANGIOGRAM OF THE CHEST CLINICAL HISTORY: Atypical chest pain. COMPARISON STUDY: Chest CT scans dated 04/20/2017 and 09/19/2018. Chest x-ray dated 06/04/2019. TECHNIQUE: Following the IV administration of 97 cc of Optiray 320, CT angiogram of the chest was performed from the upper abdomen to the thoracic inlet utilizing the pulmonary embolus protocol. Images are reviewed in the axial, sagittal, and coronal planes. 3-D MIPS images are created and assessed. IV contrast was administered without complication. A dose lowering technique was utilized adhering to the principles of ALARA. The examination is degraded by motion artifact. CT DOSE: 735.70 mGy.cm FINDINGS: Thyroid: Imaged portions of the thyroid gland are normal in size and attenuation. Thoracic aorta: There is atherosclerotic calcification of the thoracic aorta, which is normal in caliber and demonstrates bovine variant arch anatomy. No dissection is seen. Pulmonary vasculature: The main pulmonary arteries are dilated suggesting pulmonary artery hypertension. There are no filling defects identified in main, lobar, or segmental pulmonary branches to suggest pulmonary embolus. Heart: An AICD is present in the left chest wall. The heart is markedly enlarged and there is a small pericardial effusion. The coronary arteries are densely calcified. Lungs and pleural spaces: Evaluation of the lung parenchyma is degraded by motion artifact. The trachea and central airways appear clear. Emphysematous change is again noted. There is dependent bibasilar airspace consolidation, right greater than left. Additional foci of scarring/atelectasis are present at both lung bases. Trace pleural effusions are noted. Mediastinum: An enlarged subcarinal node measures up to 2.7 cm in short axis. Roxann: Mildly enlarged left hilar nodes measure up to 1.6 cm in short axis. Axillae: There is no axillary lymphadenopathy. Upper abdomen: The 7 cm cyst in the posterior right lobe of the liver is unchanged. An additional 2.8 cm right lobe cyst is noted. There is a small hiatal hernia. Nodular thickening of the left adrenal gland is similar to previous. Skeletal structures: The skeletal structures are osteopenic. The skeletal structures are osteopenic. 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 No lytic or blastic bony lesions are seen. An intrathecal catheter lead is again seen in the central canal of the lower thoracic spine. IMPRESSION: 1. There is no evidence of pulmonary embolus in the main, lobar, or segmental pulmonary arteries. 2. Cardiomegaly and emphysema. 3. There is dependent bibasilar airspace consolidation, right greater than left. Correlate clinically for evidence of pneumonia/aspiration pneumonitis. Radiographic follow-up to resolution is recommended. 4. There are trace pleural effusions. 5. Mildly enlarged mediastinal and hilar nodes are nonspecific and likely on a reactive basis. 6. Additional findings as above. MODIFIED BARIUM SWALLOW CLINICAL HISTORY: r/o aspiration COMPARISON STUDY: Modified barium swallow April 21, 2017 FLUOROSCOPY TIME: 1.9 minutes. TECHNIQUE: A modified barium swallow was performed in conjunction with Speech Pathology. The patient ingested varying consistencies of barium containing material. Video fluoroscopy was performed. FINDINGS: Several episodes of tracheal aspiration were noted with thin liquids and nectar thick liquids. No aspiration was identified with thin liquids with chin tuck. There is no aspiration with pudding or crackers with paste. Mild esophageal dysmotility was noted. IMPRESSION: 1. Several episodes of tracheal aspiration with thin liquids and nectar thick liquids. No aspiration with pudding or crackers with paste. 2. Mild esophageal dysmotility. 3. Full recommendations by speech pathology to follow. PG Care Time/CCT Total # of Minutes Spent Total Time Spent with Patient: Total time spent is greater than 50% in coordination of care (as documented) at patient's floor/unit and/or counseling patient:
[2019-06-05] MEDS: GABAPENTIN 100 MG CAP PO SCH (20:42)
[2019-06-05] MEDS: MONTELUKAST SODIUM 10 MG TABLET PO SCH (20:45)
[2019-06-05] MEDS ORDERED: GUAIFENESIN/DEXTROM SYRUP 200MG/20MG 10ML UDC PO PRN (21:19)
[2019-06-06] MEDS: IPRATROPIUM BROMIDE NEB SOLN 0.02% 2.5 ML VIAL INH SCH ×3 (01:18→13:33)
[2019-06-06] MEDS: LEVALBUTEROL HCL 0.63 MG/3 ML NEB NEB SCH ×3 (01:18→13:33)
[2019-06-06] MEDS: LEVOTHYROXINE SODIUM 100 MCG TABLET PO SCH (06:06)
[2019-06-06] MEDS: PIPERACILLIN/TAZOBACTAM 4.5 GM in DEXTROSE 5% 100 ML IV SCH (07:57)
[2019-06-06] MEDS: dilTIAZem HCL 30 MG TAB PO SCH ×2 (08:01→13:30)
[2019-06-06] MEDS: AMIODARONE 200 MG TAB PO SCH (08:01)
[2019-06-06] MEDS: APIXABAN 5 MG TABLET PO SCH (08:01)
[2019-06-06] MEDS: FUROSEMIDE 40 MG TAB PO SCH (08:01)
[2019-06-06] MEDS: DOCUSATE SODIUM 100 MG CAP PO SCH (08:01)
[2019-06-06] MEDS: ASPIRIN 81 MG ECTAB PO SCH (08:01)
[2019-06-06] MEDS: ROSUVASTATIN CALCIUM 10 MG TAB PO SCH (08:01)
[2019-06-06] MEDS: PANTOprazole 40 MG TAB PO SCH (08:02)
[2019-06-06] MEDS: DOXYCYCLINE HYCLATE 100 MG CAP PO SCH (08:02)
[2019-06-06] MEDS: METOPROLOL SUCC 50MG EXT REL TAB PO SCH (08:02)
[2019-06-06] MEDS: BUDESONIDE/FORMOTEROL FUMARATE 160/4.5 60 PUFFS/INHALER INH SCH (08:02)
[2019-06-06] MEDS: SERTRALINE HCL 50 MG TABLET PO SCH (08:02)
[2019-06-06] MEDS: POLYETHYLENE (MIRALAX) 17 GM PACK PO SCH (08:02)
[2019-06-06] MEDS: INSULIN ASPART 100 UNITS/ML 3 ML PEN SC SCH ×2 (09:01→12:23)
--- NOTE | 2019-06-06 13:17 | Hospitalist Progress Note ---
Date of Service June 06, 2019 Assessment & Plan (1) Pneumonia: 78-year-old female with history of COPD, coronary artery disease, ischemic cardiomyopathy, atrial fibrillation status post pacemaker placement, diabetes, Presenting with shortness of breath and coughing times few days COPD EXACERBATION SECONDARY TO PNEUMONIA, COMMUNITY ACQUIRED, ASPIRATION COMPONENT Per admitting service notes: patient presenting from home with reports of cough and shortness of breath -was seen at [facility] ED last week and placed on prednisone and azithromycin - patient completed course and has not has improvement in symptoms -in the ED today, CTA chest shows bibasilar consolidations, suggestive of pne umonia, possible aspiration; patient with history of chronic aspiration/esophageal stricture in the past IV Zosyn, doxycycline, nebs Video swallow study performed: Positive for several episodes of tracheal aspiration with thin liquids and nectar thick liquids. No aspiration with pudding or crackers with paste Mild esophageal dysmotility Patient significantly improved, back to room air Cleared for discharge home by pulmonary Discharge plan: Augmentin 8 7 5 mg p.o. twice daily x5 days Doxycycline 100 mg p.o. twice daily x5 days Levalbuterol nebs 3 times daily Mucinex twice a day Speech therapist recommends regular diet with thin liquids, instructions given to patient CT chest in 6 to 8 weeks Follow-up with primary care physician on , June 08, 2019 at 9:05 AM Follow-up with pulmonary clinic in 2 weeks CAD No chest pain, continue aspirin, metoprolol ISCHEMIC CARDIOMYOPATHY Ejection fraction 25% Continue Lasix, metoprolol ATRIAL FIBRILLATION, STATUS POST PACEMAKER PLACEMENT Continue amiodarone and diltiazem, apixaban DIABETES TYPE 2 Continue insulin sliding scale DVT prophylaxis on Pradaxa Disposition Discharge to home with home health services Follow-up with primary care physician June 08, [address] [facility] Subjective Follow-up for pneumonia Seen resting in bedside chair, comfortable, not in distress, on room air States that she feels much better overall Denies shortness of breath, cough has significantly improved, no sputum Denies chest pain No other symptoms States she is ready and would like to be discharged today Review of Systems Review of Systems: All systems reviewed & are unremarkable except as noted in HPI & below Physical Exam Physical Exam: General- oriented x 3, not in distress, speaks in sentences with no effort or accessory muscle use Eyes- anicteric Neck- no JVD Lungs- clear breath sounds bilaterally, no rales/wheezes Heart- normal rate, regular rhythm; no murmurs Abdomen- normal bowel sounds, nondistended, soft, nontender Extremities- no pretibial edema, no calf tenderness Neuro- alert, oriented x 3; no gross focal neurologic deficits Skin- warm & dry Results & Data Vital Signs (Past 12 Hours) Vital Signs Temp Pulse Pulse Resp BP BP Pulse Ox 06/06/19 11:27 107/68 06/06/19 10:59 36.4 C L 60 14 97/60 L 97 06/06/19 07:42 62 18 97 06/06/19 07:21 36.6 C 81 12 144/72 H 91 06/06/19 04:22 62 14 93 06/06/19 01:26 60 18 92 06/06/19 01:18 60 18 92 Laboratory Results Laboratory Results - last 24 hr 06/05/19 06/05/19 06/06/19 17:09 20:24 07:51 POC Glucose 100 H 89 94 06/06/19 11:20 POC Glucose 120 H
[2019-06-06] MEDS: FERROUS SULFATE 325 MG TAB PO SCH (13:30)
--- NOTE | 2019-06-06 13:41 | Discharge Summary ---
Date of Service June 06, 2019 Admission HPI Per Admitting Provider 78-year-old female who presents to the ED with cough and shortness of breath. At the end of April, patient was placed on Augmentin for suspected COPD exacerbation secondary to aspiration. Then on 05/24, patient was placed on Keflex for suspected otitis externa. She was then seen at [facility] ED on 05/30 and diagnosed with pneumonia per her report. Patient was placed on a 5-day course of prednisone and azithromycin. Patient reports no improvement in her symptoms since that time. She reports worsening cough that is productive for yellow sputum. Worsening shortness of breath as well. She has oxygen that she typically wears with her CPAP at night however has been wearing it during the day as well. She reports some right sided rib pain that is sharp and occurs with coughing and deep breath. She denies chest pain. Has some mild lightheadedness and dizziness but denies any syncopal events. No abdominal pain, nausea, vomiting, diarrhea. She reports history of an esophageal stricture that has been dilated however denies any choking episodes or difficulty swallowing. She reports she had a low-grade fever when she was seen at [facility]'s ED however has not taken her temperature since arriving home. She denies any urinary symptoms. In the ED, CT chest shows bibasilar consolidations. She is saturating well on 4 days of oxygen via nasal cannula. She is hemodynamically stable. Labs show WBC 14 K, otherwise unremarkable. Admission Exam Per Admitting Provider Constitutional: WD/WN, vitals as above Eyes: PERRL, conjunctivae normal, anicteric sclerae ENMT: external ear and nose normal, oropharynx normal Respiratory: normal respiratory effort and able to speak in complete sentences; no respiratory distress Auscultation: + diminished lung sounds and + rhonchi (BL, scattered) Cardiovascular: Rate/Rhythm: regular rate and regular rhythm Vessels: normal peripheral pulses Extremities: no edema Gastrointestinal (Abdomen): normal bowel sounds, soft, nontender, no hepatosplenomegaly Musculoskeletal: no cyanosis or clubbing, extremities motor strength 5/5 Skin: no rashes, warm and dry Neurologic: PERRL, EOMI, accommodation nl, no face palsy, no dysarthria Psychiatric: A+Ox3, euthymic affect Principal Diagnosis Pneumonia, community-acquired, aspiration component Discharge Exam General- oriented x 3, not in distress, speaks in sentences with no effort or accessory muscle use Eyes- anicteric Neck- no JVD Lungs- clear breath sounds bilaterally, no rales/wheezes Heart- normal rate, regular rhythm; no murmurs Abdomen- normal bowel sounds, nondistended, soft, nontender Extremities- no pretibial edema, no calf tenderness Neuro- alert, oriented x 3; no gross focal neurologic deficits Skin- warm & dry Discharge Data Allergies Allergy/AdvReac Type Severity Reaction Status Date / Time No Known Allergies Allergy Verified 06/04/19 14:37 Consultations 06/04/19 16:56 ED Decision to Admit Stat 06/04/19 18:26 Consult Case Management - Discharge Planning Routine 06/05/19 09:24 Consult Pulmonology Routine Ordered Studies 06/04/19 15:13 CT angio chest PE protocol Stat CT ANGIOGRAM OF THE CHEST CLINICAL HISTORY: Atypical chest pain. COMPARISON STUDY: Chest CT scans dated 04/20/2017 and 09/19/2018. Chest x-ray dated 06/04/2019. TECHNIQUE: Following the IV administration of 97 cc of Optiray 320, CT angiogram of the chest was performed from the upper abdomen to the thoracic inlet utilizing the pulmonary embolus protocol. Images are reviewed in the axial, sagittal, and coronal planes. 3-D MIPS images are created and assessed. IV contrast was administered without complication. A dose lowering technique was utilized adhering to the principles of ALARA. The examination is degraded by motion artifact. CT DOSE: 735.70 mGy.cm FINDINGS: Thyroid: Imaged portions of the thyroid gland are normal in size and attenuation. Thoracic aorta: There is atherosclerotic calcification of the thoracic aorta, which is normal in caliber and demonstrates bovine variant arch anatomy. No dissection is seen. Pulmonary vasculature: The main pulmonary arteries are dilated suggesting pulmonary artery hypertension. There are no filling defects identified in main, lobar, or segmental pulmonary branches to suggest pulmonary embolus. Heart: An AICD is present in the left chest wall. The heart is markedly enlarged and there is a small pericardial effusion. The coronary arteries are densely calcified. Lungs and pleural spaces: Evaluation of the lung parenchyma is degraded by motion artifact. The trachea and central airways appear clear. Emphysematous change is again noted. There is dependent bibasilar airspace consolidation, right greater than left. Additional foci of scarring/atelectasis are present at both lung bases. Trace pleural effusions are noted. Mediastinum: An enlarged subcarinal node measures up to 2.7 cm in short axis. Roxann: Mildly enlarged left hilar nodes measure up to 1.6 cm in short axis. Axillae: There is no axillary lymphadenopathy. Upper abdomen: The 7 cm cyst in the posterior right lobe of the liver is unchanged. An additional 2.8 cm right lobe cyst is noted. There is a small hiatal hernia. Nodular thickening of the left adrenal gland is similar to previous. Skeletal structures: The skeletal structures are osteopenic. The skeletal structures are osteopenic. 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 No lytic or blastic bony lesions are seen. An intrathecal catheter lead is again seen in the central canal of the lower thoracic spine. IMPRESSION: 1. There is no evidence of pulmonary embolus in the main, lobar, or segmental pulmonary arteries. 2. Cardiomegaly and emphysema. 3. There is dependent bibasilar airspace consolidation, right greater than left. Correlate clinically for evidence of pneumonia/aspiration pneumonitis. Radiographic follow-up to resolution is recommended. 4. There are trace pleural effusions. 5. Mildly enlarged mediastinal and hilar nodes are nonspecific and likely on a reactive basis. 6. Additional findings as above. 06/05/19 13:30 FL video swallow Routine Hospital Course (1) Pneumonia: 78-year-old female with history of COPD, coronary artery disease, ischemic cardiomyopathy, atrial fibrillation status post pacemaker placement, diabetes, Presenting with shortness of breath and coughing times few days COPD EXACERBATION SECONDARY TO PNEUMONIA, COMMUNITY ACQUIRED, ASPIRATION COMPONENT Per admitting service notes: patient presenting from home with reports of cough and shortness of breath -was seen at [facility] ED last week and placed on prednisone and azithromycin - patient completed course and has not has improvement in symptoms -in the ED today, CTA chest shows bibasilar consolidations, suggestive of pneumonia, possible aspiration; patient with history of chronic aspiration/esophageal stricture in the past IV Zosyn, doxycycline, nebs Pulmonary service consulted Video swallow study performed: Positive for several episodes of tracheal aspiration with thin liquids and nectar thick liquids. No aspiration with pudding or crackers with paste Mild esophageal dysmotility Patient significantly improved, back to room air Cleared for discharge home by pulmonary Discharge plan: Augmentin 8 7 5 mg p.o. twice daily x5 days Doxycycline 100 mg p.o. twice daily x5 days Levalbuterol nebs 3 times daily Mucinex twice a day Speech therapist recommends regular diet with thin liquids, instructions given to patient CT chest in 6 to 8 weeks Follow-up with primary care physician on , June 08, 2019 at 9:05 AM Follow-up with pulmonary clinic in 2 weeks CAD No chest pain, continue aspirin, metoprolol ISCHEMIC CARDIOMYOPATHY Ejection fraction 25% Continue Lasix, metoprolol ATRIAL FIBRILLATION, STATUS POST PACEMAKER PLACEMENT Continue amiodarone and diltiazem, apixaban DIABETES TYPE 2 Resume metformin Disposition Discharge to home with home health services Follow-up with primary care physician June 08, 2019 [facility] Total Time Total Time Spent Total Time Spent (In Minutes): 50 minutes Discharge Plan Discharge Items Reason For Visit: PNEUMONIA Discharge Diagnosis: Pneumonia Activity: As commented below Activity Comment: No heavy exertion Lifting: Wait until after follow-up appointment Exercise/Sports: Wait until after follow-up appointment Non-emergency contact: Primary Care Provider Call non-emergency contact if: you have any medication questions, your symptoms worsen, your pain is not controlled, your pain is worsening, your pain is unusual for you, your pain is concerning for you and you have a fever Follow-up/Referrals: Elena Ledesma, [Primary Care Provider] - 06/08/19 9:05 am Diet: Carb Consistent or DM2 and Heart Healthy Addtl Attending Provider Instructions: Your new medications for pneumonia are: Augmentin 875 mg twice a day for 5 days Doxycycline 100 mg twice a day for 5 days Levalbuterol nebulized treatments Robitussin as needed Take a probiotic daily times at least 1 month. Resume metformin tomorrow June 07, 2019. You will need a repeat CAT scan of the chest in 6 to 8 weeks. Your primary care provider or lung specialist can arrange to schedule for this procedure. Follow-up with Dr. Ledesma on June at 9:05 AM. [facility] in 2 weeks. Pending Studies at Discharge: No Stand-Alone Forms: Call Back Authorization, My [facility] Medications and [place] Order Prescriptions: New doxycycline hyclate 100 mg Capsule 100 mg PO BID 5 Days Qty: 10 RF: 0 tramadol 50 mg Tablet 50 mg PO Q6H PRN (Reason: pain) 7 Days Qty: 10 RF: 0 Robitussin Cough-Chest Cristian DM 5-100 mg/5 mL Liquid 10 ml PO Q6H PRN (Reason: cough) 5 Days Qty: 118 RF: 0 amoxicillin-pot clavulanate [Augmentin] 875-125 mg tablet 1 tab PO Q12H 5 Days Qty: 10 RF: 0 Continued cholecalciferol (vitamin D3) 50,000 unit capsule 50,000 unit PO WK RF: 0 sertraline 50 mg tablet 50 mg PO DAILY RF: 0 polyethylene glycol 3350 17 gram/dose powder 17 g PO DAILY RF: 0 Eliquis 5 mg tablet 5 mg PO BID RF: 0 diltiazem HCl 30 mg tablet 30 mg PO TID RF: 0 furosemide 40 mg tablet 40 mg PO DAILY RF: 0 nitroglycerin 0.4 mg tablet, sublingual 0.4 mg sublingual DIRECTED PRN (Reason: Chest Pain) Qty: 1 RF: 0 levothyroxine 100 mcg tablet 100 mcg PO DAILYBB RF: 0 metoprolol succinate 100 mg tablet extended release 24 hr 100 mg PO DAILY RF: 0 montelukast 10 mg tablet 10 mg PO DAILY Qty: 30 RF: 0 [place]bulizers [facility] [id number] .MEDSUPPLY Qty: 1 RF: 0 amiodarone 200 mg tablet 200 mg PO BID RF: 0 aspirin [Adult Low Dose Aspirin] 81 mg tablet,delayed release (DR/EC) 81 mg PO DAILY Qty: 30 RF: 2 rosuvastatin 10 mg capsule, sprinkle 10 mg PO DAILY Qty: 30 RF: 0 budesonide-formoterol 160-4.5 mcg/actuation HFA aerosol inhaler 2 puffs inhalation BID Qty: 10.2 RF: 5 tiotropium bromide 2.5 mcg/actuation mist 2 puffs inhalation DAILY Qty: 4 RF: 5 temazepam 15 mg capsule 15 mg PO HS PRN (Reason: Sleep) RF: 0 ferrous sulfate 325 mg (65 mg iron) Tablet 325 mg PO DAILY RF: 0 docusate sodium 100 mg Capsule 100 mg PO BID RF: 0 omeprazole 20 mg capsule,delayed release(DR/EC) 20 mg PO DAILYBB RF: 0 gabapentin 100 mg Capsule 200 mg PO HS RF: 0 fluticasone propionate 50 mcg/actuation [place],Suspension 2 spray INTRANASAL DAILY RF: 0 mometasone 0.1 % cream 1 applic topical BID RF: 0 metformin 500 mg tablet 500 mg PO DAILY Qty: 0 RF: 0 Changed levalbuterol HCl 1.25 mg/3 mL solution for nebulization 1.25 mg INH TID 7 Days Qty: 0 RF: 0 Admission Data Admit Date/Time: 06/04/19 17:31 Attending Provider: Yoandy Lord Admit Provider: Gm Rico Primary Care Provider: Elena Ledesma Other Providers: Gm Rico ; Luis Pacheco
--- NOTE | 2019-06-06 15:09 | Pulmonology Progress Note ---
Date of Service June 06, 2019 Assessment & Plan (1) Pneumonia: Likely aspiration pneumonia given that the patient videofluoroscopy shows tracheal aspiration. Along with mild esophageal dysmotility. Continue with antibiotics. Mucolytic. Follow-up sputum culture. Will need repeat CT chest without contrast in 6-8 weeks to look for resolution of bilateral lower lobe consolidation. Subcarinal lymphadenopathy is likely secondary to infectious in etiology along with history of CHF which can give enlarged lymph node too. Patient is very high risk for any bronchoscopic procedure given low ejection fraction, chronic hypoxia and A. fib while on anticoagulation. This was explained to the patient. Patient understands and agrees with the plan. Complete the course of antibiotics. (2) COPD exacerbation: With exacerbation likely secondary to pneumonia and aspiration Continue with antibiotics follow-up septic work-up Continue with Laba/ICS and Lama inhaler Patient follows up with Dr. Cochran. (3) Atrial fibrillation: (4) Ischemic cardiomyopathy: (5) CKD (chronic kidney disease), stage III: (6) Chronic respiratory failure with hypoxia: Continue with oxygen supplementation as needed. Keep O2 saturation between 88 to 92% BiPAP nightly and as needed shortness of breath (7) CA[place]ETANO on CPAP: Continue with CPAP nightly BiPAP nightly and as needed shortness of breath Subjective Patient seen and examined at bedside. No acute distress, no adverse events overnight. Patient feeling better. Shortness of breath improved. No cough, chest pain resolved. Denies any nausea or vomiting. Appetite good. Review of Systems Review of Systems: All systems reviewed & are unremarkable except as noted in HPI & below Physical Exam Physical Exam: Constitutional: No acute distress HEENT: EOMI, PERRLA Respiratory system: Good air entry bilaterally, positive bilateral lower lobe minimal crackles, no wheeze, no rhonchi CVS: S1-S2 positive, no murmurs or gallops Abdomen: Soft, nontender, nondistended, positive bowel sounds x4 Extremities: +2 pulses bilaterally radialis/ dorsalis pedis, +1 edema, no cyanosis Neuro: Awake alert oriented x3 Psych: Normal mood and affect Lymphatic: no cervical or axillary lymphadenopathy Results & Data Vital Signs (Past 12 Hours) Vital Signs Temp Pulse Pulse Pulse Resp BP BP 06/06/19 13:54 36.4 C L 60 76 14 107/68 06/06/19 11:27 107/68 06/06/19 10:59 36.4 C L 60 14 97/60 L 06/06/19 07:42 62 18 06/06/19 07:21 36.6 C 81 12 144/72 H 06/06/19 04:22 62 14 Pulse Ox 06/06/19 13:54 97 06/06/19 11:27 06/06/19 10:59 97 06/06/19 07:42 97 06/06/19 07:21 91 06/06/19 04:22 93 Laboratory Results 06/05/19 05:46 06/05/19 05:46 PG Care Time/CCT Total # of Minutes Spent Total Time Spent with Patient: Total time spent is greater than 50% in coordination of care (as documented) at patient's floor/unit and/or counseling patient:
== END 2019-06-06 16:05 | disposition home health service (06) | DRG 178 ==
LOC: ED 12:22 → SUATTDRO 17:31 → 4W 17:31

== ENCOUNTER 2019-12-18 01:59 | Inpatient (IN) ==
[2019-12-18] MEDS ORDERED: NITROGLYCERIN SL 0.4 MG/TAB TAB SL STA (05:03)
[2019-12-18] MEDS ORDERED: MoRPHine SULFATE 4 MG/ML 1 ML CARP\\VIAL IV PRN (05:04)
[2019-12-18] MEDS ORDERED: PROMETHAZINE HCL 12.5 MG in SODIUM CHLORIDE 0.9% 50 ML IV PRN (05:04)
[2019-12-18] MEDS ORDERED: ACETAMINOPHEN 325 MG TAB PO PRN (05:05)
[2019-12-18] MEDS ORDERED: NITROGLYCERIN SL 0.4 MG/TAB TAB SL PRN (05:05)
[2019-12-18] MEDS ORDERED: AMPICILLIN/SULBACTAM SOD 3,000 MG in 0.9 % SODIUM CHLORIDE 100 ML IV STA (05:22)
[2019-12-18] MEDS ORDERED: METOPROLOL TARTRATE 1 MG/ML VIAL IV STA (05:47)
[2019-12-18] MEDS ORDERED: XOPENEX/ATROVENT 1.25mg/0.5MG NEB COMBO NEB PRN (05:49)
[2019-12-18] MEDS ORDERED: ALBUT/IPRATROP 3MG/0.5MG NEB 3 ML VIAL NEB STA (05:49)
[2019-12-18] MEDS ORDERED: CARBOHYDRATES FOR HYPOGLYCEMIA PO PRN (05:50)
[2019-12-18] MEDS ORDERED: GLUCAGON FOR INJ 1 MG VIAL SQ PRN (05:50)
[2019-12-18] MEDS ORDERED: GLUCOSE 40% GEL 15 GM TUBE PO PRN (05:50)
[2019-12-18] MEDS ORDERED: GLUCOSE 10 TABS/TUBE PO PRN (05:50)
[2019-12-18] MEDS ORDERED: DEXTROSE 50% 50 ML SYRINGE IV PRN (05:50)
[2019-12-18] MEDS ORDERED: HYDROmorphone INJ 0.5 MG/0.5 ML SYR IV PRN (05:51)
[2019-12-18] MEDS ORDERED: TRAMADOL HCL 50 MG TABLET PO PRN (05:51)
--- NOTE | 2019-12-18 05:51 | History & Physical Report ---
Date of Service December 18, 2019 Assessment & Plan (1) Acute hypoxemic respiratory failure: hx chronic respiratory failure secondary to COPD/ILD on home O2 at night as per patient, Secondary to aspiration pneumonia Known history esophageal dysmotility No sepsis for now. chronic systolic heart failure secondary to ischemic cardiomyopathy (EF 20%, TTE 2017), some congestion on imaging done at [facility] yesterday. CAD status post stent/PVD as per records A. fib status post PPM status post Watchman procedure, paced rhythm on EKG hypertension, slightly elevated secondary discomfort and missed medications. Hyperlipidemia on statin Rx, past history PE DVT as per records chronic anemia, hemoglobin better than baseline DM2 on oral medications, well-controlled as of recent outpatient hemoglobin A1c of 5.15 July 2019 past tobacco abuse Medical telemetry Supplemental O2 Baseline ABG Unasyn, nebs May benefit from steroid Rx for possible COPD/ILD exacerbation if shortness of breath not relieved by neb treatment Analgesia facilitate home BP meds (may require IV beta-meghna if oral beta-meghna cannot be safely administered for now) GI consult RE esophageal dysmotility causing partial food particle impaction/recurrent pneumonia (Patient directed to [facility] by Dr. Duvall). Aspiration precautions, swallow eval Hold Plavix for now in anticipation of procedure, needs resumption as soon as able given hx Watchman procedure. Resume home diuretics once patient diet advanced. ISS BG goal [id number], update hemoglobin A1c DVT prophylaxis. Heparin subcu Full code Text document was generated using [employer] voice recognition software. It may contain grammatical or spelling errors. Kindly contact undersigned for clarification of any documentation item in question. Admission and Anticipated Discharge Date Admission Date: December 18, 2019 History of Present Illness Chief Complaint: Cough, swallowing problems Primary Care Provider: Elena Ledesma DO History obtained from patient and records. Medical history significant for chronic systolic heart failure secondary to ischemic cardiomyopathy (EF 20%, TTE 2017), CAD status post stent, A. fib status post PPM status post Watchman procedure, PVD as per records, hypertension, h yperlipidemia, chronic respiratory failure secondary to COPD/ILD/CAYETANO on home O2 at night as per patient, history PE DVT as per records, chronic anemia (baseline hemoglobin 11), DM2 on oral medications, history esophageal dysmotility as per records, mood disorder, past tobacco abuse. Recent confinement [facility] last September 2023 for pneumonitis. Abnormal LFTs noted attributed to amiodarone. Amiodarone stopped on discharge. 2 nights ago patient noted cough symptoms noted after dinner. Cough symptoms later noted to be yellow with pleuritic chest discomfort and shortness of breath. Trouble swallowing saliva. Subsequent emesis resulted in partial improvement of swallowing symptoms. Denies headache, abdominal pain, constipation/diarrhea symptoms, flulike symptoms. No known recent sick contacts/travel. Patient evaluated at [facility] yesterday. O2 sats 80s at the lowest at ER as per report. CT soft tissue neck, chest results as follows : Prominent anterior cervical bridging osteophytic spurring at C5-C6 and to lesser degree C6-C7 impinging on posterior margin of cervical esophagus. Debris and fluid within the mid to lower cervical esophagus and upper thoracic esophagus. Distal esophageal obstruction versus breast by esophagus versus achalasia. Cardiomegaly. Borderline venous congestion/chronic interstitial prominence. Patchy opacity of the right lung base with increased density seen posteriorly on lateral view suggesting developing right lower lobe infiltrate, subsegmental atelectasis, alveolar edema. Patient transferred to [facility] on recommendations of Moon Thompson GI specialist infection prevention coordinator for GI services. Upon arrival at [facility] med telemetry unit, patient complaining of substernal discomfort going to the neck not relieved by nitro. Persistent symptoms, swallowing better but not entirely back to her baseline as per patient, Medical History as above EGD 2019 esophageal dysmotility Surgical History : ICD/PPM, BTL, cholecystectomy Family History : Heart disease Personal/Social history : Past tobacco abuse, no EtOH abuse, retired waiter/waitress bar Allergies Allergy/AdvReac Type Severity Reaction Status Date / Time No Known Allergies Allergy Verified 12/18/19 05:34 Home Medications Home Medications Medication Instructions Recorded Confirmed Type aspirin 81 mg tablet,delayed 81 mg PO DAILY #30 tab 05/03/19 12/18/19 Rx release cholecalciferol (vitamin D3) 1,250 50,000 unit PO WK cap 05/03/19 12/18/19 History mcg (50,000 unit) capsule diltiazem HCl 30 mg tablet 30 mg PO TID tab 05/03/19 12/18/19 History furosemide 40 mg tablet 40 mg PO DAILY tab 05/03/19 12/18/19 History levothyroxine 100 mcg tablet 100 mcg PO DAILYBB tab 05/03/19 12/18/19 History metoprolol succinate 100 mg 100 mg PO DAILY tab 05/03/19 12/18/19 History tablet,extended release 24 hr nebulizers #1 ea 05/03/19 09/20/19 Rx nitroglycerin 0.4 mg sublingual 0.4 mg SUBLINGUAL DIRECTED PRN 05/03/19 12/18/19 History tablet #1 tab polyethylene glycol 3350 17 17 g PO DAILY gm 05/03/19 12/18/19 History gram/dose oral powder rosuvastatin 10 mg sprinkle capsule 10 mg PO DAILY #30 cap 05/03/19 12/18/19 Rx sertraline 50 mg tablet 50 mg PO DAILY tab 05/03/19 12/18/19 History docusate sodium 100 mg PO BID 06/04/19 12/18/19 History ferrous sulfate 325 mg PO DAILY 06/04/19 12/18/19 History fluticasone propionate 2 spray INTRANASAL DAILY 06/04/19 12/18/19 History gabapentin 200 mg PO TID 06/04/19 12/18/19 History mometasone 1 applic TOPICAL DAILY PRN 06/04/19 12/18/19 History omeprazole 20 mg PO DAILYBB 06/04/19 12/18/19 History temazepam 15 mg PO HS PRN 06/04/19 12/18/19 History metformin 500 mg PO DAILY #0 tab 06/06/19 12/18/19 Rx budesonide-formoterol HFA 160 2 puffs INHALATION BID #10.2 gm 09/20/19 12/18/19 Rx mcg-4.5 mcg/actuation aerosol inhaler clopidogrel 75 mg tablet 75 mg PO DAILY 09/20/19 12/18/19 History tiotropium bromide 2.5 2 puffs INHALATION DAILY #4 gm 09/20/19 12/18/19 Rx mcg/actuation mist for inhalation nebulizer accessories #1 ea 11/08/19 Rx L.acidoph-B.long-L.plant-B.lac 1 cap PO DAILY 12/18/19 12/18/19 History [Probiotic Acidophilus Beads] latanoprost 1 drp OPB HS 12/18/19 12/18/19 History levalbuterol HCl 1.25 mg INH Q4H PRN 12/18/19 12/18/19 History montelukast 10 mg PO DAILY 12/18/19 12/18/19 History Past Med/Surg History Medical History (Updated 12/18/19 @ 06:21 by Sagar Yu MD) Atrial fibrillation (Chronic) CAD (coronary artery disease) (Chronic) s/p stent Chronic anticoagulation (Chronic) CKD (chronic kidney disease), stage III (Chronic) COPD, moderate (Chronic) Diabetes mellitus, type II (Chronic) Dyslipidemia (Chronic) Esophageal stenosis (Chronic) History of esophageal dilatation (Chronic) HLD (hyperlipidemia) (Chronic) HTN (hypertension) (Chronic) Hypothyroidism (Chronic) Interstitial lung disease (Chronic) Ischemic cardiomyopathy (Chronic) CAYETANO on CPAP (Chronic) Pacemaker (Chronic) Pulmonary embolism (Resolved) Surgical History AICD (automatic cardioverter/defibrillator) present (Chronic) H/O tubal ligation (Chronic) Hx of cholecystectomy (Chronic) Family History (Updated 06/04/19 @ 18:35 by MADELEINE Holt) Father Heart disorder Mother Heart disorder Social History Preferred Language: Persian Communication Ability: Effective Packing Shed Supervisor Required: No Beliefs That Will Affect Care: None Current Living Situation: Alone Current Living Situation Comment: has caregivers come to home Other Information That Helps Us Care for You: No Feels Safe at Home: Yes Safety Concerns: Feels Safe At This Time Smoking Status: Former smoker Tobacco Type: cigarettes ; Do You Dip or Chew Tobacco: No ; Second Hand Exposure: No ; Tobacco Cessation Education Requested by Patient: No Hx Alcohol Use: No Hx Substance Use: No Review of Systems Review of Systems: As per HPI, all 10 systems reviewed, all other ROS negative Physical Exam Physical Exam: GENERAL: Slightly uncomfortable, obese, no respiratory distress SKIN: Normal color, warm HEENT: Bespectacled, [place] palpebral conjunctivae, no ptosis, dry buccal mucosa, nasal cannula in place NECK : Supple, short neck, no tenderness CHEST : Decreased breath sounds, no tenderness HEART : Diminished S1-S2 , no obvious murmurs ABDOMEN: distention, nontender EXTREMITIES : Minimal LE swelling, no LE tenderness, no other conspicuous deformities noted NEUROLOGIC : Coherent, no facial asymmetry, no other gross focality Results & Data Results & Data ([facility]) Vital Signs (Past 12 Hours) Vital Signs Temp Pulse Resp BP Pulse Ox 12/18/19 05:14 37.2 C 77 20 166/85 H 92 Laboratory Results Laboratory Results WBC 12.96 K/uL (4.8-10.8) H 12/18/19 05:49 RBC 4.62 M/uL (4.2-5.4) 12/18/19 05:49 Hgb 12.4 g/dL (12.0-16.0) 12/18/19 05:49 Hct 38.0 % (37-47) 12/18/19 05:49 MCV 82.3 fL (80-100) 12/18/19 05:49 MCH 26.8 pg (25-34) 12/18/19 05:49 MCHC 32.6 g/dL (32-36) 12/18/19 05:49 RDW Std Deviation 50.1 fL (36.4-46.3) H 12/18/19 05:49 RDW Coeff of Olinda 16.6 % (11.5-14.5) H 12/18/19 05:49 Plt Count 210 K/uL (130-400) 12/18/19 05:49 MPV 9.7 fL (7.4-10.4) 12/18/19 05:49 Immature Gran % (Auto) 0.2 % 12/18/19 05:49 Neut % (Auto) 87.2 % 12/18/19 05:49 Lymph % (Auto) 5.7 % 12/18/19 05:49 [place] % (Auto) 6.1 % 12/18/19 05:49 Eos % (Auto) 0.4 % 12/18/19 05:49 Baso % (Auto) 0.4 % 12/18/19 05:49 Immature Gran # (Auto) 0.03 K/uL (0.00-0.02) H 12/18/19 05:49 Neut # (Auto) 11.30 K/uL (1.4-6.5) H 12/18/19 05:49 Lymph # (Auto) 0.74 K/uL (1.2-3.4) L 12/18/19 05:49 [place] # (Auto) 0.79 K/uL (0.11-0.59) H 12/18/19 05:49 Eos # (Auto) 0.05 K/uL (0-0.5) 12/18/19 05:49 Baso # (Auto) 0.05 K/uL (0-0.2) 12/18/19 05:49 APTT 29.1 Seconds (21.0-31.0) 12/18/19 05:49 PTT Ratio 1.0 12/18/19 05:49 Sodium 142 mmol/L (136-145) 12/18/19 05:49 Potassium 3.7 mmol/L (3.5-5.1) 12/18/19 05:49 Chloride 110 mmol/L (98-107) H 12/18/19 05:49 Carbon Dioxide 25 mmol/L (21-32) 12/18/19 05:49 Anion Gap 7.0 (3-11) 12/18/19 05:49 BUN 15 mg/dl (7-18) 12/18/19 05:49 Creatinine 1.00 mg/dl (0.6-1.2) 12/18/19 05:49 Est Cr Clr Drug Dosing 53.8 ml/min 12/18/19 05:49 Est GFR ( Amer) 61.2 12/18/19 05:49 Est GFR (Non-Af Amer) 52.8 12/18/19 05:49 BUN/Creatinine Ratio 15.0 (10-20) 12/18/19 05:49 Glucose 145 mg/dl (70-99) H 12/18/19 05:49 Lactate 0.8 mmol/L (0.4-2.0) 12/18/19 05:59 Calcium 9.3 mg/dl (8.5-10.1) 12/18/19 05:49 Magnesium 2.4 mg/dl (1.8-2.4) 12/18/19 05:49 Troponin I < 0.015 ng/ml (0-0.045) 12/18/19 05:49 TSH 0.678 uIu/ml (0.300-4.500) 12/18/19 05:49 Diagnostic Findings [facility] (12/17/19) CT imaging results as per [facility] EKG as per my interpretation rate 75, paced rhythm
[2019-12-18] MEDS ORDERED: LEVALBUTEROL 1.25MG/0.5ML NEB INH PRN (06:00)
[2019-12-18] MEDS ORDERED: IPRATROPIUM BROMIDE NEB SOLN 0.02% 2.5 ML VIAL INH PRN (06:00)
[2019-12-18] MEDS ORDERED: AMPICILLIN/SULBACTAM CONSULT ACTIVE PRN (06:05)
[2019-12-18] MEDS ORDERED: PATIENT'S HEIGHT AND/OR WEIGHT NEEDED SCH (06:15)
[2019-12-18 06:24] LABS: Basophils # (auto) 0.05 K/uL (0-0.2); Basophils % (auto) 0.4 %; Eosinophils # (auto) 0.05 K/uL (0-0.5); Eosinophils % (auto) 0.4 %; Hemoglobin 12.4 g/dL (12.0-16.0); Immature Granulocytes # (auto) 0.03 K/uL (0.00-0.02); Immature Granulocytes % (auto) 0.2 %; Lymphocytes # (auto) 0.74 K/uL (1.2-3.4); Lymphocytes % (auto) 5.7 %; Mean Corpuscular Hemoglobin 26.8 pg (25-34); Mean Corpuscular Hgb Conc 32.6 g/dL (32-36); Mean Corpuscular Volume 82.3 fL (80-100); Mean Platelet Volume 9.7 fL (7.4-10.4); Monocytes # (auto) 0.79 K/uL (0.11-0.59); Monocytes % (auto) 6.1 %; Neutrophils % (auto) 87.2 %; Platelet Count 210 K/uL (130-400); RDW Coefficient of Variation 16.6 % (11.5-14.5); RDW Standard Deviation 50.1 fL (36.4-46.3); Red Blood Count 4.62 M/uL (4.2-5.4); White Blood Count 12.96 K/uL (4.8-10.8)
[2019-12-18 06:29] LABS: Blood Urea Nitrogen 15 mg/dl (7-18); Calcium 9.3 mg/dl (8.5-10.1); Carbon Dioxide 25 mmol/L (21-32); Chloride 110 mmol/L (98-107); Creatinine Clr Calc Pharmacy 53.8 ml/min; Est GFR (African American) 61.2; Est GFR (Non-African American) 52.8; Glucose 145 mg/dl (70-99); Magnesium 2.4 mg/dl (1.8-2.4); Potassium 3.7 mmol/L (3.5-5.1); Sodium 142 mmol/L (136-145)
[2019-12-18 06:32] LABS: Partial Thromboplastin Time 29.1 Seconds (21.0-31.0)
[2019-12-18 06:34] LABS: Troponin I < 0.015 ng/ml (0-0.045)
[2019-12-18] MEDS: LEVOTHYROXINE SODIUM 100 MCG TABLET PO SCH (06:49)
[2019-12-18] MEDS: PANTOprazole 40 MG TAB PO SCH (06:49)
[2019-12-18] MEDS: INSULIN ASPART 100 UNITS/ML 3 ML PEN SC SCH ×4 (07:06→20:31)
[2019-12-18] MEDS ORDERED: ACETAMINOPHEN 1,000 MG/100 ML VIAL IV STA (07:11)
[2019-12-18 07:43] LABS: Base Excess ABG 1.6 mEq/L (-9-1.8); HCO3 ABG 26 mmol/L (19-24); Oxygen Saturation ABG 90.4 % (90-95); PCO2 ABG 41 mmHg (35-46); PO2 ABG 59 mmHg (80-95); pH ABG 7.43 (7.35-7.45)
[2019-12-18 07:44] LABS: Allen Test Pos (Pos)
[2019-12-18] MEDS: FLUTICASONE PROPIONATE NA SPR 16 GM BTL SCH (08:33)
[2019-12-18] MEDS: FLUTICASONE/VILANTEROL 100/25MCG 14 PUFFS/INHALER INH SCH (08:33)
[2019-12-18] MEDS: ROSUVASTATIN CALCIUM 10 MG TAB PO SCH (08:33)
[2019-12-18] MEDS: FERROUS SULFATE 325 MG TAB PO SCH (08:34)
[2019-12-18] MEDS: METOPROLOL SUCC 50MG EXT REL TAB PO SCH (08:34)
[2019-12-18] MEDS: ASPIRIN 81 MG ECTAB PO SCH (08:34)
[2019-12-18] MEDS: GABAPENTIN 100 MG CAP PO SCH ×3 (08:34→20:24)
[2019-12-18] MEDS: SERTRALINE HCL 50 MG TABLET PO SCH (08:35)
[2019-12-18] MEDS: dilTIAZem HCL 30 MG TAB PO SCH ×3 (08:35→20:24)
[2019-12-18] MEDS: MONTELUKAST SODIUM 10 MG TABLET PO SCH (08:35)
[2019-12-18] MEDS: UMECLIDINIUM BROMIDE 62.5MCG/BLISTER 7 PUFFS/INHALER INH SCH (08:36)
[2019-12-18] MEDS: DOCUSATE SODIUM 100 MG CAP PO SCH ×2 (08:36→20:25)
[2019-12-18] MEDS: POLYETHYLENE (MIRALAX) 17 GM PACK PO SCH (08:37)
[2019-12-18] MEDS: INSULIN GLARGINE SOLOSTAR 100 UNITS/ML 3 ML PEN SC SCH (08:40)
[2019-12-18] MEDS: ENOXAPARIN INJ 30 MG/0.3 ML SYR SQ SCH (08:40)
[2019-12-18] MEDS ORDERED: [UNRECOGNIZED DRUG - OTHER] PO SCH (09:00)
--- NOTE | 2019-12-18 09:23 | Communication Note ---
Date of Service: December 18, 2019 Pt was seen and examined Lying in bed with no acute distress Pt said that she continues to have difficulty to swallow She said that she feels something stuck in her throat She said that when she drinks water, she regurgitates and cough out the water Denies any chest pain, palpitation, Dizziness Exam General- No acute distress Head- atraumatic Eyes- PERRL, EOMI, ENT- oropharynx clear Neck- supple, no JVD Lungs- coarse BS Heart- regular rhythm; no murmur Abdomen- normal bowel sounds, soft, nontender Extremities- no calf tenderness Neuro- alert, oriented x 3 Skin- warm & dry A/P Acute hypoxemic respiratory failure Possible related to aspiration pneumonia due to dysphagia CT neck and chest CT showed patchy bibasilar air space disease right greater than left. Small right pleural effusion. Dilated esophagus to the level of the gastroesophageal junction. Esophagus is filled with ingested food CXR showed patchy opacity of the right lung base Starting on IV Unasyn Continue oxygen supplement and neb treatment Continue inhaler with Breo and Incruse Blood cx pending Dysphagia CT showed esophagus filled with ingested food Last EGD done 08/2019 normal esophagus, stomach, duodenum. GI on board No plan to repeat EGD Speech therapy consult Aspiration precaution DVT px Lovenox CODE STATUS FULL CODE
--- NOTE | 2019-12-18 09:30 | Gastrointestinal Consultation ---
Date of Consultation December 18, 2019 Assessment & Plan (1) Acute hypoxemic respiratory failure: (2) Chronic obstructive pulmonary disease: (3) Dysphagia: Pt is a 79 y/o female currently admitted for acute hypoxemic respiratory failure, COPD. 2 days ago had chocking w dinner and when she was seen in [facility] ED, CT neck, chest showed signs of food debris in esophagus, lung infiltrates. She is currently able to swallow pills w sips of water, and managing her secretions well. No crepitus on soft tissue around neck. Less likely still having food bolus. She does have hx of aspirations, esophageal stenosis (s/p dilation in 2018), esophageal dysmotility causing dysphagia symptoms. Been evaluated by ST w video swallow in 05/2019 - recommended regular diet w thin liquids, chin tuck maneuver. Last EGD done 08/2019 normal esophagus, stomach, duodenum. - Defer repeat endoscopic eval - Will ask ST to re-teach pt on swallowing technique - Pneumonia management per primary team. Supervising Physician Co-Signing Physician Notes I performed a history and physical examination of the patient today, including specifically on physical exam - soft abdomen. I have discussed the patient's management with the advanced practitioner. Please refer to the nurse practitioner's note for the documented findings and plan of care. Likely has age related esophageal dysmotility/ oropharyngeal dysmotility given recent normal EGD hence would recommend speech and swallow eval and therapy. HRM as OP. Aspiration precautions. Recall as needed. History of Present Illness Reason for Consultation: Dysphagia Requesting Physician: Dr. Luz Soni Attending Physician: Dr. Cherri Temple History of Present Illness Pt is a 79 y/o female who is seen for dysphagia symptoms. PMhx significant for chronic systolic heart failure secondary to ischemic cardiomyopathy (EF 20%, TTE 2017), CAD status post stent, A. fib status post PPM status post Watchman procedure, PVD as per records, hypertension, hyperlipidemia, chronic respiratory failure secondary to COPD, CAYETANO on home O2 at night as per patient, history PE DVT as per records, chronic anemia (baseline hemoglobin 11), DM2 on oral medications, history esophageal dysmotility as per records, mood disorder, past tobacco abuse. 2 nights ago she was having dinner including turkey, ham, mashed potatoes and felt pain when swallowing, and having cough spells. While coughing, she regurgitated foods. She did also mention having mild nausea but no abd pain, changes in bowel habits. She felt after she regurgitated foods that there are still some food left in esophagus. She went to [facility] ER yesterday, noted to be hypoxemic and CT soft tissue neck, chest showed Prominent anterior cervical bridging osteophytic spurring at C5-C6 and to lesser degree C6-C7 impinging on posterior margin of cervical esophagus. Debris and fluid within the mid to lower cervical esophagus and upper thoracic esophagus. Distal esophageal obstruction versus breast by esophagus versus achalasia. There were also signs of cardiomegaly. Borderline venous congestion/chronic interstitial prominence. Patchy opacity of the right lung base with increased density seen posteriorly on lateral view suggesting developing right lower lobe infiltrate, subsegmental atelectasis, alveolar edema. She was transferred to [facility] for further eval. Pt had video swallow eval 05/2019 which showed aspiration w thin/nectar thick liquids. No aspiration w crackers or paste. ST recommended regular diet w thin liquids and chin tuck manuever when swallowing, aspiration precautions. She had hx of esophageal stenosis s/p dilation in 2018, gastric ulcer. Last EGD done 08/2019 showed normal esophagus w/o stricture, normal stomach and duodenum. PM and AM RNs reports pt swallowing pills well w sips of water w/o signs of coughing. On exam, no neck crepitus, no signs of drooling. Allergies Allergy/AdvReac Type Severity Reaction Status Date / Time amiodarone AdvReac Mild hepatotoxic Verified 12/18/19 07:12 ity Home Medications Home Medications Medication Instructions Recorded Confirmed Type aspirin 81 mg tablet,delayed 81 mg PO DAILY #30 tab 05/03/19 12/18/19 Rx release cholecalciferol (vitamin D3) 1,250 50,000 unit PO WK cap 05/03/19 12/18/19 History mcg (50,000 unit) capsule diltiazem HCl 30 mg tablet 30 mg PO TID tab 05/03/19 12/18/19 History furosemide 40 mg tablet 40 mg PO DAILY tab 05/03/19 12/18/19 History levothyroxine 100 mcg tablet 100 mcg PO DAILYBB tab 05/03/19 12/18/19 History metoprolol succinate 100 mg 100 mg PO DAILY tab 05/03/19 12/18/19 History tablet,extended release 24 hr nebulizers #1 ea 05/03/19 09/20/19 Rx nitroglycerin 0.4 mg sublingual 0.4 mg SUBLINGUAL DIRECTED PRN 05/03/19 12/18/19 History tablet #1 tab polyethylene glycol 3350 17 17 g PO DAILY gm 05/03/19 12/18/19 History gram/dose oral powder rosuvastatin 10 mg sprinkle capsule 10 mg PO DAILY #30 cap 05/03/19 12/18/19 Rx sertraline 50 mg tablet 50 mg PO DAILY tab 05/03/19 12/18/19 History docusate sodium 100 mg PO BID 06/04/19 12/18/19 History ferrous sulfate 325 mg PO DAILY 06/04/19 12/18/19 History fluticasone propionate 2 spray INTRANASAL DAILY 06/04/19 12/18/19 History gabapentin 200 mg PO TID 06/04/19 12/18/19 History mometasone 1 applic TOPICAL DAILY PRN 06/04/19 12/18/19 History omeprazole 20 mg PO DAILYBB 06/04/19 12/18/19 History temazepam 15 mg PO HS PRN 06/04/19 12/18/19 History metformin 500 mg PO DAILY #0 tab 06/06/19 12/18/19 Rx budesonide-formoterol HFA 160 2 puffs INHALATION BID #10.2 gm 09/20/19 12/18/19 Rx mcg-4.5 mcg/actuation aerosol inhaler clopidogrel 75 mg tablet 75 mg PO DAILY 09/20/19 12/18/19 History tiotropium bromide 2.5 2 puffs INHALATION DAILY #4 gm 09/20/19 12/18/19 Rx mcg/actuation mist for inhalation nebulizer accessories #1 ea 11/08/19 Rx L.acidoph-B.long-L.plant-B.lac 1 cap PO DAILY 12/18/19 12/18/19 History [Probiotic Acidophilus Beads] latanoprost 1 drp OPB HS 12/18/19 12/18/19 History levalbuterol HCl 1.25 mg INH Q4H PRN 12/18/19 12/18/19 History montelukast 10 mg PO DAILY 12/18/19 12/18/19 History Patient History Medical History Atrial fibrillation (Chronic) CAD (coronary artery disease) (Chronic) s/p stent Chronic anticoagulation (Chronic) CKD (chronic kidney disease), stage III (Chronic) COPD, moderate (Chronic) Diabetes mellitus, type II (Chronic) Dyslipidemia (Chronic) Esophageal stenosis (Chronic) History of esophageal dilatation (Chronic) HLD (hyperlipidemia) (Chronic) HTN (hypertension) (Chronic) Hypothyroidism (Chronic) Interstitial lung disease (Chronic) Ischemic cardiomyopathy (Chronic) CAYETANO on CPAP (Chronic) Pacemaker (Chronic) Pulmonary embolism (Resolved) Surgical History AICD (automatic cardioverter/defibrillator) present (Chronic) H/O tubal ligation (Chronic) Hx of cholecystectomy (Chronic) Family History Father Heart disorder Mother Heart disorder Social History Preferred Language: Maori Communication Ability: Effective Environmental Lawyer Required: No Beliefs That Will Affect Care: None Current Living Situation: Alone Current Living Situation Comment: has caregivers come to home Other Information That Helps Us Care for You: No Feels Safe at Home: Yes Safety Concerns: Feels Safe At This Time Smoking Status: Former smoker Tobacco Type: cigarettes ; Do You Dip or Chew Tobacco: No ; Second Hand Exposure: No ; Tobacco Cessation Education Requested by Patient: No Hx Alcohol Use: No Hx Substance Use: No Review of Systems Review of Systems: All systems reviewed & are unremarkable except as noted in HPI & below Physical Exam Constitutional: + frail appearing, well groomed, cooperative and comfortable Eyes: PERRL, conjunctivae normal, anicteric sclerae ENMT: external ear and nose normal, oropharynx normal Respiratory: normal respiratory effort; no respiratory distress, no retractions and does not use accessory muscles Cardiovascular: RRR, no murmur, no edema Gastrointestinal (Abdomen): normal bowel sounds, soft, nontender, no hepatosplenomegaly Skin: no rashes, warm and dry no jaundice Psychiatric: A+Ox3, euthymic affect Lymphatic: no lymphedema Results & Data ([facility]) Vital Signs (Past 12 Hours) Vital Signs Temp Pulse Pulse Resp BP BP BP 12/18/19 07:50 73 12/18/19 07:05 37.7 C H 75 19 155/75 H 12/18/19 06:47 76 157/72 H 12/18/19 06:12 74 16 12/18/19 05:16 75 12/18/19 05:14 37.2 C 77 20 166/85 H Pulse Ox 12/18/19 07:50 12/18/19 07:05 93 12/18/19 06:47 12/18/19 06:12 93 12/18/19 05:16 12/18/19 05:14 92
[2019-12-18] MEDS: AMPICILLIN/SULBACTAM SOD 3,000 MG in 0.9 % SODIUM CHLORIDE 100 ML IV SCH ×2 (12:25→17:00)
--- NOTE | 2019-12-18 13:32 | Electrocardiogram Report ---
Test Reason : Blood Pressure : / mmHG Vent. Rate : 076 BPM Atrial Rate : 076 BPM P-R Int : 268 ms QRS Dur : 140 ms QT Int : 478 ms P-R-T Axes : 000 -57 000 degrees QTc Int : 537 ms Atrial-paced rhythm with prolonged AV conduction Left axis deviation Right bundle branch block Septal infarct , age undetermined T wave abnormality, consider lateral ischemia Abnormal ECG When compared with ECG of 04-JUN-2019 12:39, Septal infarct is now Present Confirmed by Ambrocio Velasquez ([id number]) on 12/18/2019 1:31:38 PM Referred By: Colton Avitia Confirmed By:Ambrocio Velasquez
[2019-12-18] MEDS ORDERED: HEPARIN SOD 5,000 UNIT/0.5 ML VIAL SQ SCH (14:00)
[2019-12-18] MEDS ORDERED: Nursing to Pharmacy Communication ONE (15:03)
[2019-12-18] MEDS ORDERED: MICONAZOLE NITRATE POWDER 43 GM EXT PRN (15:06)
[2019-12-18] MEDS ORDERED: FUROSEMIDE 40 MG TAB PO SCH (19:30)
[2019-12-18] MEDS: CLOPIDOGREL BISULFATE 75 MG TAB PO SCH (20:24)
[2019-12-18] MEDS: LATANOPROST 0.005% OP SOLN 2.5 ML BTL OPB SCH (20:25)
[2019-12-18] MEDS: ACETAMINOPHEN 1,000 MG/100 ML VIAL IV PRN (23:45)
[2019-12-19] MEDS: AMPICILLIN/SULBACTAM SOD 3,000 MG in 0.9 % SODIUM CHLORIDE 100 ML IV SCH ×4 (00:12→18:22)
[2019-12-19] MEDS ORDERED: XOPENEX/ATROVENT 1.25mg/0.5MG NEB COMBO NEB STA (02:33)
[2019-12-19] MEDS ORDERED: IPRATROPIUM BROMIDE NEB SOLN 0.02% 2.5 ML VIAL INH ONE (02:37)
[2019-12-19] MEDS ORDERED: LEVALBUTEROL 1.25MG/0.5ML NEB INH ONE (02:37)
[2019-12-19] MEDS ORDERED: methylPREDNISolone 40 MG in SYRINGE 0 ML IV ONE (02:45)
--- NOTE | 2019-12-19 02:51 | Communication Note ---
Date of Service: December 19, 2019 Made aware by RN of worsening shortness of breath symptoms. O2 sats 80s on 10 L as per RN. Recurrent regurgitation episodes since last night despite compliance with speech therapy instructions prevent aspiration as per patient. Trouble with swallowing again. Junky cough symptoms productive of brown sputum. Chest x-ray as per my interpretation : Dense RLL infiltrate with congestion, cardiomegaly AP Worsening hypoxemic respiratory failure Multifactorial : Possible COPD exacerbation secondary to recurrent aspiration pneumonia Supplemental O2 Baseline ABG Solu-Medrol course, nebs RTC Continue Unasyn IV Lasix 1 dose N.p.o. for now until repeat swallow evaluation in a.m. Will relay to AM provider.
[2019-12-19 03:00] LABS: Basophils # (auto) 0.03 K/uL (0-0.2); Basophils % (auto) 0.2 %; Eosinophils # (auto) 0.03 K/uL (0-0.5); Eosinophils % (auto) 0.2 %; Hematocrit (blood only) 39.1 % (37-47); Hemoglobin 12.5 g/dL (12.0-16.0); Immature Granulocytes # (auto) 0.03 K/uL (0.00-0.02); Immature Granulocytes % (auto) 0.2 %; Lymphocytes # (auto) 0.72 K/uL (1.2-3.4); Lymphocytes % (auto) 5.9 %; Mean Corpuscular Hemoglobin 26.5 pg (25-34); Mean Platelet Volume 10.5 fL (7.4-10.4); Monocytes # (auto) 0.45 K/uL (0.11-0.59); Monocytes % (auto) 3.7 %; Neutrophils # (auto) 11.04 K/uL (1.4-6.5); Neutrophils % (auto) 89.8 %; Platelet Count 188 K/uL (130-400); RDW Coefficient of Variation 16.8 % (11.5-14.5); RDW Standard Deviation 51.2 fL (36.4-46.3); Red Blood Count 4.71 M/uL (4.2-5.4)
[2019-12-19] MEDS ORDERED: FUROSEMIDE 40 MG in SYRINGE 0 ML IV ONE (03:00)
[2019-12-19 03:06] LABS: Base Excess ABG 1.7 mEq/L (-9-1.8); HCO3 ABG 27 mmol/L (19-24); Oxygen Saturation ABG 91.4 % (90-95); PCO2 ABG 45 mmHg (35-46); PO2 ABG 63 mmHg (80-95)
[2019-12-19 03:08] LABS: Allen Test POS (Pos)
[2019-12-19 03:11] LABS: Partial Thromboplastin Ratio 0.9; Partial Thromboplastin Time 25.4 Seconds (21.0-31.0)
[2019-12-19 03:17] LABS: BUN Creatinine Ratio 17.7 (10-20); Calcium 8.9 mg/dl (8.5-10.1); Est GFR (African American) 64.3; Est GFR (Non-African American) 55.5; Magnesium 2.2 mg/dl (1.8-2.4); Potassium 3.5 mmol/L (3.5-5.1)
[2019-12-19] MEDS: POTASSIUM CHLORIDE / WTR 10 MEQ/100 ML PLCT IV SCH ×5 (04:07→07:50)
[2019-12-19] MEDS: METOPROLOL TARTRATE 1 MG/ML VIAL IV SCH ×4 (05:50→23:56)
[2019-12-19] MEDS ORDERED: LEVALBUTEROL 1.25MG/0.5ML NEB INH SCH ×2 (06:00→07:00)
[2019-12-19] MEDS: PANTOprazole 40 MG TAB PO SCH (06:00)
[2019-12-19] MEDS: LEVOTHYROXINE SODIUM 100 MCG TABLET PO SCH (06:01)
[2019-12-19] MEDS: IPRATROPIUM BROMIDE NEB SOLN 0.02% 2.5 ML VIAL INH SCH ×3 (06:52→18:41)
[2019-12-19] MEDS: LEVALBUTEROL 1.25MG/0.5ML NEB INH SCH ×3 (06:52→18:42)
[2019-12-19] MEDS ORDERED: XOPENEX/ATROVENT 1.25mg/0.5MG NEB COMBO NEB SCH (07:00)
--- NOTE | 2019-12-19 07:13 | XRay Report ---
SINGLE VIEW CHEST CLINICAL HISTORY: Dyspnea. FINDINGS: An AP, portable, upright chest radiograph is compared to chest x-ray and chest CT dated 05/08. The examination is degraded by portable technique and patient rotation. A cardiac AICD is unc hanged in position and partially obscures the left lateral chest. The heart is enlarged noting athero sclerotic calcification of the thoracic aorta. There is pulmonary vascular congestion. There is asymm etric airspace consolidation throughout the left mid to lower lung and at the right lung base. Small pleural effusions are noted. No pneumothorax is seen. The skeletal structures are osteopenic. The bon y thorax is grossly intact. IMPRESSION: 1. Cardiomegaly and AICD with evidence of congestive failure. 2. Asymmetric bilateral airspace opacities could represent pneumonia and/or pulmonary edema. Clinical correlation will be required. Radiographic follow-up to resolution is recommended. 3. Small pleural effusions. ACT 112: Negative or not required by law. Electronically signed by: Oral Kirby M.D. 12/19/2019 7:12 AM
[2019-12-19] MEDS: FLUTICASONE/VILANTEROL 100/25MCG 14 PUFFS/INHALER INH SCH (08:58)
[2019-12-19] MEDS: UMECLIDINIUM BROMIDE 62.5MCG/BLISTER 7 PUFFS/INHALER INH SCH (08:58)
[2019-12-19] MEDS: FLUTICASONE PROPIONATE NA SPR 16 GM BTL SCH (09:05)
[2019-12-19] MEDS: INSULIN ASPART 100 UNITS/ML 3 ML PEN SC SCH ×3 (09:06→18:37)
[2019-12-19] MEDS: DOCUSATE SODIUM 100 MG CAP PO SCH ×2 (09:07→21:15)
[2019-12-19] MEDS: dilTIAZem HCL 30 MG TAB PO SCH ×3 (09:07→21:15)
[2019-12-19] MEDS: SERTRALINE HCL 50 MG TABLET PO SCH (09:08)
[2019-12-19] MEDS: MONTELUKAST SODIUM 10 MG TABLET PO SCH (09:08)
[2019-12-19] MEDS: ROSUVASTATIN CALCIUM 10 MG TAB PO SCH (09:08)
[2019-12-19] MEDS: POLYETHYLENE (MIRALAX) 17 GM PACK PO SCH (09:08)
[2019-12-19] MEDS: FERROUS SULFATE 325 MG TAB PO SCH (09:08)
[2019-12-19] MEDS: ASPIRIN 81 MG ECTAB PO SCH (09:08)
[2019-12-19] MEDS: GABAPENTIN 100 MG CAP PO SCH ×3 (09:08→21:15)
[2019-12-19] MEDS: CLOPIDOGREL BISULFATE 75 MG TAB PO SCH (09:08)
[2019-12-19] MEDS: ENOXAPARIN INJ 30 MG/0.3 ML SYR SQ SCH (09:09)
[2019-12-19] MEDS ORDERED: Nursing to Pharmacy Communication ONE (09:31)
[2019-12-19] MEDS: INSULIN GLARGINE SOLOSTAR 100 UNITS/ML 3 ML PEN SC SCH (09:34)
--- NOTE | 2019-12-19 11:52 | Fluoroscopy Report ---
FL video swallow HISTORY: assess for aspiration TECHNIQUE: Video fluoroscopic evaluation of swallowing was performed in the AP and lateral projection s by the speech pathology staff. The patient is fed nectar-thick and thin liquid barium, a barium coa mónica wafer, and barium pudding. FLUOROSCOPY TIME: 1.6 minutes. A cine loop submitted.. COMPARISON STUDY: Video swallow 06/05/2019. FINDINGS: Multiple episodes of penetration with evidence for trace aspiration with the thin liquid ba rium only. There is also moderate to severe distention of the majority esophagus. The distal esophagu s is not well visualized on this limited imaging. IMPRESSION: 1. Trace aspiration with the thin liquid barium only. 2. Moderate to severe distention of the visualized esophagus. Consider follow-up barium swallow for f urther evaluation and to exclude an obstructing lesion within the distal esophagus. 3. Please see the speech pathologist report for detailed findings and recommendations. ACT 112: Positive. There are findings on this exam that require communication between the performing entity and the patient following Patient Test Result Information Act ([place] Act 112) guidelines. Electronically signed by: Ranjan Grajeda M.D. 12/19/2019 11:50 AM
--- NOTE | 2019-12-19 12:31 | Communication Note ---
Date of Service: December 19, 2019 GI note: Pt had video swallow study this w signs of moderate to severe distention of the visualized esophagus. Obstructing lesion within the distal esophagus cannot be excluded. Study images and result reviewed w Dr. Temple. Will plan for EGD eval tomorrow 12/20/2019. Please keep pt NPO after midnight
--- NOTE | 2019-12-19 13:21 | Hospitalist Progress Note ---
Date of Service December 19, 2019 Assessment & Plan (1) Acute hypoxemic respiratory failure: COPD exacerbation Aspiration pneumonia Possible related to dysphagia CT neck and chest CT showed patchy bibasilar air space disease right greater than left. Small right pleural effusion. Dilated esophagus to the level of the gastroesophageal junction. Esophagus is filled with ingested food CXR showed patchy opacity of the right lung base Continue IV Unasyn IV solumedrol given yesterday, will continue for now Continue oxygen supplement and neb treatment Continue inhaler with Breo and Incruse Blood cx no growth Dysphagia CT showed esophagus filled with ingested food Last EGD done 08/2019 normal esophagus, stomach, duodenum. Video swallow done showed Trace aspiration with the thin liquid barium only. Moderate to severe distention of the visualized esophagus. Case discussed with speech that said that the food seems to stuck in her esophagus because the imaging did not showed any food that went to the stomach GI on board Case discussed with GI that plan for EGD tomorrow Continue follow with speech therapy Aspiration precaution Will make NPO CAD Denies any chest pain On aspirin, metoprolol ISCHEMIC CARDIOMYOPATHY Ejection fraction 25% Continue Lasix, metoprolol ATRIAL FIBRILLATION, STATUS POST PACEMAKER PLACEMENT Rate control with metoprolol and cardizem DIABETES TYPE 2 Continue insulin sliding scale Monitor BS DVT prophylaxis Will hold AM dose of Lovenox for the EGD CODE STATUS FULL COD Admission and Anticipated Discharge Date Admission Date: December 18, 2019 Subjective Pt was seen and examined Sitting in chair with no distress Pt said that her breathing seems to improves She said that she continues to have difficulty to swallow She said that she regurgitates any liquid or food Denies any chest pain, palpitation, dizziness and fever Physical Exam Physical Exam: General- No acute distress Head- atraumatic Eyes- PERRL, EOMI, ENT- oropharynx clear Neck- supple, no JVD Lungs- coarse BS Heart- regular rhythm; no murmur Abdomen- normal bowel sounds, soft, nontender Extremities- no calf tenderness Neuro- alert, oriented x 3 Skin- warm & dry Results & Data Results & Data ([facility]) Vital Signs (Past 12 Hours) Vital Signs Temp Pulse Pulse Resp BP BP BP 12/19/19 11:25 77 163/74 H 12/19/19 11:24 36.9 C 77 22 163/74 H 12/19/19 09:29 12/19/19 07:35 76 12/19/19 07:00 37.0 C 78 20 165/61 H 12/19/19 06:53 79 21 12/19/19 05:43 72 16 156/79 H 12/19/19 02:55 37.4 C 80 22 152/73 H 12/19/19 02:37 81 24 12/19/19 02:33 37.4 C 77 26 H 168/83 H Pulse Ox 12/19/19 11:25 12/19/19 11:24 95 12/19/19 09:29 91 12/19/19 07:35 12/19/19 07:00 91 12/19/19 06:53 91 12/19/19 05:43 91 12/19/19 02:55 89 L 12/19/19 02:37 80 L 12/19/19 02:33 89 L
[2019-12-19] MEDS: ACETAMINOPHEN 1,000 MG/100 ML VIAL IV PRN (19:04)
[2019-12-19] MEDS: LATANOPROST 0.005% OP SOLN 2.5 ML BTL OPB SCH (21:16)
[2019-12-20] MEDS: AMPICILLIN/SULBACTAM SOD 3,000 MG in 0.9 % SODIUM CHLORIDE 100 ML IV SCH ×5 (00:03→23:58)
[2019-12-20] MEDS: INSULIN ASPART 100 UNITS/ML 3 ML PEN SC SCH ×5 (00:04→20:44)
[2019-12-20] MEDS: IPRATROPIUM BROMIDE NEB SOLN 0.02% 2.5 ML VIAL INH SCH ×4 (00:27→18:52)
[2019-12-20] MEDS: LEVALBUTEROL 1.25MG/0.5ML NEB INH SCH ×4 (00:27→18:54)
[2019-12-20] MEDS: LEVOTHYROXINE SODIUM 100 MCG TABLET PO SCH (05:34)
[2019-12-20] MEDS: PANTOprazole 40 MG TAB PO SCH (05:34)
[2019-12-20] MEDS: METOPROLOL TARTRATE 1 MG/ML VIAL IV SCH ×3 (05:37→18:27)
[2019-12-20] MEDS: UMECLIDINIUM BROMIDE 62.5MCG/BLISTER 7 PUFFS/INHALER INH SCH (07:37)
[2019-12-20] MEDS: FERROUS SULFATE 325 MG TAB PO SCH (07:38)
[2019-12-20] MEDS: dilTIAZem HCL 30 MG TAB PO SCH ×3 (07:38→20:59)
[2019-12-20] MEDS: FLUTICASONE PROPIONATE NA SPR 16 GM BTL SCH (07:38)
[2019-12-20] MEDS: ASPIRIN 81 MG ECTAB PO SCH (07:38)
[2019-12-20] MEDS: DOCUSATE SODIUM 100 MG CAP PO SCH ×2 (07:38→20:59)
[2019-12-20] MEDS: ROSUVASTATIN CALCIUM 10 MG TAB PO SCH (07:38)
[2019-12-20] MEDS: FLUTICASONE/VILANTEROL 100/25MCG 14 PUFFS/INHALER INH SCH (07:38)
[2019-12-20] MEDS: SERTRALINE HCL 50 MG TABLET PO SCH (07:39)
[2019-12-20] MEDS: GABAPENTIN 100 MG CAP PO SCH ×3 (07:39→20:59)
[2019-12-20] MEDS: POLYETHYLENE (MIRALAX) 17 GM PACK PO SCH (07:39)
[2019-12-20] MEDS: ENOXAPARIN INJ 30 MG/0.3 ML SYR SQ SCH (07:39)
[2019-12-20] MEDS: MONTELUKAST SODIUM 10 MG TABLET PO SCH (07:39)
--- NOTE | 2019-12-20 08:02 | Anesthesiology Consultation ---
Date of Service December 20, 2019 Assessment & Plan Chart Review Chart Review: Acceptable Risk for Surgery Consults Requested none ASA ASA4 Proposed Anesthesia Anesthesia Type: General (RSI secondary to food in esophagus) Risk / Benefits Reviewed With: PT / POA / Parent / Guardian, Accepts Plan and Informed Consent Obtained Additional Comments: pt accepts possible risk of postop ventilation secondary to poor preop pulm status. pt accepts cardiac risk given h/o prior CAD/cardiac stents will plan for IV Bblocker for rate control periop. History Surgery Operation Date: 12/20/19 07:00 Proposed Procedures p Esophagogastroduodenoscopy - Cherri Temple MD Operation Date: 12/20/19 09:45 Proposed Procedures p Esophagogastroduodenoscopy Dr Temple - Cherri Temple MD Height/Weight Height: 5 ft 6 in Weight: 108 kg Allergies Allergy/AdvReac Type Severity Reaction Status Date / Time amiodarone AdvReac Mild hepatotoxic Verified 12/18/19 07:12 ity Medications Home Medications Medication Instructions Recorded Confirmed Last Taken aspirin 81 mg tablet,delayed 81 mg PO DAILY #30 tab 05/03/19 12/18/19 Unknown release cholecalciferol (vitamin D3) 1,250 50,000 unit PO WK cap 05/03/19 12/18/19 Unknown mcg (50,000 unit) capsule diltiazem HCl 30 mg tablet 30 mg PO TID tab 05/03/19 12/18/19 Unknown furosemide 40 mg tablet 40 mg PO DAILY tab 05/03/19 12/18/19 Unknown levothyroxine 100 mcg tablet 100 mcg PO DAILYBB tab 05/03/19 12/18/19 Unknown metoprolol succinate 100 mg 100 mg PO DAILY tab 05/03/19 12/18/19 Unknown tablet,extended release 24 hr nebulizers #1 ea 05/03/19 09/20/19 Unknown nitroglycerin 0.4 mg sublingual 0.4 mg SUBLINGUAL DIRECTED PRN 05/03/19 12/18/19 Unknown tablet #1 tab polyethylene glycol 3350 17 17 g PO DAILY gm 05/03/19 12/18/19 Unknown gram/dose oral powder rosuvastatin 10 mg sprinkle capsule 10 mg PO DAILY #30 cap 05/03/19 12/18/19 Unknown sertraline 50 mg tablet 50 mg PO DAILY tab 05/03/19 12/18/19 Unknown docusate sodium 100 mg PO BID 06/04/19 12/18/19 Unknown ferrous sulfate 325 mg PO DAILY 06/04/19 12/18/19 Unknown fluticasone propionate 2 spray INTRANASAL DAILY 06/04/19 12/18/19 Unknown gabapentin 200 mg PO TID 06/04/19 12/18/19 Unknown mometasone 1 applic TOPICAL DAILY PRN 06/04/19 12/18/19 Unknown omeprazole 20 mg PO DAILYBB 06/04/19 12/18/19 Unknown temazepam 15 mg PO HS PRN 06/04/19 12/18/19 Unknown metformin 500 mg PO DAILY #0 tab 06/06/19 12/18/19 Unknown budesonide-formoterol HFA 160 2 puffs INHALATION BID #10.2 gm 09/20/19 12/18/19 Unknown mcg-4.5 mcg/actuation aerosol inhaler clopidogrel 75 mg tablet 75 mg PO DAILY 09/20/19 12/18/19 Unknown tiotropium bromide 2.5 2 puffs INHALATION DAILY #4 gm 09/20/19 12/18/19 Unknown mcg/actuation mist for inhalation nebulizer accessories #1 ea 11/08/19 Unknown L.acidoph-B.long-L.plant-B.lac 1 cap PO DAILY 12/18/19 12/18/19 Unknown [Probiotic Acidophilus Beads] latanoprost 1 drp OPB HS 12/18/19 12/18/19 Unknown levalbuterol HCl 1.25 mg INH Q4H PRN 12/18/19 12/18/19 Unknown montelukast 10 mg PO DAILY 12/18/19 12/18/19 Unknown Active Medications Generic Name Dose Route Start Last Admin Trade Name Freq PRN Reason Stop Dose Admin Aspirin 81 mg 12/18/19 09:00 12/20/19 07:38 Ecotrin Ectab PO 01/17/20 08:59 Not Given DAILY [facility] Clopidogrel Bisulfate 75 mg 12/18/19 19:30 12/19/19 09:08 Plavix PO 01/17/20 19:29 Not Given DAILY [facility] Diltiazem HCl 30 mg 12/18/19 09:00 12/20/19 07:38 Cardizem PO 01/17/20 08:59 Not Given TID [facility] Docusate Sodium 100 mg 12/18/19 09:00 12/20/19 07:38 Colace PO 01/17/20 08:59 Not Given BID [facility] Enoxaparin Sodium 30 mg 12/18/19 09:00 12/20/19 07:39 Lovenox SQ 01/17/20 08:59 Not Given QAM [facility] Ferrous Sulfate 325 mg 12/18/19 09:00 12/20/19 07:38 Feosol PO 01/17/20 08:59 Not Given DAILY [facility] Fluticasone Propionate 2 sprays 12/18/19 09:00 12/20/19 07:38 Flonase NA 01/17/20 08:59 2 sprays DAILY [facility] Administration Fluticasone/Vilanterol 1 puffs 12/18/19 09:00 12/20/19 07:38 Breo Ellipta 100/25 Mcg Inh INH 01/17/20 08:59 1 puffs DAILY [facility] Administration Gabapentin 200 mg 12/18/19 09:00 12/20/19 07:39 Neurontin PO 01/17/20 08:59 Not Given TID [facility] Acetaminophen 1,000 mg in 100 mls @ 400 mls/hr 12/18/19 05:04 12/19/19 19:20 Ofirmev IV 12/21/19 05:03 Infused Q8H PRN Infusion pain/fever Ampicillin Sodium/Sulbactam 108 mls @ 216 mls/hr 12/18/19 12:00 12/20/19 06:10 Sodium 3,000 mg/ Sodium IV 12/25/19 11:59 Infused Chloride Q6H [facility] Infusion Protocol Methylprednisolone 40 mg/ 0.64 mls @ 1.5 mls/min 12/20/19 09:00 12/20/19 08:30 Syringe IV 12/24/19 08:59 1.5 mls/min DAILY [facility] Administration Insulin Aspart 0 units 12/19/19 12:00 12/20/19 05:37 Novolog Flexpen SC 01/18/20 11:59 Not Given Q6 [facility] Insulin Glargine 5 units 12/18/19 09:00 12/19/19 09:34 Lantus Solostar Pen SC 01/17/20 08:59 Not Given DAILY [facility] Ipratropium [place] 0.5 mg 12/19/19 07:00 12/20/19 07:17 Atrovent 0.02% 0.5mg/2.5ml INH 01/18/20 06:59 0.5 mg Q6R [facility] Administration Latanoprost 1 drops 12/18/19 21:00 12/19/19 21:16 Xalatan Oph OPB 01/17/20 20:59 1 drops HS [facility] Administration Levalbuterol HCl 1.25 mg 12/19/19 07:00 12/20/19 07:17 Xopenex 1.25mg/0.5ml Neb INH 01/18/20 06:59 1.25 mg Q6R [facility] Administration Levothyroxine Sodium 100 mcg 12/18/19 06:30 12/20/19 05:34 Synthroid PO 01/17/20 06:29 Not Given DAILYBB [facility] Metoprolol Succinate 100 mg 12/18/19 09:00 12/18/19 08:34 Toprol Xl PO 01/17/20 08:59 100 mg DAILY [facility] Administration Metoprolol Tartrate 5 mg 12/20/19 00:00 12/20/19 05:37 Lopressor IV 01/19/20 00:00 5 mg Q6 [facility] Administration Montelukast Sodium 10 mg 12/18/19 09:00 12/20/19 07:39 Singulair PO 01/17/20 08:59 Not Given DAILY [facility] Pantoprazole Sodium 40 mg 12/18/19 06:30 12/20/19 05:34 Protonix PO 01/17/20 06:29 Not Given DAILYBB [facility] Polyethylene Glycol 17 gm 12/18/19 09:00 12/20/19 07:39 Miralax Powder Packet PO 01/17/20 08:59 Not Given DAILY [facility] Rosuvastatin Calcium 10 mg 12/18/19 09:00 12/20/19 07:38 Crestor PO 01/17/20 08:59 Not Given DAILY [facility] Sertraline HCl 50 mg 12/18/19 09:00 12/20/19 07:39 Zoloft PO 01/17/20 08:59 Not Given DAILY [facility] Tramadol HCl 25 - 50 mg 12/18/19 05:51 12/18/19 20:38 Ultram PO 01/17/20 05:50 50 mg Q4H PRN Administration Pain Umeclidinium [place] 1 puffs 12/18/19 09:00 12/20/19 07:37 Incruse Ellipta INH 01/17/20 08:59 1 puffs DAILY [facility] Administration NPO Date Last Intake of Fluids: 12/19/19 Time Last Intake of Fluids: 23:00 Date Last Intake of Solids: 12/19/19 Time Last Intake of Solids: 23:00 Past Medical History Medical History Atrial fibrillation (Chronic) CAD (coronary artery disease) (Chronic) s/p stent Chronic anticoagulation (Chronic) CKD (chronic kidney disease), stage III (Chronic) COPD, moderate (Chronic) Diabetes mellitus, type II (Chronic) Dyslipidemia (Chronic) Esophageal stenosis (Chronic) History of esophageal dilatation (Chronic) HLD (hyperlipidemia) (Chronic) HTN (hypertension) (Chronic) Hypothyroidism (Chronic) Interstitial lung disease (Chronic) Ischemic cardiomyopathy (Chronic) [place] on CPAP (Chronic) Pacemaker (Chronic) Pulmonary embolism (Resolved) food noted to aortic arch on OSH CT scan dated 12/17/19 aspiration pneumonia FBG 0530 today =99 pt denies prior [place]/CVA pt notes no SOB with 6Lnc, but work o fbreathing sig more than typical Exercise / Class Metabolic Activity III < 4 Walking/Shop/Light housework Past Family History Family History Father Heart disorder Mother Heart disorder Past Surgical History Surgical History AICD (automatic cardioverter/defibrillator) present (Chronic) H/O tubal ligation (Chronic) Hx of cholecystectomy (Chronic) Past Anesthesia History No Hx of Anesthesia Complications and No Family Hx of Anesthesia Complications slow to arouse in past History of PONV No Hx of PONV and No Hx of Motion Sickness Social History Smoking Status: Former smoker tobacco type: cigarettes Do You Dip or Chew Tobacco: No Hx Alcohol Use: No Hx Substance Use: No Physical Exam Vital Signs Last Vital Signs Temp 37 C 12/20/19 09:11 Pulse 112 H 12/20/19 09:11 Resp 18 12/20/19 09:11 BP 127/96 12/20/19 09:11 Pulse Ox 95 12/20/19 09:11 Constitutional + morbidly obese ENTX Mouth: + edentulous; no TMJ abnormality Thyromental Distance: > or= 3.5 Finger Breadths Mallampati Class: III Neck normal visual inspection, trachea midline and + short neck; neck extension not limited Respiratory normal respiratory effort, + uses accessory muscles and + cough Auscultation: + diminished lung sounds, + crackles and + rhonchi Cardiovascular Rate/Rhythm: regular rhythm and + tachycardic Heart Sounds: no murmur Chest (Breasts) Chest: + pacemaker Additional Comments: pacer/aicd Musculoskeletal Spine: normal cervical ROM Extremities: full ROM of extremities Neurologic moves all extremities Psychiatric Orientation: alert and oriented x 3 Testing Laboratory Results 12/19/19 02:40 12/19/19 02:40 APTT 25.4 Seconds (21.0-31.0) 12/19/19 02:40 12/18/19 05:59 Aerobic Blood Culture - Preliminary Blood No growth in Aerobic bottle after 48 hours. Anaerobic Blood Culture - Preliminary No growth in Anaerobic bottle after 48 hours. 12/18/19 05:49 Aerobic Blood Culture - Preliminary Blood No growth in Aerobic bottle after 48 hours. Anaerobic Blood Culture - Preliminary No growth in Anaerobic bottle after 48 hours. 12/20/19 12/19/19 05:36 23:58 POC Glucose 99 120 H Electrocardiogram Date: 12/18/19 Findings: + NSR @ (76bpm atrial paced) and + RBBB QTc Int : 537 ms Atrial-paced rhythm with prolonged AV conduction Left axis deviation Right bundle branch block Septal infarct , age undetermined T wave abnormality, consider lateral ischemia Abnormal ECG Chest X-Ray Date: 12/19/19 FINDINGS: An AP, portable, upright chest radiograph is compared to chest x-ray and chest CT dated 06/04/2019. The examination is degraded by portable technique and patient rotation. A cardiac AICD is unchanged in position and partially obscures the left lateral chest. The heart is enlarged noting atherosclerotic calcification of the thoracic aorta. There is pulmonary vascular congestion. There is asymmetric airspace consolidation throughout the left mid to lower lung and at the right lung base. Small pleural effusions are noted. No pneumothorax is seen. The skeletal structures are osteopenic. The bony thorax is grossly intact. IMPRESSION: 1. Cardiomegaly and AICD with evidence of congestive failure. 2. Asymmetric bilateral airspace opacities could represent pneumonia and/or pulmonary edema. Clinical correlation will be required. Radiographic follow-up to resolution is recommended. 3. Small pleural effusions.
[2019-12-20] MEDS: methylPREDNISolone 40 MG in SYRINGE 0 ML IV SCH (08:30)
--- NOTE | 2019-12-20 09:19 | History & Physical Bridge Note ---
Date of Service December 20, 2019 History & Physical Bridge Note I have examined the patient, reviewed the History & Physical and in the interval since the performance of the History & Physical I have noted the following changes of clinical significance: no changes noted
[2019-12-20] MEDS ORDERED: fentaNYL citrate 100 MCG/2 ML VIAL ONE (09:41)
[2019-12-20] MEDS ORDERED: LIDOCAINE HCL 2% 2 ML VIAL/AMP(20MG/ML) INFIL ONE (09:42)
[2019-12-20] MEDS ORDERED: PROPOFOL IV EMULSION 10 MG/ML 20 ML VIAL IV ONE (09:42)
[2019-12-20] MEDS ORDERED: LABETALOL HCL IV 5 MG/ML 20ML IV PRN (10:18)
[2019-12-20] MEDS ORDERED: METOCLOPRAMIDE HCL INJ 5 MG/ML 2 ML VIAL IV PRN (10:18)
[2019-12-20] MEDS ORDERED: ALBUT/IPRATROP 3MG/0.5MG NEB 3 ML VIAL INH PRN (10:18)
[2019-12-20] MEDS ORDERED: fentaNYL citrate 100 MCG/2 ML VIAL IV PRN (10:18)
[2019-12-20] MEDS ORDERED: ATROPINE SULFATE 0.1 MG/ML 10ML SYR IV PRN (10:18)
[2019-12-20] MEDS ORDERED: MEPERIDINE HCL 25 MG/ML CARP/VIAL IV PRN (10:18)
[2019-12-20] MEDS ORDERED: METOPROLOL TARTRATE 1 MG/ML VIAL IV ONE (10:18)
[2019-12-20] MEDS ORDERED: ePHEDrine sulfate 50 MG/ML AMP IV PRN (10:18)
[2019-12-20] MEDS ORDERED: SUCCINYLCHOLINE CHLORIDE 20 MG/ML 10 ML VIAL ONE (10:37)
--- NOTE | 2019-12-20 10:47 | Operative Report ---
Post Operative Report Pre & Post Diagnosis Operation Date: 12/20/19 07:00 Pre-Op Diagnosis: FOOD BOLUS Post-Op Diagnosis: FOOD BOLUS Operation Date: 12/20/19 09:45 <No data on this case meets the specified criteria> I identified the patient and participated in the time-out.: Yes Procedure Operation Date: 12/20/19 07:00 Actual Procedures p Esophagogastroduodenoscopy(Not Applicable) - Cherri Temple MD Operation Date: 12/20/19 09:45 <No data on this case meets the specified criteria> Surgeon Cherri Temple MD Contact Center Director None Estimated Blood Loss 0 Findings See Below (Aperistalisis of the esophagus) Specimens None Description of Procedure EGS I attest to the content of the Intraoperative Record and any orders documented therein. Any exceptions are noted below.
[2019-12-20] MEDS ORDERED: METOCLOPRAMIDE HCL INJ 5 MG/ML 2 ML VIAL ONE (10:49)
--- NOTE | 2019-12-20 11:34 | Anesthesiology Progress Note ---
Date of Service December 20, 2019 Anesthesia Post Procedure Vital Signs Vital Signs: Temp Pulse Pulse Resp BP BP BP 12/20/19 09:11 37 C 112 H 18 127/96 12/20/19 07:27 36.9 C 99 H 18 163/79 H 12/20/19 07:18 86 18 12/20/19 07:15 88 12/20/19 05:37 73 172/81 H 12/20/19 04:38 78 18 12/20/19 03:45 36.8 C 71 18 133/69 12/20/19 01:36 73 20 12/20/19 01:31 68 12/20/19 00:27 67 16 12/19/19 23:56 96 H 144/72 H 12/19/19 23:09 36.6 C 95 H 20 164/87 H 12/19/19 19:30 36.8 C 71 22 160/79 H 12/19/19 18:45 71 16 12/19/19 18:23 74 167/79 H 12/19/19 18:21 74 167/79 H 12/19/19 16:02 12/19/19 14:45 37.3 C 74 20 145/66 H 12/19/19 14:00 12/19/19 13:21 81 19 Pulse Ox Pulse Ox Pulse Ox 12/20/19 09:11 95 12/20/19 07:27 91 12/20/19 07:18 93 12/20/19 07:15 12/20/19 05:37 12/20/19 04:38 91 12/20/19 03:45 90 12/20/19 01:36 90 12/20/19 01:31 12/20/19 00:27 90 12/19/19 23:56 12/19/19 23:09 95 12/19/19 19:30 91 12/19/19 18:45 95 12/19/19 18:23 12/19/19 18:21 12/19/19 16:02 92 12/19/19 14:45 91 12/19/19 14:00 93 75 L 12/19/19 13:21 94 Pain Intensity Bilateral Ribs: Pain Intensity: 3 Transfer of Care Handoff Completed per policy Notes Mental Status: alert / awake / arousable Patient Amnestic to Procedure: Yes Nausea / Vomiting: adequately controlled Pain: adequately controlled Airway Patency, RR, SpO2: stable & adequate BP & HR: stable & adequate Hydration State: stable & adequate Anesthetic Complications: no major complications apparent and Pt Satisfied with anesthetic care
--- NOTE | 2019-12-20 11:57 | GI REPORT ---
Patient Name: Isma Douglas Procedure Date: 12/20/2019 9:07 AM Date of : 1940 Admit Type: Inpatient Age: 79 Gender: Female Attending MD: Cherri Temple MD Procedure: Upper GI endoscopy Providers: Cherri Temple MD Referring MD: Gm Rico Indications: Dysphagia Medicines: General Anesthesia Complications: No immediate complications. Estimated Blood Loss: Estimated blood loss: none. Procedure: Pre-Anesthesia Assessment: - Prior to the procedure, a History and Physical was performed, and patient medications, allergies and sensitivities were reviewed. The patient's tolerance of previous anesthesia was reviewed. - The risks and benefits of the procedure and the sedation options and risks were discussed with the patient. All questions were answered and informed consent was obtained. - Patient identification and proposed procedure were verified prior to the procedure by the physician and the nurse. The procedure was verified in the procedure room. - Pre-procedure physical examination revealed no contraindications to sedation. After obtaining informed consent, the endoscope was passed under direct vision. Throughout the procedure, the patient's blood pressure, pulse, and oxygen saturations were monitored continuously. The Endoscope was introduced through the mouth, and advanced to the second part of duodenum. The upper GI endoscopy was accomplished without difficulty. The patient tolerated the procedure well. Findings: The Z-line was regular and was found 45 cm from the incisors. Food was found in the entire esophagus. This was cleaned and suctioned. Abnormal motility was noted in the esophagus. There is no motility of the esophageal body. The distal esophagus/lower esophageal sphincter is open and not spastic. A guidewire was placed and the scope was withdrawn. Dilation was performed with a Savary dilator with no resistance at 54 Fr and 60 Fr. The entire examined stomach was normal. The duodenal bulb and second portion of the duodenum were normal. Impression: - Food in the esophagus, suctioned. - Abnormal esophageal motility, suspicious for aperistalsis. - Normal stomach. - Normal duodenal bulb and second portion of the duodenum. - No specimens collected. Recommendation: - Return patient to [facility] for [facility] care. - Check Labs for Scleroderma. - Mechanical soft diet. - Esophageal manometry as OP to establish the diagnosis and r/o Achalasia though unlikely given wide open LES. Cherri Temple MD 12/20/2019 11:56:58 AM This report has been signed electronically. Note Initiated On: 12/20/2019 9:07 AM Number of Addenda: 0 I attest to the content of the Intraoperative Record and orders documented therein, exceptions below {[id number]}
[2019-12-20] MEDS ORDERED: Nursing to Pharmacy Communication ONE (15:07)
--- NOTE | 2019-12-20 16:57 | Hospitalist Progress Note ---
Date of Service December 20, 2019 Assessment & Plan (1) Acute hypoxemic respiratory failure: COPD exacerbation Aspiration pneumonia Possible related to dysphagia CT neck and chest CT showed patchy bibasilar air space disease right greater than left. Small right pleural effusion. Dilated esophagus to the level of the gastroesophageal junction. Esophagus is filled with ingested food CXR showed patchy opacity of the right lung base Has been on intravenous Unasyn and IV Solu-Medrol started on 12/19/2019 Continue oxygen supplement and neb treatment Continue inhaler with Breo and Incruse Clinically better and the blood culture was negative Dysphagia CT showed esophagus filled with ingested food Last EGD done 08/2019 normal esophagus, stomach, duodenum. Video swallow done showed Trace aspiration with the thin liquid barium only. Moderate to severe distention of the visualized esophagus. Case discussed with speech that said that the food seems to stuck in her esophagus because the imaging did not showed any food that went to the stomach Appreciate GI input and recommendation Status post EGD today that is 12/20/2019 Aspiration precaution Started with clears orally CAD Denies any chest pain On aspirin, metoprolol ISCHEMIC CARDIOMYOPATHY Ejection fraction 25% Continue Lasix, metoprolol Does not have any signs and/or symptoms of fluid overload ATRIAL FIBRILLATION, STATUS POST PACEMAKER PLACEMENT Rate control with metoprolol and cardizem Heart rate remains minimally elevated at 100s DIABETES TYPE 2 Continue insulin sliding scale Monitor BS DVT prophylaxis Continue Lovenox CODE STATUS FULL COD Disposition Will need to stay a day or 2 more before discharge We will update the daughter Admission and Anticipated Discharge Date Admission Date: December 18, 2019 Subjective 12/20/2019 The patient was seen and examined in medical telemetry unit She is a status post EGD and esophageal dilatation She is afraid of bleeding, started with clears orally Denies any other significant symptoms Review of Systems Review of Systems: All systems reviewed and are unremarkable except as noted below Gastrointestinal: no abdominal pain, no nausea and no vomiting Physical Exam Physical Exam: Lying in bed comfortably Constitutional: well developed, well nourished and + obese; no acute distress and not ill appearing Eyes: PERRL, conjunctivae normal, anicteric sclerae ENMT: external ear and nose normal, oropharynx normal Neck: trachea midline, no thyromegaly Respiratory: normal respiratory effort; no respiratory distress Auscultation: lungs clear to auscultation bilaterally and + diminished lung sounds Cardiovascular: Rate/Rhythm: regular rate and regular rhythm Heart Sounds: no murmur Gastrointestinal (Abdomen): Inspection/Auscultation: normal bowel sounds; abdomen not distended Percussion/Palpation: abdomen soft; abdomen nontender Musculoskeletal: No acute arthritis in any joints Neurologic: moves all extremities; no focal motor deficits Alert, awake and oriented x3. Lymphatic: no cervical or axillary lymphadenopathy Results & Data Results & Data ([facility]) Vital Signs (Past 12 Hours) Vital Signs Temp Pulse Pulse Pulse Resp BP BP 12/20/19 15:10 36.7 C 106 H 20 114/65 12/20/19 13:21 67 16 12/20/19 12:49 115 H 12/20/19 12:37 117 H 123/75 12/20/19 12:33 36.6 C 117 H 22 123/75 12/20/19 12:00 37 C 96 H 20 131/86 12/20/19 11:50 99 H 20 125/75 12/20/19 11:40 100 H 20 117/91 12/20/19 11:30 107 H 18 121/95 12/20/19 11:22 36.4 C L 96 H 20 146/87 H 12/20/19 09:11 37 C 112 H 18 127/96 12/20/19 07:27 36.9 C 99 H 18 163/79 H 12/20/19 07:18 86 18 12/20/19 07:15 88 12/20/19 05:37 73 172/81 H Pulse Ox 12/20/19 15:10 95 12/20/19 13:21 95 12/20/19 12:49 12/20/19 12:37 12/20/19 12:33 92 12/20/19 12:00 94 12/20/19 11:50 94 12/20/19 11:40 93 12/20/19 11:30 98 12/20/19 11:22 96 12/20/19 09:11 95 12/20/19 07:27 91 12/20/19 07:18 93 12/20/19 07:15 12/20/19 05:37 Medications Administered Current Inpatient Medications Acetaminophen (Tylenol) 650 mg PO Q4H PRN PRN Reason: Pain or Fever Stop: 01/17/20 05:04 Albuterol (Duoneb) 3 ml INH ONCE PRN PRN Reason: PACU Use Only-SOB/Wheezing Stop: 12/20/19 18:19 Aspirin (Ecotrin Ectab) 81 mg PO DAILY [facility] Stop: 01/17/20 08:59 Last Admin: 12/20/19 07:38 Dose: Not Given Documented by: Atropine Sulfate (Atropine Sulfate) 0.5 mg IV Q1M PRN PRN Reason: PACU Use-HR<40 &/or Bradycardi Stop: 12/20/19 18:18 Clopidogrel Bisulfate (Plavix) 75 mg PO DAILY [facility] Stop: 01/17/20 19:29 Last Admin: 12/19/19 09:08 Dose: Not Given Documented by: Dextrose (Dextrose 50%) 25 - 50 ml IV UD PRN; Protocol PRN Reason: Hypoglycemia Protocol Stop: 01/17/20 05:49 Diltiazem HCl (Cardizem) 30 mg PO TID [facility] Stop: 01/17/20 08:59 Last Admin: 12/20/19 13:20 Dose: Not Given Documented by: Docusate Sodium (Colace) 100 mg PO BID [facility] Stop: 01/17/20 08:59 Last Admin: 12/20/19 07:38 Dose: Not Given Documented by: Enoxaparin Sodium (Lovenox) 40 mg SQ QAM [facility] Stop: 01/20/20 08:59 Ephedrine Sulfate (Ephedrine Sulfate) 5 mg IV Q5M PRN PRN Reason: PACU Use Only-SBP<90 mmHg Stop: 12/20/19 18:18 Fentanyl Citrate (Fentanyl Citrate) 25 mcg IV Q5M PRN PRN Reason: PACU Use Only-Pain Stop: 12/20/19 18:18 Ferrous Sulfate (Feosol) 325 mg PO DAILY [facility] Stop: 01/17/20 08:59 Last Admin: 12/20/19 07:38 Dose: Not Given Documented by: Fluticasone Propionate (Flonase) 2 sprays NA DAILY [facility] Stop: 01/17/20 08:59 Last Admin: 12/20/19 07:38 Dose: 2 sprays Documented by: Fluticasone/Vilanterol (Breo Ellipta 100/25 Mcg Inh) 1 puffs INH DAILY [facility] Stop: 01/17/20 08:59 Last Admin: 12/20/19 07:38 Dose: 1 puffs Documented by: Furosemide (Lasix) 40 mg PO DAILY [facility] Stop: 01/20/20 08:59 Gabapentin (Neurontin) 200 mg PO TID [facility] Stop: 01/17/20 08:59 Last Admin: 12/20/19 13:20 Dose: Not Given Documented by: Glucagon (Glucagen) 1 mg SQ UD PRN; Protocol PRN Reason: Hypoglycemia Protocol Stop: 01/17/20 05:49 Glucose (Dex4 Glucose) 4 - 8 tabs PO UD PRN; Protocol PRN Reason: Hypoglycemia Protocol Stop: 01/17/20 05:49 Glucose (Glucose 40%) 15 - 30 gm PO UD PRN; Protocol PRN Reason: Hypoglycemia Protocol Stop: 01/17/20 05:49 Hydromorphone HCl (Dilaudid) 0.25 mg IV Q3H PRN PRN Reason: Pain Stop: 01/01/20 05:50 Promethazine HCl 12.5 mg/ (Sodium Chloride) 50.5 mls @ 202 mls/hr IV Q6H PRN PRN Reason: Nausea And Vomiting Stop: 01/17/20 05:03 Acetaminophen (Ofirmev) 1,000 mg in 100 mls @ 400 mls/hr IV Q8H PRN PRN Reason: pain/fever Stop: 12/21/19 05:03 Last Infusion: 12/19/19 19:20 Dose: Infused Documented by: Ampicillin Sodium/Sulbactam Sodium 3,000 mg/ Sodium Chloride 108 mls @ 216 mls/hr IV Q6H [facility]; Protocol Stop: 12/25/19 11:59 Last Infusion: 12/20/19 13:16 Dose: Infused Documented by: Methylprednisolone 40 mg/ (Syringe) 0.64 mls @ 1.5 mls/min IV DAILY [facility] Stop: 12/24/19 08:59 Last Admin: 12/20/19 08:30 Dose: 1.5 mls/min Documented by: Insulin Aspart (Novolog Flexpen) 0 units SC ACHS [facility] Stop: 01/18/20 11:59 Insulin Glargine (Lantus Solostar Pen) 5 units SC DAILY [facility] Stop: 01/17/20 08:59 Last Admin: 12/19/19 09:34 Dose: Not Given Documented by: Ipratropium [place] (Atrovent 0.02% 0.5mg/2.5ml) 0.5 mg INH Q4H PRN PRN Reason: SOB/WHEEZING Stop: 01/17/20 05:59 Ipratropium [place] (Atrovent 0.02% 0.5mg/2.5ml) 0.5 mg INH Q6R [facility] Stop: 01/18/20 06:59 Last Admin: 12/20/19 13:21 Dose: 0.5 mg Documented by: Labetalol HCl (Normodyne) 5 mg IV Q5M PRN PRN Reason: PACU Use-SBP>160 or DBP>100 Stop: 12/20/19 18:18 Latanoprost (Xalatan Oph) 1 drops OPB HS [facility] Stop: 01/17/20 20:59 Last Admin: 12/19/19 21:16 Dose: 1 drops Documented by: Levalbuterol HCl (Xopenex 1.25mg/0.5ml Neb) 1.25 mg INH Q4H PRN PRN Reason: SOB/WHEEZING Stop: 01/17/20 05:59 Levalbuterol HCl (Xopenex 1.25mg/0.5ml Neb) 1.25 mg INH Q6R [facility] Stop: 01/18/20 06:59 Last Admin: 12/20/19 13:21 Dose: 1.25 mg Documented by: Levothyroxine Sodium (Synthroid) 100 mcg PO DAILYBB [facility] Stop: 01/17/20 06:29 Last Admin: 12/20/19 05:34 Dose: Not Given Documented by: Meperidine HCl (Demerol) 12.5 mg IV Q5M PRN PRN Reason: PACU Use Only-Pain/Shivering Stop: 12/20/19 18:18 Metoclopramide HCl (Reglan) 10 mg IV ONCE PRN PRN Reason: PACU Use Only-Nausea/Vomiting Stop: 12/20/19 18:18 Metoprolol Succinate (Toprol Xl) 100 mg PO DAILY [facility] Stop: 01/17/20 08:59 Last Admin: 12/18/19 08:34 Dose: 100 mg Documented by: Metoprolol Tartrate (Lopressor) 5 mg IV Q6 [facility] Stop: 01/19/20 00:00 Last Admin: 12/20/19 12:37 Dose: 5 mg Documented by: Miconazole Nitrate (Desenex) 1 appln EXT PRN PRN PRN Reason: Affected Skin Folds Stop: 01/17/20 15:05 Miscellaneous (Carbohydrates For Hypoglycemia) 15 - 30 gm PO UD PRN PRN Reason: Hypoglycemia Protocol Stop: 01/17/20 05:49 Miscellaneous Information (Ampicillin/Sulbactam Consult) 1 ea N/A UD PRN PRN Reason: Consult Stop: 01/17/20 06:04 Montelukast Sodium (Singulair) 10 mg PO DAILY [facility] Stop: 01/17/20 08:59 Last Admin: 12/20/19 07:39 Dose: Not Given Documented by: Nitroglycerin (Nitrostat) 0.4 mg SL UD PRN PRN Reason: Chest Pain Stop: 01/17/20 05:04 [facility] Stop: 01/17/20 06:29 Last Admin: 12/20/19 05:34 Dose: Not Given Documented by: Polyethylene Glycol (Miralax Powder Packet) 17 gm PO DAILY [facility] Stop: 01/17/20 08:59 Last Admin: 12/20/19 07:39 Dose: Not Given Documented by: Rosuvastatin Calcium (Crestor) 10 mg PO DAILY [facility] Stop: 01/17/20 08:59 Last Admin: 12/20/19 07:38 Dose: Not Given Documented by: Sertraline HCl (Zoloft) 50 mg PO DAILY [facility] Stop: 01/17/20 08:59 Last Admin: 12/20/19 07:39 Dose: Not Given Documented by: Tramadol HCl (Ultram) 25 - 50 mg PO Q4H PRN PRN Reason: Pain Stop: 01/17/20 05:50 Last Admin: 12/18/19 20:38 Dose: 50 mg Documented by: Umeclidinium [place] (Incruse Ellipta) 1 puffs INH DAILY [facility] Stop: 01/17/20 08:59 Last Admin: 12/20/19 07:37 Dose: 1 puffs Documented by:
[2019-12-20] MEDS: LATANOPROST 0.005% OP SOLN 2.5 ML BTL OPB SCH (20:59)
[2019-12-21] MEDS: IPRATROPIUM BROMIDE NEB SOLN 0.02% 2.5 ML VIAL INH SCH ×4 (01:16→19:16)
[2019-12-21] MEDS: LEVALBUTEROL 1.25MG/0.5ML NEB INH SCH ×4 (01:16→19:16)
[2019-12-21] MEDS: AMPICILLIN/SULBACTAM SOD 3,000 MG in 0.9 % SODIUM CHLORIDE 100 ML IV SCH ×2 (06:00→12:46)
[2019-12-21] MEDS: PANTOprazole 40 MG TAB PO SCH (06:02)
[2019-12-21] MEDS: LEVOTHYROXINE SODIUM 100 MCG TABLET PO SCH (06:02)
[2019-12-21] MEDS: METOPROLOL TARTRATE 1 MG/ML VIAL IV SCH ×4 (06:08→17:07)
[2019-12-21] MEDS: methylPREDNISolone 40 MG in SYRINGE 0 ML IV SCH (08:51)
[2019-12-21] MEDS: INSULIN ASPART 100 UNITS/ML 3 ML PEN SC SCH ×4 (08:51→21:00)
[2019-12-21] MEDS: GABAPENTIN 100 MG CAP PO SCH ×3 (08:51→20:40)
[2019-12-21] MEDS: SERTRALINE HCL 50 MG TABLET PO SCH (08:52)
[2019-12-21] MEDS: dilTIAZem HCL 30 MG TAB PO SCH ×3 (08:52→20:40)
[2019-12-21] MEDS: FUROSEMIDE 40 MG TAB PO SCH (08:52)
[2019-12-21] MEDS: FERROUS SULFATE 325 MG TAB PO SCH (08:52)
[2019-12-21] MEDS: ROSUVASTATIN CALCIUM 10 MG TAB PO SCH (08:53)
[2019-12-21] MEDS: ASPIRIN 81 MG ECTAB PO SCH (08:53)
[2019-12-21] MEDS: MONTELUKAST SODIUM 10 MG TABLET PO SCH (08:53)
[2019-12-21] MEDS: DOCUSATE SODIUM 100 MG CAP PO SCH ×2 (08:53→20:41)
[2019-12-21] MEDS: FLUTICASONE PROPIONATE NA SPR 16 GM BTL SCH (08:53)
[2019-12-21] MEDS: UMECLIDINIUM BROMIDE 62.5MCG/BLISTER 7 PUFFS/INHALER INH SCH (08:53)
[2019-12-21] MEDS: FLUTICASONE/VILANTEROL 100/25MCG 14 PUFFS/INHALER INH SCH (08:53)
[2019-12-21] MEDS: ENOXAPARIN INJ 40 MG/0.4 ML SYR SQ SCH (08:54)
[2019-12-21] MEDS: POLYETHYLENE (MIRALAX) 17 GM PACK PO SCH (08:55)
--- NOTE | 2019-12-21 11:08 | Hospitalist Progress Note ---
Date of Service December 21, 2019 Assessment & Plan (1) Acute hypoxemic respiratory failure: COPD exacerbation Aspiration pneumonia Possible related to dysphagia CT neck and chest CT showed patchy bibasilar air space disease right greater than left. Small right pleural effusion. Dilated esophagus to the level of the gastroesophageal junction. Esophagus is filled with ingested food CXR showed patchy opacity of the right lung base Has been on intravenous Unasyn and IV Solu-Medrol started on 12/19/2019 Continue oxygen supplement and neb treatment Continue inhaler with Breo and Incruse Clinically better and the blood culture was negative Dysphagia-esophageal aperistalsis CT showed esophagus filled with ingested food Last EGD done 08/2019 normal esophagus, stomach, duodenum. Video swallow done showed Trace aspiration with the thin liquid barium only. Moderate to severe distention of the visualized esophagus. Case discussed with speech that said that the food seems to stuck in her esophagus because the imaging did not showed any food that went to the stomach Appreciate GI input and recommendation Status post EGD today that is 12/20/2019-showed food in the esophagus, abnormal with of the esophagus which is suspicious for aperistalsis otherwise normal Has been on metoclopramide Aspiration precaution Started with clears orally-we will advance to full liquid and then as per speech recommendation Discussed with the youngest daughter and updated about her current condition Most likely she will be discharged home tomorrow CAD Denies any chest pain On aspirin, metoprolol ISCHEMIC CARDIOMYOPATHY Ejection fraction 25% Continue Lasix, metoprolol Does not have any signs and/or symptoms of fluid overload ATRIAL FIBRILLATION, STATUS POST PACEMAKER PLACEMENT Rate control with metoprolol and cardizem Heart rate remains minimally elevated at 100s DIABETES TYPE 2 Continue insulin sliding scale Monitor BS DVT prophylaxis Continue Lovenox CODE STATUS FULL COD Disposition Will need to stay a day or 2 more before discharge Discussed with the youngest daughter in detail and likely discharge tomorrow Admission and Anticipated Discharge Date Admission Date: December 18, 2019 Subjective 12/20/2019 The patient was seen and examined in medical telemetry unit She is a status post EGD and esophageal dilatation She is afraid of bleeding, started with clears orally Denies any other significant symptoms 12/21/2019 The patient was seen and examined in medical floor She is out of bed on a chair Complains to have some cough with associated lower chest wall pain but denies any other significant symptoms Has been tolerating clears orally Review of Systems Review of Systems: All systems reviewed and are unremarkable except as noted below Physical Exam Physical Exam: Lying in bed comfortably Constitutional: well developed, well nourished and + obese; no acute distress and not ill appearing Eyes: PERRL, conjunctivae normal, anicteric sclerae ENMT: external ear and nose normal, oropharynx normal Neck: trachea midline, no thyromegaly Respiratory: normal respiratory effort; no respiratory distress Auscultation: lungs clear to auscultation bilaterally and + diminished lung sounds Cardiovascular: Rate/Rhythm: regular rate and regular rhythm Heart Sounds: no murmur Gastrointestinal (Abdomen): Inspection/Auscultation: normal bowel sounds; abdomen not distended Percussion/Palpation: abdomen soft; abdomen nontender Musculoskeletal: No acute arthritis involving any joints Neurologic: moves all extremities; no focal motor deficits Lymphatic: no cervical or axillary lymphadenopathy Results & Data Results & Data ([facility]) Vital Signs (Past 12 Hours) Vital Signs Temp Pulse Pulse Pulse Resp BP BP 12/21/19 07:33 93 H 18 12/21/19 07:10 36.5 C 102 H 18 155/81 H 12/21/19 06:08 60 110/82 12/21/19 05:18 36.9 C 100 H 20 136/85 12/21/19 03:39 88 16 12/21/19 01:23 96 H 16 12/21/19 01:20 101 H 12/21/19 01:16 96 H 16 12/21/19 00:05 37.0 C 108 H 22 129/75 12/21/19 00:00 98 H 129/75 Pulse Ox 12/21/19 07:33 95 12/21/19 07:10 96 12/21/19 06:08 12/21/19 05:18 92 12/21/19 03:39 93 12/21/19 01:23 94 12/21/19 01:20 12/21/19 01:16 94 12/21/19 00:05 90 12/21/19 00:00 Medications Administered Current Inpatient Medications Acetaminophen (Tylenol) 650 mg PO Q4H PRN PRN Reason: Pain or Fever Stop: 01/17/20 05:04 Aspirin (Ecotrin Ectab) 81 mg PO DAILY [facility] Stop: 01/17/20 08:59 Last Admin: 12/21/19 08:53 Dose: 81 mg Documented by: Clopidogrel Bisulfate (Plavix) 75 mg PO DAILY [facility] Stop: 01/17/20 19:29 Last Admin: 12/19/19 09:08 Dose: Not Given Documented by: Dextrose (Dextrose 50%) 25 - 50 ml IV UD PRN; Protocol PRN Reason: Hypoglycemia Protocol Stop: 01/17/20 05:49 Diltiazem HCl (Cardizem) 30 mg PO TID [facility] Stop: 01/17/20 08:59 Last Admin: 12/21/19 08:52 Dose: 30 mg Documented by: Docusate Sodium (Colace) 100 mg PO BID [facility] Stop: 01/17/20 08:59 Last Admin: 12/21/19 08:53 Dose: 100 mg Documented by: Enoxaparin Sodium (Lovenox) 40 mg SQ QAM [facility] Stop: 01/20/20 08:59 Last Admin: 12/21/19 08:54 Dose: 40 mg Documented by: Ferrous Sulfate (Feosol) 325 mg PO DAILY [facility] Stop: 01/17/20 08:59 Last Admin: 12/21/19 08:52 Dose: 325 mg Documented by: Fluticasone Propionate (Flonase) 2 sprays NA DAILY [facility] Stop: 01/17/20 08:59 Last Admin: 12/21/19 08:53 Dose: 2 sprays Documented by: Fluticasone/Vilanterol (Breo Ellipta 100/25 Mcg Inh) 1 puffs INH DAILY [facility] Stop: 01/17/20 08:59 Last Admin: 12/21/19 08:53 Dose: 1 puffs Documented by: Furosemide (Lasix) 40 mg PO DAILY [facility] Stop: 01/20/20 08:59 Last Admin: 12/21/19 08:52 Dose: 40 mg Documented by: Gabapentin (Neurontin) 200 mg PO TID [facility] Stop: 01/17/20 08:59 Last Admin: 12/21/19 08:51 Dose: 200 mg Documented by: Glucagon (Glucagen) 1 mg SQ UD PRN; Protocol PRN Reason: Hypoglycemia Protocol Stop: 01/17/20 05:49 Glucose (Dex4 Glucose) 4 - 8 tabs PO UD PRN; Protocol PRN Reason: Hypoglycemia Protocol Stop: 01/17/20 05:49 Glucose (Glucose 40%) 15 - 30 gm PO UD PRN; Protocol PRN Reason: Hypoglycemia Protocol Stop: 01/17/20 05:49 Hydromorphone HCl (Dilaudid) 0.25 mg IV Q3H PRN PRN Reason: Pain Stop: 01/01/20 05:50 Promethazine HCl 12.5 mg/ (Sodium Chloride) 50.5 mls @ 202 mls/hr IV Q6H PRN PRN Reason: Nausea And Vomiting Stop: 01/17/20 05:03 Ampicillin Sodium/Sulbactam Sodium 3,000 mg/ Sodium Chloride 108 mls @ 216 mls/hr IV Q6H [facility]; Protocol Stop: 12/25/19 11:59 Last Infusion: 12/21/19 08:44 Dose: Infused Documented by: Methylprednisolone 40 mg/ (Syringe) 0.64 mls @ 1.5 mls/min IV DAILY [facility] Stop: 12/24/19 08:59 Last Admin: 12/21/19 08:51 Dose: 1.5 mls/min Documented by: Insulin Aspart (Novolog Flexpen) 0 units SC ACHS [facility] Stop: 01/18/20 11:59 Last Admin: 12/21/19 08:51 Dose: Not Given Documented by: Insulin Glargine (Lantus Solostar Pen) 5 units SC DAILY [facility] Stop: 01/17/20 08:59 Last Admin: 12/19/19 09:34 Dose: Not Given Documented by: Ipratropium [place] (Atrovent 0.02% 0.5mg/2.5ml) 0.5 mg INH Q4H PRN PRN Reason: SOB/WHEEZING Stop: 01/17/20 05:59 Ipratropium [place] (Atrovent 0.02% 0.5mg/2.5ml) 0.5 mg INH Q6R [facility] Stop: 01/18/20 06:59 Last Admin: 12/21/19 07:29 Dose: 0.5 mg Documented by: Latanoprost (Xalatan Oph) 1 drops OPB HS [facility] Stop: 01/17/20 20:59 Last Admin: 12/20/19 20:59 Dose: 1 drops Documented by: Levalbuterol HCl (Xopenex 1.25mg/0.5ml Neb) 1.25 mg INH Q4H PRN PRN Reason: SOB/WHEEZING Stop: 01/17/20 05:59 Levalbuterol HCl (Xopenex 1.25mg/0.5ml Neb) 1.25 mg INH Q6R [facility] Stop: 01/18/20 06:59 Last Admin: 12/21/19 07:29 Dose: 1.25 mg Documented by: Levothyroxine Sodium (Synthroid) 100 mcg PO DAILYBB [facility] Stop: 01/17/20 06:29 Last Admin: 12/21/19 06:02 Dose: 100 mcg Documented by: Metoprolol Succinate (Toprol Xl) 100 mg PO DAILY [facility] Stop: 01/17/20 08:59 Last Admin: 12/18/19 08:34 Dose: 100 mg Documented by: Metoprolol Tartrate (Lopressor) 5 mg IV Q6 [facility] Stop: 01/19/20 00:00 Last Admin: 12/21/19 06:08 Dose: Not Given Documented by: Miconazole Nitrate (Desenex) 1 appln EXT PRN PRN PRN Reason: Affected Skin Folds Stop: 01/17/20 15:05 Miscellaneous (Carbohydrates For Hypoglycemia) 15 - 30 gm PO UD PRN PRN Reason: Hypoglycemia Protocol Stop: 01/17/20 05:49 Miscellaneous Information (Ampicillin/Sulbactam Consult) 1 ea N/A UD PRN PRN Reason: Consult Stop: 01/17/20 06:04 Montelukast Sodium (Singulair) 10 mg PO DAILY [facility] Stop: 01/17/20 08:59 Last Admin: 12/21/19 08:53 Dose: 10 mg Documented by: Nitroglycerin (Nitrostat) 0.4 mg SL UD PRN PRN Reason: Chest Pain Stop: 01/17/20 05:04 Pantoprazole Sodium (Protonix) 40 mg PO DAILYBB [facility] Stop: 01/17/20 06:29 Last Admin: 12/21/19 06:02 Dose: 40 mg Documented by: Polyethylene Glycol (Miralax Powder Packet) 17 gm PO DAILY [facility] Stop: 01/17/20 08:59 Last Admin: 12/21/19 08:55 Dose: 17 gm Documented by: Rosuvastatin Calcium (Crestor) 10 mg PO DAILY [facility] Stop: 01/17/20 08:59 Last Admin: 12/21/19 08:53 Dose: 10 mg Documented by: Sertraline HCl (Zoloft) 50 mg PO DAILY [facility] Stop: 01/17/20 08:59 Last Admin: 12/21/19 08:52 Dose: 50 mg Documented by: Tramadol HCl (Ultram) 25 - 50 mg PO Q4H PRN PRN Reason: Pain Stop: 01/17/20 05:50 Last Admin: 12/18/19 20:38 Dose: 50 mg Documented by: Umeclidinium [place] (Incruse Ellipta) 1 puffs INH DAILY [facility] Stop: 01/17/20 08:59 Last Admin: 12/21/19 08:53 Dose: 1 puffs Documented by:
[2019-12-21 14:55] LABS: Anti Nuclear Antibody Screen NEGATIVE (NEGATIVE); Scleroderma Anti Scl-70 Ab <1.0 NEG AI (<1.0 NEG)
[2019-12-21] MEDS: AMOXICILLIN/CLAVULANATE 875 MG TAB PO SCH (17:05)
[2019-12-21] MEDS: LATANOPROST 0.005% OP SOLN 2.5 ML BTL OPB SCH (20:40)
[2019-12-22] MEDS: METOPROLOL TARTRATE 1 MG/ML VIAL IV SCH (00:36)
[2019-12-22] MEDS: IPRATROPIUM BROMIDE NEB SOLN 0.02% 2.5 ML VIAL INH SCH ×2 (01:21→07:17)
[2019-12-22] MEDS: LEVALBUTEROL 1.25MG/0.5ML NEB INH SCH ×2 (01:21→07:17)
[2019-12-22] MEDS: PANTOprazole 40 MG TAB PO SCH (06:17)
[2019-12-22] MEDS: LEVOTHYROXINE SODIUM 100 MCG TABLET PO SCH (06:17)
[2019-12-22 07:20] LABS: Creatinine Clr Calc Pharmacy 58.1 ml/min; Est GFR (African American) 65.9; Est GFR (Non-African American) 56.9
[2019-12-22] MEDS: FERROUS SULFATE 325 MG TAB PO SCH (07:30)
[2019-12-22] MEDS: dilTIAZem HCL 30 MG TAB PO SCH (07:30)
[2019-12-22] MEDS: DOCUSATE SODIUM 100 MG CAP PO SCH (07:30)
[2019-12-22] MEDS: FUROSEMIDE 40 MG TAB PO SCH (07:30)
[2019-12-22] MEDS: ROSUVASTATIN CALCIUM 10 MG TAB PO SCH (07:30)
[2019-12-22] MEDS: AMOXICILLIN/CLAVULANATE 875 MG TAB PO SCH (07:30)
[2019-12-22] MEDS: GABAPENTIN 100 MG CAP PO SCH ×2 (07:31→13:59)
[2019-12-22] MEDS: SERTRALINE HCL 50 MG TABLET PO SCH (07:31)
[2019-12-22] MEDS: ASPIRIN 81 MG ECTAB PO SCH (07:31)
[2019-12-22] MEDS: MONTELUKAST SODIUM 10 MG TABLET PO SCH (07:31)
[2019-12-22] MEDS: ENOXAPARIN INJ 40 MG/0.4 ML SYR SQ SCH (07:32)
[2019-12-22] MEDS: UMECLIDINIUM BROMIDE 62.5MCG/BLISTER 7 PUFFS/INHALER INH SCH (07:32)
[2019-12-22] MEDS: FLUTICASONE PROPIONATE NA SPR 16 GM BTL SCH (07:32)
[2019-12-22] MEDS: FLUTICASONE/VILANTEROL 100/25MCG 14 PUFFS/INHALER INH SCH (07:33)
[2019-12-22] MEDS: POLYETHYLENE (MIRALAX) 17 GM PACK PO SCH (07:50)
[2019-12-22] MEDS: methylPREDNISolone 40 MG in SYRINGE 0 ML IV SCH (08:55)
[2019-12-22] MEDS: INSULIN ASPART 100 UNITS/ML 3 ML PEN SC SCH ×2 (08:55→12:30)
[2019-12-22] MEDS: METOPROLOL SUCC 50MG EXT REL TAB PO SCH (09:34)
--- NOTE | 2019-12-22 10:54 | Hospitalist Progress Note ---
Date of Service December 22, 2019 Assessment & Plan (1) Acute hypoxemic respiratory failure: COPD exacerbation Aspiration pneumonia Possible related to dysphagia CT neck and chest CT showed patchy bibasilar air space disease right greater than left. Small right pleural effusion. Dilated esophagus to the level of the gastroesophageal junction. Esophagus is filled with ingested food CXR showed patchy opacity of the right lung base Has been on intravenous Unasyn and IV Solu-Medrol started on 12/19/2019 Continue oxygen supplement and neb treatment Continue inhaler with Breo and Incruse Clinically better and the blood culture was negative We will give a short course of prednisone on discharge Dysphagia-esophageal aperistalsis CT showed esophagus filled with ingested food Last EGD done 08/2019 normal esophagus, stomach, duodenum. Video swallow done showed Trace aspiration with the thin liquid barium only. Moderate to severe distention of the visualized esophagus. Case discussed with speech that said that the food seems to stuck in her esophagus because the imaging did not showed any food that went to the stomach Appreciate GI input and recommendation Status post EGD today that is 12/20/2019-showed food in the esophagus, abnormal with of the esophagus which is suspicious for aperistalsis otherwise normal Has been on metoclopramide Aspiration precaution Started with clears orally-we will advance to full liquid and then as per speech recommendation Discussed with the youngest daughter and updated about her current condition Tolerating regular diet, minced and moist without any problem with swallowing CAD Denies any chest pain On aspirin, metoprolol ISCHEMIC CARDIOMYOPATHY Ejection fraction 25% Continue Lasix, metoprolol Does not have any signs and/or symptoms of fluid overload ATRIAL FIBRILLATION, STATUS POST PACEMAKER PLACEMENT Rate control with metoprolol and cardizem Heart rate remains minimally elevated at 100s Was on Eliquis before but there are discontinued by the [facility] in September of this year DIABETES TYPE 2 Continue insulin sliding scale Monitor BS DVT prophylaxis Continue Lovenox CODE STATUS FULL COD Disposition Will need to stay a day or 2 more before discharge Discharge home this afternoon Admission and Anticipated Discharge Date Admission Date: December 18, 2019 Subjective 12/20/2019 The patient was seen and examined in medical telemetry unit She is a status post EGD and esophageal dilatation She is afraid of bleeding, started with clears orally Denies any other significant symptoms 12/21/2019 The patient was seen and examined in medical floor She is out of bed on a chair Complains to have some cough with associated lower chest wall pain but denies any other significant symptoms Has been tolerating clears orally 12/22/2019 Patient was seen and examined in medical telemetry unit She has been feeling a lot better and has been tolerating regular diet Cough is decreased and denies any problem with swallowing Review of Systems Review of Systems: All systems reviewed and are unremarkable except as noted below Physical Exam Physical Exam: Lying in bed comfortably Constitutional: well developed, well nourished and + obese; no acute distress and not ill appearing Eyes: PERRL, conjunctivae normal, anicteric sclerae ENMT: external ear and nose normal, oropharynx normal Neck: trachea midline, no thyromegaly Respiratory: normal respiratory effort; no respiratory distress Auscultation: lungs clear to auscultation bilaterally and + diminished lung sounds Cardiovascular: Rate/Rhythm: + tachycardic; + abnormal rate and + abnormal rhythm Heart Sounds: no murmur Gastrointestinal (Abdomen): Inspection/Auscultation: normal bowel sounds; abdomen not distended Percussion/Palpation: abdomen soft; abdomen nontender Musculoskeletal: No acute arthritis in any joints Neurologic: moves all extremities; no focal motor deficits Lymphatic: no cervical or axillary lymphadenopathy Results & Data Results & Data ([facility]) Vital Signs (Past 12 Hours) Vital Signs Temp Pulse Pulse Pulse Resp BP BP 12/22/19 07:43 36.5 C 114 H 18 149/99 H 12/22/19 07:17 116 H 16 12/22/19 04:00 36.7 C 114 H 20 134/93 12/22/19 03:36 102 H 20 12/22/19 01:24 109 H 109 H 18 12/22/19 00:36 105 H 141/106 H Pulse Ox 12/22/19 07:43 97 12/22/19 07:17 98 12/22/19 04:00 97 12/22/19 03:36 97 12/22/19 01:24 97 12/22/19 00:36 Laboratory Results BMP 12/22/19 06:34 Creatinine 0.94 Medications Administered Current Inpatient Medications Acetaminophen (Tylenol) 650 mg PO Q4H PRN PRN Reason: Pain or Fever Stop: 01/17/20 05:04 Last Admin: 12/22/19 00:54 Dose: 650 mg Documented by: Amoxicillin/Clavulanate Potassium (Augmentin 875mg) 1 tab PO BIDM [facility]; Protocol Stop: 12/28/19 16:59 Last Admin: 12/22/19 07:30 Dose: 1 tab Documented by: Aspirin (Ecotrin Ectab) 81 mg PO DAILY [facility] Stop: 01/17/20 08:59 Last Admin: 12/22/19 07:31 Dose: 81 mg Documented by: Clopidogrel Bisulfate (Plavix) 75 mg PO DAILY [facility] Stop: 01/17/20 19:29 Last Admin: 12/19/19 09:08 Dose: Not Given Documented by: Dextrose (Dextrose 50%) 25 - 50 ml IV UD PRN; Protocol PRN Reason: Hypoglycemia Protocol Stop: 01/17/20 05:49 Diltiazem HCl (Cardizem) 30 mg PO TID [facility] Stop: 01/17/20 08:59 Last Admin: 12/22/19 07:30 Dose: 30 mg Documented by: Docusate Sodium (Colace) 100 mg PO BID [facility] Stop: 01/17/20 08:59 Last Admin: 12/22/19 07:30 Dose: 100 mg Documented by: Enoxaparin Sodium (Lovenox) 40 mg SQ QAM [facility] Stop: 01/20/20 08:59 Last Admin: 12/22/19 07:32 Dose: 40 mg Documented by: Ferrous Sulfate (Feosol) 325 mg PO DAILY [facility] Stop: 01/17/20 08:59 Last Admin: 12/22/19 07:30 Dose: 325 mg Documented by: Fluticasone Propionate (Flonase) 2 sprays NA DAILY [facility] Stop: 01/17/20 08:59 Last Admin: 12/22/19 07:32 Dose: 2 sprays Documented by: Fluticasone/Vilanterol (Breo Ellipta 100/25 Mcg Inh) 1 puffs INH DAILY [facility] Stop: 01/17/20 08:59 Last Admin: 12/22/19 07:33 Dose: 1 puffs Documented by: Furosemide (Lasix) 40 mg PO DAILY [facility] Stop: 01/20/20 08:59 Last Admin: 12/22/19 07:30 Dose: 40 mg Documented by: Gabapentin (Neurontin) 200 mg PO TID [facility] Stop: 01/17/20 08:59 Last Admin: 12/22/19 07:31 Dose: 200 mg Documented by: Glucagon (Glucagen) 1 mg SQ UD PRN; Protocol PRN Reason: Hypoglycemia Protocol Stop: 01/17/20 05:49 Glucose (Dex4 Glucose) 4 - 8 tabs PO UD PRN; Protocol PRN Reason: Hypoglycemia Protocol Stop: 01/17/20 05:49 Glucose (Glucose 40%) 15 - 30 gm PO UD PRN; Protocol PRN Reason: Hypoglycemia Protocol Stop: 01/17/20 05:49 Hydromorphone HCl (Dilaudid) 0.25 mg IV Q3H PRN PRN Reason: Pain Stop: 01/01/20 05:50 Promethazine HCl 12.5 mg/ (Sodium Chloride) 50.5 mls @ 202 mls/hr IV Q6H PRN PRN Reason: Nausea And Vomiting Stop: 01/17/20 05:03 Methylprednisolone 40 mg/ (Syringe) 0.64 mls @ 1.5 mls/min IV DAILY [facility] Stop: 12/24/19 08:59 Last Admin: 12/22/19 08:55 Dose: 1.5 mls/min Documented by: Insulin Aspart (Novolog Flexpen) 0 units SC ACHS [facility] Stop: 01/18/20 11:59 Last Admin: 12/22/19 08:55 Dose: Not Given Documented by: Insulin Glargine (Lantus Solostar Pen) 5 units SC DAILY [facility] Stop: 01/17/20 08:59 Last Admin: 12/19/19 09:34 Dose: Not Given Documented by: Ipratropium [place] (Atrovent 0.02% 0.5mg/2.5ml) 0.5 mg INH Q4H PRN PRN Reason: SOB/WHEEZING Stop: 01/17/20 05:59 Ipratropium [place] (Atrovent 0.02% 0.5mg/2.5ml) 0.5 mg INH Q6R [facility] Stop: 01/18/20 06:59 Last Admin: 12/22/19 07:17 Dose: 0.5 mg Documented by: Latanoprost (Xalatan Oph) 1 drops OPB HS [facility] Stop: 01/17/20 20:59 Last Admin: 12/21/19 20:40 Dose: 1 drops Documented by: Levalbuterol HCl (Xopenex 1.25mg/0.5ml Neb) 1.25 mg INH Q4H PRN PRN Reason: SOB/WHEEZING Stop: 01/17/20 05:59 Levalbuterol HCl (Xopenex 1.25mg/0.5ml Neb) 1.25 mg INH Q6R [facility] Stop: 01/18/20 06:59 Last Admin: 12/22/19 07:17 Dose: 1.25 mg Documented by: Levothyroxine Sodium (Synthroid) 100 mcg PO DAILYBB [facility] Stop: 01/17/20 06:29 Last Admin: 12/22/19 06:17 Dose: 100 mcg Documented by: Metoprolol Succinate (Toprol Xl) 100 mg PO DAILY [facility] Stop: 01/17/20 08:59 Last Admin: 12/22/19 09:34 Dose: 100 mg Documented by: Miconazole Nitrate (Desenex) 1 appln EXT PRN PRN PRN Reason: Affected Skin Folds Stop: 01/17/20 15:05 Miscellaneous (Carbohydrates For Hypoglycemia) 15 - 30 gm PO UD PRN PRN Reason: Hypoglycemia Protocol Stop: 01/17/20 05:49 Montelukast Sodium (Singulair) 10 mg PO DAILY [facility] Stop: 01/17/20 08:59 Last Admin: 12/22/19 07:31 Dose: 10 mg Documented by: Nitroglycerin (Nitrostat) 0.4 mg SL UD PRN PRN Reason: Chest Pain Stop: 01/17/20 05:04 Pantoprazole Sodium (Protonix) 40 mg PO DAILYBB [facility] Stop: 01/17/20 06:29 Last Admin: 12/22/19 06:17 Dose: 40 mg Documented by: Polyethylene Glycol (Miralax Powder Packet) 17 gm PO DAILY [facility] Stop: 01/17/20 08:59 Last Admin: 12/22/19 07:50 Dose: 17 gm Documented by: Rosuvastatin Calcium (Crestor) 10 mg PO DAILY [facility] Stop: 01/17/20 08:59 Last Admin: 12/22/19 07:30 Dose: 10 mg Documented by: Sertraline HCl (Zoloft) 50 mg PO DAILY [facility] Stop: 01/17/20 08:59 Last Admin: 12/22/19 07:31 Dose: 50 mg Documented by: Tramadol HCl (Ultram) 25 - 50 mg PO Q4H PRN PRN Reason: Pain Stop: 01/17/20 05:50 Last Admin: 12/18/19 20:38 Dose: 50 mg Documented by: Umeclidinium Kingsley (Incruse Ellipta) 1 puffs INH DAILY [facility] Stop: 01/17/20 08:59 Last Admin: 12/22/19 07:32 Dose: 1 puffs Documented by:
[2019-12-22] MEDS ORDERED: predniSONE 10 MG TABLET PO SCH (11:00)
--- NOTE | 2019-12-22 13:57 | Discharge Summary ---
Date of Service December 22, 2019 Admission HPI Per Admitting Provider History obtained from patient and records. Medical history significant for chronic systolic heart failure secondary to ischemic cardiomyopathy (EF 20%, TTE 2017), CAD status post stent, A. fib status post PPM status post Watchman procedure, PVD as per records, hypertension, hyperlipidemia, chronic respiratory failure secondary to COPD/ILD/CAYETANO on home O2 at night as per patient, history PE DVT as per records, chronic anemia (baseline hemoglobin 11), DM2 on oral medications, history esophageal dysmotility as per records, mood disorder, past tobacco abuse. Recent confinement [facility] September 2023 for pneumonitis. Abnormal LFTs noted attributed to amiodarone. Amiodarone stopped on discharge. 2 nights ago patient noted cough symptoms noted after dinner. Cough symptoms later noted to be yellow with pleuritic chest discomfort and shortness of breath. Trouble swallowing saliva. Subsequent emesis resulted in partial improvement of swallowing symptoms. Denies headache, abdominal pain, constipation/diarrhea symptoms, flulike symptoms. No known recent sick contacts/travel. Patient evaluated at [facility] yesterday. O2 sats 80s at the lowest at ER as per report. CT soft tissue neck, chest results as follows : Prominent anterior cervical bridging osteophytic spurring at C5-C6 and to lesser degree C6-C7 impinging on posterior margin of cervical esophagus. Debris and fluid within the mid to lower cervical esophagus and upper thoracic esophagus. Distal esophageal obstruction versus breast by esophagus versus achalasia. Cardiomegaly. Borderline venous congestion/chronic interstitial prominence. Patchy opacity of the right lung base with increased density seen posteriorly on lateral view suggesting developing right lower lobe infiltrate, subsegmental atelectasis, alveolar edema. Patient transferred to [facility] on recommendations of Moon Thompson GI specialist refinery [employer] for GI services. Upon arrival at [facility] med telemetry unit, patient complaining of substernal discomfort going to the neck not relieved by nitro. Persistent symptoms, swallowing better but not entirely back to her baseline as per patient, Medical History as above EGD 2018 esophageal dysmotility Surgical History : ICD/PPM, BTL, cholecystectomy Family History : Heart disease Personal/Social history : Past tobacco abuse, no EtOH abuse, retired trapper animal Admission Exam Per Admitting Provider Physical Exam: GENERAL: Slightly uncomfortable, obese, no respiratory distress SKIN: Normal color, warm HEENT: Bespectacled, [place] palpebral conjunctivae, no ptosis, dry buccal mucosa, nasal cannula in place NECK : Supple, short neck, no tenderness CHEST : Decreased breath sounds, no tenderness HEART : Diminished S1-S2 , no obvious murmurs ABDOMEN: distention, nontender EXTREMITIES : Minimal LE swelling, no LE tenderness, no other conspicuous deformities noted NEUROLOGIC : Coherent, no facial asymmetry, no other gross focality Principal Diagnosis COPD exacerbation, possible aspiration pneumonia, esophageal dysmotility, chronic A. fib, ischemic cardiomyopathy with EF of 25% Discharge Exam Constitutional well developed, well nourished and + obese; no acute distress and not ill appearing Eyes PERRL, conjunctivae normal, anicteric sclerae ENMT external ear and nose normal, oropharynx normal Neck trachea midline, no thyromegaly Respiratory normal respiratory effort; no respiratory distress Auscultation: lungs clear to auscultation bilaterally and + diminished lung sounds Cardiovascular Rate/Rhythm: + tachycardic; + abnormal rate and + abnormal rhythm Heart Sounds: no murmur Gastrointestinal (Abdomen) Inspection/Auscultation: normal bowel sounds; abdomen not distended Percussion/Palpation: abdomen soft; abdomen nontender Neurologic moves all extremities; no focal motor deficits Lymphatic no cervical or axillary lymphadenopathy Discharge Data Allergies Allergy/AdvReac Type Severity Reaction Status Date / Time amiodarone AdvReac Mild hepatotoxic Verified 12/18/19 07:12 ity Consultations 12/18/19 05:05 Consult Case Management - Discharge Planning Routine 12/18/19 05:48 Consult Gastroenterology Routine Procedures Performed Operation Date: 12/20/19 07:00 Actual Procedures p Esophagogastroduodenoscopy(Not Applicable) - Cherri Temple MD Operation Date: 12/20/19 09:45 <No data on this case meets the specified criteria> Ordered Studies 12/19/19 11:00 FL video swallow Routine Hospital Course (1) Acute hypoxemic respiratory failure: COPD exacerbation Aspiration pneumonia Possible related to dysphagia CT neck and chest CT showed patchy bibasilar air space disease right greater than left. Small right pleural effusion. Dilated esophagus to the level of the gastroesophageal junction. Esophagus is filled with ingested food CXR showed patchy opacity of the right lung base Has been on intravenous Unasyn and IV Solu-Medrol started on 12/19/2019 Continue oxygen supplement and neb treatment Continue inhaler with Breo and Incruse Clinically better and the blood culture was negative We will give a short course of prednisone on discharge Dysphagia-esophageal aperistalsis CT showed esophagus filled with ingested food Last EGD done 08/2019 normal esophagus, stomach, duodenum. Video swallow done showed Trace aspiration with the thin liquid barium only. Moderate to severe distention of the visualized esophagus. Case discussed with speech that said that the food seems to stuck in her esophagus because the imaging did not showed any food that went to the stomach Appreciate GI input and recommendation Status post EGD today that is 12/20/2019-showed food in the esophagus, abnormal with of the esophagus which is suspicious for aperistalsis otherwise normal Has been on metoclopramide Aspiration precaution Started with clears orally-we will advance to full liquid and then as per speech recommendation Discussed with the youngest daughter and updated about her current condition Tolerating regular diet, minced and moist without any problem with swallowing CAD Denies any chest pain On aspirin, metoprolol ISCHEMIC CARDIOMYOPATHY Ejection fraction 25% Continue Lasix, metoprolol Does not have any signs and/or symptoms of fluid overload ATRIAL FIBRILLATION, STATUS POST PACEMAKER PLACEMENT Rate control with metoprolol and cardizem Heart rate remains minimally elevated at 100s Was on Eliquis before but there are discontinued by the [facility] in September of this year DIABETES TYPE 2 Continue insulin sliding scale Monitor BS DVT prophylaxis Continue Lovenox CODE STATUS FULL COD Disposition Will need to stay a day or 2 more before discharge Discharge home this afternoon Total Time Total Time Spent Total Time Spent (In Minutes): 40 minutes Total Time Includes: Examination of the Patient, Discharge Planning, Medication Reconciliation and Communication With Other Providers Discharge Plan Discharge Items Patient Disposition: Home - Home Health Services Reason For Visit: FOOD BOLUS Discharge Diagnosis: COPD exacerbation, possible aspiration pneumonia, esophageal dysmotility, chronic A. fib, ischemic cardiomyopathy with EF of 25% Condition on Discharge: Fair Activity: Resume your previous activity Non-emergency contact: Primary Care Provider Call non-emergency contact if: you have any medication questions and your symptoms worsen Follow-up/Referrals: Elena Ledesma, [Primary Care Provider] - 12/25/19 8:40 am Diet: Carb Consistent or DM2 and Heart Healthy Diet Comment: Minced and moist Addtl Attending Provider Instructions: Please take precaution to avoid falls Take preventive measures to avoid aspiration while eating Pending Studies at Discharge: No Stand-Alone Forms: My [facility], Smoking Cessation Medications and DC Order Prescriptions: New prednisone 10 mg Tablet 10 mg PO UD Qty: 18 RF: 0 amoxicillin-pot clavulanate [Augmentin] 875-125 mg Tablet 1 tab PO BIDM 3 Days Qty: 6 RF: 0 Continued (DME) nebulizer accessories Kit See Rx Instructions .ROUTE .MEDSUPPLY Qty: 1 RF: 0 cholecalciferol (vitamin D3) 50,000 unit capsule 50,000 unit PO WK RF: 0 sertraline 50 mg tablet 50 mg PO DAILY RF: 0 polyethylene glycol 3350 17 gram/dose powder 17 g PO DAILY RF: 0 diltiazem HCl 30 mg tablet 30 mg PO TID RF: 0 furosemide 40 mg tablet 40 mg PO DAILY RF: 0 nitroglycerin 0.4 mg tablet, sublingual 0.4 mg sublingual DIRECTED PRN (Reason: Chest Pain) Qty: 1 RF: 0 levothyroxine 100 mcg tablet 100 mcg PO DAILYBB RF: 0 metoprolol succinate 100 mg tablet extended release 24 hr 100 mg PO DAILY RF: 0 (DME) nebulizers mis See Dose Instructions [id number] .MEDSUPPLY Qty: 1 RF: 0 aspirin [Adult Low Dose Aspirin] 81 mg tablet,delayed release (DR/EC) 81 mg PO DAILY Qty: 30 RF: 2 rosuvastatin 10 mg capsule, sprinkle 10 mg PO DAILY Qty: 30 RF: 0 clopidogrel [Plavix] 75 mg tablet 75 mg PO DAILY RF: 0 budesonide-formoterol 160-4.5 mcg/actuation HFA aerosol inhaler 2 puffs inhalation BID Qty: 10.2 RF: 5 tiotropium bromide 2.5 mcg/actuation mist 2 puffs inhalation DAILY Qty: 4 RF: 5 temazepam 15 mg capsule 15 mg PO HS PRN (Reason: Sleep) RF: 0 ferrous sulfate 325 mg (65 mg iron) Tablet 325 mg PO DAILY RF: 0 docusate sodium 100 mg Capsule 100 mg PO BID RF: 0 omeprazole 20 mg capsule,delayed release(DR/EC) 20 mg PO DAILYBB RF: 0 gabapentin 100 mg Capsule 200 mg PO TID RF: 0 fluticasone propionate 50 mcg/actuation [place],Suspension 2 spray INTRANASAL DAILY RF: 0 mometasone 0.1 % cream 1 applic topical DAILY PRN (Reason: affected area) RF: 0 metformin 500 mg tablet 500 mg PO DAILY Qty: 0 RF: 0 montelukast 10 mg tablet 10 mg PO DAILY RF: 0 levalbuterol HCl 1.25 mg/3 mL solution for nebulization 1.25 mg INH Q4H PRN (Reason: Wheezing) RF: 0 latanoprost 0.005 % drops 1 drp OPB HS RF: 0 Probiotic Acidophilus Beads 2 billion cell Capsule 1 cap PO DAILY RF: 0 Discharge Orders: Discharge Order (Routine); Ordered 12/22/19 Ordered By: Gm Rico Admission Data Admit Date/Time: 12/18/19 05:03 Attending Provider: Gm Rico Admit Provider: Sagar Yu Primary Care Provider: Elena Ledesma Other Providers: Sagar Yu ; Luz Soni ; Mary Ann Duvall Other Interventions: Discharge Summary Assessment (RN) Last Done: 12/22/19 12:40
--- NOTE | 2019-12-22 17:40 | Electrocardiogram Report ---
Test Reason : Blood Pressure : / mmHG Vent. Rate : 138 BPM Atrial Rate : 030 BPM P-R Int : 000 ms QRS Dur : 156 ms QT Int : 392 ms P-R-T Axes : 000 089 269 degrees QTc Int : 593 ms Atrial fibrillation with rapid ventricular response Right bundle branch block Cannot rule out Inferior infarct , age undetermined T wave abnormality, consider inferior ischemia T wave abnormality, consider anterior ischemia Abnormal ECG No previous ECGs available Confirmed by Ambrocio Velasquez ([id number]) on 12/22/2019 5:39:28 PM Referred By: Colton Avitia Confirmed By:Ambrocio Velasquez
== END 2019-12-22 14:29 | disposition home health service (06) | DRG 326 ==
LOC: SUATTDRO 05:03 → 2W 05:03